=== PATIENT | male | born 1940 | race Caucasian/White ===

== ENCOUNTER → 2019-07-08 09:42 | Outpatient (CLI) | payer MEDICARE, OTHER, SELFPAY ==
[2019-07-08] VITALS (8 sets, daily range): BP systolic 99–151; BP diastolic 44–72; PULSE 63–85; RESP 16; TEMP 36.3–36.7; O2SAT 96–99; BMI 37.3
[2019-07-08] MEDS: 0.9% NaCl Peripheral Flush Adult/Peds IV (10:14)
[2019-07-08] MEDS: Acetaminophen 325 MG Tablet 650 MG PO (10:16)
[2019-07-08] MEDS: Furosemide 20 MG/2 ML VIAL IV (13:13)
== END ==
PROVIDERS: PCP Internal Medicine; Referring Provider Internal Medicine Hematology & Oncology; Visit Provider Internal Medicine Hematology & Oncology
DX: C61 Malignant neoplasm of prostate (principal); D64.9 Anemia, unspecified
CPT/HCPCS: 36430; 86850; 86900; 86901; 86920; 86922; J7040; P9016; A4216; J1940

== ENCOUNTER 2019-07-20 10:14 | Inpatient (IN) | payer MEDICARE, OTHER, SELFPAY ==
[2019-07-08 09:57] VITALS: BMI 37.3
[2019-07-20] VITALS (9 sets, daily range): BP systolic 132–161; BP diastolic 54–73; PULSE 66–91; RESP 16–18; TEMP 36.6–37.5; O2SAT 93–100; BMI 36.4; BMI 36.5
--- NOTE | 2019-07-20 10:43 | EKG12_ITS ---
Test Reason : ABN LABS Blood Pressure : / mmHG Vent. Rate : 069 BPM Atrial Rate : 069 BPM P-R Int : 192 ms QRS Dur : 116 ms QT Int : 474 ms P-R-T Axes : 072 -17 059 degrees QTc Int : 507 ms Normal sinus rhythm Nonspecific ST and T wave abnormality Prolonged QT Abnormal ECG Confirmed by JOE MAY ([id number]), health editor CHARLENE MOLINA ([id number]) on 07/28/2019 7:47:18 AM Referred By: CAROLINA Confirmed By:JOE MAY
--- NOTE | 2019-07-20 10:45 | ED.DCSUM_ITS ---
- ER Visit Summary Date of Service: 07/20/19 Chief Complaint: Abnormal labs History of Present Illness: The patient is a 78 M who presents with abnormal labs that were noticed yesterday. Patient states he had labs drawn yesterday and he was noted to have an elevated BUN and creatinine. Patient states he was told yesterday to come to the emergency department but he waited until today. Patient states he has been feeling somewhat weak. Patient denies any fevers or chills. Patient denies any chest pain or shortness of breath. Patient admits to occasional cough. Patient denies any nausea or vomiting. Patient denies any dysuria or hematuria. Patient denies any flank pain. Physical Examination: Vital signs are stable. Patient is afebrile. Patient is in no acute distress. Oral mucosa is pink and moist. Neck is supple. Trachea is midline. There is no JVD. Heart was regular rate and rhythm. Lungs are clear and equal bilaterally. Abdomen is soft. Bowel sounds are normal. There is no tenderness. Cranial nerves II through XII are intact. There are no focal motor or sensory deficits noted. Test Results: CBC showed a mild anemia with hemoglobin of 8.3. Comprehensive metabolic profile showed a sodium of 148 and a chloride of 113 with a potassium of 3.2. BUN and creatinine were also elevated at 56 and 6.31 respectively. Urinalysis does not show any evidence of urinary tract infection. Emergency Department Course and Treatment: Patient was given IV fluids. Case was discussed with the hospitalist. He will admit the patient to his service. Patient understood and was agreeable with the plan. All questions were answered. Disposition: Admit to hospital Impression: 1. Acute kidney injury This note was generated with [employer] dictation software. It may contain incorrect words, spelling, and punctuation that were not noted in review of the chart prior to signing ED Disposition - Plan for ED Patient: Disposition: Acute [facility]
[2019-07-20 11:00] LABS: Mucous, Urine 0 SEEN /hpf (<or=2+); Squamous Epithelial Cells - UA 0 SEEN /hpf (0-5); White Blood Cells 0 SEEN /hpf (0-5)
[2019-07-20 11:01] LABS: Absolute Lymphocyte Count 0.81 X10^3/uL (0.83-4.51); Absolute Neutrophil Count 4.5 X10^3/uL (2.0-7.7); Basophil# 0.02 X10^3/uL; Basophil% 0.3 % (0-1); Eosinophil# 0.12 X10^3/uL; Hematocrit 27.1 % (40-54); Hemoglobin 8.3 g/dL (13.0-16.5); Lymphocyte # 0.81 X10^3/ul (4.0); Lymphocyte % 13.6 % (19-41); Mean Corp Hgb Conc 30.6 g/dL (32-36); Mean Corpuscular Hgb 29.1 pg (27.0-32.0); Mean Corpuscular Volume 95.1 fL (80-94); Mean Platelet Vol. 9.2 fl (6.2-12.0); Monocyte% 8.4 % (0-10); NRBC Flagged by Analyzer 0 % (0-5); Neutrophil # 4.45 X10^3/uL (2.7-7.7); Neutrophil % 74.9 % (47-70); Platelet Count 199 K/mm3 (150-450); RBC Distribution Width CV 15.2 % (11.6-14.6); RBC Distribution Width SD 53.1 fl (35.1-43.9); Red Blood Count 2.85 M/mm3 (4.6-6.2)
[2019-07-20 11:01] LABS: Color, Urine Yellow (Yellow); Glucose, Dipstick Normal (Normal); Ketone-Dipstick Negative (Negative); Leukocyte Esterase-Dipstick Negative /ul (Negative); Nitrite-Dipstick Negative (Negative); Occult Blood-Urine 50 /ul (Negative); Protein-Dipstick 100 mg/dl (Negative); Specific Gravity, Urine 1.015 (1.002-1.030); Urine Bilirubin Dipstick Negative (Negative); Urine Clarity Sl. Cloudy (Clear); Urine Urobilinogen Normal (Normal)
[2019-07-20 11:07] LABS: Amorphous Sediment 1+; Bacteria RARE /hpf (None Seen); Red Blood Cells-Urine 0-5 SEEN /hpf (0-5)
--- NOTE | 2019-07-20 11:10 | RAD_ITS ---
STUDY: X-RAY CHEST REASON FOR EXAM: Male, 78 years old. ELEVATED BUN AND CREATNINE LEVELS. TECHNIQUE: Single AP portable view of the chest. COMPARISON: None. FINDINGS: EKG electrodes are seen. Scattered calcified granulomas. There is a 1.1 cm x 4.7 cm no focal pleural thickening along the lateral aspect of the right lung base. There is no demonstrated pleural abnormality. Normal size heart. Normal mediastinum and eugenio. Normal visualized pulmonary arteries. Normal visualized aortic arch and descending thoracic aorta. There are diffuse degenerative changes of the visualized thoracic spine. There is a 1 cm round sclerotic lesion in the proximal left humerus. Metastatic deposit should be ruled out. Multiple healed left-sided rib fractures. There is no demonstrated abnormality of the visualized soft tissue structures of the upper abdomen. RAD/Chest 1 View (Portable) IMPRESSION: Focal pleural thickening in the lateral aspect of the right lung base as described. Multiple healed left rib fractures. Possible 1 cm sclerotic metastasis in the proximal portion of the left humerus. Electronically Signed: Issa Rojo, at 11:32 EDT , Service support ,
[2019-07-20 11:19] LABS: AST(SGOT) 11 U/L (15-37); Alanine Aminotransfer ALT/SGPT 15 U/L (16-61); Albumin, Serum 3.3 g/dL (3.2-5.0); Alkaline Phosphatase 31 U/L (45-117); Anion Gap 9 (5-15); BUN 56 mg/dL (7-18); BUN/Creat Ratio 8.9 RATIO (10-20); Calcium,Total 9.2 mg/dL (8.5-10.1); Chloride 113 mmol/L (98-107); Creatinine, Serum 6.31 mg/dL (0.70-1.30); EST Glomerular Filtration Rate 9 mL/min (>60); Est Glom Filt Rate - Afr Amer 11 mL/min (>60); Estimated Creatinine Clearance 9.64 ml/min; Globulin 3.4 g/dL (2.2-4.2); Glucose 132 mg/dL (74-106); Potassium 3.2 mmol/L (3.5-5.1); Protein, Total 6.7 g/dL (6.4-8.2); Sodium Level 148 mmol/L (136-145)
[2019-07-20] MEDS: 0.9% Normal Saline 1,000 ML 1000 ML IV (12:23)
--- NOTE | 2019-07-20 12:56 | HP.PCM_ITS ---
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 Per patient he was called by his primary care physician following a routine lab work which demonstrated worsening kidney infection. Patient was on metformin as well as Altace at home he was instructed to stop those medications. He was also instructed to present to the ED. Repeat labs obtained in the ED demonstrated worsening kidney function. Patient was started on hydration admitted to regular nursing floor for further management Past Medical History Past Medical History (Chronic Problems): Chronic Problems DM (diabetes mellitus) (Chronic) Essential (primary) hypertension (Chronic) Prostate CA (Chronic) Allergies Iodinated Contrast Media Allergy (Verified 07/20/19 10:16) PT UNSURE OF REACTION Home Medications: Ambulatory Orders Medication Instructions Recorded Aspirin E.C. [Ecotrin] 81 mg PO DAILY@0800 08/14/16 Atorvastatin Calcium [Lipitor] 10 mg PO QHS 08/14/16 Doxazosin Mesylate [Cardura] 8 mg PO DAILY 08/14/16 Fenofibrate,Micronized 34 mg PO DAILY 08/14/16 [Fenofibrate] Leuprolide Acetate [Lupron 30 mg IM 08/14/16 Depot-Ped] Ondansetron [Zofran Odt] 4 mg PO Q8H PRN PRN #10 tablet 08/14/16 Polyethylene Glycol 3350 [Miralax] 17 gm PO DAILY 08/14/16 Sitagliptin Phosphate [Januvia] 50 mg PO DAILY 08/14/16 Triamcinolone Acetonide [Nasacort 2 spray NASAL DAILY 08/14/16 Aq Nasal Wells] Abiraterone Acetate 1,000 mg PO DAILY 07/20/19 Amlodipine [Norvasc] mg PO DAILY 07/20/19 Ergocalciferol (Vitamin D2) 50,000 unit PO QWEEK 07/20/19 [Drisdol] Fluoxetine [Prozac] 20 mg PO DAILY 07/20/19 Furosemide [Lasix] 20 mg PO QODAY 07/20/19 Iron Polysaccharide Complex 150 mg PO DAILY 07/20/19 [Ferrex 150] Prednisone 5 mg PO DAILY 07/20/19 Smoking Status: Never smoker - *Family History Maternal History Items: Cancer Paternal History Items: Heart Disease Review of Systems Constitutional: Denies: Anorexia, Chills, Fever, Night Sweats, Weight Change HEENT: Denies: Head Aches, Sinus Congestion, Sinus Drainage Cardiovascular: Denies: Chest Pain, Orthopnea, Palpitations, Paroxysmal Noc. Dyspnea Respiratory: Denies: Cough, Shortness of breath at rest, Shortness of breath upon exertion, Sputum production Gastrointestinal: Denies: Abdominal Pain, Hematemesis, Hematochezia, Nausea, Melena, Vomiting Genitourinary: Denies: Dysuria, Frequency, Hematuria, Urgency Musculoskeletal: Denies: Joint Pain, Joint Tenderness Skin: Denies: Rash Neurological: Denies: Focal weakness, Numbness, Tingling Psychiatric: Denies: Homicidal Ideations, Suicidal Ideations Hematologic/ Lymphatic: Denies: Easy Bruising, Easy Bleeding VTE Information - Inpt Only VTE Present on Admission: No VTE Mechan Device Prophylaxis: SCD's VTE Pharm Prophylaxis ordered?: Yes Patient Problems: Active and Suspected Problems SARA (acute kidney injury) (Acute) Objective: GENERAL: cooperative HEENT: Atraumatic; EYES; Anicteric, Normal Conjunctiva NECK; supple, normal thyroid, RESPIRATORY: Diminished to auscultation CARDIOVASCULAR: Regular S1 S2, GI: soft, normoactive bowel sounds, : No Renal angle tenderness; EXTREMITIES: No edema, no clubbing, MUSCULOSKELETAL: no muscle waisting NEURO: Awake; no lateralizing signs. SKIN: No Rash PSYCH; Flat affect - Physical Exam Vitals/I&O's: Vital Signs Temp Pulse Resp BP Pulse Ox 98.2 F 72 18 149/73 H 100 07/20/19 12:18 07/20/19 12:18 07/20/19 12:18 07/20/19 12:18 06/03/20 12:18 Oxygen Delivery Method Room Air Weight: 115.3 kg Body Mass Index (BMI) 36.4 Intake and Output for Last 24 Hours 07/18/19 07/19/19 07/20/19 23:59 23:59 23:59 Intake Total 500 / 500 Balance 500 / 500 Laboratory Results 07/20/19 10:51: WBC 6.0, RBC 2.85 L, Hgb 8.3 L, Hct 27.1 L, MCV 95.1 H, MCH 29.1, MCHC 30.6 L, RDW Std Deviation 53.1 H, RDW Coeff of Alva 15.2 H, Plt Count 199, MPV 9.2, Immature Gran % (Auto) 0.800, Neut % (Auto) 74.9 H, Lymph % (Auto) 13.6 L, [place] % (Auto) 8.4, Eos % (Auto) 2.0, Baso % (Auto) 0.3, Absolute Neuts (auto) 4.5, Absolute Lymphs (auto) 0.81 L, Nucleated RBC % 0 07/20/19 10:51: Sodium 148 H, Potassium 3.2 L, Chloride 113 H, Carbon Dioxide 26.0, Anion Gap 9, BUN 56 H, Creatinine 6.31 H, Estim Creat Clear Calc 9.64, Est GFR (MDRD) Af Amer 11 L, Est GFR (MDRD) Non-Af 9 L, BUN/Creatinine Ratio 8.9 L, Glucose 132 H, Calcium 9.2, Total Bilirubin 0.30, AST 11 L, ALT 15 L, Alkaline Phosphatase 31 L, Total Protein 6.7, Albumin 3.3, Globulin 3.4, Albumin/Globulin Ratio 1.0 07/20/19 10:54: Urine Color Yellow, Urine Clarity Sl. Cloudy, Urine pH 6.0, Ur Specific [place] 1.015, Urine Protein 100 H, Urine Glucose (UA) Normal, Urine Ketones Negative, Urine Occult Blood 50 H, Urine Nitrite Negative, Urine Bilirubin Negative, Urine Urobilinogen Normal, Ur Leukocyte Esterase Negative, Urine RBC 0-5 SEEN, Urine WBC 0 SEEN, Ur Squamous Epith Cells 0 SEEN, Amorphous Sediment 1+, Urine Bacteria RARE, Urine Mucus 0 SEEN Current Medications Sodium Chloride () 1,000 mls @ 1,000 mls/hr IV .Q1H ONE Stop: 07/20/19 13:12 Last Admin: 07/20/19 12:23 Dose: 1,000 mls/hr Documented by: Assessment/Plan All Active Problems SARA (acute kidney injury) (Acute) Patient is an 78-year-old gentleman sent to the ED by PCP on account of abnormal labs 1. Acute renal failure ?Not sure if there is some chronicity to patient's renal failure. Ordered records from the [facility]. Patient last creatinine on record in the hospital demonstrated normal creatinine of 1.23 in 2017. Patient has been admitted to regular nursing floor started on hydration with serial monitoring of electrolytes. As part of his management also ordered renal duplex and discontinued potential nephrotoxic medications 2. Hypernatremia do suspect some dehydration ?Admitted to regular nursing floor being managed with IV fluid 3. Hypokalemia - Repleted as needed 4. Diabetes mellitus type II -Controlled with suspected complications including diabetic nephropathy patient's oral hypoglycemics held. Placed on Accu-Cheks a.c. and at bedtime and covered with sliding scale insulin 5. Hypertension - Blood pressure controlled, home medications except for Altace continued with dose adjustment as needed 6. Dyslipidemia -Patient is on statin therapy, continued at home dose 7. Prostate CA ?Patient was treated with prostatectomy followed by radiation therapy currently on abiraterone 8. Depression ?Patient on SSRI 9. Anemia ?Suspected to be secondary to anemia of chronic disorder. Monitoring H&H. As part of patient's evaluation ordered stool guaiac, as well as iron studies and B12 levels 10. Obesity with BMI of 36.5 ?Counseled on weight loss 11. DVT prophylaxis ?On Lovenox dose adjusted for kidney function Advance planning; did discuss with the patient regarding advanced directives as well as CODE STATUS. Did explain the various scenarios involved ( FULL CODE, DNR CCA, DNR CCA with no intubation, and DNR CC and what each meant) patient elected full code with CPR and intubation if warranted. Order was placed. Time spent on discussion 18 minutes. Inpatient E&M: 33684 Init Hosp L3 Procedures: 59440 Advncd Care Plan 30 Min
[2019-07-20 13:32] LABS: Iron 69 ug/dL (65-175); Iron Binding Capacity,Total 333 ug/dL (250-450); PERCENT IRON SATURATION 20.7 % (15.0-55.0)
[2019-07-20 14:16] LABS: Vitamin B12 335 pg/mL (211-911)
--- NOTE | 2019-07-20 14:42 | PCM.PN.BLA ---
Progress Note received consult. chart reviewed from [facility], [facility]. PCP is Dr Martinez, Oncology Dr WHIPPLE. previous baseline creatinines. 1.6 in 11/2018, 2.1 12/2018, 2.2 on 03/2019, now more than 5. from Dr Barber office note. 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 ??there was angiolymphatic invasion but no seminal vesicle involvement. ?PSA felt undetectable?after surgery. ?However one year later, he had increasing PSA, and he received a course of radiation therapy to prostatic bed. ?His PSA was initially diagnosed at 2.8. ??His PSA increased in 2012 to?8.25. Patient reports having a negative?bone scan at that time. ?Since his initial surgery the patient has had urinary incontinence. ?No diarrhea, fevers chills weight loss. ?No bladder infections kidney stones or gross hematuria. ?? Treatment history:?Intermittent androgen ablation therapy with Lupron since 2012. ?? Current treatment: Lupron/ Zytiga/ prednisone Aranesp injection monthly UA with hematuria and proteinuria renal US from [facility] last week without hydronephrosis and increased echogenecity work up ordered. Full consult to follow STROKE Vital Signs/Narrative: Vital Signs Temp Pulse Resp BP Pulse Ox 07/20/19 13:50 98.9 F 81 18 161/69 H 94 07/20/19 13:05 94 07/20/19 12:58 98.2 F 72 18 149/73 H 100 07/20/19 12:18 98.2 F 72 18 149/73 H 100 07/20/19 12:05 66 18 93
[2019-07-20 16:55] LABS: Bedside Glucose 189 mg/dL (70-110)
[2019-07-20] MEDS: Insulin Lispro 100 UNIT/ML INSULN.PEN SC (17:32)
[2019-07-20] MEDS: Atorvastatin Calcium 10 MG Tablet PO (22:14)
[2019-07-20 22:15] LABS: Bedside Glucose 116 mg/dL (70-110)
[2019-07-21] VITALS (12 sets, daily range): BP systolic 124–191; BP diastolic 48–76; PULSE 71–91; RESP 16–18; TEMP 36.7–37.2; O2SAT 91–98; BMI 36.4
--- NOTE | 2019-07-21 | KID_PTH ---
PATIENT: PERLA SANCHEZ LOC: MS3 U#:[id number] AGE/SX: 78/M ROOM: [facility] [place]07/20/[address]: Dr. Kvng Kim DO : 1940 BED: 1 DIS: 07/26/2019 SPEC #: [id number] RECD: 07/21/19 13:09 STATUS: DEANNA REQ #: [id number] RUPA: 07/21/19 00:[address]: Rodrigo Gallegos DEPT: SURGICAL PATHOLOGY RECD BY: Ankur Liang ENTERED: 07/21/19 13:10 SP TYPE: KIDNEY OTHR DR: MD Dr. Rodrigo Aguirre MD Dr. Victor Velasquez, MD Tissues: Kidney, NOS Procedures: Electron Microscopy (ACH) Fluorescent Antibody (ACH) Sp St Grp II Kidney (ACH) Kidney Biopsy (ACH) Fluorescent antibody (ACH) add'l Comments: @ Ordering doctor for SANDRINE edited from to @ by TERRI at 07/22/19 1002 @ Submitting doctor edited from to @ by FAVIANOD at 07/22/19 1002 HEADER OPERATION: CT-guided right renal biopsy PRE-OP DIAGNOSIS: Acute kidney injury TISSUE SUBMITTED: Right kidney 18 gauge x4 MICROSCOPIC DIAGNOSIS Kidney, right, renal biopsy: Acute (allergic) interstitial nephritis, moderate. Acute tubular damage, mild to moderate. 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 Hypertensive arterial sclerosis, marked. COMMENT The findings are those of acute/allergic interstitial nephritis with predominant lymphocytes and admixed eosinophils scattered multifocally throughout the entire interstitium of the biopsy specimen. Acute tubular damage is also admixed with the predominant interstitial inflammatory infiltrate. It is possible this is a second area of injury or is related to the predominant acute/allergic interstitial nephritis. Clinical correlation is essential. 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 Clinical correlation and correlation with medication history/recent medication history may be most helpful for the acute changes (allergic/acute interstitial nephritis). Background chronic changes of hypertensive glomerulosclerosis and arteriolonephrosclerosis (global glomerulosclerosis is 31/60 total glomeruli examined in by all methods/studies), moderately advanced, are also noted. MICROSCOPIC DESCRIPTION LIGHT MICROSCOPY: Good biopsy specimen consisting predominantly of renal cortex and up to 51 glomeruli or portions of glomeruli for histologic evaluation. Twenty-six glomeruli demonstrate global sclerosis and overall shrunken nature and diameter while remaining glomeruli demonstrate open capillary loops with normal mesangial matrix and cellularity. Two glomeruli demonstrate vascular pole (ischemic type) collapse while remainder of glomeruli demonstrates normal cellularity and basement membrane profiles. Moderate to marked arteriolar hyalinosis is seen. Intermediate sized vascular structures demonstrate marked arterial sclerosis and mural thickening. Most notable on the biopsy is multifocal interstitial inflammation consisting predominantly of small round lymphocytes with admixtures of eosinophils. No suppurative acute inflammation is identified. No intratubular inflammation is seen. Multiple tubular profiles demonstrate ectatic cross-sections of tubules with flattened epithelial lining most consistent with an element of acute tubular damage. Multifocal interstitial inflammation with lymphocytes and eosinophils is noted throughout the biopsy specimen. No epithelial crescents are seen. No vasculitis is identified. PAS stain highlights sclerotic glomeruli and arteriolar hyalinosis as well as arteriolosclerosis, moderate to marked. Multifocal atrophic/atrophic tubules with duplicated basement membranes are also seen. Mesangial matrix and cellularity is otherwise unremarkable. Rare vascular pole collapse (ischemic type) of glomeruli is seen. Howard/silver stain demonstrates sclerotic glomeruli and arteriolar hyalinosis. Open glomeruli demonstrate normal mesangial matrix and cellularity as well as glomerular capillary profiles without breaks, splits or irregular luminal outlines. Trichrome stain highlights sclerotic glomeruli as well as arteriolosclerosis and arteriolar sclerosis and hyalinosis. Interstitial inflammatory infiltrate is noted. No fuchsinophilic deposits are identified within open/intact glomeruli. Interstitial inflammation approaches 40%. No epithelial crescents are identified. Multifocal interstitial inflammatory infiltrate is seen throughout. [place] red stain is negative for congophilia and is negative for birefringence and dichoromatism by polarization microscopy. IMMUNOFLUORESCENCE: Tissue submitted for immunofluorescence microscopy demonstrates renal cortex and medulla and up to 6 glomeruli are portions of glomeruli for histologic evaluation. Four glomeruli demonstrate global sclerosis and overall shrunken diameter while two glomeruli demonstrate predominantly open capillary loops for evaluation. IgG, IgA, IgM, C3, C1q, kappa light chain, lambda light chain, fibrin and albumin are negative within glomeruli, tubules and vascular structures. ELECTRON MICROSCOPY: Toluidine blue-stained sections (thick/tool and die technician sections) reveal 3 glomeruli, 1 of which demonstrates global sclerosis and overall shrunken diameter. A second glomerulus demonstrates vascular pole (ischemic) collapse while another demonstrates slight vascular collapses as well. Ultrastructure examination reveals focal vascular pole collapse within glomerulus demonstrating otherwise unremarkable and normal glomerular capillary basement membranes and basement membrane thickness. Normal mesangial cellularity is seen. Focal foot process obliteration is seen; however, most foot processes are intact and in place. Foot process effacement is seen adjacent to collapsed glomerular capillary loops (ischemic type collapse). Interstitial chronic inflammation is seen in peritubular/interstitial location. GROSS DESCRIPTION The specimen is sent entirely to [facility] for diagnosis. Received in transport medium labeled with the patient's name and right kidney the specimen consists of four variably sized core biopsy specimens of reza-yellow soft tissue which are, in range, from 0.6 to 1.3 cm in maximum dimension. Rough Rice Tender piece is submitted for immunofluorescent microscopy. Rough Rice Tender section is submitted for electron microscopic studies. The remainder of the specimen is entirely submitted as A1.
[2019-07-21 06:20] LABS: Absolute Lymphocyte Count 1.08 X10^3/uL (0.83-4.51); Absolute Neutrophil Count 3.5 X10^3/uL (2.0-7.7); Basophil# 0.01 X10^3/uL; Basophil% 0.2 % (0-1); Eosinophil# 0.09 X10^3/uL; Eosinophils% 1.7 % (0-5); Hematocrit 23.8 % (40-54); Hemoglobin 7.3 g/dL (13.0-16.5); Lymphocyte # 1.08 X10^3/ul (4.0); Lymphocyte % 20.8 % (19-41); Mean Corp Hgb Conc 30.7 g/dL (32-36); Mean Corpuscular Hgb 29.6 pg (27.0-32.0); Mean Corpuscular Volume 96.4 fL (80-94); Mean Platelet Vol. 8.7 fl (6.2-12.0); Monocyte# 0.44 X10^3/uL; Monocyte% 8.5 % (0-10); NRBC Flagged by Analyzer 0 % (0-5); Neutrophil # 3.54 X10^3/uL (2.7-7.7); Platelet Count 148 K/mm3 (150-450); RBC Distribution Width CV 15.2 % (11.6-14.6); RBC Distribution Width SD 53.8 fl (35.1-43.9); Red Blood Count 2.47 M/mm3 (4.6-6.2); White Blood Count 5.2 K/mm3 (4.4-11.0)
[2019-07-21 06:46] LABS: Bedside Glucose 88 mg/dL (70-110)
[2019-07-21 06:49] LABS: Anion Gap 8 (5-15); BUN 52 mg/dL (7-18); BUN/Creat Ratio 8.6 RATIO (10-20); Calcium,Total 8.3 mg/dL (8.5-10.1); Chloride 113 mmol/L (98-107); Creatinine, Serum 6.07 mg/dL (0.70-1.30); EST Glomerular Filtration Rate 10 mL/min (>60); Est Glom Filt Rate - Afr Amer 12 mL/min (>60); Estimated Creatinine Clearance 10.02 ml/min; Glucose 95 mg/dL (74-106); Magnesium 1.9 mg/dL (1.6-2.6); Phosphorus 4.6 mg/dL (2.5-4.9); Potassium 3.2 mmol/L (3.5-5.1); Sodium Level 144 mmol/L (136-145)
--- NOTE | 2019-07-21 07:20 | PCM.PN.HOSP ---
Patient Problems: Active and Suspected Problems SARA (acute kidney injury) (Acute) Reason for Visit: Renal failure. Subjective: Seen no significant improvement in kidney function. Hemoglobin did drop to 7.3. Consult was placed to nephrology case discussed plan is for patient to undergo renal biopsy Objective: GENERAL: cooperative HEENT: Atraumatic; EYES; Anicteric, Normal Conjunctiva NECK; supple, normal thyroid, RESPIRATORY: Diminished to auscultation CARDIOVASCULAR: Regular S1 S2, GI: soft, normoactive bowel sounds, : No Renal angle tenderness; EXTREMITIES: No edema, no clubbing, MUSCULOSKELETAL: no muscle waisting NEURO: Awake; no lateralizing signs. SKIN: No Rash PSYCH; Flat affect Vitals/I&O's: Vital Signs Temp Pulse Resp BP Pulse Ox 98.8 F 71 16 124/48 H 96 07/21/19 04:30 07/21/19 04:30 07/21/19 04:30 07/21/19 04:30 07/21/19 04:30 Oxygen Delivery Method Room Air Weight: 115.3 kg Body Mass Index (BMI) 36.4 Intake and Output for Last 24 Hours 07/19/19 07/20/19 07/21/19 23:59 23:59 23:59 Intake Total 3155 / 3305 1205 / 1205 Output Total 1000 / 1450 650 / 650 Balance 2155 / 1855 555 / 555 Laboratory Results 07/20/19 10:51: WBC 6.0, RBC 2.85 L, Hgb 8.3 L, Hct 27.1 L, MCV 95.1 H, MCH 29.1, MCHC 30.6 L, RDW Std Deviation 53.1 H, RDW Coeff of Alva 15.2 H, Plt Count 199, MPV 9.2, Immature Gran % (Auto) 0.800, Neut % (Auto) 74.9 H, Lymph % (Auto) 13.6 L, Posey % (Auto) 8.4, Eos % (Auto) 2.0, Baso % (Auto) 0.3, Absolute Neuts (auto) 4.5, Absolute Lymphs (auto) 0.81 L, Nucleated RBC % 0 07/20/19 10:51: Sodium 148 H, Potassium 3.2 L, Chloride 113 H, Carbon Dioxide 26.0, Anion Gap 9, BUN 56 H, Creatinine 6.31 H, Estim Creat Clear Calc 9.64, Est GFR (MDRD) Af Amer 11 L, Est GFR (MDRD) Non-Af 9 L, BUN/Creatinine Ratio 8.9 L, Glucose 132 H, Calcium 9.2, Total Bilirubin 0.30, AST 11 L, ALT 15 L, Alkaline Phosphatase 31 L, Total Protein 6.7, Albumin 3.3, Globulin 3.4, Albumin/Globulin Ratio 1.0 07/20/19 10:51: Vitamin B12 335 07/20/19 10:51: Iron 69, TIBC 333, Iron Saturation 20.7 07/20/19 10:54: Urine Color Yellow, Urine Clarity Sl. Cloudy, Urine pH 6.0, Ur Specific [place] 1.015, Urine Protein 100 H, Urine Glucose (UA) Normal, Urine Ketones Negative, Urine Occult Blood 50 H, Urine Nitrite Negative, Urine Bilirubin Negative, Urine Urobilinogen Normal, Ur Leukocyte Esterase Negative, Urine RBC 0-5 SEEN, Urine WBC 0 SEEN, Ur Squamous Epith Cells 0 SEEN, Amorphous Sediment 1+, Urine Bacteria RARE, Urine Mucus 0 SEEN 07/20/19 16:50: POC Glucose 189 H 07/20/19 22:09: POC Glucose 116 H 07/21/19 06:05: WBC 5.2, RBC 2.47 L, Hgb 7.3 L, Hct 23.8 L, MCV 96.4 H, MCH 29.6, MCHC 30.7 L, RDW Std Deviation 53.8 H, RDW Coeff of Alva 15.2 H, Plt Count 148 L, MPV 8.7, Immature Gran % (Auto) 0.800, Neut % (Auto) 68.0, Lymph % (Auto) 20.8, Posey % (Auto) 8.5, Eos % (Auto) 1.7, Baso % (Auto) 0.2, Absolute Neuts (auto) 3.5, Absolute Lymphs (auto) 1.08, Nucleated RBC % 0 07/21/19 06:05: Sodium 144, Potassium 3.2 L, Chloride 113 H, Carbon Dioxide 23.0, Anion Gap 8, BUN 52 H, Creatinine 6.07 H, Estim Creat Clear Calc 10.02, Est GFR (MDRD) Af Amer 12 L, Est GFR (MDRD) Non-Af 10 L, BUN/Creatinine Ratio 8.6 L, Glucose 95, Calcium 8.3 L, Phosphorus 4.6, Magnesium 1.9 07/21/19 06:05: Total Protein (PEP) Pending, IgG Pending, IgA Pending, IgM Pending, Albumin (SAMUEL) Pending, Albumin/Globulin (SAMUEL) Pending, [id number] SAMUEL Pending, [id number] SAMUEL Pending, Beta-Globulins (SAMUEL) Pending, Gamma Globulins (SAMUEL) Pending, SAMUEL M-Melo Pending 07/21/19 06:05: c-ANCA Antibody Pending, p-ANCA Antibody Pending, Complement C3 Pending 07/21/19 06:05: Complement C4 Pending 07/21/19 06:40: POC Glucose 88 Current Medications Abiraterone Acetate (Zytiga) 1,000 mg PO DAILY [facility] Acetaminophen (Tylenol) 650 mg PO Q6H PRN PRN PRN Reason: Pain Score 1-10/Temp > 100.7 F Al Hydroxide/Mg Hydroxide (Mylanta Ii) 30 ml PO Q6H PRN PRN PRN Reason: Gastric Burning Aspirin (Ecotrin) 81 mg PO DAILY@0800 [facility] Atorvastatin Calcium (Lipitor) 10 mg PO QHS [facility] Last Admin: 07/20/19 22:14 Dose: 10 mg Documented by: Dextrose (D50w Syringe) 0 gm IV X1 PRN; Protocol PRN Reason: Hypoglycemia Doxazosin Mesylate (Cardura) 8 mg PO DAILY [facility] Enoxaparin Sodium (Lovenox) 30 mg SC DAILY [facility] Fluoxetine HCl (Prozac) 20 mg PO DAILY [facility] Glucagon () 1 mg IM .X1 PRN PRN Reason: Hypoglycemia Hydralazine HCl (Apresoline Iv) 10 mg IV Q4H PRN PRN PRN Reason: Hypertensive Emergency Potassium Chloride 10 meq/ (Sodium Chloride) 1,005 mls @ 150 mls/hr IV .Q6H42M [facility] Stop: 07/21/19 22:37 Last Admin: 07/21/19 05:58 Dose: 150 mls/hr Documented by: Insulin Human Lispro (Humalog Kwikpen (Bkc)) 0 unit SC ACHS [facility]; Protocol Last Admin: 07/21/19 06:42 Dose: Not Given Documented by: Melatonin (Melatonin) 3 mg PO QHS PRN PRN PRN Reason: INSOMNIA Ondansetron HCl (Zofran) 4 mg IV Q8H PRN PRN PRN Reason: NAUSEA/VOMITING Oxycodone HCl (Oxyir) 5 mg PO Q4H PRN PRN PRN Reason: Pain Score 4-5/10 Oxycodone HCl (Oxyir) 10 mg PO Q4H PRN PRN PRN Reason: Pain Score 6-10/10 Polysaccharide Iron Complex (Ferrex 150) 150 mg PO DAILY [facility] Potassium Chloride (K-Dur) 40 meq PO X1 ONE Stop: 07/21/19 07:20 Prednisone () 5 mg PO DAILYCM [facility] Promethazine HCl (Phenergan) 25 mg IM Q6H PRN PRN PRN Reason: Breakthrough nausea/vomiting Senna/Docusate Sodium (Senokot-S, Rachael-Colace) 2 tablet PO BID PRN PRN PRN Reason: Constipation Sodium Chloride () 10 - 40 ml IV UD PRN PRN Reason: SALINE FLUSH Throat Lozenges (Cepacol Sore Throat Lozenge) 1 lozenge MUCOUS MEM Q2H PRN PRN PRN Reason: SORE THROAT STROKE Vital Signs/Narrative: Vital Signs Temp Pulse Resp BP Pulse Ox 07/21/19 04:30 98.8 F 71 16 124/48 H 96 Medical Necessity - Tobacco Use Smoking Status: Never smoker Assessment/Plan All Active Problems SARA (acute kidney injury) (Acute) Patient is an 78-year-old gentleman sent to the ED by PCP on account of abnormal labs 1. Worsening renal failure ?Not sure if there is some chronicity to patient's renal failure. Ordered records from the [facility]. Patient last creatinine on record in the hospital demonstrated normal creatinine of 1.23 in 2017. Patient has been admitted to regular nursing floor started on hydration with serial monitoring of electrolytes. As part of his management also ordered renal duplex and discontinued potential nephrotoxic medications -07/21/2019: Review of records from [facility] including renal duplex did not demonstrate any obstruction. Patient kidney function appears to have worsened over a period of time. Consult was placed to nephrology Case discussed with Dr. Gallegos plan is for patient to undergo renal biopsy 2. Anemia ?Suspected to be secondary to anemia of chronic disorder. Monitoring H&H. As part of patient's evaluation ordered stool guaiac, as well as iron studies and B12 levels -Hemoglobin down to 7.3; monitoring H&H and transfuse if patient becomes symptomatic or hemoglobin falls below 7 3. Hypokalemia - Repleted as needed 4. Diabetes mellitus type II -Controlled with suspected complications including diabetic nephropathy patient's oral hypoglycemics held. Placed on Accu-Cheks a.c. and at bedtime and covered with sliding scale insulin 5. Hypertension - Blood pressure controlled, home medications except for Altace continued with dose adjustment as needed 6. Dyslipidemia -Patient is on statin therapy, continued at home dose 7. Prostate CA ?Patient was treated with prostatectomy followed by radiation therapy currently on abiraterone 8. Depression ?Patient on SSRI 9. Hypernatremia do suspect some dehydration ?Admitted to regular nursing floor being managed with IV fluid ?07/21/2019: Sodium levels down to 144 10. Obesity with BMI of 36.5 ?Counseled on weight loss 11. DVT prophylaxis ?On Lovenox dose adjusted for kidney function Inpatient E&M: 49105 Subs Hosp L3
[2019-07-21] MEDS: Aspirin E.C. 81 MG Tablet PO (07:42)
[2019-07-21] MEDS: predniSONE 5 MG Tablet PO (07:42)
--- NOTE | 2019-07-21 09:45 | CT_ITS ---
PROCEDURE: CT GUIDED PERCUTANEOUS KIDNEY BIOPSY. DATE: July 21, 2019 INDICATION: Male, 78 years old. Renal failure. PHYSICIAN: Issa Rojo M.D. MEDICATIONS: 2 mg of Versed and 50 mcg of fentanyl. Conscious sedation was performed. Conscious sedation was started at 12:25 PM and terminated at 12:37 PM. The patient was independently monitored by the department nurse. ACCESS SITE: Lower pole of right kidney. NEEDLE: 18-gauge core biopsy needle. SPECIMEN: 4 18-gauge cores. EBL: None. COMPLICATIONS: None immediate. RADIATION DOSAGE (If Supplied By Facility): CTDIvol = ( 16 ) mGy, DLP = ( 497.41 ) mGycm. Individualized dose optimization techniques were utilized. The risks, benefits, and alternatives to the procedure and sedation were explained to the patient. The specific risk of hemorrhage requiring further treatment or intervention was detailed and accepted. Written informed consent was obtained. The patient was placed on the CT table in the prone position. Multiple axial images were obtained from the lung base through the caudal extent of the kidneys. An appropriate entry site was identified and a jennifer made on the skin. The skin overlying the [ right] posterior flank was prepped and draped in sterile fashion. 1% lidocaine was administered subcutaneously for local anesthesia. Initially, a 22 gauge needle was advanced and CT images confirmed good needle position. The 22 gauge needle was then exchanged for an 17 gauge introducer needle which was advanced. Repeat CT images confirmed good needle trajectory and tip position. The introducer needle was then advanced into the periphery of the inferior renal pole, and CT images were again obtained to confirm exact tip location. The inner stylet of the introducer needle was then removed and an 18 gauge coaxial needle was advanced thru the introducer needle and biopsy performed. A total of [4 ] passes were performed and the specimen collected was sent to Pathology for further evaluation. The needle was withdrawn. Hemostasis was achieved with manual compression and a sterile dressing was applied. Repeat CT images of the biopsy area was performed which demonstrated no gross bleeding or hematoma. The patient tolerated the procedure well without immediate complications. The patient was transported to the [floor/recovery area] in stable condition. CT/Biopsy/Inj or Needle Placement IMPRESSION: Successful CT guided percutaneous kidney biopsy. Electronically Signed: Issa Rojo, at 12:58 EDT , Service support ,
[2019-07-21 09:50] LABS: International Normalized Ratio 1.2; Prothrombin Time (Protime)PT. 14.2 SECONDS (11.7-14.9)
[2019-07-21 09:51] LABS: Partial Thromboplast Time 26.8 Seconds (24.1-36.2)
[2019-07-21] MEDS: Iron Polysaccharide Complex 150 MG CAPSULE PO (10:07)
[2019-07-21] MEDS: FLUoxetine 20 MG Capsule PO (10:07)
[2019-07-21] MEDS: Doxazosin 4 MG Tablet 8 MG PO (10:07)
[2019-07-21] MEDS: ABIRATERONE ACETATE 250 MG TABLET 1000 MG PO (10:43)
--- NOTE | 2019-07-21 11:40 | CASEMGMT ---
RN ISELA Face to Face with patient for initial transition planning/care coordination assessment. RN CM introduced self and role at [facility]. Patient sitting in chair, alert and oriented. Patient willing to participate in assessment and is able to answer all questions appropriately. Care providers, pharmacy, and demographics verified. Patient wishes to discharge home, denies need for home health at this time. Patient states he has no further needs or concerns at this time. CM to follow for discharge planning needs that may arise. PCP: Juanito Specialists: Zeke, oncology Preferred Pharmacy: [facility] Insurance: [employer] Prescription Benefit: yes Living Will/HPOA: yes, thinks it's his Kendra Zavala, on file LNOK: Living Arrangements: Patient lives with in a condo with 3 steps and railing to enter the home. Patient states that he is independnent at home. Transportation: self/ DME/HHC: Patient states that he has a shower chair, raised toilet, cane, grab bars, and Cpap at home. Disposition Plan: Patient to discharge home with family support and follow-up plans in place. Elidia VALADEZ, RN, CM
[2019-07-21] MEDS: Midazolam 2 MG/2 ML Syringe IV (12:25)
[2019-07-21] MEDS: fentaNYL 100 MCG/2 ML Ampul IV (12:27)
[2019-07-21 13:51] LABS: Bedside Glucose 124 mg/dL (70-110)
--- NOTE | 2019-07-21 16:26 | CON.PCM_ITS ---
Problem List (1) SARA (acute kidney injury) Status: Acute Consultation - Renal 07/21/19 PCP/ Referring MD: Requesting physician: [] Primary care physician: Dr. Darshan Solomon MD Reason for Consultation:: SARA - History of Present Illness History of Present Illness: The patient is a 78 year old M presented to the hospital after he was referred to come in by his primary care physician. Routine lab work drawn as part of physical exam showed a creatinine of more than 6 and HE WAS ASKED TO COME INt. Patient remains asymptomatic. - Allergies Allergies: Allergies Iodinated Contrast Media Allergy (Verified 07/20/19 10:16) PT UNSURE OF REACTION - Current Medications Current Medications: Current Medications Abiraterone Acetate (Zytiga) 1,000 mg PO DAILY [facility] Last Admin: 07/21/19 10:43 Dose: 1,000 mg Documented by: Acetaminophen (Tylenol) 650 mg PO Q6H PRN PRN PRN Reason: Pain Score 1-10/Temp > 100.7 F Al Hydroxide/Mg Hydroxide (Mylanta Ii) 30 ml PO Q6H PRN PRN PRN Reason: Gastric Burning Aspirin (Ecotrin) 81 mg PO DAILY@0800 [facility] Last Admin: 07/21/19 07:42 Dose: 81 mg Documented by: Atorvastatin Calcium (Lipitor) 10 mg PO QHS [facility] Last Admin: 07/20/19 22:14 Dose: 10 mg Documented by: Dextrose (D50w Syringe) 0 gm IV X1 PRN; Protocol PRN Reason: Hypoglycemia Doxazosin Mesylate (Cardura) 8 mg PO DAILY [facility] Last Admin: 07/21/19 10:07 Dose: 8 mg Documented by: Enoxaparin Sodium (Lovenox) 30 mg SC DAILY [facility] Last Admin: 07/21/19 10:38 Dose: Not Given Documented by: Fentanyl Citrate (Sublimaze (100mcg Ampule)) 25 - 50 mcg IV UD PRN PRN Reason: Procedural Pain Control Stop: 07/21/19 23:59 Last Admin: 07/21/19 12:27 Dose: 50 mcg Documented by: Fluoxetine HCl (Prozac) 20 mg PO DAILY [facility] Last Admin: 07/21/19 10:07 Dose: 20 mg Documented by: Glucagon () 1 mg IM .X1 PRN PRN Reason: Hypoglycemia Hydralazine HCl (Apresoline Iv) 10 mg IV Q4H PRN PRN PRN Reason: Hypertensive Emergency Potassium Chloride 10 meq/ (Sodium Chloride) 1,005 mls @ 150 mls/hr IV .Q6H42M [facility] Stop: 07/21/19 22:37 Last Admin: 07/21/19 14:16 Dose: 150 mls/hr Documented by: Sodium Chloride () 500 mls @ 0 mls/hr IV .Q0M [facility] Stop: 07/21/19 23:59 Insulin Human Lispro (Humalog Kwikpen (Bkc)) 0 unit SC ACHS [facility]; Protocol Last Admin: 07/21/19 13:37 Dose: Not Given Documented by: Melatonin (Melatonin) 3 mg PO QHS PRN PRN PRN Reason: INSOMNIA Midazolam HCl (Versed) 1 - 2 mg IV UD PRN PRN Reason: Procedural Sedation Stop: 07/21/19 23:59 Last Admin: 07/21/19 12:25 Dose: 2 mg Documented by: Ondansetron HCl (Zofran) 4 mg IV Q8H PRN PRN PRN Reason: NAUSEA/VOMITING Oxycodone HCl (Oxyir) 5 mg PO Q4H PRN PRN PRN Reason: Pain Score 4-5/10 Oxycodone HCl (Oxyir) 10 mg PO Q4H PRN PRN PRN Reason: Pain Score 6-10/10 Polysaccharide Iron Complex (Ferrex 150) 150 mg PO DAILY [facility] Last Admin: 07/21/19 10:07 Dose: 150 mg Documented by: [facility] () [facility] Last Admin: 07/21/19 07:42 Dose: 5 mg Documented by: Promethazine HCl (Phenergan) 25 mg IM Q6H PRN PRN PRN Reason: Breakthrough nausea/vomiting Senna/Docusate Sodium (Senokot-S, Rachael-Colace) 2 tablet PO BID PRN PRN PRN Reason: Constipation Sodium Chloride () 10 - 40 ml IV UD PRN PRN Reason: SALINE FLUSH Throat Lozenges (Cepacol Sore Throat Lozenge) 1 lozenge MUCOUS MEM Q2H PRN PRN PRN Reason: SORE THROAT - Past Medical History Past Medical History (Chronic Problems): Chronic Problems DM (diabetes mellitus) (Chronic) Essential (primary) hypertension (Chronic) Prostate CA (Chronic) - Social History Smoking Status: Never smoker - Family History Maternal History Items: Cancer Paternal History Items: Heart Disease Review of Systems Constitutional: Denies: Chills, Fever, Weight Change HEENT: Denies: Head Aches, Sinus Congestion, Sinus Drainage Cardiovascular: Denies: Chest Pain, Palpitations Respiratory: Denies: Cough, Shortness of breath at rest, Sputum production Gastrointestinal: Denies: Abdominal Pain, Nausea, Vomiting Genitourinary: Denies: Dysuria Musculoskeletal: Denies: Joint Pain, Joint Tenderness Skin: Denies: Rash, Wounds Neurological: Denies: Numbness, Tingling, Focal weakness Psychiatric: Denies: Anxiety, Depression, Homicidal Ideations, Suicidal Ideations Hematologic/ Lymphatic: Denies: Easy Bruising, Easy Bleeding Patient Problems: Active and Suspected Problems SARA (acute kidney injury) (Acute) - Physical Exam Vitals/I&O's: Vital Signs Temp Pulse Resp BP Pulse Ox 98.9 F 73 18 138/62 H 98 07/21/19 13:42 07/21/19 13:42 07/21/19 13:42 07/21/19 13:42 07/21/19 13:42 Oxygen Flow Rate (L/min) [2] 2 Oxygen Delivery Method [3] Room Air Oxygen Delivery Method [2] Nasal Cannula Oxygen Delivery Method [1 ( Room Air Initial Baseline)] Oxygen Delivery Method Room Air Weight: 115.3 kg Body Mass Index (BMI) 36.4 Intake and Output for Last 24 Hours 07/19/19 07/20/19 07/21/19 23:59 23:59 23:59 Intake Total 3155 / 3305 2410 / 2410 Output Total 1000 / 1450 1250 / 1250 Balance 2155 / 1855 1160 / 1160 General: Alert, Oriented x3, Cooperative HEENT: Atraumatic, PERRLA, EOMI, Normocephalic Neck: Supple, No JVD, Negative Carotid Bruits Lungs: Clear to auscultation, Normal air movement Cardiovascular: Regular rate, No murmurs Abdomen: Bowel Sounds Present, Soft, Non Tender Extremities: No edema, Capillary Refill Less than 3 Seconds Skin: No rashes, No breakdown Musculoskeletal: No Tenderness to Palpation of Joints or Extremities Neurological: Cranial nerves II-XII grossly intact Psych/Mental Status: Normal Affect, Appropriate Laboratory Results 07/20/19 16:50: POC Glucose 189 H 07/20/19 22:09: POC Glucose 116 H 07/21/19 06:05: WBC 5.2, RBC 2.47 L, Hgb 7.3 L, Hct 23.8 L, MCV 96.4 H, MCH 29.6, MCHC 30.7 L, RDW Std Deviation 53.8 H, RDW Coeff of Alva 15.2 H, Plt Count 148 L, MPV 8.7, Immature Gran % (Auto) 0.800, Neut % (Auto) 68.0, Lymph % (Auto) 20.8, [place] % (Auto) 8.5, Eos % (Auto) 1.7, Baso % (Auto) 0.2, Absolute Neuts (auto) 3.5, Absolute Lymphs (auto) 1.08, Nucleated RBC % 0 07/21/19 06:05: Sodium 144, Potassium 3.2 L, Chloride 113 H, Carbon Dioxide 23.0, Anion Gap 8, BUN 52 H, Creatinine 6.07 H, Estim Creat Clear Calc 10.02, Est GFR (MDRD) Af Amer 12 L, Est GFR (MDRD) Non-Af 10 L, BUN/Creatinine Ratio 8.6 L, Glucose 95, Calcium 8.3 L, Phosphorus 4.6, Magnesium 1.9 07/21/19 06:05: Total Protein (PEP) Pending, IgG Pending, IgA Pending, IgM Pending, Albumin (SAMUEL) Pending, Albumin/Globulin (SAMUEL) Pending, [id number] SAMUEL Pending, [id number] SAMUEL Pending, Beta-Globulins (SAMUEL) Pending, Gamma Globulins (SAMUEL) Pending, SAMUEL M-Melo Pending 07/21/19 06:05: c-ANCA Antibody Pending, p-ANCA Antibody Pending, Complement C3 Pending 07/21/19 06:05: Complement C4 Pending 07/21/19 06:40: POC Glucose 88 07/21/19 09:22: PT 14.2, INR 1.2, APTT 26.8 07/21/19 13:35: POC Glucose 124 H Current Medications Abiraterone Acetate (Zytiga) 1,000 mg PO DAILY [facility] Last Admin: 07/21/19 10:43 Dose: 1,000 mg Documented by: Acetaminophen (Tylenol) 650 mg PO Q6H PRN PRN PRN Reason: Pain Score 1-10/Temp > 100.7 F Al Hydroxide/Mg Hydroxide (Mylanta Ii) 30 ml PO Q6H PRN PRN PRN Reason: Gastric Burning Aspirin (Ecotrin) 81 mg PO DAILY@0800 [facility] Last Admin: 07/21/19 07:42 Dose: 81 mg Documented by: Atorvastatin Calcium (Lipitor) 10 mg PO QHS [facility] Last Admin: 07/20/19 22:14 Dose: 10 mg Documented by: Dextrose (D50w Syringe) 0 gm IV X1 PRN; Protocol PRN Reason: Hypoglycemia Doxazosin Mesylate (Cardura) 8 mg PO DAILY [facility] Last Admin: 07/21/19 10:07 Dose: 8 mg Documented by: Enoxaparin Sodium (Lovenox) 30 mg SC DAILY [facility] Last Admin: 07/21/19 10:38 Dose: Not Given Documented by: Fentanyl Citrate (Sublimaze (100mcg Ampule)) 25 - 50 mcg IV UD PRN PRN Reason: Procedural Pain Control Stop: 07/21/19 23:59 Last Admin: 07/21/19 12:27 Dose: 50 mcg Documented by: Fluoxetine HCl (Prozac) 20 mg PO DAILY [facility] Last Admin: 07/21/19 10:07 Dose: 20 mg Documented by: Glucagon () 1 mg IM .X1 PRN PRN Reason: Hypoglycemia Hydralazine HCl (Apresoline Iv) 10 mg IV Q4H PRN PRN PRN Reason: Hypertensive Emergency Potassium Chloride 10 meq/ (Sodium Chloride) 1,005 mls @ 150 mls/hr IV .Q6H42M [facility] Stop: 07/21/19 22:37 Last Admin: 07/21/19 14:16 Dose: 150 mls/hr Documented by: Sodium Chloride () 500 mls @ 0 mls/hr IV .Q0M [facility] Stop: 07/21/19 23:59 Insulin Human Lispro (Humalog Kwikpen (Bkc)) 0 unit SC ACHS [facility]; Protocol Last Admin: 07/21/19 13:37 Dose: Not Given Documented by: Melatonin (Melatonin) 3 mg PO QHS PRN PRN PRN Reason: INSOMNIA Midazolam HCl (Versed) 1 - 2 mg IV UD PRN PRN Reason: Procedural Sedation Stop: 07/21/19 23:59 Last Admin: 07/21/19 12:25 Dose: 2 mg Documented by: Ondansetron HCl (Zofran) 4 mg IV Q8H PRN PRN PRN Reason: NAUSEA/VOMITING Oxycodone HCl (Oxyir) 5 mg PO Q4H PRN PRN PRN Reason: Pain Score 4-5/10 Oxycodone HCl (Oxyir) 10 mg PO Q4H PRN PRN PRN Reason: Pain Score 6-10/10 Polysaccharide Iron Complex (Ferrex 150) 150 mg PO DAILY [facility] Last Admin: 07/21/19 10:07 Dose: 150 mg Documented by: [facility] () [facility] Admin: 07/21/19 07:42 Dose: 5 mg Documented by: Promethazine HCl (Phenergan) 25 mg IM Q6H PRN PRN PRN Reason: Breakthrough nausea/vomiting Senna/Docusate Sodium (Senokot-S, Rachael-Colace) 2 tablet PO BID PRN PRN PRN Reason: Constipation Sodium Chloride () 10 - 40 ml IV UD PRN PRN Reason: SALINE FLUSH Throat Lozenges (Cepacol Sore Throat Lozenge) 1 lozenge MUCOUS MEM Q2H PRN PRN PRN Reason: SORE THROAT Assessment/Plan All Active Problems SARA (acute kidney injury) (Acute) I reviewed his lab data from [facility] epic system 1. Acute renal failure 2. CKD stage III His creatinine was around 1.4 as of November 2018, increased to 1.6 in December 2018, 2.2 in March 2018 and is now at 6.0. Known history of diabetes and hypertension both of which are well controlled. Had no proteinuria on previous estimations. History of prostate cancer with metastasis. This was treated with radical prostatectomy, currently on antiandrogen therapy. Follows with hematology/oncology at [facility] Urine analysis now shows proteinuria and hematuria. Does not take any NSAIDs. No recent contrast studies. Renal ultrasound from [facility] in last week of June did not show any hydronephrosis. Kidneys were echogenic. Clearly he has subacute onset of renal failure. Somewhat active looking urine. Possible glomerulonephritis. Discussed with patient. Check coags and kidney biopsy ordered Serology panel ordered. Usually takes few days to come back No acute indications for dialysis today
[2019-07-21] MEDS: Insulin Lispro 100 UNIT/ML INSULN.PEN SC (17:02)
[2019-07-21 17:10] LABS: Bedside Glucose 205 mg/dL (70-110)
[2019-07-21] MEDS: Atorvastatin Calcium 10 MG Tablet PO (21:19)
[2019-07-21 21:30] LABS: Bedside Glucose 113 mg/dL (70-110)
[2019-07-22] VITALS (11 sets, daily range): BP systolic 141–162; BP diastolic 54–75; PULSE 74–97; RESP 16–18; TEMP 36.6–37.7; O2SAT 96–99
[2019-07-22 06:25] LABS: Absolute Lymphocyte Count 0.77 X10^3/uL (0.83-4.51); Absolute Neutrophil Count 2.6 X10^3/uL (2.0-7.7); Basophil# 0.01 X10^3/uL; Basophil% 0.3 % (0-1); Eosinophils% 2.6 % (0-5); Hematocrit 21.1 % (40-54); Hemoglobin 6.5 g/dL (13.0-16.5); Lymphocyte # 0.77 X10^3/ul (4.0); Lymphocyte % 19.8 % (19-41); Mean Corp Hgb Conc 30.8 g/dL (32-36); Mean Corpuscular Hgb 29.7 pg (27.0-32.0); Mean Corpuscular Volume 96.3 fL (80-94); Mean Platelet Vol. 9.4 fl (6.2-12.0); Monocyte# 0.38 X10^3/uL; Monocyte% 9.8 % (0-10); NRBC Flagged by Analyzer 0 % (0-5); Neutrophil # 2.58 X10^3/uL (2.7-7.7); Neutrophil % 66.5 % (47-70); Platelet Count 151 K/mm3 (150-450); RBC Distribution Width CV 14.7 % (11.6-14.6); RBC Distribution Width SD 51.7 fl (35.1-43.9); Red Blood Count 2.19 M/mm3 (4.6-6.2); White Blood Count 3.9 K/mm3 (4.4-11.0)
[2019-07-22 06:35] LABS: Bedside Glucose 93 mg/dL (70-110)
[2019-07-22 06:50] LABS: Anion Gap 6 (5-15); BUN 50 mg/dL (7-18); BUN/Creat Ratio 8.5 RATIO (10-20); Calcium,Total 8.1 mg/dL (8.5-10.1); Chloride 117 mmol/L (98-107); Creatinine, Serum 5.89 mg/dL (0.70-1.30); EST Glomerular Filtration Rate 10 mL/min (>60); Est Glom Filt Rate - Afr Amer 12 mL/min (>60); Estimated Creatinine Clearance 10.33 ml/min; Glucose 94 mg/dL (74-106); Potassium 3.4 mmol/L (3.5-5.1); Sodium Level 147 mmol/L (136-145)
--- NOTE | 2019-07-22 07:19 | PN_ITS ---
Patient Problems: Active and Suspected Problems SARA (acute kidney injury) (Acute) Reason for Visit: Renal failure and anemia Subjective: Patient went renal biopsy on 07/21/2019.. Slight improvement in kidney function but not significant. Hemoglobin down to 6.5. An order was given for patient to be transfused with 1 unit PRBC. Patient iron studies revealed normocytic anemia. However given patient's age patient may need to undergo endoscopic evaluation as part of his work-up Objective: GENERAL: cooperative HEENT: Atraumatic; EYES; Anicteric, Normal Conjunctiva NECK; supple, normal thyroid, RESPIRATORY: Diminished to auscultation CARDIOVASCULAR: Regular S1 S2, GI: soft, normoactive bowel sounds, : No Renal angle tenderness; EXTREMITIES: No edema, no clubbing, MUSCULOSKELETAL: no muscle waisting NEURO: Awake; no lateralizing signs. SKIN: No Rash PSYCH; Flat affect Vitals/I&O's: Vital Signs Temp Pulse Resp BP Pulse Ox 97.9 F 86 18 159/73 H 98 07/22/19 05:04 07/22/19 05:04 07/22/19 05:04 07/22/19 05:04 07/22/19 05:04 Oxygen Flow Rate (L/min) [2] 2 Oxygen Delivery Method [3] Room Air Oxygen Delivery Method [2] Nasal Cannula Oxygen Delivery Method [1 ( Room Air Initial Baseline)] Oxygen Delivery Method Room Air Weight: 115.3 kg Body Mass Index (BMI) 36.4 Intake and Output for Last 24 Hours 07/20/19 07/21/19 07/22/19 23:59 23:59 23:59 Intake Total 3155 / 3305 4187.5 / 4587.5 1755 / 1755 Output Total 1000 / 1450 2450 / 3050 1100 / 1100 Balance 2155 / 1855 1737.5 / 1537.5 655 / 655 Microbiology Past 72 Hours 07/21/19 21:40 Stool Stool Occult Blood (ADIN) - Final Occult Blood Positive Laboratory Results 07/21/19 09:22: PT 14.2, INR 1.2, APTT 26.8 07/21/19 13:35: POC Glucose 124 H 07/21/19 16:59: POC Glucose 205 H 07/21/19 21:17: POC Glucose 113 H 07/22/19 06:13: WBC 3.9 L, RBC 2.19 L, Hgb 6.5 L, Hct 21.1 L, MCV 96.3 H, MCH 29.7, MCHC 30.8 L, RDW Std Deviation 51.7 H, RDW Coeff of Alva 14.7 H, Plt Count 151, MPV 9.4, Immature Gran % (Auto) 1.000 H, Neut % (Auto) 66.5, Lymph % (Auto) 19.8, [place] % (Auto) 9.8, Eos % (Auto) 2.6, Baso % (Auto) 0.3, Absolute Neuts (auto) 2.6, Absolute Lymphs (auto) 0.77 L, Nucleated RBC % 0 07/22/19 06:13: Sodium 147 H, Potassium 3.4 L, Chloride 117 H, Carbon Dioxide 24.0, Anion Gap 6, BUN 50 H, Creatinine 5.89 H, Estim Creat Clear Calc 10.33, Est GFR (MDRD) Af Amer 12 L, Est GFR (MDRD) Non-Af 10 L, BUN/Creatinine Ratio 8.5 L, Glucose 94, Calcium 8.1 L 07/22/19 06:31: POC Glucose 93 Current Medications Abiraterone Acetate (Zytiga) 1,000 mg PO DAILY [facility] Last Admin: 07/21/19 10:43 Dose: 1,000 mg Documented by: Acetaminophen (Tylenol) 650 mg PO Q6H PRN PRN PRN Reason: Pain Score 1-10/Temp > 100.7 F Al Hydroxide/Mg Hydroxide (Mylanta Ii) 30 ml PO Q6H PRN PRN PRN Reason: Gastric Burning Aspirin (Ecotrin) 81 mg PO DAILY@0800 [facility] Last Admin: 07/21/19 07:42 Dose: 81 mg Documented by: Atorvastatin Calcium (Lipitor) 10 mg PO QHS [facility] Last Admin: 07/21/19 21:19 Dose: 10 mg Documented by: Dextrose (D50w Syringe) 0 gm IV X1 PRN; Protocol PRN Reason: Hypoglycemia Doxazosin Mesylate (Cardura) 8 mg PO DAILY [facility] Last Admin: 07/21/19 10:07 Dose: 8 mg Documented by: Enoxaparin Sodium (Lovenox) 30 mg SC DAILY [facility] Last Admin: 07/21/19 10:38 Dose: Not Given Documented by: Fluoxetine HCl (Prozac) 20 mg PO DAILY [facility] Last Admin: 07/21/19 10:07 Dose: 20 mg Documented by: Glucagon () 1 mg IM .X1 PRN PRN Reason: Hypoglycemia Hydralazine HCl (Apresoline Iv) 10 mg IV Q4H PRN PRN PRN Reason: Hypertensive Emergency Insulin Human Lispro (Humalog Kwikpen (Bkc)) 0 unit SC ACHS [facility]; Protocol Last Admin: 07/22/19 06:37 Dose: Not Given Documented by: Melatonin (Melatonin) 3 mg PO QHS PRN PRN PRN Reason: INSOMNIA Ondansetron HCl (Zofran) 4 mg IV Q8H PRN PRN PRN Reason: NAUSEA/VOMITING Oxycodone HCl (Oxyir) 5 mg PO Q4H PRN PRN PRN Reason: Pain Score 4-5/10 Oxycodone HCl (Oxyir) 10 mg PO Q4H PRN PRN PRN Reason: Pain Score 6-10/10 Polysaccharide Iron Complex (Ferrex 150) 150 mg PO DAILY [facility] Last Admin: 07/21/19 10:07 Dose: 150 mg Documented by: [facility] () [facility] Last Admin: 07/21/19 07:42 Dose: 5 mg Documented by: Promethazine HCl (Phenergan) 25 mg IM Q6H PRN PRN PRN Reason: Breakthrough nausea/vomiting Senna/Docusate Sodium (Senokot-S, Rachael-Colace) 2 tablet PO BID PRN PRN PRN Reason: Constipation Sodium Chloride () 10 - 40 ml IV UD PRN PRN Reason: SALINE FLUSH Throat Lozenges (Cepacol Sore Throat Lozenge) 1 lozenge MUCOUS MEM Q2H PRN PRN PRN Reason: SORE THROAT STROKE Vital Signs/Narrative: Vital Signs Temp Pulse Resp BP Pulse Ox 07/22/19 05:04 97.9 F 86 18 159/73 H 98 Medical Necessity - Tobacco Use Smoking Status: Never smoker Assessment/Plan All Active Problems SARA (acute kidney injury) (Acute) Patient is an 78-year-old gentleman sent to the ED by PCP on account of abnormal labs 1. Worsening renal failure ?Not sure if there is some chronicity to patient's renal failure. Ordered records from the [place]. Patient last creatinine on record in the hospital demonstrated normal creatinine of 1.23 in 2017. Patient has been admitted to regular nursing floor started on hydration with serial monitoring of electrolytes. As part of his management also ordered renal duplex and discontinued potential nephrotoxic medications -07/21/2019: Review of records from [facility] including renal duplex did not demonstrate any obstruction. Patient kidney function appears to have worsened over a period of time. Consult was placed to nephrology Case discussed with Dr. Gallegos plan is for patient to undergo renal biopsy 2. Anemia ?Suspected to be secondary to anemia of chronic disorder. Monitoring H&H. As part of patient's evaluation ordered stool guaiac, as well as iron studies and B12 levels -Hemoglobin down to 7.3; monitoring H&H and transfuse if patient becomes symptomatic or hemoglobin falls below 7 -07/22/2019: Patient hemoglobin did drop to 6.5 necessitating patient being transfused 1 unit PRBC 3. Hypokalemia - Repleted as needed 4. Diabetes mellitus type II -Controlled with suspected complications including diabetic nephropathy dereje torres'dave oral hypoglycemics held. Placed on Accu-Cheks a.c. and at bedtime and covered with sliding scale insulin 5. Hypertension - Blood pressure controlled, home medications except for Altace continued with dose adjustment as needed 6. Dyslipidemia -Patient is on statin therapy, continued at home dose 7. Prostate CA ?Patient was treated with prostatectomy followed by radiation therapy currently on abiraterone 8. Depression ?Patient on SSRI 9. Hypernatremia do suspect some dehydration ?Admitted to regular nursing floor being managed with IV fluid ?07/21/2019: Sodium levels down to 144 10. Obesity with BMI of 36.5 ?Counseled on weight loss 11. DVT prophylaxis ?On Lovenox dose adjusted for kidney function -Lovenox discontinued in view of patient's anemia Inpatient E&M: 86787 Subs Hosp L2
[2019-07-22] MEDS: Doxazosin 4 MG Tablet 8 MG PO (10:15)
[2019-07-22] MEDS: Iron Polysaccharide Complex 150 MG CAPSULE PO (10:15)
[2019-07-22] MEDS: FLUoxetine 20 MG Capsule PO (10:16)
[2019-07-22] MEDS: predniSONE 5 MG Tablet PO (10:16)
[2019-07-22] MEDS: ABIRATERONE ACETATE 250 MG TABLET 1000 MG PO (10:17)
[2019-07-22 11:25] LABS: Bedside Glucose 108 mg/dL (70-110)
[2019-07-22 16:08] LABS: Albumin 3.2 g/dL (2.9-4.4); Alpha-1-Globulins 0.2 g/dL (0.0-0.4); Alpha-2-Globulins 0.7 g/dL (0.4-1.0); Cytoplasmic Ab (C-ANCA) <1:20 titer (Neg:<1:20); Gamma Globulin 0.6 g/dL (0.4-1.8); Immunoglobulin A 70 mg/dL (61-437); Immunoglobulin G 655 mg/dL (603-1613); Immunoglobulin M 34 mg/dL (15-143); PROEL- TOTAL PROTEIN 5.4 g/dL (6.0-8.5)
--- NOTE | 2019-07-22 16:32 | PN.RENAL_ITS ---
Patient Problems: Active and Suspected Problems SARA (acute kidney injury) (Acute) Subjective: Status post kidney biopsy. No new complaints. - Physical Exam Vitals/I&O's: Vital Signs Temp Pulse Resp BP Pulse Ox 98.4 F 97 18 156/60 H 97 07/22/19 14:00 07/22/19 14:00 07/22/19 14:00 07/22/19 14:00 07/22/19 14:00 Oxygen Flow Rate (L/min) [2] 2 Oxygen Delivery Method [3] Room Air Oxygen Delivery Method [2] Nasal Cannula Oxygen Delivery Method [1 ( Room Air Initial Baseline)] Oxygen Delivery Method Room Air Weight: 115.3 kg Body Mass Index (BMI) 36.4 Intake and Output for Last 24 Hours 07/20/19 07/21/19 07/22/19 23:59 23:59 23:59 Intake Total 3155 / 3305 4187.5 / 4587.5 2455 / 2455 Output Total 1000 / 1450 2450 / 3050 1600 / 1600 Balance 2155 / 1855 1737.5 / 1537.5 855 / 855 General: Alert, Oriented x3, Cooperative HEENT: Atraumatic, PERRLA, EOMI, Normocephalic Neck: Supple, No JVD, Negative Carotid Bruits Lungs: Clear to auscultation, Normal air movement Cardiovascular: Regular rate, No murmurs Abdomen: Bowel Sounds Present, Soft, Non Tender Extremities: No edema, Capillary Refill Less than 3 Seconds Skin: No rashes, No breakdown Musculoskeletal: No Tenderness to Palpation of Joints or Extremities Neurological: Cranial nerves II-XII grossly intact Psych/Mental Status: Normal Affect, Appropriate Microbiology Past 72 Hours 07/21/19 21:40 Stool Stool Occult Blood (ADIN) - Final Occult Blood Positive Laboratory Results 07/21/19 06:05: Complement C4 22 07/21/19 16:59: POC Glucose 205 H 07/21/19 21:17: POC Glucose 113 H 07/22/19 06:13: WBC 3.9 L, RBC 2.19 L, Hgb 6.5 L, Hct 21.1 L, MCV 96.3 H, MCH 29.7, MCHC 30.8 L, RDW Std Deviation 51.7 H, RDW Coeff of Alva 14.7 H, Plt Count 151, MPV 9.4, Immature Gran % (Auto) 1.000 H, Neut % (Auto) 66.5, Lymph % (Auto) 19.8, [place] % (Auto) 9.8, Eos % (Auto) 2.6, Baso % (Auto) 0.3, Absolute Neuts (auto) 2.6, Absolute Lymphs (auto) 0.77 L, Nucleated RBC % 0 07/22/19 06:13: Sodium 147 H, Potassium 3.4 L, Chloride 117 H, Carbon Dioxide 24.0, Anion Gap 6, BUN 50 H, Creatinine 5.89 H, Estim Creat Clear Calc 10.33, Est GFR (MDRD) Af Amer 12 L, Est GFR (MDRD) Non-Af 10 L, BUN/Creatinine Ratio 8.5 L, Glucose 94, Calcium 8.1 L 07/22/19 06:31: POC Glucose 93 07/22/19 08:27: Blood Type O POSITIVE, Antibody Screen NEGATIVE, Crossmatch See Detail 07/22/19 11:18: POC Glucose 108 Current Medications Abiraterone Acetate (Zytiga) 1,000 mg PO DAILY [facility] Last Admin: 07/22/19 10:17 Dose: 1,000 mg Documented by: Acetaminophen (Tylenol) 650 mg PO Q6H PRN PRN PRN Reason: Pain Score 1-10/Temp > 100.7 F Al Hydroxide/Mg Hydroxide (Mylanta Ii) 30 ml PO Q6H PRN PRN PRN Reason: Gastric Burning Atorvastatin Calcium (Lipitor) 10 mg PO QHS [facility] Last Admin: 07/21/19 21:19 Dose: 10 mg Documented by: Dextrose (D50w Syringe) 0 gm IV X1 PRN; Protocol PRN Reason: Hypoglycemia Doxazosin Mesylate (Cardura) 8 mg PO DAILY [facility] Last Admin: 07/22/19 10:15 Dose: 8 mg Documented by: Fluoxetine HCl (Prozac) 20 mg PO DAILY [facility] Last Admin: 07/22/19 10:16 Dose: 20 mg Documented by: Glucagon () 1 mg IM .X1 PRN PRN Reason: Hypoglycemia Hydralazine HCl (Apresoline Iv) 10 mg IV Q4H PRN PRN PRN Reason: Hypertensive Emergency Insulin Human Lispro (Humalog Kwikpen (Bkc)) 0 unit SC [facility]; Protocol Last Admin: 07/22/19 11:19 Dose: Not Given Documented by: Melatonin (Melatonin) 3 mg PO QHS PRN PRN PRN Reason: INSOMNIA Ondansetron HCl (Zofran) 4 mg IV Q8H PRN PRN PRN Reason: NAUSEA/VOMITING Oxycodone HCl (Oxyir) 5 mg PO Q4H PRN PRN PRN Reason: Pain Score 4-5/10 Oxycodone HCl (Oxyir) 10 mg PO Q4H PRN PRN PRN Reason: Pain Score 6-10/10 Polysaccharide Iron Complex (Ferrex 150) 150 mg PO DAILY [facility] Last Admin: 07/22/19 10:15 Dose: 150 mg Documented by: [facility] () [address] [facility] Last Admin: 07/22/19 10:16 Dose: 5 mg Documented by: Promethazine HCl (Phenergan) 25 mg IM Q6H PRN PRN PRN Reason: Breakthrough nausea/vomiting Senna/Docusate Sodium (Senokot-S, Rachael-Colace) 2 tablet PO BID PRN PRN PRN Reason: Constipation Sodium Chloride () 10 - 40 ml IV UD PRN PRN Reason: SALINE FLUSH Throat Lozenges (Cepacol Sore Throat Lozenge) 1 lozenge MUCOUS MEM Q2H PRN PRN PRN Reason: SORE THROAT Medical Necessity - Tobacco Use Smoking Status: Never smoker Assessment/Plan All Active Problems SARA (acute kidney injury) (Acute) 1. Acute renal failure 2. CKD stage III His creatinine was around 1.4 as of November 2018, increased to 1.6 in December 2018, 2.2 in March 2018 and is now at 6.0. Known history of diabetes and hypertension both of which are well controlled. Had no proteinuria on previous estimations. History of prostate cancer with metastasis. This was treated with radical prostatectomy, currently on antiandrogen therapy. Follows with hematology/oncology at [place] Urine analysis now shows proteinuria and hematuria. Does not take any NSAIDs. No recent contrast studies. Renal ultrasound from [place] in last week of June did not show any hydronephrosis. Kidneys were echogenic. Clearly he has subacute onset of renal failure. Somewhat active looking urine. Possible glomerulonephritis. Kidney biopsy done yesterday. Discussed with pathology at [facility]. They ended up getting slides at 2 PM today and will be able to do simple microscopy or any other studies until Thursday. Patient feels fine and is asymptomatic. No acute indications to start dialysis. Will likely discharge him tomorrow and then arrange clinic follow-up next week Anemia. Patient was on erythropoietin and received blood transfusions in the past. Hemoglobin is lower today. Received 1 unit PRBC. Kidney biopsy site does not show any obvious hematoma. No obvious hematuria. Repeat hemoglobin in the morning and can go home if hemoglobin is stable. Discussed with hospitalist
[2019-07-22 17:05] LABS: Bedside Glucose 126 mg/dL (70-110)
[2019-07-22 17:32] LABS: Hematocrit 26.3 % (40-54); Hemoglobin 8.1 g/dL (13.0-16.5)
[2019-07-22] MEDS: Atorvastatin Calcium 10 MG Tablet PO (22:56)
[2019-07-22] MEDS: 0.9% Saline Lock 10 ML Syringe IV (23:09)
[2019-07-22] MEDS: hydrALAZINE 20 MG/ML Vial 10 MG IV (23:09)
[2019-07-22 23:11] LABS: Bedside Glucose 94 mg/dL (70-110)
[2019-07-23 04:12] VITALS: BP 136/68; PULSE 73; RESP 18; TEMP 37; O2SAT 99
[2019-07-23 06:43] LABS: Absolute Neutrophil Count 3.2 X10^3/uL (2.0-7.7); Basophil# 0.01 X10^3/uL; Basophil% 0.2 % (0-1); Eosinophil# 0.12 X10^3/uL; Eosinophils% 2.7 % (0-5); Hematocrit 24.1 % (40-54); Hemoglobin 7.5 g/dL (13.0-16.5); Lymphocyte % 15.6 % (19-41); Mean Corp Hgb Conc 31.1 g/dL (32-36); Mean Corpuscular Hgb 29.4 pg (27.0-32.0); Mean Corpuscular Volume 94.5 fL (80-94); Mean Platelet Vol. 9.2 fl (6.2-12.0); Monocyte# 0.45 X10^3/uL; NRBC Flagged by Analyzer 0 % (0-5); Neutrophil # 3.17 X10^3/uL (2.7-7.7); Neutrophil % 70.6 % (47-70); Platelet Count 144 K/mm3 (150-450); RBC Distribution Width CV 14.7 % (11.6-14.6); RBC Distribution Width SD 50.7 fl (35.1-43.9); Red Blood Count 2.55 M/mm3 (4.6-6.2); White Blood Count 4.5 K/mm3 (4.4-11.0)
[2019-07-23 07:01] LABS: Bedside Glucose 84 mg/dL (70-110)
[2019-07-23 07:10] LABS: Anion Gap 7 (5-15); BUN 51 mg/dL (7-18); BUN/Creat Ratio 9.2 RATIO (10-20); Calcium,Total 8.3 mg/dL (8.5-10.1); Chloride 117 mmol/L (98-107); Creatinine, Serum 5.56 mg/dL (0.70-1.30); EST Glomerular Filtration Rate 11 mL/min (>60); Est Glom Filt Rate - Afr Amer 13 mL/min (>60); Estimated Creatinine Clearance 10.94 ml/min; Glucose 92 mg/dL (74-106); Potassium 3.3 mmol/L (3.5-5.1); Sodium Level 146 mmol/L (136-145)
[2019-07-23] MEDS: Iron Polysaccharide Complex 150 MG CAPSULE PO (08:09)
[2019-07-23] MEDS: predniSONE 5 MG Tablet PO (08:09)
[2019-07-23] MEDS: Doxazosin 4 MG Tablet 8 MG PO (08:09)
[2019-07-23] MEDS: ABIRATERONE ACETATE 250 MG TABLET 1000 MG PO (08:09)
[2019-07-23] MEDS: FLUoxetine 20 MG Capsule PO (08:09)
[2019-07-23 08:10] VITALS: BP 156/73; PULSE 78; RESP 18; TEMP 37; O2SAT 98
--- NOTE | 2019-07-23 09:03 | PCM.PN.HOSP ---
Patient Problems: Active and Suspected Problems SARA (acute kidney injury) (Acute) Reason for Visit: Renal failure and anemia Subjective: Patient was transfused 1 unit PRBC on 07/22/2019. Hemoglobin came up to 8.1 following his transfusion however did drop down to 7.5. Had a discussion with patient regarding his anemia. He had apparently been transfused with 2 unit PRBC days prior to his admission. Did explain to patient the need to complete his anemia work-up including EGD and colonoscopy. Consult subsequently placed to Dr. Hank Hudson with general surgery. Plan is for patient to undergo endoscopic evaluation on 07/25/2019 prior to discharge Objective: GENERAL: cooperative HEENT: Atraumatic; EYES; Anicteric, Normal Conjunctiva NECK; supple, normal thyroid, RESPIRATORY: Diminished to auscultation CARDIOVASCULAR: Regular S1 S2, GI: soft, normoactive bowel sounds, : No Renal angle tenderness; EXTREMITIES: No edema, no clubbing, MUSCULOSKELETAL: no muscle waisting NEURO: Awake; no lateralizing signs. SKIN: No Rash PSYCH; Flat affect Vitals/I&O's: Vital Signs Temp Pulse Resp BP Pulse Ox 98.6 F 78 18 156/73 H 98 07/23/19 08:10 07/23/19 08:10 07/23/19 08:10 07/23/19 08:10 07/23/19 08:10 Oxygen Flow Rate (L/min) [2] 2 Oxygen Delivery Method [3] Room Air Oxygen Delivery Method [2] Nasal Cannula Oxygen Delivery Method [1 ( Room Air Initial Baseline)] Oxygen Delivery Method Room Air Weight: 115.3 kg Body Mass Index (BMI) 36.4 Intake and Output for Last 24 Hours 07/21/19 07/22/19 07/23/19 23:59 23:59 23:59 Intake Total 4187.5 / 4587.5 2455 / 3155 750 / 750 Output Total 2450 / 3050 1600 / 1600 Balance 1737.5 / 1537.5 855 / 1555 750 / 750 Microbiology Past 72 Hours 07/21/19 21:40 Stool Stool Occult Blood (ADIN) - Final Occult Blood Positive Laboratory Results 07/21/19 06:05: Complement C4 22 07/22/19 08:27: Blood Type O POSITIVE, Antibody Screen NEGATIVE, Crossmatch See Detail 07/22/19 11:18: POC Glucose 108 07/22/19 15:25: Hgb 8.1 L, Hct 26.3 L 07/22/19 16:59: POC Glucose 126 H 07/22/19 22:59: POC Glucose 94 07/23/19 06:35: WBC 4.5, RBC 2.55 L, Hgb 7.5 L, Hct 24.1 L, MCV 94.5 H, MCH 29.4, MCHC 31.1 L, RDW Std Deviation 50.7 H, RDW Coeff of Alva 14.7 H, Plt Count 144 L, MPV 9.2, Immature Gran % (Auto) 0.900, Neut % (Auto) 70.6 H, Lymph % (Auto) 15.6 L, [place] % (Auto) 10.0, Eos % (Auto) 2.7, Baso % (Auto) 0.2, Absolute Neuts (auto) 3.2, Absolute Lymphs (auto) 0.70 L, Nucleated RBC % 0 07/23/19 06:35: Sodium 146 H, Potassium 3.3 L, Chloride 117 H, Carbon Dioxide 22.0, Anion Gap 7, BUN 51 H, Creatinine 5.56 H, Estim Creat Clear Calc 10.94, Est GFR (MDRD) Af Amer 13 L, Est GFR (MDRD) Non-Af 11 L, BUN/Creatinine Ratio 9.2 L, Glucose 92, Calcium 8.3 L 07/23/19 06:42: POC Glucose 84 Current Medications Abiraterone Acetate (Zytiga) 1,000 mg PO DAILY [facility] Last Admin: 07/23/19 08:09 Dose: 1,000 mg Documented by: Acetaminophen (Tylenol) 650 mg PO Q6H PRN PRN PRN Reason: Pain Score 1-10/Temp > 100.7 F Al Hydroxide/Mg Hydroxide (Mylanta Ii) 30 ml PO Q6H PRN PRN PRN Reason: Gastric Burning Atorvastatin Calcium (Lipitor) 10 mg PO QHS [facility] Last Admin: 07/22/19 22:56 Dose: 10 mg Documented by: Dextrose (D50w Syringe) 0 gm IV X1 PRN; Protocol PRN Reason: Hypoglycemia Doxazosin Mesylate (Cardura) 8 mg PO DAILY [facility] Last Admin: 07/23/19 08:09 Dose: 8 mg Documented by: Fluoxetine HCl (Prozac) 20 mg PO DAILY [facility] Last Admin: 07/23/19 08:09 Dose: 20 mg Documented by: Glucagon () 1 mg IM .X1 PRN PRN Reason: Hypoglycemia Hydralazine HCl (Apresoline Iv) 10 mg IV Q4H PRN PRN PRN Reason: Hypertensive Emergency Last Admin: 07/22/19 23:09 Dose: 10 mg Documented by: Insulin Human Lispro (Humalog Kwikpen (Bkc)) 0 unit SC [facility]; Protocol Last Admin: 07/23/19 06:43 Dose: Not Given Documented by: Melatonin (Melatonin) 3 mg PO QHS PRN PRN PRN Reason: INSOMNIA Ondansetron HCl (Zofran) 4 mg IV Q8H PRN PRN PRN Reason: NAUSEA/VOMITING Oxycodone HCl (Oxyir) 5 mg PO Q4H PRN PRN PRN Reason: Pain Score 4-5/10 Oxycodone HCl (Oxyir) 10 mg PO Q4H PRN PRN PRN Reason: Pain Score 6-10/10 Polysaccharide Iron Complex (Ferrex 150) 150 mg PO DAILY [facility] Last Admin: 07/23/19 08:09 Dose: 150 mg Documented by: [facility] () [facility] Last Admin: 07/23/19 08:09 Dose: 5 mg Documented by: Promethazine HCl (Phenergan) 25 mg IM Q6H PRN PRN PRN Reason: Breakthrough nausea/vomiting Senna/Docusate Sodium (Senokot-S, Rachael-Colace) 2 tablet PO BID PRN PRN PRN Reason: Constipation Sodium Chloride () 10 - 40 ml IV UD PRN PRN Reason: SALINE FLUSH Last Admin: 07/22/19 23:09 Dose: 10 ml Documented by: Throat Lozenges (Cepacol Sore Throat Lozenge) 1 lozenge MUCOUS MEM Q2H PRN PRN PRN Reason: SORE THROAT STROKE Vital Signs/Narrative: Vital Signs Temp Pulse Resp BP Pulse Ox 07/23/19 08:10 98.6 F 78 18 156/73 H 98 Medical Necessity - Tobacco Use Smoking Status: Never smoker Assessment/Plan All Active Problems SARA (acute kidney injury) (Acute) Patient is an 78-year-old gentleman sent to the ED by PCP on account of abnormal labs 1. Renal failure ?Not sure if there is some chronicity to patient's renal failure. Ordered records from the [facility]. Patient last creatinine on record in the hospital demonstrated normal creatinine of 1.23 in 2017. Patient has been admitted to regular nursing floor started on hydration with serial monitoring of electrolytes. As part of his management also ordered renal duplex and discontinued potential nephrotoxic medications -07/21/2019: Review of records from [facility] including renal duplex did not demonstrate any obstruction. Patient kidney function appears to have worsened over a period of time. Consult was placed to nephrology Case discussed with Dr. Gallegos plan is for patient to undergo renal biopsy -07/23/2019: Patient underwent biopsy on 07/21/2019 results still pending. No significant change in kidney function 2. Anemia ?Suspected to be secondary to anemia of chronic disorder. Monitoring H&H. As part of patient's evaluation ordered stool guaiac, as well as iron studies and B12 levels -Hemoglobin down to 7.3; monitoring H&H and transfuse if patient becomes symptomatic or hemoglobin falls below 7 -07/22/2019: Patient hemoglobin did drop to 6.5 necessitating patient being transfused 1 unit PRBC -07/23/2019 ; patient was transfused 1 unit PRBC on 07/22/2019. Hemoglobin came up to 8.1 following his transfusion however did drop down to 7.5. Had a discussion with patient regarding his anemia. He had apparently been transfused with 2 unit PRBC days prior to his admission. Did explain to patient the need to complete his anemia work-up including EGD and colonoscopy. Consult subsequently placed to Dr. Hank Hudson with general surgery. Plan is for patient to undergo endoscopic evaluation on 07/25/2019 prior to discharge 3. Hypokalemia - Repleted as needed 4. Diabetes mellitus type II -Controlled with suspected complications including diabetic nephropathy patient's oral hypoglycemics held. Placed on Accu-Cheks a.c. and at bedtime and covered with sliding scale insulin 5. Hypertension - Blood pressure controlled, home medications except for Altace continued with dose adjustment as needed 6. Dyslipidemia -Patient is on statin therapy, continued at home dose 7. Prostate CA ?Patient was treated with prostatectomy followed by radiation therapy currently on abiraterone 8. Depression ?Patient on SSRI 9. Hypernatremia do suspect some dehydration ?Admitted to regular nursing floor being managed with IV fluid ?07/21/2019: Sodium levels down to 144 10. Obesity with BMI of 36.5 ?Counseled on weight loss 11. DVT prophylaxis ?On Lovenox dose adjusted for kidney function -Lovenox discontinued in view of patient's anemia Inpatient E&M: 12996 Subs Hosp L2
--- NOTE | 2019-07-23 10:37 | US_ITS ---
STUDY: RENAL ULTRASOUND - COMPLETE REASON FOR EXAM: Male, 78 years old. Status post right kidney biopsy. Assess for bleeding. TECHNIQUE: Ultrasound evaluation of the kidneys was performed with real-time and static tompkins-scale imaging. COMPARISON: CT biopsy, July 21, 2019. FINDINGS: RIGHT KIDNEY: Normal location of the right kidney, which is normal in size. The right kidney measures 12.1 cm. There is a normal cortex of the right kidney. The renal cortex measures 1.1 cm. There is an exophytic 1.8 x 1.4 x 1.2 cm cyst. The mid kidney. There is also a 1.6 x 1.3 x 1.4 cm cyst off the lower pole. Both were noted on the CT. There are no right renal calculi. There is no right hydronephrosis. No evidence of mass or fluid collection about the kidney. DISTAL RIGHT URETER: There is non-visualization of the distal right ureter. There is no demonstrated right ureterovesical junction calculus. There is no demonstrated right ureteral jet. LEFT KIDNEY: Normal location of the left kidney, which is hypertrophic. The left kidney measures 14.4 cm. There is a normal cortex of the left kidney. The renal cortex measures 11.2 cm. There is a 1.1 x 1.2 x 1.0 cm cyst in the mid kidney. There are no left renal calculi. There is no left hydronephrosis. DISTAL LEFT URETER: There is non-visualization of the distal left ureter. There is no demonstrated left ureterovesical junction calculus. There is no demonstrated left ureteral jet. BLADDER: The poorly distended urinary bladder has a volume of 81 ml. . There is a normal wall thickness of the distended urinary bladder. There is no demonstrated mass within the urinary bladder. There are no demonstrated bladder calculi. US/Kidney and Bladder IMPRESSION: 1. No evidence of mass or fluid collection about the right kidney. 2. Stable bilateral renal cysts. Electronically Signed: Misael Myers DO at 19:15 EDT Tel [phone], Service support ,
[2019-07-23 11:41] LABS: Bedside Glucose 128 mg/dL (70-110)
[2019-07-23 14:25] VITALS: BP 151/76; PULSE 88; RESP 18; TEMP 37.1; O2SAT 98
[2019-07-23 14:36] LABS: Complement C3 117 mg/dL (82-167); Perinuclear Ab (P-ANCA) <1:20 titer (Neg:<1:20)
[2019-07-23 16:51] LABS: Bedside Glucose 141 mg/dL (70-110)
--- NOTE | 2019-07-23 17:18 | PN.RENAL_ITS ---
Patient Problems: Active and Suspected Problems SARA (acute kidney injury) (Acute) Subjective: No nausea No vomiting No back pain. No hematuria No SOB - Physical Exam Vitals/I&O's: Vital Signs Temp Pulse Resp BP Pulse Ox 98.8 F 88 18 151/76 H 98 07/23/19 14:25 07/23/19 14:25 07/23/19 14:25 07/23/19 14:25 07/23/19 14:25 Oxygen Flow Rate (L/min) [2] 2 Oxygen Delivery Method [3] Room Air Oxygen Delivery Method [2] Nasal Cannula Oxygen Delivery Method [1 ( Room Air Initial Baseline)] Oxygen Delivery Method Room Air Weight: 115.3 kg Body Mass Index (BMI) 36.4 Intake and Output for Last 24 Hours 07/21/19 07/22/19 07/23/19 23:59 23:59 23:59 Intake Total 4187.5 / 4587.5 2455 / 3155 1150 / 1150 Output Total 2450 / 3050 1600 / 1600 Balance 1737.5 / 1537.5 855 / 1555 1150 / 1150 General: Alert, Oriented x3 HEENT: Atraumatic Oral: Moist Mucosa Neck: Supple, No JVD Lungs: Clear to auscultation, Normal air movement, No rhonchi, No wheeze Cardiovascular: Regular rate, Regular Rhythm, Normal S1, Normal S2 Abdomen: Bowel Sounds Present, Soft, Non Tender, Non-Distended Extremities: No clubbing, No cyanosis Musculoskeletal: No Tenderness to Palpation of Joints or Extremities Lymphatic: No Cervical, Supraclavicular, or Inguinal Adenopathy Neurological: Cranial nerves II-XII grossly intact, Neuro grossly intact Microbiology Past 72 Hours 07/21/19 21:40 Stool Stool Occult Blood (ADIN) - Final Occult Blood Positive Laboratory Results 07/21/19 06:05: Total Protein (PEP) 5.4 L, Globulin 2.2, IgG 655, IgA 70, IgM 34, Immunofixation Screen Comment, Albumin (SAMUEL) 3.2, Albumin/Globulin (SAMUEL) 1.5, Almbv-9-Nxjnhrxhl SAMUEL 0.2, Vjweq-4-Uefpefany SAMUEL 0.7, Beta-Globulins (SAMUEL) 0.8, Gamma Globulins (SAMUEL) 0.6, SAMUEL M-Melo , SAMUEL Comments Comment 07/21/19 06:05: c-ANCA Antibody <1:20, Atypical p-ANCA <1:20, p-ANCA Antibody <1:20, Complement C3 117 07/22/19 15:25: Hgb 8.1 L, Hct 26.3 L 07/22/19 22:59: POC Glucose 94 07/23/19 06:35: WBC 4.5, RBC 2.55 L, Hgb 7.5 L, Hct 24.1 L, MCV 94.5 H, MCH 29.4, MCHC 31.1 L, RDW Std Deviation 50.7 H, RDW Coeff of Alva 14.7 H, Plt Count 144 L, MPV 9.2, Immature Gran % (Auto) 0.900, Neut % (Auto) 70.6 H, Lymph % (Auto) 15.6 L, [place] % (Auto) 10.0, Eos % (Auto) 2.7, Baso % (Auto) 0.2, Absolute Neuts (auto) 3.2, Absolute Lymphs (auto) 0.70 L, Nucleated RBC % 0 07/23/19 06:35: Sodium 146 H, Potassium 3.3 L, Chloride 117 H, Carbon Dioxide 22.0, Anion Gap 7, BUN 51 H, Creatinine 5.56 H, Estim Creat Clear Calc 10.94, Est GFR (MDRD) Af Amer 13 L, Est GFR (MDRD) Non-Af 11 L, BUN/Creatinine Ratio 9.2 L, Glucose 92, Calcium 8.3 L 07/23/19 06:42: POC Glucose 84 07/23/19 11:23: POC Glucose 128 H 07/23/19 16:09: POC Glucose 141 H Current Medications Abiraterone Acetate (Zytiga) 1,000 mg PO DAILY [facility] Last Admin: 07/23/19 08:09 Dose: 1,000 mg Documented by: Acetaminophen (Tylenol) 650 mg PO Q6H PRN PRN PRN Reason: Pain Score 1-10/Temp > 100.7 F Al Hydroxide/Mg Hydroxide (Mylanta Ii) 30 ml PO Q6H PRN PRN PRN Reason: Gastric Burning Atorvastatin Calcium (Lipitor) 10 mg PO QHS [facility] Last Admin: 07/22/19 22:56 Dose: 10 mg Documented by: Dextrose (D50w Syringe) 0 gm IV X1 PRN; Protocol PRN Reason: Hypoglycemia Doxazosin Mesylate (Cardura) 8 mg PO DAILY [facility] Last Admin: 07/23/19 08:09 Dose: 8 mg Documented by: Fluoxetine HCl (Prozac) 20 mg PO DAILY [facility] Last Admin: 07/23/19 08:09 Dose: 20 mg Documented by: Glucagon () 1 mg IM .X1 PRN PRN Reason: Hypoglycemia Hydralazine HCl (Apresoline Iv) 10 mg IV Q4H PRN PRN PRN Reason: Hypertensive Emergency Last Admin: 07/22/19 23:09 Dose: 10 mg Documented by: Insulin Human Lispro (Humalog Kwikpen (Bkc)) 0 unit SC [facility]; Protocol Last Admin: 07/23/19 16:11 Dose: Not Given Documented by: Melatonin (Melatonin) 3 mg PO QHS PRN PRN PRN Reason: INSOMNIA Ondansetron HCl (Zofran) 4 mg IV Q8H PRN PRN PRN Reason: NAUSEA/VOMITING Oxycodone HCl (Oxyir) 5 mg PO Q4H PRN PRN PRN Reason: Pain Score 4-5/10 Oxycodone HCl (Oxyir) 10 mg PO Q4H PRN PRN PRN Reason: Pain Score 6-10/10 Polysaccharide Iron Complex (Ferrex 150) 150 mg PO DAILY [facility] Last Admin: 07/23/19 08:09 Dose: 150 mg Documented by: [facility] () [facility] Last Admin: 07/23/19 08:09 Dose: 5 mg Documented by: Promethazine HCl (Phenergan) 25 mg IM Q6H PRN PRN PRN Reason: Breakthrough nausea/vomiting Senna/Docusate Sodium (Senokot-S, Rachael-Colace) 2 tablet PO BID PRN PRN PRN Reason: Constipation Sodium Chloride () 10 - 40 ml IV UD PRN PRN Reason: SALINE FLUSH Last Admin: 07/22/19 23:09 Dose: 10 ml Documented by: Throat Lozenges (Cepacol Sore Throat Lozenge) 1 lozenge MUCOUS MEM Q2H PRN PRN PRN Reason: SORE THROAT Medical Necessity - Tobacco Use Smoking Status: Never smoker Assessment/Plan All Active Problems SARA (acute kidney injury) (Acute) 1. Acute renal failure 2. CKD stage III His creatinine was 2.2 in March 2018 SARA is likely ATN. doubt the patient has GN since there is no RBC in UA. Gn serology is negative so far Kidney Bx done 6.5. Follow the path result kidney function is better. Non oliguric might check renal US if kidney function worsens No need for [employer] Anemia. Patient was on erythropoietin and received blood transfusions in the past. stable scheduled for EDG/Colonoscopy Thursday
[2019-07-23 21:32] VITALS: BP 159/75; PULSE 79; RESP 18; TEMP 37; O2SAT 97
[2019-07-23] MEDS: Atorvastatin Calcium 10 MG Tablet PO (21:37)
[2019-07-23] MEDS: 0.9% Saline Lock 10 ML Syringe IV (21:38)
[2019-07-23 21:48] VITALS: RESP 20
[2019-07-24 02:37] VITALS: BP 155/68; PULSE 79; RESP 18; TEMP 36.7; O2SAT 98
[2019-07-24 07:06] LABS: Bedside Glucose 93 mg/dL (70-110)
--- NOTE | 2019-07-24 07:40 | PCM.PN.HOSP ---
Patient Problems: Active and Suspected Problems SARA (acute kidney injury) (Acute) Anemia (Acute) Reason for Visit: Renal failure Anemia Subjective: Patient seen, scheduled to undergo endoscopic evaluation ( upper EGD and colonoscopy) on 07/25/2019 Objective: GENERAL: cooperative HEENT: Atraumatic; EYES; Anicteric, Normal Conjunctiva NECK; supple, normal thyroid, RESPIRATORY: Diminished to auscultation CARDIOVASCULAR: Regular S1 S2, GI: soft, normoactive bowel sounds, : No Renal angle tenderness; EXTREMITIES: No edema, no clubbing, MUSCULOSKELETAL: no muscle waisting NEURO: Awake; no lateralizing signs. SKIN: No Rash PSYCH; Flat affect Vitals/I&O's: Vital Signs Temp Pulse Resp BP Pulse Ox 98.0 F 79 18 155/68 H 98 07/24/19 02:37 07/24/19 02:37 07/24/19 02:37 07/24/19 02:37 07/24/19 02:37 Oxygen Flow Rate (L/min) [2] 2 Oxygen Delivery Method [3] Room Air Oxygen Delivery Method [2] Nasal Cannula Oxygen Delivery Method [1 ( Room Air Initial Baseline)] Oxygen Delivery Method Room Air Weight: 115.3 kg Body Mass Index (BMI) 36.4 Intake and Output for Last 24 Hours 07/22/19 07/23/19 07/24/19 23:59 23:59 23:59 Intake Total 2455 / 3155 1450 / 2150 800 / 800 Output Total 1600 / 1600 Balance 855 / 1555 1450 / 2150 800 / 800 Microbiology Past 72 Hours 07/21/19 21:40 Stool Stool Occult Blood (ADIN) - Final Occult Blood Positive Laboratory Results 07/21/19 06:05: Total Protein (PEP) 5.4 L, Globulin 2.2, IgG 655, IgA 70, IgM 34, Immunofixation Screen Comment, Albumin (SAMUEL) 3.2, Albumin/Globulin (SAMUEL) 1.5, Duguv-5-Aboazxkts SAMUEL 0.2, Gnpgf-3-Dgwrjqmav SAMUEL 0.7, Beta-Globulins (SAMUEL) 0.8, Gamma Globulins (SAMUEL) 0.6, SAMUEL M-Melo , SAMUEL Comments Comment 07/21/19 06:05: c-ANCA Antibody <1:20, Atypical p-ANCA <1:20, p-ANCA Antibody <1:20, Complement C3 117 07/23/19 11:23: POC Glucose 128 H 07/23/19 16:09: POC Glucose 141 H 07/24/19 06:59: POC Glucose 93 Current Medications Abiraterone Acetate (Zytiga) 1,000 mg PO DAILY [facility] Last Admin: 07/23/19 08:09 Dose: 1,000 mg Documented by: Acetaminophen (Tylenol) 650 mg PO Q6H PRN PRN PRN Reason: Pain Score 1-10/Temp > 100.7 F Al Hydroxide/Mg Hydroxide (Mylanta Ii) 30 ml PO Q6H PRN PRN PRN Reason: Gastric Burning Atorvastatin Calcium (Lipitor) 10 mg PO QHS [facility] Last Admin: 07/23/19 21:37 Dose: 10 mg Documented by: Dextrose (D50w Syringe) 0 gm IV X1 PRN; Protocol PRN Reason: Hypoglycemia Doxazosin Mesylate (Cardura) 8 mg PO DAILY [facility] Last Admin: 07/23/19 08:09 Dose: 8 mg Documented by: Fluoxetine HCl (Prozac) 20 mg PO DAILY [facility] Last Admin: 07/23/19 08:09 Dose: 20 mg Documented by: Glucagon () 1 mg IM .X1 PRN PRN Reason: Hypoglycemia Hydralazine HCl (Apresoline Iv) 10 mg IV Q4H PRN PRN PRN Reason: Hypertensive Emergency Last Admin: 07/22/19 23:09 Dose: 10 mg Documented by: Insulin Human Lispro (Humalog Kwikpen (Bkc)) [address] [facility]; Protocol Last Admin: 07/24/19 07:02 Dose: Not Given Documented by: Melatonin (Melatonin) 3 mg PO QHS PRN PRN PRN Reason: INSOMNIA Ondansetron HCl (Zofran) 4 mg IV Q8H PRN PRN PRN Reason: NAUSEA/VOMITING Oxycodone HCl (Oxyir) 5 mg PO Q4H PRN PRN PRN Reason: Pain Score 4-5/10 Oxycodone HCl (Oxyir) 10 mg PO Q4H PRN PRN PRN Reason: Pain Score 6-10/10 Polysaccharide Iron Complex (Ferrex 150) 150 mg PO DAILY [facility] Last Admin: 07/23/19 08:09 Dose: 150 mg Documented by: Prednisone () 5 mg PO DAILYCM [facility] Last Admin: 07/23/19 08:09 Dose: 5 mg Documented by: Promethazine HCl (Phenergan) 25 mg IM Q6H PRN PRN PRN Reason: Breakthrough nausea/vomiting Senna/Docusate Sodium (Senokot-S, Rachael-Colace) 2 tablet PO BID PRN PRN PRN Reason: Constipation Sodium Chloride () 10 - 40 ml IV UD PRN PRN Reason: SALINE FLUSH Last Admin: 07/23/19 21:38 Dose: 10 ml Documented by: Throat Lozenges (Cepacol Sore Throat Lozenge) 1 lozenge MUCOUS MEM Q2H PRN PRN PRN Reason: SORE THROAT Medical Necessity - Tobacco Use Smoking Status: Never smoker Assessment/Plan All Active Problems SARA (acute kidney injury) (Acute) Anemia (Acute) Patient is an 78-year-old gentleman sent to the ED by PCP on account of abnormal labs 1. Renal failure ?Not sure if there is some chronicity to patient's renal failure. Ordered records from the [facility]. Patient last creatinine on record in the hospital demonstrated normal creatinine of 1.23 in 2017. Patient has been admitted to regular nursing floor started on hydration with serial monitoring of electrolytes. As part of his management also ordered renal duplex and discontinued potential nephrotoxic medications -07/21/2019: Review of records from [facility] including renal duplex did not demonstrate any obstruction. Patient kidney function appears to have worsened over a period of time. Consult was placed to nephrology Case discussed with Dr. Gallegos plan is for patient to undergo renal biopsy -07/23/2019: Patient underwent biopsy on 07/21/2019 results still pending. No significant change in kidney function 2. Anemia ?Suspected to be secondary to anemia of chronic disorder. Monitoring H&H. As part of patient's evaluation ordered stool guaiac, as well as iron studies and B12 levels -Hemoglobin down to 7.3; monitoring H&H and transfuse if patient becomes symptomatic or hemoglobin falls below 7 -07/22/2019: Patient hemoglobin did drop to 6.5 necessitating patient being transfused 1 unit PRBC -07/23/2019 ; patient was transfused 1 unit PRBC on 07/22/2019. Hemoglobin came up to 8.1 following his transfusion however did drop down to 7.5. Had a discussion with patient regarding his anemia. He had apparently been transfused with 2 unit PRBC days prior to his admission. Did explain to patient the need to complete his anemia work-up including EGD and colonoscopy. Consult subsequently placed to Dr. Hank Hudson with general surgery. Plan is for patient to undergo endoscopic evaluation on 07/25/2019 prior to discharge -07/24/2019scheduled to undergo endoscopic evaluation ( upper EGD and colonoscopy) on 07/25/2019 3. Hypokalemia - Repleted as needed -07/23/2019: Potassium still remains low at 3.3 4. Diabetes mellitus type II -Controlled with suspected complications including diabetic nephropathy patient's oral hypoglycemics held. Placed on Accu-Cheks a.c. and at bedtime and covered with sliding scale insulin 5. Hypertension - Blood pressure controlled, home medications except for Altace continued with dose adjustment as needed 6. Dyslipidemia -Patient is on statin therapy, continued at home dose 7. Prostate CA ?Patient was treated with prostatectomy followed by radiation therapy currently on abiraterone 8. Depression ?Patient on SSRI 9. Hypernatremia do suspect some dehydration ?Admitted to regular nursing floor being managed with IV fluid ?07/21/2019: Sodium levels down to 144 10. Obesity with BMI of 36.5 ?Counseled on weight loss 11. DVT prophylaxis ?On Lovenox dose adjusted for kidney function -Lovenox discontinued in view of patient's anemia Inpatient E&M: [id number] [facility] Hosp L2
--- NOTE | 2019-07-24 07:53 | PCM.CONS.GEN ---
Problem List (1) Anemia Status: Acute Qualifiers: Anemia type: unspecified type Qualified Code(s): D64.9 - Anemia, unspecified (2) SARA (acute kidney injury) Status: Acute Reason for Consult Date of Consultation: 07/24/19 Reason for Consultation: Anemia and positive fecal occult blood test History of Present Illness: The patient is a 78 year old M who is admitted with acute renal failure. The patient has nonoliguric acute kidney injury. The patient has been having anemia. He reports he had a transfusion a few weeks ago. He says that his last colonoscopy was about [address] Smith and he had another one 5 years prior to that. He did have polyps on his first colonoscopy but nothing on a second one. He is not having gross blood in his stool or abdominal pain. No nausea or vomiting. Past Medical History Past Medical History (Chronic Problems): Chronic Problems DM (diabetes mellitus) (Chronic) Essential (primary) hypertension (Chronic) Prostate CA (Chronic) Allergies Iodinated Contrast Media Allergy (Verified 07/20/19 10:16) PT UNSURE OF REACTION Home Medications: Ambulatory Orders Medication Instructions Recorded Aspirin E.C. [Ecotrin] 81 mg PO DAILY@0800 08/14/16 Atorvastatin Calcium [Lipitor] 10 mg PO QHS 08/14/16 Doxazosin Mesylate [Cardura] 8 mg PO DAILY 08/14/16 Fenofibrate,Micronized 34 mg PO DAILY 08/14/16 [Fenofibrate] Sitagliptin Phosphate [Januvia] 50 mg PO DAILY 08/14/16 Abiraterone Acetate 1,000 mg PO DAILY 07/20/19 Ergocalciferol (Vitamin D2) 50,000 unit PO QWEEK 07/20/19 [Drisdol] Fluoxetine [Prozac] 20 mg PO DAILY 07/20/19 Furosemide [Lasix] 20 mg PO QODAY 07/20/19 Hydrochlorothiazide 12.5 mg PO DAILY PRN 07/20/19 Iron Polysaccharide Complex 150 mg PO DAILY 07/20/19 [Ferrex 150] Metformin HCl 1,000 mg PO BID 07/20/19 Prednisone 5 mg PO DAILY 07/20/19 Psyllium Husk [Metamucil] 1 cap PO DAILY PRN 07/20/19 Ramipril 20 mg PO DAILY 07/20/19 Smoking Status: Never smoker - *Family History Maternal History Items: Cancer Paternal History Items: Heart Disease Review of Systems Constitutional: Denies: Anorexia, Fever HEENT: Denies: Difficulty Swallowing Cardiovascular: Denies: Chest Pain Respiratory: Denies: Cough, Shortness of Breath Gastrointestinal: Denies: Abdominal Pain, Constipation, Diarrhea, Nausea, Melena, Vomiting Patient Problems: Active and Suspected Problems SARA (acute kidney injury) (Acute) Anemia (Acute) - Physical Exam Vitals/I&O's: Vital Signs Temp Pulse Resp BP Pulse Ox 98.0 F 79 18 155/68 H 98 07/24/19 02:37 07/24/19 02:37 07/24/19 02:37 07/24/19 02:37 07/24/19 02:37 Oxygen Flow Rate (L/min) [2] 2 Oxygen Delivery Method [3] Room Air Oxygen Delivery Method [2] Nasal Cannula Oxygen Delivery Method [1 ( Room Air Initial Baseline)] Oxygen Delivery Method Room Air Weight: 254 lb 3.088 oz Body Mass Index (BMI) 36.4 Intake and Output for Last 24 Hours 07/22/19 07/23/19 07/24/19 23:59 23:59 23:59 Intake Total 2455 / 3155 1450 / 2150 800 / 800 Output Total 1600 / 1600 Balance 855 / 1555 1450 / 2150 800 / 800 General: Alert, Oriented x3 Neck: No JVD Lungs: Normal air movement Cardiovascular: Regular rate, Regular Rhythm Abdomen: Soft, Non Tender, Non-Distended Musculoskeletal: No Muscle Wasting Microbiology Past 72 Hours 07/21/19 21:40 Stool Stool Occult Blood (ADIN) - Final Occult Blood Positive Laboratory Results 07/21/19 06:05: Total Protein (PEP) 5.4 L, Globulin 2.2, IgG 655, IgA 70, IgM 34, Immunofixation Screen Comment, Albumin (SAMUEL) 3.2, Albumin/Globulin (SAMUEL) 1.5, Gderl-4-Ptzkpekuo SAMUEL 0.2, Jmpsd-6-Okzexmcqd SAMUEL 0.7, Beta-Globulins (SAMUEL) 0.8, Gamma Globulins (SAMUEL) 0.6, SAMUEL M-Melo , SAMUEL Comments Comment 07/21/19 06:05: c-ANCA Antibody <1:20, Atypical p-ANCA <1:20, p-ANCA Antibody <1:20, Complement C3 117 07/23/19 11:23: POC Glucose 128 H 07/23/19 16:09: POC Glucose 141 H 07/24/19 06:59: POC Glucose 93 Current Medications Abiraterone Acetate (Zytiga) 1,000 mg PO DAILY [facility] Last Admin: 07/23/19 08:09 Dose: 1,000 mg Documented by: Acetaminophen (Tylenol) 650 mg PO Q6H PRN PRN PRN Reason: Pain Score 1-10/Temp > 100.7 F Al Hydroxide/Mg Hydroxide (Mylanta Ii) 30 ml PO Q6H PRN PRN PRN Reason: Gastric Burning Atorvastatin Calcium (Lipitor) 10 mg PO QHS [facility] Last Admin: 07/23/19 21:37 Dose: 10 mg Documented by: Dextrose (D50w Syringe) 0 gm IV X1 PRN; Protocol PRN Reason: Hypoglycemia Doxazosin Mesylate (Cardura) 8 mg PO DAILY [facility] Last Admin: 07/23/19 08:09 Dose: 8 mg Documented by: Fluoxetine HCl (Prozac) 20 mg PO DAILY [facility] Last Admin: 07/23/19 08:09 Dose: 20 mg Documented by: Glucagon () 1 mg IM .X1 PRN PRN Reason: Hypoglycemia Hydralazine HCl (Apresoline Iv) 10 mg IV Q4H PRN PRN PRN Reason: Hypertensive Emergency Last Admin: 07/22/19 23:09 Dose: 10 mg Documented by: Insulin Human Lispro (Humalog Kwikpen (Bkc)) 0 unit SC [facility]; Protocol Last Admin: 07/24/19 07:02 Dose: Not Given Documented by: Melatonin (Melatonin) 3 mg PO QHS PRN PRN PRN Reason: INSOMNIA Ondansetron HCl (Zofran) 4 mg IV Q8H PRN PRN PRN Reason: NAUSEA/VOMITING Oxycodone HCl (Oxyir) 5 mg PO Q4H PRN PRN PRN Reason: Pain Score 4-5/10 Oxycodone HCl (Oxyir) 10 mg PO Q4H PRN PRN PRN Reason: Pain Score 6-10/10 Polysaccharide Iron Complex (Ferrex 150) 150 mg PO DAILY [facility] Last Admin: 07/23/19 08:09 Dose: 150 mg Documented by: Prednisone () 5 mg PO DAILYCM [facility] Last Admin: 07/23/19 08:09 Dose: 5 mg Documented by: Promethazine HCl (Phenergan) 25 mg IM Q6H PRN PRN PRN Reason: Breakthrough nausea/vomiting Senna/Docusate Sodium (Senokot-S, Rachael-Colace) 2 tablet PO BID PRN PRN PRN Reason: Constipation Sodium Chloride () 10 - 40 ml IV UD PRN PRN Reason: SALINE FLUSH Last Admin: 07/23/19 21:38 Dose: 10 ml Documented by: Throat Lozenges (Cepacol Sore Throat Lozenge) 1 lozenge MUCOUS MEM Q2H PRN PRN PRN Reason: SORE THROAT Assessment/Plan All Active Problems SARA (acute kidney injury) (Acute) Anemia (Acute) 78-year-old male with anemia and possible GI bleed 1. The patient has anemia and has required transfusion in the past. He also has kidney failure and I am unsure if this is due to GI losses or due to his kidney failure. The patient had positive fecal occult blood test and his hemoglobin is 7.5. I discussed EGD and colonoscopy with the patient in detail. The patient would like EGD and colonoscopy as an inpatient. I discussed his bowel prep with Dr. Middleton. He does not think it should exacerbate the patient's kidney injury and he approves with a GoLYTELY bowel prep. I will order clear liquids today and bowel prep this afternoon and plan for EGD and colonoscopy tomorrow. 2. I explained endoscopy in detail to the patient. I explained the risks including but not limited to stroke or heart attack with anesthesia, perforation of the GI tract, bleeding, infection. I explained that any of these could necessitate further emergency surgery. The patient understands and all questions were answered sufficiently. The patient wishes to proceed with procedure. Hank Hudson MD Pager: [facility] [address] [place] [address] [address] [place] [address] Office:
[2019-07-24 08:06] LABS: Hematocrit 26.4 % (40-54); Hemoglobin 7.9 g/dL (13.0-16.5); Mean Corp Hgb Conc 29.9 g/dL (32-36); Mean Corpuscular Volume 97.1 fL (80-94); Mean Platelet Vol. 9.6 fl (6.2-12.0); Platelet Count 170 K/mm3 (150-450); RBC Distribution Width CV 14.9 % (11.6-14.6); RBC Distribution Width SD 52.4 fl (35.1-43.9); Red Blood Count 2.72 M/mm3 (4.6-6.2); White Blood Count 5.1 K/mm3 (4.4-11.0)
[2019-07-24 08:30] VITALS: BP 148/61; PULSE 82; RESP 18; TEMP 36.9; O2SAT 100
[2019-07-24 08:32] LABS: Anion Gap 9 (5-15); BUN 49 mg/dL (7-18); BUN/Creat Ratio 9.2 RATIO (10-20); Calcium,Total 8.5 mg/dL (8.5-10.1); Chloride 118 mmol/L (98-107); Creatinine, Serum 5.31 mg/dL (0.70-1.30); EST Glomerular Filtration Rate 11 mL/min (>60); Est Glom Filt Rate - Afr Amer 13 mL/min (>60); Estimated Creatinine Clearance 11.46 ml/min; Glucose 97 mg/dL (74-106); Potassium 3.3 mmol/L (3.5-5.1); Sodium Level 147 mmol/L (136-145)
[2019-07-24] MEDS: Iron Polysaccharide Complex 150 MG CAPSULE PO (08:32)
[2019-07-24] MEDS: predniSONE 5 MG Tablet PO (08:32)
[2019-07-24] MEDS: Doxazosin 4 MG Tablet 8 MG PO (08:33)
[2019-07-24] MEDS: FLUoxetine 20 MG Capsule PO (08:33)
[2019-07-24] MEDS: ABIRATERONE ACETATE 250 MG TABLET 1000 MG PO (08:34)
[2019-07-24 11:36] LABS: Bedside Glucose 110 mg/dL (70-110)
[2019-07-24] MEDS: Electrolyte Solution/Peg's 4000 ML PO (14:43)
[2019-07-24 14:45] VITALS: BP 151/66; PULSE 78; RESP 18; TEMP 37.1; O2SAT 98
[2019-07-24 17:16] LABS: Bedside Glucose 111 mg/dL (70-110)
[2019-07-24 20:45] VITALS: BP 150/83; PULSE 85; RESP 16; TEMP 37.3; O2SAT 98
[2019-07-24] MEDS: Atorvastatin Calcium 10 MG Tablet PO (21:23)
[2019-07-25] VITALS (11 sets, daily range): BP systolic 113–174; BP diastolic 54–85; PULSE 74–92; RESP 16–18; TEMP 36.6–37.2; O2SAT 93–98; BMI 36.3
[2019-07-25 01:51] LABS: Bedside Glucose 96 mg/dL (70-110)
[2019-07-25 05:48] LABS: Hematocrit 23.1 % (40-54); Hemoglobin 7.2 g/dL (13.0-16.5); Mean Corp Hgb Conc 31.2 g/dL (32-36); Mean Corpuscular Hgb 29.5 pg (27.0-32.0); Mean Corpuscular Volume 94.7 fL (80-94); Mean Platelet Vol. 9.9 fl (6.2-12.0); Platelet Count 170 K/mm3 (150-450); RBC Distribution Width CV 14.6 % (11.6-14.6); RBC Distribution Width SD 50.7 fl (35.1-43.9); Red Blood Count 2.44 M/mm3 (4.6-6.2); White Blood Count 4.9 K/mm3 (4.4-11.0)
[2019-07-25 06:01] LABS: International Normalized Ratio 1.2; Partial Thromboplast Time 26.3 Seconds (24.1-36.2)
[2019-07-25 06:13] LABS: Anion Gap 9 (5-15); BUN 43 mg/dL (7-18); BUN/Creat Ratio 8.4 RATIO (10-20); Calcium,Total 8.3 mg/dL (8.5-10.1); Chloride 116 mmol/L (98-107); Creatinine, Serum 5.13 mg/dL (0.70-1.30); EST Glomerular Filtration Rate 12 mL/min (>60); Est Glom Filt Rate - Afr Amer 14 mL/min (>60); Estimated Creatinine Clearance 11.86 ml/min; Glucose 81 mg/dL (74-106); Potassium 3.4 mmol/L (3.5-5.1); Sodium Level 146 mmol/L (136-145)
[2019-07-25 06:25] LABS: Bedside Glucose 86 mg/dL (70-110)
--- NOTE | 2019-07-25 07:26 | PN.SURG_ITS ---
Patient Problems: Active and Suspected Problems SARA (acute kidney injury) (Acute) Anemia (Acute) Subjective: Patient is doing well with no complaints - Physical Exam Vitals/I&O's: Vital Signs Temp Pulse Resp BP Pulse Ox 98.3 F 84 16 158/65 H 96 07/25/19 02:45 07/25/19 02:45 07/25/19 02:45 07/25/19 02:45 07/25/19 02:45 Oxygen Flow Rate (L/min) [2] 2 Oxygen Delivery Method [3] Room Air Oxygen Delivery Method [2] Nasal Cannula Oxygen Delivery Method [1 ( Room Air Initial Baseline)] Oxygen Delivery Method Room Air Weight: 254 lb 3.088 oz Body Mass Index (BMI) 36.4 Intake and Output for Last 24 Hours 07/23/19 07/24/19 07/25/19 23:59 23:59 23:59 Intake Total 1450 / 2150 1850 / 4850 3000 / 3000 Output Total 2 / 2 Balance 1450 / 2150 1848 / 4848 3000 / 3000 General: Alert, Oriented x3 Lungs: Normal air movement Cardiovascular: Regular rate, Regular Rhythm Abdomen: Soft, Non Tender, Non-Distended Laboratory Results 07/24/19 07:55: WBC 5.1, RBC 2.72 L, Hgb 7.9 L, Hct 26.4 L, MCV 97.1 H, MCH 29.0, MCHC 29.9 L, RDW Std Deviation 52.4 H, RDW Coeff of Alva 14.9 H, Plt Count 170, MPV 9.6 07/24/19 07:55: Sodium 147 H, Potassium 3.3 L, Chloride 118 H, Carbon Dioxide 20.0 L, Anion Gap 9, BUN 49 H, Creatinine 5.31 H, Estim Creat Clear Calc 11.46, Est GFR (MDRD) Af Amer 13 L, Est GFR (MDRD) Non-Af 11 L, BUN/Creatinine Ratio 9.2 L, Glucose 97, Calcium 8.5, Magnesium 2.0 07/24/19 11:23: POC Glucose 110 07/24/19 16:13: POC Glucose 111 H 07/24/19 21:21: POC Glucose 96 07/25/19 05:20: WBC 4.9, RBC 2.44 L, Hgb 7.2 L, Hct 23.1 L, MCV 94.7 H, MCH 29.5, MCHC 31.2 L, RDW Std Deviation 50.7 H, RDW Coeff of Alva 14.6, Plt Count 170, MPV 9.9 07/25/19 05:20: Sodium 146 H, Potassium 3.4 L, Chloride 116 H, Carbon Dioxide 21.0, Anion Gap 9, BUN 43 H, Creatinine 5.13 H, Estim Creat Clear Calc 11.86, Est GFR (MDRD) Af Amer 14 L, Est GFR (MDRD) Non-Af 12 L, BUN/Creatinine Ratio 8.4 L, Glucose 81, Calcium 8.3 L, Magnesium 2.0 07/25/19 05:20: PT 15.0 H, INR 1.2, APTT 26.3 07/25/19 05:20: Hemoglobin A1c Pending 07/25/19 06:17: POC Glucose 86 Current Medications Abiraterone Acetate (Zytiga) 1,000 mg PO DAILY [facility] Last Admin: 07/24/19 08:34 Dose: 1,000 mg Documented by: Acetaminophen (Tylenol) 650 mg PO Q6H PRN PRN PRN Reason: Pain Score 1-10/Temp > 100.7 F Al Hydroxide/Mg Hydroxide (Mylanta Ii) 30 ml PO Q6H PRN PRN PRN Reason: Gastric Burning Atorvastatin Calcium (Lipitor) 10 mg PO QHS [facility] Last Admin: 07/24/19 21:23 Dose: 10 mg Documented by: Dextrose (D50w Syringe) 0 gm IV X1 PRN; Protocol PRN Reason: Hypoglycemia Doxazosin Mesylate (Cardura) 8 mg PO DAILY [facility] Last Admin: 07/24/19 08:33 Dose: 8 mg Documented by: Fluoxetine HCl (Prozac) 20 mg PO DAILY [facility] Last Admin: 07/24/19 08:33 Dose: 20 mg Documented by: Glucagon () 1 mg IM .X1 PRN PRN Reason: Hypoglycemia Hydralazine HCl (Apresoline Iv) 10 mg IV Q4H PRN PRN PRN Reason: Hypertensive Emergency Last Admin: 07/22/19 23:09 Dose: 10 mg Documented by: Insulin Human Lispro (Humalog Kwikpen (Bkc)) 0 unit SC [facility]; Protocol Last Admin: 07/24/19 21:23 Dose: Not Given Documented by: Melatonin (Melatonin) 3 mg PO QHS PRN PRN PRN Reason: INSOMNIA Ondansetron HCl (Zofran) 4 mg IV Q8H PRN PRN PRN Reason: NAUSEA/VOMITING Oxycodone HCl (Oxyir) 5 mg PO Q4H PRN PRN PRN Reason: Pain Score 4-5/10 Oxycodone HCl (Oxyir) 10 mg PO Q4H PRN PRN PRN Reason: Pain Score 6-10/10 Polysaccharide Iron Complex (Ferrex 150) 150 mg PO DAILY [facility] Last Admin: 07/24/19 08:32 Dose: 150 mg Documented by: [facility] Last Admin: 07/24/19 08:32 Dose: 5 mg Documented by: Promethazine HCl (Phenergan) 25 mg IM Q6H PRN PRN PRN Reason: Breakthrough nausea/vomiting Senna/Docusate Sodium (Senokot-S, Rachael-Colace) 2 tablet PO BID PRN PRN PRN Reason: Constipation Sodium Chloride () 10 - 40 ml IV UD PRN PRN Reason: SALINE FLUSH Last Admin: 07/23/19 21:38 Dose: 10 ml Documented by: Throat Lozenges (Cepacol Sore Throat Lozenge) 1 lozenge MUCOUS MEM Q2H PRN PRN PRN Reason: SORE THROAT Medical Necessity - Tobacco Use Smoking Status: Never smoker Assessment/Plan All Active Problems SARA (acute kidney injury) (Acute) Anemia (Acute) 78-year-old male with anemia 1. Patient is doing well this morning had bowel prep yesterday evening. EGD and colonoscopy today. Hank Hudson MD Pager: [facility] [address] [place] [address], [address] [place] [address] Office:
[2019-07-25 08:11] LABS: Hemoglobin A1c 5.3 % (3.8-5.6)
[2019-07-25] MEDS: Doxazosin 4 MG Tablet 8 MG PO (09:05)
[2019-07-25 09:25] LABS: Bedside Glucose 93 mg/dL (70-110)
[2019-07-25] MEDS: Lactated Ringers 1,000 ML 100 ML IV (10:25)
--- NOTE | 2019-07-25 11:00 | COLBX_PTH ---
PATIENT: PERLA SANCHEZ LOC: MS3 U#:[id number] AGE/SX: 78/M ROOM: [facility] RE07/20/[address]: Dr. Kvng Kim DO : 1940 BED: 1 DIS: 07/26/2019 SPEC #: [id number] RECD: 07/25/19 13:02 STATUS: DEANNA RE #: [id number] RUPA: 07/25/19 11:[address]: Hank Hudson DEPT: SURGICAL PATHOLOGY RECD BY: Kam Delong ENTERED: 07/25/19 13:29 SP TYPE: COLON BX OTHR DR: MD Dr. Dwight Nath MD Dr. Jayaprakas Dasari, MD Dr. Mark Tereletsky, DO Dr. Victor Velasquez, MD Tissues: A - Duodenum, NOS B - Cecum, NOS Procedures: Surgery Specimen Level IV Comments: @ Ordering doctor for SUIV edited from to @ agnes MURRAY at 07/26/19 1150 @ Submitting doctor edited from to @ by TERRI at 07/26/19 1150 HEADER OPERATION: Colonoscopy, EGD ([facility] PRE-OP DIAGNOSIS: Anemia TISSUE SUBMITTED: A - Duodenal polyp biopsy, B - Cecal polyp biopsy MICROSCOPIC DIAGNOSIS A. Duodenal polyp, biopsy: Fragments of duodenal mucosa, no pathologic diagnosis. See comment. B. Cecal polyp, biopsy: Tubular adenoma. SJ:candelario 07/27/19 COMMENT A. The specimen may represent fragments of benign mucosal polyp. MICROSCOPIC DESCRIPTION Slides are reviewed. GROSS DESCRIPTION A - Received in fixative is one container labeled with the patient's name and designated duodenal polyp biopsy. The specimen consists of multiple irregular fragments of light reza soft tissue that in aggregate measure 0.8 x 0.2 x 0.1 cm. The specimen is totally submitted in one cassette. B - Received in fixative is one container labeled with the patient's name and designated cecal polyp biopsy. The specimen consists of one irregular fragment of light reza soft tissue that measures 0.4 x 0.2 x 0.1 cm. The specimen is totally submitted in one cassette. / SHARMILA:candelario 07/26/19 TC:1 CPT: 55702 x2
--- NOTE | 2019-07-25 11:16 | PCA ---
PT OFF FLOOR
--- NOTE | 2019-07-25 11:44 | OP.CCLET_ITS ---
07/25/2019 Darshan Solomon [address] [place] [address] Re : Upper GI endoscopy procedure for Dank Zavala Dear Dr. Solomon This procedure was performed on Thursday, July 25, 2019. My impressions and recommendations are as follows: Impressions : - Normal esophagus. - Normal stomach. - A few duodenal polyps. Incomplete resection. Resected tissue retrieved. Recommendations : - Await pathology results. - Repeat upper endoscopy for surveillance based on pathology results. - Return patient to [facility] for ongoing care. - Resume previous diet. - Continue present medications. My findings are described in the full procedure note, which is enclosed. If I can be of further assistance, please feel free to contact me at Doctor phone number(s): , Work: . Sincerely, Hank Hudson MD 07/25/2019 11:44:07 AM This report has been signed electronically.
--- NOTE | 2019-07-25 11:44 | OP.EGD_ITS ---
Patient Name: Dank Zavala Procedure Date: 07/25/2019 11:03 AM Date of : 1940 Age: 78 Procedure: Upper GI endoscopy Indications: Unexplained iron deficiency anemia, Occult blood in stool Providers: Hank Hudson MD Medicines: Monitored Anesthesia Care Patient Profile: This is an 78 year old male. Refer to note in patient chart for documentation of history and physical. Complications: No immediate complications. Estimated blood loss: Minimal. Procedure: Pre-Anesthesia Assessment: - Prior to the procedure, a History and Physical was performed, and patient medications and allergies were reviewed. The patient's tolerance of previous anesthesia was also reviewed. The risks and benefits of the procedure and the sedation options and risks were discussed with the patient. All questions were answered, and informed consent was obtained. Prior Anticoagulants: The patient has taken no previous anticoagulant or antiplatelet agents. After reviewing the risks and benefits, the patient was deemed in satisfactory condition to undergo the procedure. After obtaining informed consent, the endoscope was passed under direct vision. Throughout the procedure, the patient's blood pressure, pulse, and oxygen saturations were monitored continuously. The gastroscope was introduced through the mouth, and advanced to the second part of duodenum. The upper GI endoscopy was accomplished without difficulty. The patient tolerated the procedure well. Scope In: 11:13:21 AM Scope Out: 11:16:22 AM Total Procedure Duration Time 0 hours 3 minutes 1 second Findings: The esophagus was normal. The stomach was normal. A few small pedunculated polyps with no bleeding were found in the first portion of the duodenum. The polyp was removed with a cold biopsy forceps. Polyp resection was incomplete. The resected tissue was retrieved. Impression: - Normal esophagus. - Normal stomach. - A few duodenal polyps. Incomplete resection. Resected tissue retrieved. Recommendation: - Await pathology results. - Repeat upper endoscopy for surveillance based on pathology results. - Return patient to [facility] for ongoing care. - Resume previous diet. - Continue present medications. Procedure Code(s): --- Professional --- 94651, Esophagogastroduodenoscopy, flexible, transoral; with biopsy, single or multiple Diagnosis Code(s): --- Professional --- K31.7, Polyp of stomach and duodenum D50.9, Iron deficiency anemia, unspecified R19.5, Other fecal abnormalities CPT copyright 2017 [employer]. All rights reserved. The codes documented in this report are preliminary and upon digital community manager review may be revised to meet current compliance requirements. Hank Hudson MD 07/25/2019 11:44:07 AM This report has been signed electronically. Number of Addenda: 0 Note Initiated On: 07/25/2019 11:03 AM
--- NOTE | 2019-07-25 11:46 | OP.CCLET_ITS ---
07/25/2019 Darshan Solomon [address] [place] [address] Re : Colonoscopy procedure for Dank Zavala Dear Dr. Solomon This procedure was performed on Thursday, July 25, 2019. My impressions and recommendations are as follows: Impressions : - One small polyp in the cecum, removed with a hot snare. Complete resection. Polyp tissue not retrieved. - One polyp in the cecum, removed with a cold biopsy forceps. Resected and retrieved. - The examination was otherwise normal on direct and retroflexion views. Recommendations : - Discharge patient to home. - Resume previous diet. - Continue present medications. - Await pathology results. - Repeat colonoscopy for surveillance based on pathology results. My findings are described in the full procedure note, which is enclosed. If I can be of further assistance, please feel free to contact me at Doctor phone number(s): , Work: . Sincerely, Hank Hudson MD 07/25/2019 11:45:54 AM This report has been signed electronically.
--- NOTE | 2019-07-25 11:46 | OP.COLON_ITS ---
Patient Name: Dank Zavala Procedure Date: 07/25/2019 11:19 AM Date of : 1940 Age: 78 Procedure: Colonoscopy Indications: Unexplained iron deficiency anemia Providers: Hank Hudson MD Medicines: Monitored Anesthesia Care Patient Profile: This is an 78 year old male. Refer to note in patient chart for documentation of history and physical. Last Colonoscopy: more than 3 years ago. Complications: No immediate complications. Estimated blood loss: Minimal. Procedure: Pre-Anesthesia Assessment: - Prior to the procedure, a History and Physical was performed, and patient medications and allergies were reviewed. The patient's tolerance of previous anesthesia was also reviewed. The risks and benefits of the procedure and the sedation options and risks were discussed with the patient. All questions were answered, and informed consent was obtained. Prior Anticoagulants: The patient has taken no previous anticoagulant or antiplatelet agents. After reviewing the risks and benefits, the patient was deemed in satisfactory condition to undergo the procedure. After I obtained informed consent, the scope was passed under direct vision. Throughout the procedure, the patient's blood pressure, pulse, and oxygen saturations were monitored continuously. The pediatric colonoscope was introduced through the anus and advanced to the cecum, identified by appendiceal orifice and ileocecal valve. The colonoscopy was performed without difficulty. The patient tolerated the procedure well. The quality of the bowel preparation was good. Scope In: 11:22:21 AM Scope Withdrawal Time 0 hours 11 minutes 21 seconds Scope Out: 11:40:34 AM Total Procedure Duration Time 0 hours 18 minutes 13 seconds Findings: A small polyp was found in the cecum. The polyp was removed with a hot snare. Resection was complete, but the polyp tissue was not retrieved. A polyp was found in the cecum. The polyp was removed with a cold biopsy forceps. Resection and retrieval were complete. The exam was otherwise without abnormality on direct and retroflexion views. Impression: - One small polyp in the cecum, removed with a hot snare. Complete resection. Polyp tissue not retrieved. - One polyp in the cecum, removed with a cold biopsy forceps. Resected and retrieved. - The examination was otherwise normal on direct and retroflexion views. Recommendation: - Discharge patient to home. - Resume previous diet. - Continue present medications. - Await pathology results. - Repeat colonoscopy for surveillance based on pathology results. Procedure Code(s): --- Professional --- 93877, Colonoscopy, flexible; with removal of tumor(s), polyp(s), or other lesion(s) by snare technique 16648, 59, Colonoscopy, flexible; with biopsy, single or multiple Diagnosis Code(s): --- Professional --- D12.0, Benign neoplasm of cecum D50.9, Iron deficiency anemia, unspecified CPT copyright 2017 [employer]. All rights reserved. The codes documented in this report are preliminary and upon junction maker review may be revised to meet current compliance requirements. Hank Hudson MD 07/25/2019 11:45:54 AM This report has been signed electronically. Number of Addenda: 0 Note Initiated On: 07/25/2019 11:19 AM
--- NOTE | 2019-07-25 11:47 | PCM.PN.BLA ---
Progress Note I performed a colonoscopy and EGD on the patient today due to his anemia. The patient had several small polypoid lesions in the duodenum which were biopsied with a cold forceps. There was no stigmata of bleeding. There were no ulcers in the stomach or active bleeding in the stomach. Esophagus was normal. Colonoscopy prep was fair. There were 2 small polyps in the cecum which were removed. There is no stigmata of bleeding or active bleeding. No large lesions or masses noted. Hank Hudson MD Pager: [facility] [address] [place] [address] [address] [place] [address] Office: [facility] Vital Signs/Narrative: Vital Signs Temp Pulse Resp BP Pulse Ox 07/25/19 09:08 92 07/25/19 08:50 99.0 F 85 18 171/85 H 97
--- NOTE | 2019-07-25 13:23 | NURSING ---
up to room recently, bs is 101.
[2019-07-25 13:36] LABS: Bedside Glucose 101 mg/dL (70-110)
--- NOTE | 2019-07-25 13:55 | PCM.PN.REN ---
Patient Problems: Active and Suspected Problems SARA (acute kidney injury) (Acute) Anemia (Acute) Subjective: no sob/cp/aceves no c/o - Physical Exam Vitals/I&O's: Vital Signs Temp Pulse Resp BP Pulse Ox 97.8 F 75 18 128/55 H 93 07/25/19 12:56 07/25/19 12:56 07/25/19 12:56 07/25/19 12:56 07/25/19 12:56 Oxygen Flow Rate (L/min) [2] 2 Oxygen Flow Rate (L/min) 4 Oxygen Delivery Method [3] Room Air Oxygen Delivery Method [2] Nasal Cannula Oxygen Delivery Method [1 ( Room Air Initial Baseline)] Oxygen Delivery Method Room Air Weight: 115.3 kg Body Mass Index (BMI) 36.3 Intake and Output for Last 24 Hours 07/23/19 07/24/19 07/25/19 23:59 23:59 23:59 Intake Total 1450 / 2150 1850 / 4850 3800 / 3800 Output Total 2 / 2 Balance 1450 / 2150 1848 / 4848 3800 / 3800 General: Alert, Cooperative HEENT: Atraumatic, Normocephalic Neck: Supple, Trachea Midline Lungs: Clear to auscultation, Normal air movement Cardiovascular: Regular rate, Regular Rhythm, Normal S1 Abdomen: Bowel Sounds Present, Soft, Non Tender, - - obese Laboratory Results 07/24/19 16:13: POC Glucose 111 H 07/24/19 21:21: POC Glucose 96 07/25/19 05:20: WBC 4.9, RBC 2.44 L, Hgb 7.2 L, Hct 23.1 L, MCV 94.7 H, MCH 29.5, MCHC 31.2 L, RDW Std Deviation 50.7 H, RDW Coeff of Alva 14.6, Plt Count 170, MPV 9.9 07/25/19 05:20: Sodium 146 H, Potassium 3.4 L, Chloride 116 H, Carbon Dioxide 21.0, Anion Gap 9, BUN 43 H, Creatinine 5.13 H, Estim Creat Clear Calc 11.86, Est GFR (MDRD) Af Amer 14 L, Est GFR (MDRD) Non-Af 12 L, BUN/Creatinine Ratio 8.4 L, Glucose 81, Calcium 8.3 L, Magnesium 2.0 07/25/19 05:20: PT 15.0 H, INR 1.2, APTT 26.3 07/25/19 05:20: Hemoglobin A1c 5.3 07/25/19 06:17: POC Glucose 86 07/25/19 07:55: COVID-19 (VINI) Not Detected 07/25/19 09:18: POC Glucose 93 07/25/19 13:21: POC Glucose 101 Current Medications Abiraterone Acetate (Zytiga) 1,000 mg PO DAILY [facility] Last Admin: 07/25/19 10:57 Dose: Not Given Documented by: Acetaminophen (Tylenol) 650 mg PO Q6H PRN PRN PRN Reason: Pain Score 1-10/Temp > 100.7 F Al Hydroxide/Mg Hydroxide (Mylanta Ii) 30 ml PO Q6H PRN PRN PRN Reason: Gastric Burning Atorvastatin Calcium (Lipitor) 10 mg PO QHS [facility] Last Admin: 07/24/19 21:23 Dose: 10 mg Documented by: Dextrose (D50w Syringe) 0 gm IV X1 PRN; Protocol PRN Reason: Hypoglycemia Doxazosin Mesylate (Cardura) 8 mg PO DAILY [facility] Last Admin: 07/25/19 09:05 Dose: 8 mg Documented by: Fluoxetine HCl (Prozac) 20 mg PO DAILY [facility] Last Admin: 07/25/19 10:57 Dose: Not Given Documented by: Glucagon () 1 mg IM .X1 PRN PRN Reason: Hypoglycemia Hydralazine HCl (Apresoline Iv) 10 mg IV Q4H PRN PRN PRN Reason: Hypertensive Emergency Last Admin: 07/22/19 23:09 Dose: 10 mg Documented by: Insulin Human Lispro (Humalog Kwikpen (Bkc)) 0 unit SC [facility]; Protocol Last Admin: 07/25/19 13:26 Dose: Not Given Documented by: Melatonin (Melatonin) 3 mg PO QHS PRN PRN PRN Reason: INSOMNIA Ondansetron HCl (Zofran) 4 mg IV Q8H PRN PRN PRN Reason: NAUSEA/VOMITING Oxycodone HCl (Oxyir) 5 mg PO Q4H PRN PRN PRN Reason: Pain Score 4-5/10 Oxycodone HCl (Oxyir) 10 mg PO Q4H PRN PRN PRN Reason: Pain Score 6-10/10 Polysaccharide Iron Complex (Ferrex 150) 150 mg PO DAILY [facility] Last Admin: 07/25/19 09:01 Dose: Not Given Documented by: Prednisone () 5 mg PO DAILYCM [facility] Last Admin: 07/25/19 08:48 Dose: Not Given Documented by: Promethazine HCl (Phenergan) 25 mg IM Q6H PRN PRN PRN Reason: Breakthrough nausea/vomiting Senna/Docusate Sodium (Senokot-S, Rachael-Colace) 2 tablet PO BID PRN PRN PRN Reason: Constipation Sodium Chloride () 10 - 40 ml IV UD PRN PRN Reason: SALINE FLUSH Last Admin: 07/23/19 21:38 Dose: 10 ml Documented by: Throat Lozenges (Cepacol Sore Throat Lozenge) 1 lozenge MUCOUS MEM Q2H PRN PRN PRN Reason: SORE THROAT Medical Necessity - Tobacco Use Smoking Status: Never smoker Assessment/Plan All Active Problems SARA (acute kidney injury) (Acute) Anemia (Acute) SARA has AIN and ATN etiology unclear.The patient states no new meds in the last year but possible that doxazosin was started within the last 6 months so it was stopped and replaced with labetalol Start prednisone 60 mg po qd.Not on concomitant NSAIDS or anticoagulants so will not add PPI. not uremic Scr 5.1 slightly better no need for WA[employer]. d/w patient and RN
[2019-07-25 15:37] LABS: Ferritin 318 ng/mL (26-388)
[2019-07-25] MEDS: predniSONE 20 MG Tablet 60 MG PO (15:45)
--- NOTE | 2019-07-25 15:56 | NURSING ---
update given to pt's Kendra at this time.
[2019-07-25 16:36] LABS: Bedside Glucose 95 mg/dL (70-110)
--- NOTE | 2019-07-25 17:06 | PN_ITS ---
Subjective: Patient was seen and examined today, I talked with his PCP as well as his oncologist Dr. Hardy today by phone, patient has had chronic iron deficiency anemia for quite some time according to his oncologist, he has been receiving Epogen and iron infusions as an outpatient approximately every 2 weeks. I also talked with nephrology extensively today about the patient's medications, they would like the patient to go off his Cardura-it appears from information I obtained from the patient's PCP that he is taking the Cardura for blood pressure control and not for any reason pertaining to his prostate. I talked to the patient today and he denies any fatigue or shortness of breath, he does not feel he needs a blood transfusion-his oncologist told me by phone today that he would not recommend transfusing the patient unless he was weakened or short of breath. - Physical Exam Vitals/I&O's: Vital Signs Temp Pulse Resp BP Pulse Ox 97.8 F 75 18 128/55 H 93 07/25/19 12:56 07/25/19 12:56 07/25/19 12:56 07/25/19 12:56 07/25/19 12:56 Oxygen Flow Rate (L/min) [2] 2 Oxygen Flow Rate (L/min) 4 Oxygen Delivery Method [3] Room Air Oxygen Delivery Method [2] Nasal Cannula Oxygen Delivery Method [1 ( Room Air Initial Baseline)] Oxygen Delivery Method Room Air Weight: 115.3 kg Body Mass Index (BMI) 36.3 Intake and Output for Last 24 Hours 07/23/19 07/24/19 07/25/19 23:59 23:59 23:59 Intake Total 1450 / 2150 1850 / 4850 3800 / 3800 Output Total 2 / 2 Balance 1450 / 2150 1848 / 4848 3800 / 3800 General: Alert, Oriented x3, Cooperative, No apparent distress, Well developed, Well nourished HEENT: Atraumatic, PERRLA, EOMI, Normocephalic Oral: Moist Mucosa Neck: Supple, No JVD, Trachea Midline, Thyroid Normal Size and Texture Lungs: Clear to auscultation, Normal air movement, No rhonchi, No wheeze, No rales Cardiovascular: Regular rate, Regular Rhythm, Normal S1, Normal S2, No murmurs, PMI Normal Abdomen: Bowel Sounds Present, Soft, Non Tender, Non-Distended, Obese Extremities: No edema, Capillary Refill Less than 3 Seconds Skin: No rashes, No breakdown Musculoskeletal: No Tenderness to Palpation of Joints or Extremities Neurological: Cranial nerves II-XII grossly intact, Neuro grossly intact, Sensory exam intact to light touch and pain, Coordination normal Psych/Mental Status: Normal Affect, Appropriate, Alert and oriented to time, place, person, mood and affect Laboratory Results 07/24/19 16:13: POC Glucose 111 H 07/24/19 21:21: POC Glucose 96 07/25/19 05:20: WBC 4.9, RBC 2.44 L, Hgb 7.2 L, Hct 23.1 L, MCV 94.7 H, MCH 29.5, MCHC 31.2 L, RDW Std Deviation 50.7 H, RDW Coeff of Alva 14.6, Plt Count 170, MPV 9.9 07/25/19 05:20: Sodium 146 H, Potassium 3.4 L, Chloride 116 H, Carbon Dioxide 21.0, Anion Gap 9, BUN 43 H, Creatinine 5.13 H, Estim Creat Clear Calc 11.86, Est GFR (MDRD) Af Amer 14 L, Est GFR (MDRD) Non-Af 12 L, BUN/Creatinine Ratio 8.4 L, Glucose 81, Calcium 8.3 L, Magnesium 2.0 07/25/19 05:20: PT 15.0 H, INR 1.2, APTT 26.3 07/25/19 05:20: Hemoglobin A1c 5.3 07/25/19 05:20: Ferritin 318 07/25/19 06:17: POC Glucose 86 07/25/19 07:55: COVID-19 (VINI) Not Detected 07/25/19 09:18: POC Glucose 93 07/25/19 13:21: POC Glucose 101 07/25/19 16:27: POC Glucose 95 Current Medications Abiraterone Acetate (Zytiga) 1,000 mg PO DAILY [facility] Last Admin: 07/25/19 10:57 Dose: Not Given Documented by: Acetaminophen (Tylenol) 650 mg PO Q6H PRN PRN PRN Reason: Pain Score 1-10/Temp > 100.7 F Al Hydroxide/Mg Hydroxide (Mylanta Ii) 30 ml PO Q6H PRN PRN PRN Reason: Gastric Burning Atorvastatin Calcium (Lipitor) 10 mg PO QHS [facility] Last Admin: 07/24/19 21:23 Dose: 10 mg Documented by: Dextrose (D50w Syringe) 0 gm IV X1 PRN; Protocol PRN Reason: Hypoglycemia Fluoxetine HCl (Prozac) 20 mg PO DAILY [facility] Last Admin: 07/25/19 10:57 Dose: Not Given Documented by: Glucagon () 1 mg IM .X1 PRN PRN Reason: Hypoglycemia Hydralazine HCl (Apresoline Iv) 10 mg IV Q4H PRN PRN PRN Reason: Hypertensive Emergency Last Admin: 07/22/19 23:09 Dose: 10 mg Documented by: Insulin Human Lispro (Humalog Kwikpen (Bkc)) 0 unit SC [facility]; Protocol Last Admin: 07/25/19 16:28 Dose: Not Given Documented by: Labetalol HCl (Trandate) 200 mg PO BID [facility] Melatonin (Melatonin) 3 mg PO QHS PRN PRN PRN Reason: INSOMNIA Ondansetron HCl (Zofran) 4 mg IV Q8H PRN PRN PRN Reason: NAUSEA/VOMITING Oxycodone HCl (Oxyir) 5 mg PO Q4H PRN PRN PRN Reason: Pain Score 4-5/10 Oxycodone HCl (Oxyir) 10 mg PO Q4H PRN PRN PRN Reason: Pain Score 6-10/10 Polysaccharide Iron Complex (Ferrex 150) 150 mg PO DAILY [facility] Last Admin: 07/25/19 09:01 Dose: Not Given Documented by: Prednisone () 60 mg PO DAILY@0800 [facility] Last Admin: 07/25/19 15:45 Dose: 60 mg Documented by: Promethazine HCl (Phenergan) 25 mg IM Q6H PRN PRN PRN Reason: Breakthrough nausea/vomiting Senna/Docusate Sodium (Senokot-S, Rachael-Colace) 2 tablet PO BID PRN PRN PRN Reason: Constipation Sodium Chloride () 10 - 40 ml IV UD PRN PRN Reason: SALINE FLUSH Last Admin: 07/23/19 21:38 Dose: 10 ml Documented by: Throat Lozenges (Cepacol Sore Throat Lozenge) 1 lozenge MUCOUS MEM Q2H PRN PRN PRN Reason: SORE THROAT Medical Necessity - Tobacco Use Smoking Status: Never smoker Assessment/Plan All Active Problems SARA (acute kidney injury) (Acute) Anemia (Acute) #1 acute kidney injury-secondary to acute interstitial nephritis-nephrology today placed the patient on high-dose prednisone, he will continue on this as an outpatient and be followed up by nephrology. #2 chronic iron deficiency anemia-patient does not feel fatigued or short of breath, I do not believe he needs a blood transfusion at this time #3 metastatic prostate cancer currently on chemotherapy #4 chronic kidney disease #5 type 2 diabetes-patient's medications will need to be adjusted at the time of discharge, he was taken off Januvia and metformin #6 essential hypertension-patient is now on labetalol for his blood pressure Inpatient E&M: 27890 Subs Hosp L2
[2019-07-25] MEDS: Labetalol 200 MG Tablet PO (21:03)
[2019-07-25] MEDS: Atorvastatin Calcium 10 MG Tablet PO (21:03)
[2019-07-25] MEDS: ABIRATERONE ACETATE 250 MG TABLET 1000 MG PO (21:03)
[2019-07-25] MEDS: Iron Polysaccharide Complex 150 MG CAPSULE PO (21:04)
[2019-07-25] MEDS: Insulin Lispro 100 UNIT/ML INSULN.PEN SC (21:04)
[2019-07-25 21:25] LABS: Bedside Glucose 93 mg/dL (70-110)
[2019-07-25 21:55] LABS: Bedside Glucose 173 mg/dL (70-110)
[2019-07-26 02:45] VITALS: BP 140/59; PULSE 63; RESP 18; TEMP 37.1; O2SAT 96
[2019-07-26 06:11] LABS: Hematocrit 25.2 % (40-54); Hemoglobin 7.6 g/dL (13.0-16.5); Mean Corp Hgb Conc 30.2 g/dL (32-36); Mean Corpuscular Hgb 29.3 pg (27.0-32.0); Mean Corpuscular Volume 97.3 fL (80-94); Mean Platelet Vol. 9.8 fl (6.2-12.0); Platelet Count 179 K/mm3 (150-450); RBC Distribution Width CV 14.5 % (11.6-14.6); RBC Distribution Width SD 51.2 fl (35.1-43.9); Red Blood Count 2.59 M/mm3 (4.6-6.2); White Blood Count 4.8 K/mm3 (4.4-11.0)
[2019-07-26 06:15] LABS: Anion Gap 9 (5-15); BUN 42 mg/dL (7-18); Calcium,Total 8.6 mg/dL (8.5-10.1); Chloride 115 mmol/L (98-107); Creatinine, Serum 5.25 mg/dL (0.70-1.30); EST Glomerular Filtration Rate 11 mL/min (>60); Est Glom Filt Rate - Afr Amer 14 mL/min (>60); Estimated Creatinine Clearance 11.59 ml/min; Glucose 169 mg/dL (74-106); Potassium 3.9 mmol/L (3.5-5.1); Sodium Level 144 mmol/L (136-145)
[2019-07-26] MEDS: Insulin Lispro 100 UNIT/ML INSULN.PEN SC ×2 (06:44→11:26)
[2019-07-26 06:55] LABS: Bedside Glucose 167 mg/dL (70-110)
[2019-07-26] MEDS: predniSONE 20 MG Tablet 60 MG PO (08:02)
[2019-07-26] MEDS: Iron Polysaccharide Complex 150 MG CAPSULE PO (08:03)
[2019-07-26] MEDS: Labetalol 200 MG Tablet PO (08:03)
[2019-07-26] MEDS: FLUoxetine 20 MG Capsule PO (08:04)
[2019-07-26 08:45] VITALS: BP 146/45; PULSE 69; RESP 18; TEMP 37.2; O2SAT 100
[2019-07-26] MEDS: ABIRATERONE ACETATE 250 MG TABLET 1000 MG PO (10:35)
--- NOTE | 2019-07-26 10:49 | DCINST_ITS ---
- Discharge Diagnoses Current Active Problems: Current Active and Chronic Problems SARA (acute kidney injury) (Acute) DM (diabetes mellitus) (Chronic) Essential (primary) hypertension (Chronic) Prostate CA (Chronic) Anemia (Acute) You will use the following diet at home:: Calorie/Carbohydrate Controlled (specify 1200, 1400, etc) - 1800 twin ADA Your food should be the consistency of: Regular Your liquids should be the consistency of: Regular/Thin Discharge Activity: Return to Normal Activity Weight Bearing Status: Full weight bearing Instructions: Kidney Biopsy, ED Procedural Sedation, (Adult) Additional Instructions: Obtain BMP next week before your Nephrology vist Allergies/Adverse Reactions: Allergies Iodinated Contrast Media Allergy (Verified 07/20/19 10:16) PT UNSURE OF REACTION Medications to take at Discharge Aspirin E.C. [Ecotrin] 81 mg PO DAILY@0800 08/14/16 Atorvastatin Calcium [Lipitor] 10 mg PO QHS 08/14/16 Fenofibrate,Micronized [Fenofibrate] 34 mg PO DAILY 08/14/16 Abiraterone Acetate 1,000 mg PO DAILY 07/20/19 Ergocalciferol (Vitamin D2) [Drisdol] 50,000 unit PO QWEEK 07/20/19 Fluoxetine [Prozac] 20 mg PO DAILY 07/20/19 Iron Polysaccharide Complex [Ferrex 150] 150 mg PO DAILY 07/20/19 Psyllium Husk [Metamucil] 1 cap PO DAILY PRN 07/20/19 Acetaminophen [Tylenol Tablet] 650 mg PO Q6H PRN PRN tab 07/26/19 Glipizide [Glipizide ER] 2.5 mg PO DAILY #30 tab.er.24 07/26/19 Labetalol [Trandate (Beta Karie)] 200 mg PO BID tab 07/26/19 Labetalol [Trandate] 200 mg PO BID #60 tab 07/26/19 predniSONE tablet 60 mg PO DAILY@0800 #42 tab 07/26/19 The following prescriptions were given: Glipizide [Glipizide ER] 2.5 mg PO DAILY #30 tab.er.24 Transmission Status: [id number] predniSONE tablet 60 mg PO DAILY@0800 #42 tab Transmission Status: [id number] Labetalol [Trandate] 200 mg PO BID #60 tab Transmission Status: [id number] Primary Care Physician: Darshan Solomon MD [Primary Care Provider] - Please follow up with your Primary Care Physician in: next week Test Results: Test results from this visit will be discussed in further detail at your follow- up appointment, if applicable. Please Follow Up With: Jaison Anderson MD When: in one week
[2019-07-26 11:36] LABS: Bedside Glucose 202 mg/dL (70-110)
[2019-07-26 12:00] VITALS: BP 146/45; PULSE 69; RESP 16; TEMP 37.2; O2SAT 100
--- NOTE | 2019-07-26 12:15 | PN.RENAL_ITS ---
Patient Problems: Active and Suspected Problems SARA (acute kidney injury) (Acute) Anemia (Acute) Subjective: no sob/cp - Physical Exam Vitals/I&O's: Vital Signs Temp Pulse Resp BP Pulse Ox 98.9 F 69 18 146/45 H 100 07/26/19 08:45 07/26/19 08:45 07/26/19 08:45 07/26/19 08:45 07/26/19 08:45 Oxygen Flow Rate (L/min) [2] 2 Oxygen Flow Rate (L/min) 4 Oxygen Delivery Method [3] Room Air Oxygen Delivery Method [2] Nasal Cannula Oxygen Delivery Method [1 ( Room Air Initial Baseline)] Oxygen Delivery Method Room Air Weight: 115.3 kg Body Mass Index (BMI) 36.3 Intake and Output for Last 24 Hours 07/24/19 07/25/19 07/26/19 23:59 23:59 23:59 Intake Total 1850 / 4850 4540 / 4540 300 / 300 Output Total 2 / 2 Balance 1848 / 4848 4540 / 4540 300 / 300 General: Alert, Cooperative HEENT: Atraumatic, Normocephalic Neck: Supple Lungs: Clear to auscultation, Normal air movement Cardiovascular: Regular rate, Regular Rhythm, Normal S1 Abdomen: Soft, Non Tender, Obese Extremities: No edema Laboratory Results 07/23/19 21:40: POC Glucose 93 07/25/19 05:20: Ferritin 318 07/25/19 13:21: POC Glucose 101 07/25/19 16:27: POC Glucose 95 07/25/19 20:59: POC Glucose 173 H 07/26/19 05:46: WBC 4.8, RBC 2.59 L, Hgb 7.6 L, Hct 25.2 L, MCV 97.3 H, MCH 29.3, MCHC 30.2 L, RDW Std Deviation 51.2 H, RDW Coeff of Alva 14.5, Plt Count 179, MPV 9.8 07/26/19 05:46: Sodium 144, Potassium 3.9, Chloride 115 H, Carbon Dioxide 20.0 L , Anion Gap 9, BUN 42 H, Creatinine 5.25 H, Estim Creat Clear Calc 11.59, Est G FR (MDRD) Af Amer 14 L, Est GFR (MDRD) Non-Af 11 L, BUN/Creatinine Ratio 8.0 L, Glucose 169 H, Calcium 8.6 07/26/19 06:42: POC Glucose 167 H 07/26/19 11:24: POC Glucose 202 H Current Medications Abiraterone Acetate (Zytiga) 1,000 mg PO DAILY [facility] Last Admin: 07/26/19 10:35 Dose: 1,000 mg Documented by: Acetaminophen (Tylenol) 650 mg PO Q6H PRN PRN PRN Reason: Pain Score 1-10/Temp > 100.7 F Al Hydroxide/Mg Hydroxide (Mylanta Ii) 30 ml PO Q6H PRN PRN PRN Reason: Gastric Burning Atorvastatin Calcium (Lipitor) 10 mg PO QHS [facility] Last Admin: 07/25/19 21:03 Dose: 10 mg Documented by: Dextrose (D50w Syringe) 0 gm IV X1 PRN; Protocol PRN Reason: Hypoglycemia Fluoxetine HCl (Prozac) 20 mg PO DAILY [facility] Last Admin: 07/26/19 08:04 Dose: 20 mg Documented by: Glucagon () 1 mg IM .X1 PRN PRN Reason: Hypoglycemia Hydralazine HCl (Apresoline Iv) 10 mg IV Q4H PRN PRN PRN Reason: Hypertensive Emergency Last Admin: 07/22/19 23:09 Dose: 10 mg Documented by: Insulin Human Lispro (Humalog Mosespen (Bkc)) 0 unit SC [facility]; Protocol Last Admin: 07/26/19 11:26 Dose: 4 units Documented by: Labetalol HCl (Trandate) 200 mg PO BID [facility] Last Admin: 07/26/19 08:03 Dose: 200 mg Documented by: Melatonin (Melatonin) 3 mg PO QHS PRN PRN PRN Reason: INSOMNIA Ondansetron HCl (Zofran) 4 mg IV Q8H PRN PRN PRN Reason: NAUSEA/VOMITING Oxycodone HCl (Oxyir) 5 mg PO Q4H PRN PRN PRN Reason: Pain Score 4-5/10 Oxycodone HCl (Oxyir) 10 mg PO Q4H PRN PRN PRN Reason: Pain Score 6-10/10 Polysaccharide Iron Complex (Ferrex 150) 150 mg PO DAILY [facility] Last Admin: 07/26/19 08:03 Dose: 150 mg Documented by: Prednisone () 60 mg PO DAILY@0800 [facility] Last Admin: 07/26/19 08:02 Dose: 60 mg Documented by: Promethazine HCl (Phenergan) 25 mg IM Q6H PRN PRN PRN Reason: Breakthrough nausea/vomiting Senna/Docusate Sodium (Senokot-S, Rachael-Colace) 2 tablet PO BID PRN PRN PRN Reason: Constipation Sodium Chloride () 10 - 40 ml IV UD PRN PRN Reason: SALINE FLUSH Last Admin: 07/23/19 21:38 Dose: 10 ml Documented by: Throat Lozenges (Cepacol Sore Throat Lozenge) 1 lozenge MUCOUS MEM Q2H PRN PRN PRN Reason: SORE THROAT Medical Necessity - Tobacco Use Smoking Status: Never smoker Assessment/Plan All Active Problems SARA (acute kidney injury) (Acute) Anemia (Acute) SARA has AIN and ATN etiology unclear.The patient states no new meds in the last year but possible that doxazosin was started within the last 6 months so it was stopped and replaced with labetalol Started prednisone 60 mg po qd.Not on concomitant NSAIDS or anticoagulants so will not add PPI. on Atovaquone for PCP prophylaxis f/u in 2 weeks in the office with bmp in the interim to see if high dose steroids will improve AIN.Decision to taper and the rate of tapering will be made after full 2 weeks of therapy at outpatient f/u.If no improvement at 2 weeks will taper fast to previous 5 mg po qd dose and consider cellcept as alternative. not uremic Scr 5.2 no need for [employer]. Mgmt of his anemia per hematology.he is followed by [facility] hematology as outpatient. d/w dr. Kim and patient and RN
--- NOTE | 2019-07-26 20:18 | DS.PCM_ITS ---
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 #4 chronic kidney disease #5 type 2 diabetes #6 essential hypertension #7 duodenal polyp #8 colon polyp #9 acute interstitial nephritis-possibly secondary to medication (unknown medication) - Secondary Discharge Diagnosis Chronic Problems: Chronic Problems DM (diabetes mellitus) (Chronic) Essential (primary) hypertension (Chronic) Prostate CA (Chronic) Hospital Course and Treatment Operations: None Procedures: None, - - CT-guided biopsy of the right kidney Summary of Care Provided: The patient is a 78 year old M seen in the emergency room at [facility] with a chief complaint of abnormal outpatient labs-patient was noted to have an elevated creatinine and BUN on outpatient labs. Labs were repeated in the emergency room, hemoglobin was low at 8.3, comprehensive metabolic panel showed a sodium of 148 and chloride of 113 with a potassium of 3.2. BUN and creatinine were elevated at 56 and 6.31. Urinalysis was negative for any signs of infection. Patient was given IV fluids, he was admitted to [place] [address] and seen in consultation by nephrology kidney biopsy was performed which indicated acute interstitial nephritis, patient was placed on oral prednisone. Patient was seen in consultation by general surgery who performed an EGD and colonoscopy, there was no evidence of any acute bleeding and it was felt that the patient's anemia was secondary to iron deficiency anemia-etiology unclear. Patient's creatinine improved only slightly during his hospitalization. Nephrology felt that the patient's acute interstitial nephritis could have been caused by his doxazosin or Januvia and these medications were stopped. On 07/26/2019, patient was seen and examined: On examination he appeared in good health and spirits, there appeared to be mild cognitive impairment. Vital signs as documented. Skin warm and dry and without overt rashes. Neck without JVD, neck was supple, trachea midline, thyroid was normal. Lungs clear bilaterally, normal air movement was noted. Heart exam notable for regular rhythm, normal sounds and absence of murmurs, rubs or gallops. Abdomen unremarkable and without evidence of organomegaly, masses, or abdominal aortic enlargement. Bowel sounds are present, abdomen is not distended. Extremities nonedematous, no cyanosis was noted, no clubbing was noted. Neuro: Cranial nerves II through XII are grossly intact, no focal motor deficits were noted, sensation to light touch and pinprick intact, motor exam 5/5 throughout. Psych: Patient is alert and oriented x3, he does not appear anxious or depressed, he does not appear agitated. On 07/26/2019, patient appeared stable for discharge home, his medications were discussed with his who seemed to understand his medical course and his discharge medications. I also talked with Dr. Alanis his oncologist briefly by lizy ne - Physical Exam Vitals/I&O's: Vital Signs Temp Pulse Resp BP Pulse Ox 98.9 F 69 16 146/45 H 100 07/26/19 12:00 07/26/19 12:00 07/26/19 12:00 07/26/19 12:00 07/26/19 12:00 Oxygen Flow Rate (L/min) [2] 2 Oxygen Flow Rate (L/min) 4 Oxygen Delivery Method [3] Room Air Oxygen Delivery Method [2] Nasal Cannula Oxygen Delivery Method [1 ( Room Air Initial Baseline)] Oxygen Delivery Method Room Air Weight: 115.3 kg Body Mass Index (BMI) 36.3 Intake and Output for Last 24 Hours 07/24/19 07/25/19 07/26/19 23:59 23:59 23:59 Intake Total 1850 / 4850 4540 / 4540 300 / 300 Output Total 2 / 2 Balance 1848 / 4848 4540 / 4540 300 / 300 Laboratory Results 07/23/19 21:40: POC Glucose 93 07/25/19 20:59: POC Glucose 173 H 07/26/19 05:46: WBC 4.8, RBC 2.59 L, Hgb 7.6 L, Hct 25.2 L, MCV 97.3 H, MCH 29.3, MCHC 30.2 L, RDW Std Deviation 51.2 H, RDW Coeff of Alva 14.5, Plt Count 179, MPV 9.8 07/26/19 05:46: Sodium 144, Potassium 3.9, Chloride 115 H, Carbon Dioxide 20.0 L , Anion Gap 9, BUN 42 H, Creatinine 5.25 H, Estim Creat Clear Calc 11.59, Est GFR (MDRD) Af Amer 14 L, Est GFR (MDRD) Non-Af 11 L, BUN/Creatinine Ratio 8.0 L, Glucose 169 H, Calcium 8.6 07/26/19 06:42: POC Glucose 167 H 07/26/19 11:24: POC Glucose 202 H Discharge Activity: Return to Normal Activity Weight Bearing Status: Full weight bearing Home Medications: Medications to take at Discharge Aspirin E.C. [Ecotrin] 81 mg PO DAILY@0800 08/14/16 Atorvastatin Calcium [Lipitor] 10 mg PO QHS 08/14/16 Fenofibrate,Micronized [Fenofibrate] 34 mg PO DAILY 08/14/16 Abiraterone Acetate 1,000 mg PO DAILY 07/20/19 Ergocalciferol (Vitamin D2) [Drisdol] 50,000 unit PO QWEEK 07/20/19 Fluoxetine [Prozac] 20 mg PO DAILY 07/20/19 Iron Polysaccharide Complex [Ferrex 150] 150 mg PO DAILY 07/20/19 Psyllium Husk [Metamucil] 1 cap PO DAILY PRN 07/20/19 Acetaminophen [Tylenol Tablet] 650 mg PO Q6H PRN PRN tab 07/26/19 Atovaquone 1,500 mg PO DAILY #140 ml 07/26/19 Glipizide [Glipizide ER] 2.5 mg PO DAILY #30 tab.er.24 07/26/19 Labetalol [Trandate (Beta Karie)] 200 mg PO BID tab 07/26/19 Labetalol [Trandate] 200 mg PO BID #60 tab 07/26/19 predniSONE tablet 60 mg PO DAILY@0800 #42 tab 07/26/19 Following Prescrptions Were Given to Patient: Atovaquone 1,500 mg PO DAILY #140 ml Glipizide [Glipizide ER] 2.5 mg PO DAILY #30 tab.er.24 Transmission Status: [id number] predniSONE tablet 60 mg PO DAILY@0800 #42 tab Transmission Status: [id number] Labetalol [Trandate] 200 mg PO BID #60 tab Transmission Status: [id number] Primary Care Physician: Darshan Solomon MD [Primary Care Provider] - Please follow up with your Primary Care Physician in: next week Please Follow Up With: Jaison Anderson MD When: in one week Please Follow Up With: Darshan Solomon MD When: Thursday Patient Instructions: Kidney Biopsy, ED Procedural Sedation, (Adult) Disposition: Home Minutes spent on discharge:: 32 Patient Condition:: Stable Medical Necessity - Tobacco Use Smoking Status: Never smoker Meaningful Use Info Meaningful Use Diagnoses (Choose all that apply): None applicable Inpatient E&M: 98972 Disch Hosp
--- NOTE | 2019-07-27 15:25 | CASEMGMT ---
RN CM Discharge Follow-Up Phone Call. Lace: 12 Strata: 3 Discharge Date: 07/26/19 Adm Dx: SARA Attempted discharge follow-up phone call. No answer and VM is full, so unable to leave a message. Xenia SEXTONN RN CM
--- NOTE | 2019-07-28 13:39 | CASEMGMT ---
RACHEL WEISS DC PHONE CALL DC DATE: 07.26.2019 DC DISPOSITION: Home DC DIAGNOSIS: Acute Kidney Injury F/U APPTS MADE PRIOR TO DC: yes PRESCRIPTIONS ACQUIRED BY PT: no. Pt states he has prednisone, however other medications needed to be ordered and [facility]. RACHEL WEISS encouraged pt to call [facility] when we completed call to see when medications would arrive. If not today, ask if [facility] could find another pharmacy that would have medication and transfer scripts so pt would have today. Pt is able and agreeable to do this. He states he [place] half hours from pharmacy so only wants to make one trip. Intro role of CM to patient. Pt states he is feeling well, no other questions re: medications and f/u. No care improvement suggestions given. Daniel SEXTONN RN ACM
== END 2019-07-26 13:05 | disposition home or self-care (01) | DRG 690 ==
LOC: ED 11:31 → MS3 13:10
PROVIDERS: Anesthesiology; Internal Medicine Nephrology; Surgery; Admitting Provider Internal Medicine; Emergency Provider Emergency Medicine; PCP Internal Medicine; Visit Provider Internal Medicine
PROC: 0DJD8ZZ Inspection of Lower Intestinal Tract, Via Natural or Artificial Opening Endoscopic (ICD-10-PCS; CPT 45378; principal; 2019-07-25 10:55)
DX: N10 Acute pyelonephritis (principal); E87.0 Hyperosmolality and hypernatremia; C79.9 Secondary malignant neoplasm of unspecified site; N17.0 Acute kidney failure with tubular necrosis; E11.21 Type 2 diabetes mellitus with diabetic nephropathy; C61 Malignant neoplasm of prostate; E87.6 Hypokalemia; E78.5 Hyperlipidemia, unspecified; F32.9 Major depressive disorder, single episode, unspecified; E66.9 Obesity, unspecified; Z66 Do not resuscitate; Z79.4 Long term (current) use of insulin; Z90.79 Acquired absence of other genital organ(s); Z92.3 Personal history of irradiation; Z68.36 Body mass index [BMI] 36.0-36.9, adult; Z79.82 Long term (current) use of aspirin; N18.3 Chronic kidney disease, stage 3 (moderate); E11.22 Type 2 diabetes mellitus with diabetic chronic kidney disease; I12.9 Hypertensive chronic kidney disease with stage 1 through stage 4 chronic kidney disease, or unspecified chronic kidney disease; Z85.46 Personal history of malignant neoplasm of prostate; D50.9 Iron deficiency anemia, unspecified; D12.0 Benign neoplasm of cecum; R19.5 Other fecal abnormalities; K31.7 Polyp of stomach and duodenum; T38.3X5A Adverse effect of insulin and oral hypoglycemic [antidiabetic] drugs, initial encounter; T44.6X5A Adverse effect of alpha-adrenoreceptor antagonists, initial encounter; Y92.9 Unspecified place or not applicable
CPT/HCPCS: 36415; 71045; 76770; 77012; 80048; 80053; 81001; 82274; 82607; 82728; 82784; 82962; 83036; 83540; 83550; 83735; 84100; 84165; 85014; 85018; 85025; 85027; 85610; 85730; 86160; 86256; 86334; 86644; 86850; 86900; 86901; 86920; 86922; 87635; 88300; 88305; 88313; 88346; 88348; 88350; 93005; 97802; 99156; 99285; G2023; J7030; J7040; J7120; P9016; A4216; J2405; U0003

== ENCOUNTER → 2019-08-25 | Outpatient (CLI) | payer MEDICARE, SELFPAY ==
[2019-07-25 08:50] VITALS: BMI 36.3
[2019-08-25 10:33] VITALS: BP 112/48; PULSE 66; RESP 20; TEMP 35.5; O2SAT 98; BMI 79.9
[2019-08-25] MEDS: 0.9% NaCl Peripheral Flush Adult/Peds IV (10:45)
[2019-08-25] MEDS: Acetaminophen 325 MG Tablet 650 MG PO (10:46)
[2019-08-25 11:14] VITALS: BP 99/50; PULSE 62; RESP 18; TEMP 35.3; O2SAT 99
[2019-08-25 12:14] VITALS: BP 98/40; PULSE 63; RESP 18; TEMP 35.1; O2SAT 98
[2019-08-25 13:10] VITALS: BP 119/45; PULSE 65; RESP 16; TEMP 35.4; O2SAT 98
== END | disposition home or self-care (01) ==
LOC: MEDOUTP 10:27
PROVIDERS: PCP Internal Medicine; Referring Provider Internal Medicine Hematology & Oncology; Visit Provider Internal Medicine Hematology & Oncology
DX: N18.9 Chronic kidney disease, unspecified (principal)
CPT/HCPCS: 36430; 86850; 86900; 86901; 86920; 86922; J7040; P9016; A4216

== ENCOUNTER → 2019-09-22 10:51 | Outpatient (CLI) | payer MEDICARE, OTHER, SELFPAY ==
[2019-08-25 10:33] VITALS: BMI 79.9
[2019-09-22 11:00] VITALS: BP 112/47; PULSE 62; RESP 16; TEMP 36.9; O2SAT 98; BMI 36.7
[2019-09-22] MEDS: Acetaminophen 325 MG Tablet 650 MG PO (11:07)
[2019-09-22] MEDS: 0.9% NaCl Peripheral Flush Adult/Peds IV (11:32)
[2019-09-22 12:03] VITALS: BP 114/49; PULSE 64; RESP 16; TEMP 36.6; O2SAT 97
[2019-09-22 13:03] VITALS: BP 104/50; PULSE 65; RESP 16; TEMP 36.4
[2019-09-22 14:00] VITALS: BP 123/60; PULSE 60; RESP 16; TEMP 36.8; O2SAT 98
== END ==
PROVIDERS: PCP Internal Medicine; Referring Provider Internal Medicine Hematology & Oncology; Visit Provider Internal Medicine Hematology & Oncology
DX: N18.3 Chronic kidney disease, stage 3 (moderate) (principal); D63.1 Anemia in chronic kidney disease; C61 Malignant neoplasm of prostate
CPT/HCPCS: 36430; 86850; 86900; 86901; 86920; 86922; J7040; P9016; A4216

== ENCOUNTER 2020-04-16 11:44 | Inpatient (IN) | payer MEDICARE, OTHER, SELFPAY ==
[2019-09-22 11:00] VITALS: BMI 36.7
[2020-04-16] VITALS (9 sets, daily range): BP systolic 118–155; BP diastolic 44–79; PULSE 59–69; RESP 17–22; TEMP 36.2–36.7; O2SAT 91–99; BMI 40.1; BMI 39.1; BMI 40.2
--- NOTE | 2020-04-16 12:34 | ED.DCSUM_ITS ---
History of Present Illness Chief Complaint: Shortness of Breath Informant: Patient Narrative: 79-year-old male presenting with shortness of breath, decreased appetite, chills, decreased sense of taste and smell. This is been ongoing for 2 to 3 days. He does admit to some shortness of breath and states that he has been monitoring his oxygen at home and it is gone from 97-90 over the past couple of days.. Patient denies any fever. He does feel fatigued. Patient denies chest pain. Past Medical History - Allergies and Home Meds Allergies/Adverse Reactions: Allergies Iodinated Contrast Media Allergy (Verified 04/16/20 11:47) PT UNSURE OF REACTION Primary Care Physician: Darshan Solomon MD [Primary Care Provider] - Past Medical History: - - CKD, diabetes, hypertension Lives: Spouse/ Significant Other Smoking Status: Never smoker Alcohol: None Drugs: None - Family History Maternal Family History: Reports: Cancer Paternal Family History: Reports: Heart Disease Physical Exam Vital Signs/Narrative: Vital Signs Temp Pulse Resp BP Pulse Ox 04/16/20 11:46 97.1 F L 65 22 H 118/44 L 94 Diagnostic/Tx/Re-eval Clinical Impression(s) from Imaging Studies Chest X-Ray 04/16/20 13:36 IMPRESSION: Progressive bilateral infiltrates worse in the left lung with small bilateral pleural effusions and bibasilar infiltrates. Stable focal pleural thickening along the right lateral chest wall. Follow-up is recommended. Electronically Signed: Issa Rojo MD at 13:49 EST , Service support , Laboratory Data 04/16/20 04/16/20 04/16/20 12:40 12:40 12:40 WBC 7.8 RBC 3.07 L Hgb 9.7 L Hct 29.2 L MCV 95.1 H MCH 31.6 MCHC 33.2 RDW Std Deviation 52.5 H RDW Coeff of Alva 15.9 H Plt Count 188 MPV 10.0 Immature Gran % (Auto) 0.500 Neut % (Auto) 82.0 H Lymph % (Auto) 7.7 L Early % (Auto) 8.2 Eos % (Auto) 1.3 Baso % (Auto) 0.3 Absolute Neuts (auto) 6.4 Absolute Lymphs (auto) 0.60 L Nucleated RBC % 0 Sodium 144 Potassium 3.4 L Chloride 111 H Carbon Dioxide 25.0 Anion Gap 8 BUN 52 H Creatinine 4.20 H Estim Creat Clear Calc 14.24 Est GFR (MDRD) Af Amer 18 L Est GFR (MDRD) Non-Af 15 L BUN/Creatinine Ratio 12.4 Glucose 98 Lactic Acid 1.0 Calcium 7.5 L Total Bilirubin 0.40 AST 7 L ALT 11 L Alkaline Phosphatase 37 L Troponin I 0.015 B-Natriuretic Peptide Total Protein 6.8 Albumin 3.2 Globulin 3.6 Albumin/Globulin Ratio 0.9 Procalcitonin 04/16/20 04/16/20 12:40 12:40 WBC RBC Hgb Hct MCV MCH MCHC RDW Std Deviation RDW Coeff of Alva Plt Count MPV Immature Gran % (Auto) Neut % (Auto) Lymph % (Auto) [place] % (Auto) Eos % (Auto) Baso % (Auto) Absolute Neuts (auto) Absolute Lymphs (auto) Nucleated RBC % Sodium Potassium Chloride Carbon Dioxide Anion Gap BUN Creatinine Estim Creat Clear Calc Est GFR (MDRD) Af Amer Est GFR (MDRD) Non-Af BUN/Creatinine Ratio Glucose Lactic Acid Calcium Total Bilirubin AST ALT Alkaline Phosphatase Troponin I B-Natriuretic Peptide 941.2 H Total Protein Albumin Globulin Albumin/Globulin Ratio Procalcitonin 0.12 H - Medical Decision Making 79-year-old male setting with shortness of breath, fatigue, loss of taste and smell. Patient does not appear to be hypoxic and short of breath with ambulation and his O2 sat goes to 90. He does appear to be significantly dyspneic after ambulating 20 feet. Chest x-ray is interpreted by myself bilateral infiltrates greater in the left lung. There are bilateral pleural effusions. Radiology does agree. White cell count 7.8 hemoglobin 9.7 patient is lymphopenic. Creatinine 4.20 which is actually improved. Lactic acid 1.0. Troponin is negative. BNP is 941. Procalcitonin 0.12. Patient had rapid antigen which was negative. But given his symptoms he will be tested by rapid PCR. Patient discussed with hospitalist and he will wait in the ED until his test returns. Patient will be given 40 mg of Lasix while awaiting transport to inpatient. Clinically even if he does have Covid 19 he is in CHF as well. He states he has no history of this. He states his last echocardiogram was 2 years ago or more. Impression: 1. Acute CHF 2. History of chronic kidney disease 3. Viral syndrome ED Disposition - Plan for ED Patient: Disposition: Acute Care Hospital [facility] Referrals: Darshan Solomon MD [Primary Care Provider] -
[2020-04-16 12:57] LABS: Absolute Neutrophil Count 6.4 X10^3/uL (2.0-7.7); Basophil# 0.02 X10^3/uL; Basophil% 0.3 % (0-1); Eosinophils% 1.3 % (0-5); Hematocrit 29.2 % (40-54); Hemoglobin 9.7 g/dL (13.0-16.5); Lymphocyte % 7.7 % (19-41); Mean Corp Hgb Conc 33.2 g/dL (32-36); Mean Corpuscular Hgb 31.6 pg (27.0-32.0); Mean Corpuscular Volume 95.1 fL (80-94); Monocyte# 0.64 X10^3/uL; Monocyte% 8.2 % (0-10); NRBC Flagged by Analyzer 0 % (0-5); Neutrophil # 6.41 X10^3/uL (2.7-7.7); POSITIVE DIFFERENTIAL YES; Platelet Count 188 K/mm3 (150-450); RBC Distribution Width CV 15.9 % (11.6-14.6); RBC Distribution Width SD 52.5 fl (35.1-43.9); Red Blood Count 3.07 M/mm3 (4.6-6.2); White Blood Count 7.8 K/mm3 (4.4-11.0)
[2020-04-16 13:04] LABS: Differential Indicated SCAN CRITERIA MET
[2020-04-16 13:22] LABS: BNP,B-Type NATRIURETIC PEPTIDE 941.2 pg/mL (0-100)
[2020-04-16 13:30] LABS: ALB/GLOB Ratio 0.9 RATIO (0.9-2.4); AST(SGOT) 7 U/L (15-37); Alanine Aminotransfer ALT/SGPT 11 U/L (16-61); Albumin, Serum 3.2 g/dL (3.2-5.0); Alkaline Phosphatase 37 U/L (45-117); Anion Gap 8 (5-15); BUN 52 mg/dL (7-18); BUN/Creat Ratio 12.4 RATIO (10-20); Calcium,Total 7.5 mg/dL (8.5-10.1); Chloride 111 mmol/L (98-107); EST Glomerular Filtration Rate 15 mL/min (>60); Est Glom Filt Rate - Afr Amer 18 mL/min (>60); Estimated Creatinine Clearance 14.24 ml/min; Globulin 3.6 g/dL (2.2-4.2); Glucose 98 mg/dL (74-106); Potassium 3.4 mmol/L (3.5-5.1); Protein, Total 6.8 g/dL (6.4-8.2); Sodium Level 144 mmol/L (136-145)
[2020-04-16 13:32] LABS: Procalcitonin 0.12 ng/mL (0.00-0.09)
--- NOTE | 2020-04-16 13:36 | RAD_ITS ---
STUDY: X-RAY CHEST REASON FOR EXAM: Male, 79 years old. Cough and sob. TECHNIQUE: Single AP portable view of the chest. COMPARISON: Comparison is made with prior study dated 07/20/2019. FINDINGS: EKG electrodes are seen. Since prior study, there has been progressive infiltrate in the left lung. Small bilateral pleural effusions with bibasilar infiltrates more prominent on the right side. Stable lateral pleural thickening in the right inferior hemithorax. Normal size heart. Normal mediastinum and eugenio. Normal visualized pulmonary arteries. There is atherosclerotic calcification of the aortic arch with tortuosity. There are diffuse degenerative changes of the visualized thoracic spine. Normal visualized ribs, clavicles, and shoulders. There is no demonstrated abnormality of the visualized soft tissue structures of the upper abdomen. RAD/Chest 1 View (Portable) IMPRESSION: Progressive bilateral infiltrates worse in the left lung with small bilateral pleural effusions and bibasilar infiltrates. Stable focal pleural thickening along the right lateral chest wall. Follow-up is recommended. Electronically Signed: Issa Rojo MD at 13:49 EST , Service support ,
--- NOTE | 2020-04-16 16:26 | NURSING ---
DR AKOSUA PABON
--- NOTE | 2020-04-16 16:33 | EKG12_ITS ---
Test Reason : Blood Pressure : / mmHG Vent. Rate : 065 BPM Atrial Rate : 065 BPM P-R Int : 174 ms QRS Dur : 130 ms QT Int : 532 ms P-R-T Axes : 027 014 -21 degrees QTc Int : 553 ms Sinus rhythm with Premature atrial complexes Non-specific intra-ventricular conduction block Nonspecific T wave abnormality Abnormal ECG Confirmed by SALVADOR RAMIREZ, GAMALIEL ([id number]), supervising editor news reel CHARLENE MOLINA ([id number]) on 04/17/2020 10:46:00 AM Referred By: CM Confirmed By:GAMALIEL FRANCO MD
[2020-04-16] MEDS: Furosemide 40 MG/4 ML Vial IV ×2 (16:39→18:50)
--- NOTE | 2020-04-16 17:30 | HP.PCM_ITS ---
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 insulin use: with termite technician use Diabetes mellitus complication status: with kidney complications Diabetes mellitus complication detail: with nephropathy Qualified Code(s): E11.21 - Type 2 diabetes mellitus with diabetic nephropathy; Z79.4 - correction (current) use of insulin (3) Essential (primary) hypertension Status: Chronic (4) Prostate CA Status: Chronic (5) Anemia Status: Acute Qualifiers: Anemia type: unspecified type Qualified Code(s): D64.9 - Anemia, unspecified History of Present Illness Date of Admission: 04/16/20 Chief Complaint: SOB The patient is a 79 year old M presents with increasing dyspnea on exertion. Patient has been short of breath with exertion for months and has just steadily gotten worse. Patient has increasing lower extremity edema as well as a 50 pound weight gain over the past few months. Just progressively got worse and the patient presented to the emergency room. Patient had a chest x-ray that showed bilateral pleural effusions and BNP was elevated at 941. 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 Patient does not go out and about and has no known Covid exposure. Patient did receive IV furosemide in the emergency room. Patient denies any history of CHF before nor symptoms like this previously. [] Past Medical History Past Medical History (Chronic Problems): Chronic Problems DM (diabetes mellitus) (Chronic) Essential (primary) hypertension (Chronic) Prostate CA (Chronic) Allergies Iodinated Contrast Media Allergy (Verified 04/16/20 11:47) PT UNSURE OF REACTION Home Medications: Ambulatory Orders Medication Instructions Recorded Atorvastatin Calcium [Lipitor] 10 mg PO QHS 08/14/16 Fenofibrate,Micronized 134 mg PO DAILY 08/14/16 [Fenofibrate] Abiraterone Acetate 1,000 mg PO DAILY@1030 07/20/19 Fluoxetine [Prozac] 20 mg PO DAILY 07/20/19 Iron Polysaccharide Complex 150 mg PO DAILY 07/20/19 [Ferrex 150] Psyllium Husk [Metamucil] 1 cap PO DAILY PRN 07/20/19 Docusate Sodium 100 mg PO BID 04/16/20 Furosemide [Lasix] 40 mg PO DAILY 04/16/20 Glipizide [Glipizide ER] 2.5 mg PO DAILY 04/16/20 Labetalol [Trandate] 200 mg PO BID 04/16/20 Leuprolide Acetate [Lupron Depot] 30 mg IM .[id number] 04/16/20 Lipo/Flavonoid 1 tab PO QODAY 04/16/20 predniSONE tablet 5 mg PO DAILY@1030 04/16/20 Lives: Spouse/ Significant Other Smoking Status: Never smoker Alcohol: None Drugs: None - *Family History Maternal History Items: Cancer Paternal History Items: Heart Disease Review of Systems Constitutional: Denies: Chills, Fever, Weight Change Eyes: Denies: Blurred vision, Double vision HEENT: Denies: Head Aches, Sinus Congestion, Sinus Drainage Cardiovascular: Reports: Edema. Denies: Chest Pain, Palpitations Respiratory: Reports: Shortness of breath upon exertion. Denies: Cough, Shortness of breath at rest, Sputum production Gastrointestinal: Denies: Abdominal Pain, Nausea, Vomiting Genitourinary: Denies: Dysuria Musculoskeletal: Denies: Joint Pain, Joint Tenderness Skin: Denies: Dryness, Jaundice Neurological: Denies: Numbness, Tingling, Focal weakness Psychiatric: Denies: Anxiety, Depression Hematologic/ Lymphatic: Denies: Easy Bruising, Easy Bleeding, Hx of blood clot Comment: All review of systems were negative except as mentioned above in the history of present illness and the other review of systems. VTE Information - Inpt Only VTE Present on Admission: No VTE Mechan Device Prophylaxis: None VTE Pharm Prophylaxis ordered?: Yes Reason prophylaxis not ordered:: Treatment Not Indicated - Physical Exam Vitals/I&O's: Vital Signs Temp Pulse Resp BP Pulse Ox 36.3 C L 65 19 H 128/79 H 92 04/16/20 16:29 04/16/20 16:29 04/16/20 16:29 04/16/20 16:29 04/16/20 16:29 Oxygen Delivery Method Room Air Weight: 127.006 kg Body Mass Index (BMI) 40.1 General: Alert, No apparent distress HEENT: Atraumatic, Normocephalic Oral: Moist Mucosa, No Gingival or Mucosal Lesions/ Ulcerations Neck: No JVD, Thyroid Normal Size and Texture Lungs: Normal air movement, - - Bibasilar crackles Cardiovascular: Regular rate, Regular Rhythm, - - 2 out of 6 systolic ejection murmur at the right upper sternal border Abdomen: Bowel Sounds Present, Soft, Non Tender, Non-Distended, Obese Extremities: Edema - Taut lower extremity edema Skin: - - Venous stasis dermatitis lower extremities Musculoskeletal: No Tenderness to Palpation of Joints or Extremities, No Muscle Wasting Neurological: Deep Tendon Reflexes 2+/4 and Symmetrical, - - No clonus Psych/Mental Status: Normal Affect, Appropriate Microbiology Past 72 Hours 04/16/20 12:50 Mucosa - Nasopharyngeal SARS-CoV-2 Antigen (Rapid) - Final Laboratory Results 04/16/20 12:40: WBC 7.8, RBC 3.07 L, Hgb 9.7 L, Hct 29.2 L, MCV 95.1 H, MCH 31.6, MCHC 33.2, RDW Std Deviation 52.5 H, RDW Coeff of Alva 15.9 H, Plt Count 188, MPV 10.0, Immature Gran % (Auto) 0.500, Neut % (Auto) 82.0 H, Lymph % (Auto) 7.7 L, [place] % (Auto) 8.2, Eos % (Auto) 1.3, Baso % (Auto) 0.3, Absolute Neuts (auto) 6.4, Absolute Lymphs (auto) 0.60 L, Nucleated RBC % 0 04/16/20 12:40: Sodium 144, Potassium 3.4 L, Chloride 111 H, Carbon Dioxide 25.0, Anion Gap 8, BUN 52 H, Creatinine 4.20 H, Estim Creat Clear Calc 14.24, Est GFR (MDRD) Af Amer 18 L, Est GFR (MDRD) Non-Af 15 L, BUN/Creatinine Ratio 12.4, Glucose 98, Calcium 7.5 L, Total Bilirubin 0.40, AST 7 L, ALT 11 L, Alkaline Phosphatase 37 L, Troponin I 0.015, Total Protein 6.8, Albumin 3.2, Globulin 3.6, Albumin/Globulin Ratio 0.9 04/16/20 12:40: Lactic Acid 1.0 04/16/20 12:40: B-Natriuretic Peptide 941.2 H 04/16/20 12:40: Procalcitonin 0.12 H 04/16/20 16:40: COVID-19 (VINI) Pending EKG personally reviewed and showed normal sinus rhythm no acute changes. Chest x-ray personally reviewed and showed bilateral pleural effusions. Change from July 21, 2019 where there was no evidence of effusions at that time. Current Medications Sodium Chloride (0.9% Saline Lock 10 Ml Syringe) 10 - 40 ml IV UD PRN PRN Reason: SALINE FLUSH Assessment/Plan All Active Problems Anemia (Acute) CHF (congestive heart failure) (Acute) 1. Acute CHF exacerbation Unclear type Plan: * Patient did receive the IV furosemide in the emergency room. We will continue with IV furosemide on the floor with 40 mg twice daily. Also patient will be on fluid restricted diet of 1500 cc/day. Strict I's and O's. * Check echocardiogram * Patient not a candidate for an KARL inhibitor nor angiotensin receptor jayda given the patient's chronic kidney disease. 2. Chronic kidney disease stage IV Patient sees Dr. Gallegos Will need to be cautious in regards to diuresis but patient's creatinine overall appears improved from July 2019. Will hold off on nephrology consultation at this time. 3. 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 Patient's rapid Covid was negative and a PCR was performed before had a chance to ask patient about his loss of sense of smell. I do not feel the patient needs to be in Covid isolation. 4. Diabetes mellitus type 2 Continue with glipizide Sliding scale insulin 5. VTE prophylaxis: Moderate risk. Subcu heparin 6. Prostate cancer Continue with home medications 7. Anemia of chronic disease Currently stable Monitor for no need for transfusions at this time. 8. Advanced care planning: Discussed with the patient. Patient wishes to be full CODE STATUS at this time. Inpatient E&M: 76012 Init Hosp L3
--- NOTE | 2020-04-16 18:05 | ECHOCS_ITS ---
Reason For Study: CHF Procedure This was a 2D Doppler, Color Flow transthoracic echocardiogram. The study was technically difficult. D/T body habitus. Contrast injection was performed. Exam performed portable in patient room. Left Ventricle Mild concentric left ventricular hypertrophy. Based upon the 2D echocardiographic and contrast enhanced images obtained there appears to be grossly normal left ventricular size, wall motion, and systolic function. The estimated ejection fraction is 60 %. Right Ventricle Normal RV size. Normal systolic function. Atria The left atrium is mildly enlarged. Normal right atrium. No doppler evidence for ASD. Mitral Valve There is no mitral annular calcification. Normal mitral valve. Mild (1+) mitral valve insufficiency. Tricuspid Valve Normal tricuspid valve. Trivial tricuspid valve insufficiency. Unable to estimate RV systolic pressure/pulmonary artery pressure due to technically difficult study. Aortic Valve The aortic valve leaflets not well visualized, however, based upon the 2D echocardiograph images obtained there appears to be diffuse calcification and partial restriction of the aortic valve leaflets. Mild aortic stenosis. Pulmonic Valve The pulmonic valve is not well visualized. Mild (1+) pulmonic valve insufficiency. Great Vessels Normal sized aortic root. Pericardium/Pleural No pericardial effusion. Medication Diluted definity 5.0ml given slow IV push to enhance endocardial definition. MMode/2D Measurements & Calculations IVSd: 1.4 cm LVOT diam: 2.2 cm Ao root diam: 2.9 cm LVPWd: 1.5 cm LVOT area: 3.7 cm2 Time Measurements MV dec time: 0.18 sec Doppler Measurements & Calculations MV E max daniel: 149.3 cm/sec Lat Peak E' Daniel: 9.9 cm/sec Med Peak E' Daniel: 11.9 cm/sec MV A max daniel: 78.2 cm/sec E/E' lat: 15.1 E/E' med: 12.5 MV E/A: 1.9 Ao V2 max: 212.7 cm/sec LV V1 max: 96.3 cm/sec SV(LVOT): 84.2 ml Ao max P.1 mmHg LV V1 max P.7 mmHg Ao V2 mean: 137.9 cm/sec LV V1 mean P.6 mmHg Ao mean P.5 mmHg LV V1 mean: 78.1 cm/sec Ao V2 VTI: 46.5 cm LV V1 VTI: 23.1 cm SUNIL(I,D): 1.8 cm2 SUNIL(V,D): 1.7 cm2 PA V2 max: 97.1 cm/sec Interpretation Summary The study was technically difficult. Contrast injection was performed. Based upon the 2D echocardiographic and contrast enhanced images obtained there appears to be grossly normal left ventricular size, wall motion, and systolic function. The estimated ejection fraction is 60 %. Mild concentric left ventricular hypertrophy. The left atrium is mildly enlarged. Mild (1+) mitral valve insufficiency. Trivial tricuspid valve insufficiency. Mild aortic stenosis. Mild (1+) pulmonic valve insufficiency. Unable to estimate RV systolic pressure/pulmonary artery pressure due to technically difficult study. Transmitral diastolic flow velocities suggest diastolic dysfunction (pseudonormal pattern). Ordering Physician: Hernandez Gomez Referring Physician: Darshan Solomon Performed By: Abena Evans, [place], RVT
[2020-04-16] MEDS: CLARIFY ORDER NOTE (21:50)
[2020-04-16] MEDS: ABIRATERONE ACETATE 250 MG TABLET 1000 MG PO (21:51)
[2020-04-16] MEDS: Docusate Sodium 100 MG Capsule PO (21:54)
[2020-04-16] MEDS: Atorvastatin Calcium 10 MG Tablet PO (21:54)
[2020-04-16] MEDS: Heparin Injection (Vial) 5,000 UNIT/ML VIAL 5000 UNIT SC (21:54)
[2020-04-16] MEDS: Labetalol 200 MG Tablet PO (21:54)
[2020-04-16] MEDS: Iron Polysaccharide Complex 150 MG CAPSULE PO (21:54)
[2020-04-16] MEDS: predniSONE 5 MG Tablet PO (21:59)
[2020-04-16 22:00] LABS: Bedside Glucose 72 mg/dL (70-110)
[2020-04-17] VITALS (10 sets, daily range): BP systolic 140–161; BP diastolic 51–73; PULSE 61–72; RESP 15–18; TEMP 36.5–36.7; O2SAT 94–97
[2020-04-17 06:08] LABS: Absolute Neutrophil Count 4.9 X10^3/uL (2.0-7.7); Basophil# 0.02 X10^3/uL; Basophil% 0.3 % (0-1); Eosinophil# 0.03 X10^3/uL; Eosinophils% 0.5 % (0-5); Hematocrit 28.4 % (40-54); Hemoglobin 8.5 g/dL (13.0-16.5); Mean Corp Hgb Conc 29.9 g/dL (32-36); Mean Corpuscular Hgb 27.7 pg (27.0-32.0); Mean Corpuscular Volume 92.5 fL (80-94); Mean Platelet Vol. 9.7 fl (6.2-12.0); Monocyte# 0.38 X10^3/uL; Monocyte% 6.6 % (0-10); NRBC Flagged by Analyzer 0 % (0-5); Neutrophil # 4.87 X10^3/uL (2.7-7.7); Neutrophil % 85.3 % (47-70); POSITIVE DIFFERENTIAL YES; Platelet Count 194 K/mm3 (150-450); RBC Distribution Width CV 14.6 % (11.6-14.6); RBC Distribution Width SD 48.9 fl (35.1-43.9); Red Blood Count 3.07 M/mm3 (4.6-6.2); White Blood Count 5.7 K/mm3 (4.4-11.0)
[2020-04-17 06:10] LABS: Differential Indicated SCAN CRITERIA MET
[2020-04-17 06:33] LABS: Anion Gap 9 (5-15); BUN 53 mg/dL (7-18); BUN/Creat Ratio 12.6 RATIO (10-20); Calcium,Total 7.4 mg/dL (8.5-10.1); Chloride 113 mmol/L (98-107); Creatinine, Serum 4.22 mg/dL (0.70-1.30); EST Glomerular Filtration Rate 15 mL/min (>60); Est Glom Filt Rate - Afr Amer 18 mL/min (>60); Estimated Creatinine Clearance 14.18 ml/min; Glucose 77 mg/dL (74-106); Potassium 3.4 mmol/L (3.5-5.1); Sodium Level 146 mmol/L (136-145)
[2020-04-17 06:45] LABS: Bedside Glucose 79 mg/dL (70-110)
[2020-04-17 06:57] LABS: Differential Comment SCANNED
[2020-04-17] MEDS: Labetalol 200 MG Tablet PO ×2 (10:42→22:07)
[2020-04-17] MEDS: FLUoxetine 20 MG Capsule PO (10:42)
[2020-04-17] MEDS: Heparin Injection (Vial) 5,000 UNIT/ML VIAL 5000 UNIT SC ×2 (10:42→22:07)
[2020-04-17] MEDS: Furosemide 40 MG/4 ML Vial IV ×2 (10:42→17:44)
[2020-04-17] MEDS: predniSONE 5 MG Tablet PO (10:43)
[2020-04-17] MEDS: ABIRATERONE ACETATE 250 MG TABLET 1000 MG PO (10:43)
--- NOTE | 2020-04-17 10:45 | PN_ITS ---
Patient Problems: Active and Suspected Problems Anemia (Acute) CHF (congestive heart failure) (Acute) Subjective: States that he is breathing a little bit easier today, and he thinks that his lower extremity edema is less. He is down 3 pounds since admission Vitals/I&O's: Vital Signs Temp Pulse Resp BP Pulse Ox 98.1 F 69 15 140/51 H 94 04/17/20 09:50 04/17/20 09:50 04/17/20 09:50 04/17/20 09:50 04/17/20 09:50 Oxygen Delivery Method Room Air Weight: 269 lb 10.005 oz Body Mass Index (BMI) 39.1 Intake and Output for Last 24 Hours 04/15/20 04/16/20 04/17/20 23:59 23:59 23:59 Intake Total 250 / 250 75 / 75 Output Total 700 / 700 725 / 725 Balance -450 / -450 -650 / -650 General: Alert, Oriented x3, Cooperative, No apparent distress HEENT: Atraumatic, PERRLA, EOMI, Normocephalic Oral: Moist Mucosa Neck: Supple, No JVD Lungs: Clear to auscultation, Normal air movement, No rhonchi, No wheeze, No rales Cardiovascular: Regular rate, Regular Rhythm, Normal S1, Normal S2, Murmur - 2/6 MONSERRAT RUSB Abdomen: Soft, Non Tender, Non-Distended, No Hepato-splenomegaly Extremities: Capillary Refill Less than 3 Seconds, Edema - Bilateral 2+ pitting edema with blistering more on the right lower extremity than on the left Skin: No breakdown Neurological: Neuro grossly intact, Sensory exam intact to light touch and pain Psych/Mental Status: Normal Affect, Appropriate Microbiology Past 72 Hours 04/16/20 12:50 Mucosa - Nasopharyngeal SARS-CoV-2 Antigen (Rapid) - Final Laboratory Results 04/16/20 12:40: WBC 7.8, RBC 3.07 L, Hgb 9.7 L, Hct 29.2 L, MCV 95.1 H, MCH 31.6, MCHC 33.2, RDW Std Deviation 52.5 H, RDW Coeff of Alva 15.9 H, Plt Count 188, MPV 10.0, Immature Gran % (Auto) 0.500, Neut % (Auto) 82.0 H, Lymph % (Auto) 7.7 L, [place] % (Auto) 8.2, Eos % (Auto) 1.3, Baso % (Auto) 0.3, Absolute Neuts (auto) 6.4, Absolute Lymphs (auto) 0.60 L, Nucleated RBC % 0 04/16/20 12:40: Sodium 144, Potassium 3.4 L, Chloride 111 H, Carbon Dioxide 25.0, Anion Gap 8, BUN 52 H, Creatinine 4.20 H, Estim Creat Clear Calc 14.24, Est GFR (MDRD) Af Amer 18 L, Est GFR (MDRD) Non-Af 15 L, BUN/Creatinine Ratio 12.4, Glucose 98, Calcium 7.5 L, Total Bilirubin 0.40, AST 7 L, ALT 11 L, Alkaline Phosphatase 37 L, Troponin I 0.015, Total Protein 6.8, Albumin 3.2, Globulin 3.6, Albumin/Globulin Ratio 0.9 04/16/20 12:40: Lactic Acid 1.0 04/16/20 12:40: B-Natriuretic Peptide 941.2 H 04/16/20 12:40: Procalcitonin 0.12 H 04/16/20 16:40: COVID-19 (VINI) Not Detected 04/16/20 18:46: Troponin I 0.017 04/16/20 21:41: Troponin I 0.019 04/16/20 21:45: POC Glucose 72 04/17/20 05:42: WBC 5.7, RBC 3.07 L, Hgb 8.5 L, Hct 28.4 L, MCV 92.5, MCH 27.7, MCHC 29.9 L D, RDW Std Deviation 48.9 H, RDW Coeff of Alva 14.6, Plt Count 194, MPV 9.7, Immature Gran % (Auto) 0.300, Neut % (Auto) 85.3 H, Lymph % (Auto) 7.0 L, [place] % (Auto) 6.6, Eos % (Auto) 0.5, Baso % (Auto) 0.3, Absolute Neuts (auto) 4.9, Absolute Lymphs (auto) 0.40 L, Nucleated RBC % 0, Differential Comment SCANNED 04/17/20 05:42: Sodium 146 H, Potassium 3.4 L, Chloride 113 H, Carbon Dioxide 24.0, Anion Gap 9, BUN 53 H, Creatinine 4.22 H, Estim Creat Clear Calc 14.18, Est GFR (MDRD) Af Amer 18 L, Est GFR (MDRD) Non-Af 15 L, BUN/Creatinine Ratio 12.6, Glucose 77, Calcium 7.4 L 04/17/20 06:36: POC Glucose 79 Current Medications Abiraterone Acetate (Abiraterone Acetate 250 Mg Tablet) 1,000 mg PO DAILY@1030 [facility] Last Admin: 04/17/20 10:43 Dose: 1,000 mg Documented by: Acetaminophen (Acetaminophen 325 Mg Tablet) 650 mg PO Q6H PRN PRN PRN Reason: Pain Score 1-10/Temp > 100.7 F Atorvastatin Calcium (Atorvastatin Calcium 10 Mg Tablet) 10 mg PO QHS [facility] Last Admin: 04/16/20 21:54 Dose: 10 mg Documented by: Docusate Sodium (Docusate Sodium 100 Mg Capsule) 100 mg PO BID [facility] Last Admin: 04/17/20 10:42 Dose: Not Given Documented by: Fluoxetine HCl (Fluoxetine 20 Mg Capsule) 20 mg PO DAILY [facility] Last Admin: 04/17/20 10:42 Dose: 20 mg Documented by: Furosemide (Furosemide 40 Mg/4 Ml Vial) 40 mg IV BID@1000,1800 [facility] Last Admin: 04/17/20 10:42 Dose: 40 mg Documented by: Glipizide (Glipizide 2.5 Mg Tab.Er.24) 2.5 mg PO DAILYCM [facility] Last Admin: 04/17/20 10:42 Dose: 2.5 mg Documented by: Heparin Sodium (Porcine) (Heparin Injection (Vial) 5,000 Unit/Ml Vial) 5,000 unit SC Q12 [facility] Last Admin: 04/17/20 10:42 Dose: 5,000 unit Documented by: Insulin Human Lispro (Insulin Lispro 100 Unit/Ml Insuln.Pen) 0 unit SC TIDAC [facility]; Protocol Last Admin: 04/17/20 06:42 Dose: Not Given Documented by: Labetalol HCl (Labetalol 200 Mg Tablet) 200 mg PO BID [facility] Last Admin: 04/17/20 10:42 Dose: 200 mg Documented by: Melatonin (Melatonin 3 Mg Tablet) 3 mg PO QHS [facility] Last Admin: 04/17/20 00:54 Dose: Not Given Documented by: Ondansetron HCl (Ondansetron 4 Mg/2 Ml Vial) 4 mg IV Q8H PRN PRN PRN Reason: NAUSEA/VOMITING Polysaccharide Iron Complex (Iron Polysaccharide Complex 150 Mg Capsule) 150 mg PO DAILYCM [facility] Last Admin: 04/16/20 21:54 Dose: 150 mg Documented by: Prednisone (Prednisone 5 Mg Tablet) 5 mg PO DAILY@1030 [facility] Last Admin: 04/17/20 10:43 Dose: 5 mg Documented by: STROKE Vital Signs/Narrative: Vital Signs Temp Pulse Resp BP Pulse Ox 04/17/20 09:50 98.1 F 69 15 140/51 H 94 04/17/20 07:08 64 Medical Necessity - Tobacco Use Smoking Status: Never smoker Assessment/Plan All Active Problems Anemia (Acute) CHF (congestive heart failure) (Acute) 1. Acute CHF exacerbation with unclear type/dyspnea/hypertension/hyperlipidemia -Unsure of the type of CHF at this time, echo is pending -We will continue with IV Lasix for now, as well as strict I's and O's and 1500 cc/day fluid restriction -Continue with his labetalol and fenofibrate as well as Lipitor 2. CKD 4 due to DM2/anemia of chronic disease -Creatinine is over 4 which is actually improved for him. We will continue to monitor -He is not on dialysis at this time, he does make urine therefore we will continue to provide with IV diuresis -We will continue with his home glipizide and sliding scale insulin, Accu-Cheks AC at bedtime and will make adjustments as necessary -Hemoglobin is stable, will continue to monitor, continue with his home iron 3. History of prostate cancer -Stable -We will continue with his home medications 4. Anxiety/depression -Stable -Continue with Prozac DVT: Heparin Inpatient E&M: 78011 Subs Hosp L2
--- NOTE | 2020-04-17 11:48 | CASEMGMT ---
Addendum entered by Ofelia Cleveland 04/17/20 16:04: RN ISELA provided a list of HHC providers including quality and resource use data and consistent with the patient's preferred geographic region, medical needs and insurance network. Patient to review list and provide preference if he chooses HHC. CM will continue to follow this patient and plan for a safe dc. Original Note: RACHEL WEISS Face to Face with patient for initial transition planning/care coordination assessment. RN ISELA introduced self and role at [facility]. Patient sitting up in chair, alert and oriented, at bedside. Patient willing to participate in assessment and is able to answer all questions appropriately. Care providers, pharmacy, and demographics verified. Presentation: Increasing SOB for few days with diarrhea Admitting Diagnosis: CHF PCP:Juanito Specialists:El nephro; Zeke, oncology; Tila, urology Preferred Pharmacy:[facility] Insurance:Medicare, tu.nr Prescription Benefit: yes, [employer] Living Will/HPOA: LW and HPOA , Kendra. Documents on file at [facility]. LNOK: Kendra Living Arrangements: Patient lives in a condo with , no steps to enter. Patient was independent in ADL's. Transportation: self and . States no concerns with transportation. DME/HHC: Patient reports having a shower chair, cost specialist, walker and CPAP machine in the home. Denies needs for further DME. Patient has not previously been in a SNF or had HHC. Pt may be agreeable to for SN for education of disease process. Requests to come back in the afternoon while he thinks about it. Pt states no concerns of going home at dc. Pt is retired. Pt does not smoke cigarettes or drink ETOH. CM to follow for any further dc planning/needs. Pt goal: Home Plan: Home with possible HHC
[2020-04-17 12:15] LABS: Bedside Glucose 95 mg/dL (70-110)
[2020-04-17] MEDS: Iron Polysaccharide Complex 150 MG CAPSULE PO (13:28)
[2020-04-17 17:05] LABS: Bedside Glucose 91 mg/dL (70-110)
[2020-04-17] MEDS: MELATONIN 3 MG TABLET PO (22:07)
[2020-04-17] MEDS: Atorvastatin Calcium 10 MG Tablet PO (22:07)
[2020-04-17 22:50] LABS: Bedside Glucose 87 mg/dL (70-110)
[2020-04-18] VITALS (7 sets, daily range): BP systolic 121–142; BP diastolic 47–64; PULSE 60–72; RESP 16–20; TEMP 36.4–37.2; O2SAT 93–96
[2020-04-18 06:25] LABS: Bedside Glucose 86 mg/dL (70-110)
[2020-04-18 06:28] LABS: Absolute Lymphocyte Count 0.74 X10^3/uL (0.83-4.51); Absolute Neutrophil Count 4.7 X10^3/uL (2.0-7.7); Basophil# 0.02 X10^3/uL; Basophil% 0.3 % (0-1); Eosinophil# 0.08 X10^3/uL; Eosinophils% 1.3 % (0-5); Hematocrit 29.5 % (40-54); Hemoglobin 9.1 g/dL (13.0-16.5); Lymphocyte # 0.74 X10^3/ul (4.0); Lymphocyte % 12.3 % (19-41); Mean Corp Hgb Conc 30.8 g/dL (32-36); Mean Corpuscular Hgb 28.1 pg (27.0-32.0); Mean Platelet Vol. 8.9 fl (6.2-12.0); Monocyte# 0.47 X10^3/uL; Monocyte% 7.8 % (0-10); NRBC Flagged by Analyzer 0 % (0-5); Neutrophil # 4.69 X10^3/uL (2.7-7.7); Neutrophil % 77.6 % (47-70); Platelet Count 227 K/mm3 (150-450); RBC Distribution Width CV 14.7 % (11.6-14.6); RBC Distribution Width SD 48.9 fl (35.1-43.9); Red Blood Count 3.24 M/mm3 (4.6-6.2)
[2020-04-18 06:58] LABS: Anion Gap 7 (5-15); BUN 54 mg/dL (7-18); BUN/Creat Ratio 12.6 RATIO (10-20); Calcium,Total 7.5 mg/dL (8.5-10.1); Chloride 112 mmol/L (98-107); Creatinine, Serum 4.28 mg/dL (0.70-1.30); EST Glomerular Filtration Rate 14 mL/min (>60); Est Glom Filt Rate - Afr Amer 17 mL/min (>60); Estimated Creatinine Clearance 13.98 ml/min; Glucose 84 mg/dL (74-106); Potassium 2.8 mmol/L (3.5-5.1); Sodium Level 146 mmol/L (136-145)
[2020-04-18 07:53] LABS: Magnesium 2.3 mg/dL (1.6-2.6); Phosphorus 3.8 mg/dL (2.5-4.9)
[2020-04-18] MEDS: Potassium Chloride Oral Tablet 20 MEQ 60 MEQ PO (08:49)
[2020-04-18] MEDS: Iron Polysaccharide Complex 150 MG CAPSULE PO (08:50)
[2020-04-18] MEDS: FLUoxetine 20 MG Capsule PO (08:50)
[2020-04-18] MEDS: Heparin Injection (Vial) 5,000 UNIT/ML VIAL 5000 UNIT SC (08:51)
[2020-04-18] MEDS: Labetalol 200 MG Tablet PO (08:51)
[2020-04-18] MEDS: Furosemide 40 MG/4 ML Vial IV (08:51)
--- NOTE | 2020-04-18 10:36 | CASEMGMT ---
RN CM in to discuss discharge planning. Pt states they would like to take the [facility] information home to review. Made aware that should they decide to have [facility] to notify PCP who can set this up for them. Denies further questions or needs.
[2020-04-18] MEDS: ABIRATERONE ACETATE 250 MG TABLET 1000 MG PO (10:41)
[2020-04-18] MEDS: predniSONE 5 MG Tablet PO (10:41)
[2020-04-18 10:51] LABS: Bedside Glucose 104 mg/dL (70-110)
--- NOTE | 2020-04-18 11:01 | CASEMGMT ---
Per Simi RN, pt does not qualify for home oxygen at this time. CM to follow for any further discharge planning/needs. José Luis RAMOS CM
--- NOTE | 2020-04-18 13:49 | DCINST_ITS ---
- Discharge Diagnoses Current Active Problems: Current Active and Chronic Problems DM (diabetes mellitus) (Chronic) Essential (primary) hypertension (Chronic) Prostate CA (Chronic) Anemia (Acute) CHF (congestive heart failure) (Acute) You will use the following diet at home:: Calorie/Carbohydrate Controlled (specify 1200, 1400, etc), Cardiac, Fluid restricted (specify 2000 mls, 1500 mls) - 1800, Renal (restricted protein/sodium) Your food should be the consistency of: Regular Your liquids should be the consistency of: Regular/Thin Discharge Activity: Return to Normal Activity Call your doctor if you observe: Fever of 101 or Higher, Shortness of breath, Dizziness, Fainting spells, Swelling in the ankles, Chest pain, Increased palpitations (irregular heartbeat) Allergies/Adverse Reactions: Allergies Iodinated Contrast Media Allergy (Verified 04/16/20 11:47) PT UNSURE OF REACTION Medications to take at Discharge Atorvastatin Calcium [Lipitor] 10 mg PO QHS 08/14/16 Fenofibrate,Micronized [Fenofibrate] 134 mg PO DAILY 08/14/16 Abiraterone Acetate 1,000 mg PO DAILY@1030 07/20/19 Fluoxetine [Prozac] 20 mg PO DAILY 07/20/19 Iron Polysaccharide Complex [Ferrex 150] 150 mg PO DAILY 07/20/19 Psyllium Husk [Metamucil] 1 cap PO DAILY PRN 07/20/19 Docusate Sodium 100 mg PO BID 04/16/20 Furosemide [Lasix] 40 mg PO DAILY 04/16/20 Glipizide [Glipizide ER] 2.5 mg PO DAILY 04/16/20 Labetalol [Trandate (Beta Karie)] 200 mg PO BID 04/16/20 Leuprolide Acetate [Lupron Depot] 30 mg IM .[id number] 04/16/20 Lipo/Flavonoid 1 tab PO QODAY 04/16/20 predniSONE tablet 5 mg PO DAILY@1030 04/16/20 Primary Care Physician: Darshan Solomon MD [Primary Care Provider] - Please follow up with your Primary Care Physician in: 3-5 days Test Results: Test results from this visit will be discussed in further detail at your follow- up appointment, if applicable. Please Follow Up With: Rodrigo Gallegos MD When: As scheduled
--- NOTE | 2020-04-18 13:54 | PHA.DC.MR ---
Pharmacy Service has performed discharge medication reconciliation for this patient. The patient's discharge medication list was reviewed for discrepancies and discrepancies were resolved. Home Medications Atorvastatin Calcium [Lipitor] 10 mg PO QHS 08/14/16 Fenofibrate,Micronized [Fenofibrate] 134 mg PO DAILY 08/14/16 Abiraterone Acetate 1,000 mg PO DAILY@1030 07/20/19 Fluoxetine [Prozac] 20 mg PO DAILY 07/20/19 Iron Polysaccharide Complex [Ferrex 150] 150 mg PO DAILY 07/20/19 Psyllium Husk [Metamucil] 1 cap PO DAILY PRN 07/20/19 Docusate Sodium 100 mg PO BID 04/16/20 Furosemide [Lasix] 40 mg PO DAILY 04/16/20 Glipizide [Glipizide ER] 2.5 mg PO DAILY 04/16/20 Labetalol [Trandate (Beta Karie)] 200 mg PO BID 04/16/20 Leuprolide Acetate [Lupron Depot] 30 mg IM .[id number] 04/16/20 Lipo/Flavonoid 1 tab PO QODAY 04/16/20 predniSONE tablet 5 mg PO DAILY@1030 04/16/20
--- NOTE | 2020-04-18 14:27 | DS.PCM_ITS ---
Discharge Date and Diagnosis - Problem List Patient Problems: Active and Suspected Problems Anemia (Acute) CHF (congestive heart failure) (Acute) Date of Admission: 04/16/20 Date of Discharge: 04/18/20 - Primary Discharge Diagnosis Acute Problems: Active Problems Anemia (Acute) CHF (congestive heart failure) (Acute) - Secondary Discharge Diagnosis Chronic Problems: Chronic Problems DM (diabetes mellitus) (Chronic) Essential (primary) hypertension (Chronic) Prostate CA (Chronic) Hospital Course and Treatment Imaging Results: Clinical Impression(s) from Imaging Studies Chest X-Ray 04/16/20 13:36 IMPRESSION: Progressive bilateral infiltrates worse in the left lung with small bilateral pleural effusions and bibasilar infiltrates. Stable focal pleural thickening along the right lateral chest wall. Follow-up is recommended. Electronically Signed: Issa Rojo MD at 13:49 EST , Service support , Echo: Interpretation Summary The study was technically difficult. Contrast injection was performed. Based upon the 2D echocardiographic and contrast enhanced images obtained there appears to be grossly normal left ventricular size, wall motion, and systolic function. The estimated ejection fraction is 60 %. Mild concentric left ventricular hypertrophy. The left atrium is mildly enlarged. Mild (1+) mitral valve insufficiency. Trivial tricuspid valve insufficiency. Mild aortic stenosis. Mild (1+) pulmonic valve insufficiency. Unable to estimate RV systolic pressure/pulmonary artery pressure due to technically difficult study. Transmitral diastolic flow velocities suggest diastolic dysfunction (pseudonormal pattern). Operations: None Procedures: 2-D Echocardiogram Summary of Care Provided: Per HPI: The patient is a 79 year old M presents with increasing dyspnea on exertion. Patient has been short of breath with exertion for months and has just steadily gotten worse. Patient has increasing lower extremity edema as well as a 50 pound weight gain over the past few months. Just progressively got worse and the patient presented to the emergency room. Patient had a chest x- ray that showed bilateral pleural effusions and BNP was elevated at 941. 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 Patient does not go out and about and has no known Covid exposure. Patient did receive IV furosemide in the emergency room. Patient denies any history of CHF before nor symptoms like this previously. Hospital Course: 1. Acute diastolic CHF exacerbation/dyspnea/hypertension/hyperlipidemia- 79-year-old male presents with increasing dyspnea on exertion. He has been getting short of breath for last several months as well as increasing lower extremity edema. He had an echo which demonstrated a normal EF but he does have mild concentric left ventricular hypertrophy and was found to have diastolic dysfunction as well. The echo was performed because his BNP on admission was 941, though this is slightly confounded secondary to his renal failure. Potassium today was 2.8 and this was replaced. Magnesium and phosphorus were obtained and normal. Would recommend follow-up as an outpatient for a BMP to monitor potassium. Creatinine only slightly increased to 4.28 compared to admission creatinine of 4.20. Now that he is off of oxygen would recommend returning to his baseline Lasix of 40 mg p.o. daily but this time continuing with a fluid restriction of 1800 cc/day. Recommend that he follow-up with n ephrology as an outpatient as scheduled. Also recommend that he follow-up with his PCP in 3 to 5 days and if necessary have a referral to cardiology made. I did spend an extensive amount of time talking on dietary changes to assist in weight loss. I discussed the plan for discharge today with him and his and they both stressed understanding of the risk and benefits of going home and would like to go home today. 2. CKD 4, DM 2, anemia of chronic disease, history of prostate cancer, anxiety, depression, all chronic medical conditions which complicate his care. His home medications were continued where appropriate. Patient Problems: Active and Suspected Problems Anemia (Acute) CHF (congestive heart failure) (Acute) - Physical Exam Vitals/I&O's: Vital Signs Temp Pulse Resp BP Pulse Ox 98.9 F 65 20 H 137/47 H 93 04/18/20 08:45 04/18/20 08:45 04/18/20 08:50 04/18/20 08:45 04/18/20 08:50 Oxygen Delivery Method Room Air Weight: 269 lb 10.005 oz Body Mass Index (BMI) 39.1 Intake and Output for Last 24 Hours 04/16/20 04/17/20 04/18/20 23:59 23:59 23:59 Intake Total 250 / 250 695 / 795 680 / 680 Output Total 700 / 700 975 / 2175 1650 / 1650 Balance -450 / -450 -280 / -1380 -970 / -970 General: Alert, Oriented x3, Cooperative, No apparent distress HEENT: Atraumatic, PERRLA, EOMI, Normocephalic Oral: Moist Mucosa Neck: Supple, No JVD Lungs: Clear to auscultation, Normal air movement, No rhonchi, No wheeze, No rales Cardiovascular: Regular rate, Regular Rhythm, Normal S1, Normal S2, Murmur - 2/6 MONS[place]AT RUSB Abdomen: Soft, Non Tender, Non-Distended, No Hepato-splenomegaly Extremities: Capillary Refill Less than 3 Seconds, Edema - Bilateral 2+ pitting edema with blistering more on the right lower extremity than on the left Skin: No breakdown Neurological: Neuro grossly intact, Sensory exam intact to light touch and pain Psych/Mental Status: Normal Affect, Appropriate Microbiology Past 72 Hours 04/16/20 12:56 Blood Culture (Wb) - Left Hand Blood Culture - Preliminary No growth in 48 hours. 04/16/20 12:40 Blood Culture (Wb) - Anticubital Left Blood Culture - Preliminary No growth in 48 hours. 04/16/20 12:50 Mucosa - Nasopharyngeal SARS-CoV-2 Antigen (Rapid) - Final Laboratory Results 04/17/20 16:47: POC Glucose 91 04/17/20 22:13: POC Glucose 87 04/18/20 06:12: POC Glucose 86 04/18/20 06:20: WBC 6.0, RBC 3.24 L, Hgb 9.1 L, Hct 29.5 L, MCV 91.0, MCH 28.1, MCHC 30.8 L, RDW Std Deviation 48.9 H, RDW Coeff of Alva 14.7 H, Plt Count 227, MPV 8.9, Immature Gran % (Auto) 0.700, Neut % (Auto) 77.6 H, Lymph % (Auto) 12.3 L, Benton % (Auto) 7.8, Eos % (Auto) 1.3, Baso % (Auto) 0.3, Absolute Neuts (auto) 4.7, Absolute Lymphs (auto) 0.74 L, Nucleated RBC % 0 04/18/20 06:20: Sodium 146 H, Potassium 2.8 L, Chloride 112 H, Carbon Dioxide 27.0, Anion Gap 7, BUN 54 H, Creatinine 4.28 H, Estim Creat Clear Calc 13.98, Est GFR (MDRD) Af Amer 17 L, Est GFR (MDRD) Non-Af 14 L, BUN/Creatinine Ratio 12.6, Glucose 84, Calcium 7.5 L 04/18/20 06:20: Phosphorus 3.8, Magnesium 2.3 04/18/20 10:42: POC Glucose 104 Current Medications Abiraterone Acetate (Abiraterone Acetate 250 Mg Tablet) 1,000 mg PO DAILY@1030 [facility] Last Admin: 04/18/20 10:41 Dose: 1,000 mg Documented by: Acetaminophen (Acetaminophen 325 Mg Tablet) 650 mg PO Q6H PRN PRN PRN Reason: Pain Score 1-10/Temp > 100.7 F Atorvastatin Calcium (Atorvastatin Calcium 10 Mg Tablet) 10 mg PO QHS [facility] Last Admin: 04/17/20 22:07 Dose: 10 mg Documented by: Docusate Sodium (Docusate Sodium 100 Mg Capsule) 100 mg PO BID [facility] Last Admin: 04/18/20 08:50 Dose: Not Given Documented by: Fluoxetine HCl (Fluoxetine 20 Mg Capsule) 20 mg PO DAILY [facility] Last Admin: 04/18/20 08:50 Dose: 20 mg Documented by: Furosemide (Furosemide 40 Mg/4 Ml Vial) 40 mg IV BID@1000,1800 [facility] Last Admin: 04/18/20 08:51 Dose: 40 mg Documented by: Glipizide (Glipizide 2.5 Mg Tab.Er.24) 2.5 mg PO DAILYCM [facility] Last Admin: 04/18/20 08:50 Dose: 2.5 mg Documented by: Heparin Sodium (Porcine) (Heparin Injection (Vial) 5,000 Unit/Ml Vial) 5,000 unit SC Q12 [facility] Last Admin: 04/18/20 08:51 Dose: 5,000 unit Documented by: Insulin Human Lispro (Insulin Lispro 100 Unit/Ml Insuln.Pen) 0 unit SC TIDAC [facility]; Protocol Last Admin: 04/18/20 10:43 Dose: Not Given Documented by: Labetalol HCl (Labetalol 200 Mg Tablet) 200 mg PO BID [facility] Last Admin: 04/18/20 08:51 Dose: 200 mg Documented by: Melatonin (Melatonin 3 Mg Tablet) 3 mg PO QHS [facility] Last Admin: 04/17/20 22:07 Dose: 3 mg Documented by: Ondansetron HCl (Ondansetron 4 Mg/2 Ml Vial) 4 mg IV Q8H PRN PRN PRN Reason: NAUSEA/VOMITING Polysaccharide Iron Complex (Iron Polysaccharide Complex 150 Mg Capsule) [facility] Admin: 04/18/20 08:50 Dose: 150 mg Documented by: Prednisone (Prednisone 5 Mg Tablet) 5 mg PO DAILY@1030 [facility] Last Admin: 04/18/20 10:41 Dose: 5 mg Documented by: Discharge Activity: Return to Normal Activity Call your doctor if you observe: Fever of 101 or Higher, Shortness of breath, Dizziness, Fainting spells, Swelling in the ankles, Chest pain, Increased palpitations (irregular heartbeat) Home Medications: Medications to take at Discharge Atorvastatin Calcium [Lipitor] 10 mg PO QHS 08/14/16 Fenofibrate,Micronized [Fenofibrate] 134 mg PO DAILY 08/14/16 Abiraterone Acetate 1,000 mg PO DAILY@1030 07/20/19 Fluoxetine [Prozac] 20 mg PO DAILY 07/20/19 Iron Polysaccharide Complex [Ferrex 150] 150 mg PO DAILY 07/20/19 Psyllium Husk [Metamucil] 1 cap PO DAILY PRN 07/20/19 Docusate Sodium 100 mg PO BID 04/16/20 Furosemide [Lasix] 40 mg PO DAILY 04/16/20 Glipizide [Glipizide ER] 2.5 mg PO DAILY 04/16/20 Labetalol [Trandate (Beta Karie)] 200 mg PO BID 04/16/20 Leuprolide Acetate [Lupron Depot] 30 mg IM .[id number] 04/16/20 Lipo/Flavonoid 1 tab PO QODAY 04/16/20 predniSONE tablet 5 mg PO DAILY@1030 04/16/20 Primary Care Physician: Darshan Solomon MD [Primary Care Provider] - Please follow up with your Primary Care Physician in: 3-5 days Please Follow Up With: Rodrigo Gallegos MD When: As scheduled Disposition: Home Minutes spent on discharge:: 35 Patient Condition:: Stable Medical Necessity - Tobacco Use Smoking Status: Never smoker Meaningful Use Info Meaningful Use Diagnoses (Choose all that apply): None applicable Inpatient E&M: 27558 [facility]osp
--- NOTE | 2020-04-19 15:54 | CASEMGMT ---
RN CM Note DC Date: 04/18/20 DC Disposition: Home DC Diagnosis:Anemia/ CHF Attempted call to phone. No answer and no messaging with name identifier. Daniel VALADEZ RN ACM
== END 2020-04-18 16:01 | disposition home or self-care (01) | DRG 291 ==
LOC: ED 16:32 → PCU 17:41
PROVIDERS: Emergency Provider Student in an Organized Health Care Education/Training Program; PCP Internal Medicine; Visit Provider Family Medicine
DX: I13.0 Hypertensive heart and chronic kidney disease with heart failure and stage 1 through stage 4 chronic kidney disease, or unspecified chronic kidney disease (principal); I50.31 Acute diastolic (congestive) heart failure; N18.4 Chronic kidney disease, stage 4 (severe); E78.5 Hyperlipidemia, unspecified; E11.22 Type 2 diabetes mellitus with diabetic chronic kidney disease; D63.1 Anemia in chronic kidney disease; F32.9 Major depressive disorder, single episode, unspecified; F41.9 Anxiety disorder, unspecified; Z85.46 Personal history of malignant neoplasm of prostate
CPT/HCPCS: 36415; 71045; 80048; 80053; 82962; 83605; 83735; 83880; 84100; 84145; 84484; 85025; 87040; 87426; 87635; 93005; 93306; 99285; Q9957; A4216; C8929; J1940; U0002

== ENCOUNTER → 2020-06-04 14:07 | Outpatient (CLI) | payer MEDICARE, OTHER, SELFPAY ==
[2019-09-22 11:00] VITALS: BMI 36.7
[2020-04-16 17:13] VITALS: BMI 39.1
--- NOTE | 2020-06-04 14:09 | US_ITS ---
INDICATION: OBSTRUCTIVE NEPHROPATHY EXAMINATION: US Kidney(s) complete (eg, kidneys and bladder) TECHNIQUE: Nguyen scale and color doppler images were obtained of the kidneys. COMPARISON: 07/23/2019. FINDINGS: RIGHT KIDNEY: Normal location of the right kidney, which is normal in size. The right kidney measures 12.6 cm. There is a normal cortex of the right kidney. The renal cortex measures 1 cm. There is an exophytic 1.6 x 1.6 x 1.8 cm cyst in the mid kidney. There is also a 1.9 x 1.9 x 1.7 cm cyst off the lower pole. There are 3 mm and 4 mm nonobstructive stones. There is no right hydronephrosis. No evidence of mass or fluid collection about the kidney. LEFT KIDNEY: Normal location of the left kidney, which is hypertrophic. The left kidney measures 14.5 cm. There is a normal cortex of the left kidney. The renal cortex measures 1.1 cm. There is a 1.4 x 1.4 x 1.3 cm cyst in the mid kidney. There are nonobstructive 8 mm and 5 mm stones. There is no left hydronephrosis. No evidence of mass or fluid collection about the kidney. URINARY BLADDER: No acute abnormality. US/Kidney and Bladder IMPRESSION: Bilateral nonobstructive nephrolithiasis and renal cysts. Electronically Signed: Pb Vasquez MD at 23:44 EDT Tel , Service support ,
== END ==
PROVIDERS: PCP Internal Medicine; Referring Provider Internal Medicine Nephrology; Visit Provider Internal Medicine Nephrology
DX: N13.8 Other obstructive and reflux uropathy (principal)
CPT/HCPCS: 76770

== ENCOUNTER → 2020-12-12 07:19 | Outpatient (CLI) | payer MEDICARE, OTHER, SELFPAY ==
[2020-07-26 13:26] VITALS: BMI 36.9
--- NOTE | 2020-12-12 09:31 | STRESSREP ---
Stress Test Report Date: 12-12-2020 Procedure: Pharmacologic stress nuclear imaging study Indications: Shortness of breath/dyspnea on exertion; aortic valve disorder; congestive heart failure Consent: Per the patient Procedure: The patient underwent pharmacologic (Regadenoson 0.4mg ) evaluation with a peak heart rate of 75 beats per minute (53%predicted maximal heart rate) and a peak blood pressure of 150/62 mmHg. The baseline ECG demonstrated sinus rhythm; poor R wave progression; nonspecific ST segment abnormality. The peak pharmacologic ECG demonstrated no obvious ECG changes. There were no cardiac dysrhythmias pretest, during pharmacologic infusion, or recovery. There was no complaint of chest discomfort during pharmacologic infusion or recovery. The examination was discontinued secondary to completion of protocol. Impression: 1. Pharmacologic (Regadenoson) evaluation 2. Peak pharmacologic ECG with continued nonspecific ST segment abnormality with no obvious ECG changes. 3. There were no cardiac dysrhythmias pretest, during pharmacologic infusion, or recovery. 4. Nuclear images pending Myocardial perfusion imaging study: Technique: The patient was injected with 14.7 millicuries of technetium 99m Cardiolite and subsequently rest SPECT Cardiolite nuclear imaging was obtained in the horizontal long, vertical long, and short axis views. The patient underwent pharmacologic (Regadenoson) evaluation with a peak heart rate of 75 beats per minute (53% percent predicted maximal heart rate) and a peak blood pressure of 150/62 mmHg. The patient was injected with 45.0 millicuries of technetium 99m Cardiolite and subsequently stress SPECT Cardiolite nuclear imaging was obtained in the horizontal long, vertical long, and short axis views. A gated Cardiolite study at peak stress was obtained. Interpretation: Rest and stress SPECT Cardiolite nuclear imaging status post realignment, normalization, and attenuation correction demonstrate the appearance of a small area of diminished myocardial perfusion tracer uptake in the mid inferior segments which appears to be more prominent at rest as opposed to stress. There is end systolic thickening and brightening. The gated Cardiolite study demonstrates myocardial thickening and inward wall motion. The reported LVEF is 53%. Impression: 1. Rest and stress myocardial nuclear imaging demonstrate myocardial perfusion changes appearing compatible with shifting soft tissue attenuation/artifact being more prominent at rest as opposed to stress with no myocardial perfusion changes considered diagnostic for associated stress-induced myocardial ischemia. 2. The gated Cardiolite study reports an LVEF of 53%. This note was generated with [employer] software. It may contain incorrect words, spelling, and punctuation that were not noted in checking the note before signing.
== END ==
PROVIDERS: PCP Internal Medicine; Referring Provider Internal Medicine Cardiovascular Disease; Visit Provider Internal Medicine Cardiovascular Disease
DX: I11.0 Hypertensive heart disease with heart failure (principal); I50.31 Acute diastolic (congestive) heart failure; I35.0 Nonrheumatic aortic (valve) stenosis; E78.2 Mixed hyperlipidemia
CPT/HCPCS: 78452; 93017; A9500; A4216; J2785

== ENCOUNTER → 2021-01-24 | Outpatient (CLI) | payer MEDICARE, OTHER, SELFPAY ==
[2021-01-24 15:50] LABS: Protein, Urine (Random) 46.7 mg/dL (<11.9); Protein:Creat Ratio 992 mg/g CRE (0-200)
== END | disposition home or self-care (01) ==
LOC: POLAB3 14:07 → LABSPEC 14:07
PROVIDERS: PCP Internal Medicine; Visit Provider Internal Medicine Nephrology
DX: N18.4 Chronic kidney disease, stage 4 (severe) (principal)
CPT/HCPCS: 82570; 84156

== ENCOUNTER → 2021-01-30 12:49 | Outpatient (CLI) | payer MEDICARE, OTHER, SELFPAY ==
--- NOTE | 2021-01-30 12:54 | VDUE_ITS ---
Reason For Study: CKD Right Arm Left Arm Rt Brachial A: 0.48cm x 0.40cm, 93cm/s Lt Brachial A: 0.56cm x 0.54cm, 77cm/s Rt Radial A: 0.28cm x 0.29cm, 108cm/s. Lt Radial A: 0.32cm x 0.32cm, 98cm/s. Right Cephalic Vein at the wrist measures Left Cephalic Vein at the wrist measures 0.22cm x 0.20 cm. 0.28cm x 0.26 cm. Right Cephalic Vein in the forearm measures Left Cephalic Vein in the forearm measures 0.23cm x 0.23 cm. 0.30cm x 0.29 cm. Right Cephalic Vein below antecub measures Left Cephalic Vein below antecub measures 0.29cm x 0.30 cm. 0.28cm x 0.28 cm. Right Cephalic Vein above antecub measures Left Cephalic Vein above antecub measures 0.55cm x 0.56 cm. 0.60cm x 0.56 cm. Right Cephalic Vein mid bicep measures Left Cephalic Vein at mid bicep measures 0.37cm x 0.38 cm. 0.51cm x 0.49 cm. Right Cephalic Vein at the shoulder measures Left Cephalic Vein at the shoulder measures 0.41cm x 0.41 cm. 0.61cm x 0.63 cm. Right Basilic Vein at the origin measures Basilic vein at origin measures 0.48cm x 0.40cm x 0.41 cm. 0.46 cm. Right Basilic Vein mid bicep measures 0.39cm Basilic vein at bicep measures 0.50cm x 0.47 x 0.36 cm. cm. Right Basilic Vein above antecub measures Basilic vein above antecub measures 0.47cm x 0.46cm x 0.42 cm. 0.50 cm. VL/Saphenous Vein Mapping, Bilat Interpretation Summary Patent and compressible bilateral upper extremity cephalic and basilic veins wi th dimensions as noted. Normal diameter and flow bilateral radial and brachial arteries Ordering Physician: Rodrigo Gallegos Referring Physician: Darshan Solomon Performed By: Funmi Canchola, [place], RVT ?
== END ==
PROVIDERS: PCP Internal Medicine; Referring Provider Internal Medicine Nephrology; Visit Provider Internal Medicine Nephrology
DX: Z01.818 Encounter for other preprocedural examination (principal); N18.4 Chronic kidney disease, stage 4 (severe)
CPT/HCPCS: 93970; 93985

== ENCOUNTER 2021-03-05 16:18 | Outpatient (CLI) | payer MEDICARE, OTHER, SELFPAY ==
[2021-03-05 16:54] LABS: Hematocrit 31.9 % (40-54); Hemoglobin 9.9 g/dL (13.0-16.5); Mean Corpuscular Hgb 29.4 pg (27.0-32.0); Mean Corpuscular Volume 94.7 fL (80-94); Mean Platelet Vol. 9.4 fl (6.2-12.0); Platelet Count 182 K/mm3 (150-450); RBC Distribution Width CV 14.6 % (11.6-14.6); Red Blood Count 3.37 M/mm3 (4.6-6.2); White Blood Count 6.5 K/mm3 (4.4-11.0)
[2021-03-05 17:52] LABS: Anion Gap 8 (5-15); BUN 54 mg/dL (7-18); BUN/Creat Ratio 10.7 RATIO (10-20); Chloride 113 mmol/L (98-107); Creatinine, Serum 5.06 mg/dL (0.70-1.30); EST Glomerular Filtration Rate 12 mL/min (>60); Est Glom Filt Rate - Afr Amer 14 mL/min (>60); Glucose 133 mg/dL (74-106); Potassium 4.2 mmol/L (3.5-5.1); Sodium Level 145 mmol/L (136-145)
== END 2021-03-05 23:59 | disposition short-term general hospital (02) ==
LOC: LAB 16:20
PROVIDERS: PCP Internal Medicine; Visit Provider Surgery
DX: Z01.818 Encounter for other preprocedural examination (principal)
CPT/HCPCS: 36415; 80048; 85027

== ENCOUNTER 2021-03-07 09:38 | Day surgery (SDC) | payer MEDICARE, OTHER, SELFPAY ==
--- NOTE | 2021-03-05 16:01 | EKG12_ITS ---
Test Reason : PRE OP Blood Pressure : / mmHG Vent. Rate : 070 BPM Atrial Rate : 070 BPM P-R Int : 218 ms QRS Dur : 128 ms QT Int : 468 ms P-R-T Axes : 053 -34 030 degrees QTc Int : 505 ms Sinus rhythm with 1st degree A-V block Left axis deviation Left ventricular hypertrophy with QRS widening Nonspecific T wave abnormality Abnormal ECG Confirmed by BRENT RAMIREZ, TIM ([id number]), art editor CHARLENE MOLINA ([id number]) on 03/07/2021 9:27:46 AM Referred By: Nirmal Eckert Confirmed By:TIM KENNEDY MD
[2021-03-07] VITALS (7 sets, daily range): BP systolic 101–128; BP diastolic 46–69; PULSE 60–64; RESP 16–20; TEMP 36.4–36.6; O2SAT 95–99; BMI 38.7
[2021-03-07 10:11] LABS: Bedside Glucose 76 mg/dL (70-110)
--- NOTE | 2021-03-07 10:42 | HP.PCM_ITS ---
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 Is patient in pain?: No Allergies Iodinated Contrast Media Allergy (Severe, Verified 02/25/21 12:56) SOB, anyaphylaxis Medications atorvastatin 10 mg PO QHS 08/14/16 [History Confirmed 02/25/21] fenofibrate micronized 134 mg PO DAILY 08/14/16 [History Confirmed 02/25/21] abiraterone 1,000 mg PO DAILY@1030 07/20/19 [History Confirmed 02/25/21] fluoxetine 20 mg PO DAILY 07/20/19 [History Confirmed 02/25/21] polysaccharide iron complex 150 mg PO DAILY 07/20/19 [History Confirmed 02/25/21] psyllium husk 1 cap PO DAILY PRN 07/20/19 [History Confirmed 02/25/21] Lipo/Flavonoid 1 tab PO QODAY 04/16/20 [History Confirmed 02/25/21] docusate sodium 100 mg PO BID 04/16/20 [History Confirmed 02/25/21] glipizide 2.5 mg PO DAILY 04/16/20 [History Confirmed 02/25/21] labetalol 200 mg PO BID 04/16/20 [History Confirmed 02/25/21] leuprolide (4 month) 30 mg IM .[id number] 04/16/20 [History Confirmed 02/25/21] doxazosin 4 mg tablet 4 mg PO QHS 07/26/20 [History Confirmed 02/25/21] amlodipine 5 mg tablet 5 mg PO DAILY #1 tab 12/12/20 [Rx Confirmed 02/25/21] furosemide 40 mg tablet 60 mg PO DAILY tab 12/12/20 [History Confirmed 02/25/21] omeprazole 20 mg capsule,delayed release 20 mg PO DAILY 12/12/20 [History Confirmed 02/25/21] prednisone 5 mg tablet 5 mg PO DAILY 12/12/20 [History Confirmed 02/25/21] tamsulosin 0.4 mg capsule 0.4 mg PO DAILY cap 02/25/21 [History Confirmed 02/25/21] [facility] Medical History Anemia CHF (congestive heart failure) CKD (chronic kidney disease) stage 4, GFR 15-29 ml/min DM (diabetes mellitus) Mixed hyperlipidemia Nonrheumatic aortic (valve) stenosis BELLE on CPAP Prostate CA Spinal stenosis Type 2 diabetes mellitus Surgical History History of arthroscopy of right knee History of incisional hernia repair History of prostatectomy History of transurethral resection of prostate Family History Father Heart disease Myocardial infarction Brother Cancer Prostate Social History Smoking Status: Never smoker alcohol intake: never substance use type: does not use caffeine: Yes Type: coffee Number of servings: 1 HPI HPI HPI: PERLA SANCHEZ, is a 80 M who presents to the office today for surgical consultation regarding creation of an arteriovenous hemodialysis fistula. The patient is referred by Dr.Jayaprakash Gallegos and a written copy of my surgical consult recommendations will return to him. The patient has stage IV chronic renal insufficiency and laboratory that I have available April 18, 2020 demonstrated BUN of 54 with a creatinine of 4.28 and an estimated GFR of 14. The patient is chronically anemic with a hemoglobin of 9.1 and hematocrit of 29.5 with a platelet count of 227,000. The patient had a stress test on December 12, [address] Cassius Gonzalez. Ejection fraction was 53%. There is no stress-induced ischemia. The patient however states that for the past 2 weeks he has been having roxk-nza-[id number] sensation mostly in his right arm but also in his left arm. He states he is not brought that to the attention of any other physician yet. He moves his right arm as if it is diffusely painful and aching. January 30, 2021 Reason For Study: CKD Right Arm Left Arm Rt Brachial A: 0.48cm x 0.40cm, 93cm/s Lt Brachial A: 0.56cm x 0.54cm, 77cm/s Rt Radial A: 0.28cm x 0.29cm, 108cm/s. Lt Radial A: 0.32cm x 0.32cm, 98cm/s. Right Cephalic Vein at the wrist measures Left Cephalic Vein at the wrist measures 0.22cm x 0.20 cm. 0.28cm x 0.26 cm. Right Cephalic Vein in the forearm measures Left Cephalic Vein in the forearm measures 0.23cm x 0.23 cm. 0.30cm x 0.29 cm. Right Cephalic Vein below antecub measures Left Cephalic Vein below antecub measures 0.29cm x 0.30 cm. 0.28cm x 0.28 cm. Right Cephalic Vein above antecub measures Left Cephalic Vein above antecub measures 0.55cm x 0.56 cm. 0.60cm x 0.56 cm. Right Cephalic Vein mid bicep measures Left Cephalic Vein at mid bicep measures 0.37cm x 0.38 cm. 0.51cm x 0.49 cm. Right Cephalic Vein at the shoulder measures Left Cephalic Vein at the shoulder measures 0.41cm x 0.41 cm. 0.61cm x 0.63 cm. Right Basilic Vein at the origin measures Basilic vein at origin measures 0.48cm x 0.40cm x 0.41 cm. 0.46 cm. Right Basilic Vein mid bicep measures 0.39cm Basilic vein at bicep measures 0.50cm x 0.47 x 0.36 cm. cm. Right Basilic Vein above antecub measures Basilic vein above antecub measures 0.47cm x 0.46cm x 0.42 cm. 0.50 cm. VL/Saphenous Vein Mapping, Bilat Interpretation Summary Patent and compressible bilateral upper extremity cephalic and basilic veins with dimensions as noted. Normal diameter and flow bilateral radial and brachial arteries Ordering Physician: Rodrigo Gallegos Referring Physician: Darshan Solomon Performed By: Funmi Canchola, [place], RVT General General: Yes weight change and fatigue; No appetite, colon cancer, breast cancer or weakness HEENT HEENT: No difficulty swallowing, eye injury, eye surgery, swollen glands or hoarseness Endo Endocrine: Yes diabetes mellitus; No thyroid disease, thyroid cancer, Hair loss, heat intolerance or cold intolerance Musc Musculoskeletal: No back problems, arthritis, rheumatoid arthritis, gout or joint pain Cardio Cardiovascular: Yes heart disease and high blood pressure; No murmur, pacemaker, atrial fibrillation, heart attack, heart stent, palpitations, shortness of breat with exertion or chest pain Psych Psychiatric: No depression, anxiety or hearing voices Resp Respiratory: Yes shortness of breath, Yes sleep apnea, No cough, Yes COPD, No asthma, No emphysema and No wheezing Gastro Gastrointestinal: No abdominal pain, No nausea or vomiting, No diarrhea, Yes constipation, No blood in stool, No acid reflux, No hemorrhoids, No ulcers, No gallbladder problem and No black,tarry stools [place] Hematologic: No blood thinners, No blood disorders, No bleeding, Yes anemia and No blood clots Neuro Neurologic: No weakness Exam Const General: cooperative Nutritional Appearance: obese (Patient is very large with a large protuberant abdomen. He has difficulty ) morbidly obese [facility] Head: normal to inspection Chest Other: Increased AP diameter, diminished breath sounds in the bases Resp Other: Diminished breath sounds in the bases, poor respiratory excursion Cardio Other: Distant heart sounds, clear GI Other: Patient is not comfortable lying supine. Abdominal exam not technically feasible due to the [place] [facility] Cervical Spine: normal cervical lordosis Skin Other: Diffuse areas of ecchymosis particularly in bilateral antecubital areas. Neuro General: patient alert and patient awake Extrem General: no calf tenderness Other: Dependent bilateral extremity edema Right upper extremity has a 3+ radial pulse. Hand is warm viable. Cephalic vein from the wrist up to the antecubital area appears to be of adequate diameter and is patent compressible and appears to be of adequate diameter Psych Appearance: grossly normal Assessment and Plan Assessment and Plan (1) CKD (chronic kidney disease) stage 4, GFR 15-29 ml/min: Status: Chronic Plan Details Additional Comments: 80-year-old gentleman with multiple comorbidities. His last hospitalization was April 2020. He has been having his diuretic therapy increased. He is supposed to be on a fluid restriction and he is states that he is supposed to weigh the amount of fluid. He has a new problem he states over the past 2 weeks of bean-jdu-nuvknhj terrible sensation particularly in the right upper arm but also occurring in the left upper arm. He has not brought this to the attention of his physicians yet He is left arm dominant. I proposed for him a right forearm radiocephalic arteriovenous hemodialysis fistula. This will be done under monitored anesthesia care. It would be difficult to position this patient on the operating table because he certainly cannot lie supine. He has had an opportunity to ask and have questions answered. We will schedule procedure at his discretion. I appreciate the af ternoon of assisting with the surgical care. Copy: Dr.Jayaprakash Gallegos and Dr. Komal Abarca to whom the patient is transferring nephrology care and Dr. Darshan Eckert M.D., F.A.C.S. I have re-examined the patient. There are no clinical changes since date of exam.
--- NOTE | 2021-03-07 10:54 | EX.PCM.DISCH ---
Discharge Instructions Procedure Fistula Diet Discharge Diet: Renal Diet Activity Discharge Activity: May Not Drive (for 2-3 days or while taking narcotic pain medications.), May Shower and May Take a Tub Bath (in 5 days.) Lifting Restrictions: 5 pounds Keep extremity elevated above heart level: - (Keep arm elevated above the heart level for 3 days.) Dressing / Incision Call your doctor if your incision/area has: Continuous Slow Oozing, Sudden Increased Bleeding (apply pressure and call your doctor.), Increased Pain/ Swelling, Increased Redness and Foul Smelling Discharge Call your doctor if you observe: Fever of 101 or Higher Suture Line Care: Avoid Pulling/Pushing and Avoid Pinching/Bending Cleanse incision/area with: Keep Dressing Clean & Dry Additional Dressing/Incision Instructions:: Change or remove dressing in one day. May protect with a gauze bandaid. Follow Up Care Please Follow Up With: Nirmal Eckert MD When: Call [phone] to make an appointment for suture removal and follow up in 1 week. Discharge Plan Admission Attending Provider: Nirmal Eckert Primary Care Provider: Darshan Solomon Discharge Orders/Prescriptions Prescriptions: No Action doxazosin 4 mg tablet 4 mg PO QHS RF: 0 omeprazole 20 mg capsule,delayed release(DR/EC) 20 mg PO DAILY PRN (Reason: GERD) RF: 0 prednisone 5 mg tablet 5 mg PO DAILY RF: 0 amlodipine 5 mg tablet 5 mg PO DAILY Qty: 1 RF: 0 tamsulosin 0.4 mg capsule 0.4 mg PO DAILY RF: 0 atorvastatin 10 MG tablet 10 mg PO QHS RF: 0 fenofibrate micronized 134 MG capsule 134 mg PO DAILY RF: 0 polysaccharide iron complex 150 MG capsule 150 mg PO DAILY RF: 0 fluoxetine 20 MG capsule 20 mg PO DAILY RF: 0 abiraterone 250 MG tablet 1,000 mg PO DAILY@1030 RF: 0 psyllium husk 660 GM powder 1 cap PO DAILY PRN (Reason: Constipation) RF: 0 leuprolide (4 month) 30 MG syringe kit 30 mg IM .[id number] RF: 0 docusate sodium 100 MG capsule 100 mg PO BID RF: 0 Lipo/Flavonoid 1 tab PO QODAY RF: 0 labetalol 200 MG tablet 200 mg PO BID RF: 0 glipizide 2.5 MG tablet extended release 24hr 2.5 mg PO DAILY RF: 0 furosemide 40 mg tablet 60 mg PO DAILY RF: 0
[2021-03-07] MEDS: Heparin Injection (Vial) 5,000 UNIT/ML VIAL 5000 UNIT (11:59)
--- NOTE | 2021-03-07 13:15 | OP.PCM_ITS ---
Problems Associated Problem List Diagnoses (1) CKD (chronic kidney disease) stage 4, GFR 15-29 ml/min: Report of Operation Date of Procedure: 03/07/21 Pre-Operative Diagnosis: Stage IV chronic kidney disease Post-Operative Diagnosis: Same Surgery/Procedure Performed:: Right forearm radiocephalic arteriovenous hemodialysis fistula creation Description of Surgical Findings:: Timeout informed consent was obtained. 80-year-old gentleman was taken to the operating placed on the table. He underwent monitored anesthesia care. Clean procedure no antibiotic required. The right upper extremity was sterilely prepped and draped. 1% lidocaine mixed 50-50 with 0.5% Marcaine was used as a local anesthetic. A total of 10 cc was used. I had mapped the cephalic vein with ultrasound. An oblique incision was made the radial aspect of the right wrist. Sharp and blunt dissection was used to dissect free the cephalic vein and side branches were secured with hemoclips. Then sharp and blunt dissection was used to identify the radial artery which was partially mobilized. The patient received 10,000 units of heparin. Peripheral vascular clamps were placed on the radial artery and 11 blade was used to make an arteriotomy which was extended with Juares scissors. The vein was spatulated and end-to-side venous to arterial anastomosis was created with a running 7-0 Prolene. Upon release of clamps there is immediately good flow. The vein distended nicely and had a good positional lie. Doppler demonstrated excellent flow. Hemostasis was intact. The patient received 20 mg of protamine as reversa l. The subcutaneous tissue was approximated up to 3-0 Vicryl. Skin edges approximated running septic or 4-0 Monocryl. Steri-Strips Telfa tape dressings applied. Sponge and instrument and needle counts were reported to the surgeon to be correct. Specimens none. Drains none. Blood loss minimal. The patient was taken to the recovery area in satisfactory addition without apparent complication Nirmal Eckert M.D., F.A.C.S. Surgeon: Nirmal Eckert Type of Anesthesia: Local MAC Anesthesiologist: Tremaine Brown
[2021-03-07] MEDS: Lidocaine 1% (30 ml sdv) 30 ML Vial (13:17)
[2021-03-07] MEDS: Bupivacaine Mpf 0.5% 30 ML VIAL (13:18)
== END 2021-03-07 23:59 | disposition home or self-care (01) ==
LOC: SDC 09:40 → AC 09:40
PROVIDERS: PCP Internal Medicine; Referring Provider Surgery; Visit Provider Surgery
PROC: (CPT 1844; principal; 2021-03-07 11:45)
DX: E11.22 Type 2 diabetes mellitus with diabetic chronic kidney disease (principal); I50.9 Heart failure, unspecified; N18.4 Chronic kidney disease, stage 4 (severe); D64.9 Anemia, unspecified; E78.2 Mixed hyperlipidemia; Z79.84 Long term (current) use of oral hypoglycemic drugs; Z79.899 Other long term (current) drug therapy; I35.0 Nonrheumatic aortic (valve) stenosis; G47.33 Obstructive sleep apnea (adult) (pediatric); Z85.46 Personal history of malignant neoplasm of prostate; M48.00 Spinal stenosis, site unspecified; K21.9 Gastro-esophageal reflux disease without esophagitis
CPT/HCPCS: 01844; 82962; 93005; J7040

== ENCOUNTER 2021-03-18 13:29 | Outpatient (CLI) | payer MEDICARE, OTHER, SELFPAY ==
[2021-03-18 14:28] LABS: Albumin, Serum 3.2 g/dL (3.2-5.0); BUN 71 mg/dL (7-18); BUN/Creat Ratio 13.6 RATIO (10-20); Calcium,Total 7.4 mg/dL (8.5-10.1); Chloride 112 mmol/L (98-107); Creatinine, Serum 5.21 mg/dL (0.70-1.30); EST Glomerular Filtration Rate 11 mL/min (>60); Est Glom Filt Rate - Afr Amer 14 mL/min (>60); Glucose 100 mg/dL (74-106); Phosphorus 6.6 mg/dL (2.5-4.9); Potassium 4.2 mmol/L (3.5-5.1); Sodium Level 144 mmol/L (136-145)
[2021-03-18 14:29] LABS: PTHIN 538.2 pg/mL (18.4-80.1)
== END 2021-03-18 23:59 | disposition short-term general hospital (02) ==
LOC: LAB.FUTURE 13:31 → LAB 13:35
PROVIDERS: PCP Internal Medicine; Visit Provider Internal Medicine Nephrology
DX: N18.4 Chronic kidney disease, stage 4 (severe) (principal)
CPT/HCPCS: 36415; 80069; 83970

== ENCOUNTER 2021-04-21 22:00 | Inpatient (IN) | payer MEDICARE, OTHER, SELFPAY ==
[2021-04-21 22:01] VITALS: BP 117/98; PULSE 74; RESP 16; TEMP 36.2; O2SAT 94; BMI 38.7
--- NOTE | 2021-04-21 22:18 | EKG12_ITS ---
Test Reason : SOB Blood Pressure : / mmHG Vent. Rate : 072 BPM Atrial Rate : 072 BPM P-R Int : 236 ms QRS Dur : 136 ms QT Int : 508 ms P-R-T Axes : 052 000 -79 degrees QTc Int : 556 ms Sinus rhythm with 1st degree A-V block Non-specific intra-ventricular conduction block T wave abnormality, consider inferolateral ischemia Abnormal ECG Confirmed by BRENT RAMIREZ, TIM ([id number]), medical transcription editor CHARLENE MOLINA ([id number]) on 04/23/2021 9:22:52 AM Referred By: AL Confirmed By:TIM KENNEDY MD
[2021-04-21 22:31] VITALS: O2SAT 99
--- NOTE | 2021-04-21 22:32 | RAD_ITS ---
EXAM: XR CHEST, 2 VIEWS CLINICAL INDICATION: dyspnea TECHNIQUE: Frontal and lateral views of the chest. This report was created using [employer] report generation technology. COMPARISON: 04/16/2020 FINDINGS: LUNGS AND PLEURAL SPACES: Heterogeneous airspace disease involving the left upper to lower lung and right lung base. Consider pneumonia in the appropriate setting. Redemonstration of moderate right pleural effusion with adjacent passive atelectasis. No pneumothorax. HEART: Unremarkable. Cardiac silhouette not enlarged. MEDIASTINUM: Central airways and mediastinal contour are unremarkable. Atherosclerotic calcifications of the nonenlarged thoracic arch. BONES/JOINTS: Acute fractures involving multiple left ribs comminuted fracture before. Possible underlying pathology. Sclerotic foci involving the thoracic lumbar spine is concerning for metastasis. SOFT TISSUES: Unremarkable. RAD/Chest PA and Lateral IMPRESSION: 1. Acute fractures involving multiple left ribs comminuted fracture before. Possible underlying pathology. 2. 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 3. Heterogeneous airspace disease involving the left upper to lower lung and right lung base. Consider pneumonia in the appropriate setting. Electronically Signed: Jesus James MD at 22:52 EST ,
[2021-04-21 22:39] LABS: Absolute Lymphocyte Count 0.74 X10^3/uL (0.83-4.51); Absolute Neutrophil Count 6.6 X10^3/uL (2.0-7.7); Basophil# 0.02 X10^3/uL; Basophil% 0.2 % (0-1); Eosinophil# 0.09 X10^3/uL; Eosinophils% 1.1 % (0-5); Hematocrit 30.4 % (40-54); Hemoglobin 9.6 g/dL (13.0-16.5); Lymphocyte # 0.74 X10^3/ul (0.83-4.51); Lymphocyte % 8.9 % (19-41); Mean Corp Hgb Conc 31.6 g/dL (32-36); Mean Corpuscular Hgb 29.4 pg (27.0-32.0); Mean Platelet Vol. 9.7 fl (6.2-12.0); Monocyte# 0.76 X10^3/uL; Monocyte% 9.2 % (0-10); NRBC Flagged by Analyzer 0 % (0-5); Neutrophil # 6.57 X10^3/uL (2.7-7.7); Neutrophil % 79.5 % (47-70); Platelet Count 188 K/mm3 (150-450); RBC Distribution Width SD 47.6 fl (35.1-43.9); Red Blood Count 3.27 M/mm3 (4.6-6.2); White Blood Count 8.3 K/mm3 (4.4-11.0)
[2021-04-21 22:50] LABS: Anion Gap 7 (5-15); BUN 69 mg/dL (7-18); BUN/Creat Ratio 13.3 RATIO (10-20); Calcium,Total 7.1 mg/dL (8.5-10.1); Chloride 115 mmol/L (98-107); Creatinine, Serum 5.19 mg/dL (0.70-1.30); EST Glomerular Filtration Rate 11 mL/min (>60); Est Glom Filt Rate - Afr Amer 14 mL/min (>60); Estimated Creatinine Clearance 11.33 ml/min; Glucose 115 mg/dL (74-106); Magnesium 2.2 mg/dL (1.6-2.6); Potassium 4.3 mmol/L (3.5-5.1); Sodium Level 143 mmol/L (136-145)
[2021-04-21 22:56] LABS: BNP,B-Type NATRIURETIC PEPTIDE 669.9 pg/mL (0-100)
--- NOTE | 2021-04-21 22:56 | CT_ITS ---
EXAM: CT CHEST WITHOUT INTRAVENOUS CONTRAST CLINICAL INDICATION: dyspnea TECHNIQUE: Helically acquired images were obtained of the chest without intravenous contrast. CTDIvol = ( 19.04 ) mGy, DLP = ( 732.89 ) mGycm This CT exam was performed using one or more of the following dose reduction techniques: automated exposure control, adjustment of the mA and/or kV according to patient size, and/or use of iterative reconstruction technique. This report was created using [employer] report generation technology. COMPARISON: None. FINDINGS: LUNGS AND PLEURAL SPACES: Moderate right pleural effusion layering posteriorly. Small left pleural effusion. Adjacent passive atelectasis, right worse than left. Infectious foci involving the of the posterior aspect of the inferior lingula and the adjacent anterior left lower lobe. No mass. No pneumothorax. HEART: Cardiomegaly. Small pericardial fluid. No significant coronary artery calcifications. MEDIASTINUM: Mediastinal and hilar reactive adenopathy suspected. Esophagus is unremarkable. No hiatal hernia. THYROID: Unremarkable. No thyroid lesions. BONES/JOINTS: Multiple bilateral subacute appearing rib fractures with suspected underlying pathology involving multiple left ribs. Multiple sclerotic lesions involving the skeleton to include the spine and the bilateral scapula and left humerus. Sclerotic foci also identified involving the manubrium and sternum. VASCULATURE: Multivessel calcific coronary arteriosclerosis. Thoracic aorta is non-dilated. GALLBLADDER AND BILE DUCTS: Distended gallbladder with gallstones. No acute cholecystitis. CT/Chest without Contrast IMPRESSION: 1. 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 2. Bilateral pleural effusions, right larger than left with adjacent passive atelectasis; findings may reflect congestive heart failure. 3. Multilobar left lung infection. Electronically Signed: Jesus James MD at 0:21 EST ,
--- NOTE | 2021-04-21 23:08 | EDS_ITS ---
HPI History of Present Illness Chief Complaint: Shortness of Breath Narrative Narrative: Patient is an 80-year-old male with past medical history of chronic renal disease as well as congestive heart failure. He states that over the past 2 to 3 days he has been having intermittent bouts of shortness of breath. He states it does seem to worsen with ambulation. He states that he will intermittently have exacerbations of this for no apparent reason. He denies any fevers or chills or known sick contacts. He states that approximately 1 year ago around this time he had heart failure and pneumonia and needed admitted and he is concerned he may need that once again and therefore comes in for evaluation [facility] Medical History Alcohol use Anemia Cancer Cardiology follow-up encounter CHF (congestive heart failure) CKD (chronic kidney disease) stage 4, GFR 15-29 ml/min CPAP (continuous positive airway pressure) dependence Diabetes Dietary restriction DM (diabetes mellitus) Gastric reflux History of CHF (congestive heart failure) History of echocardiogram History of edema History of renal disease History of steroid therapy History of stress test Leg cramps Mixed hyperlipidemia Non-smoker Nonrheumatic aortic (valve) stenosis BELLE on CPAP Prostate CA Shortness of breath on exertion Spinal stenosis Type 2 diabetes mellitus Wears glasses Home Medications atorvastatin 10 mg PO QHS 08/14/16 [History Last Taken 04/15/20] fenofibrate micronized 134 mg PO DAILY 08/14/16 [History Last Taken 04/16/20] abiraterone 1,000 mg PO DAILY@1030 07/20/19 [History Last Taken 04/15/20] fluoxetine 20 mg PO DAILY 07/20/19 [History Last Taken 04/16/20] polysaccharide iron complex 150 mg PO DAILY 07/20/19 [History Last Taken 04/15/20] psyllium husk 1 cap PO DAILY PRN 07/20/19 [History Last Taken 04/15/20] Lipo/Flavonoid 1 tab PO QODAY 04/16/20 [History Last Taken 04/15/20] docusate sodium 100 mg PO BID 04/16/20 [History Last Taken 04/16/20] glipizide 2.5 mg PO DAILY 04/16/20 [History Last Taken 04/16/20] labetalol 200 mg PO BID 04/16/20 [History Last Taken 03/07/21] leuprolide (4 month) 30 mg IM .[id number] 04/16/20 [History Last Taken 3 Weeks Ago ~03/26/20] doxazosin 4 mg tablet 4 mg PO QHS 07/26/20 [History Last Taken Unknown] amlodipine 5 mg tablet 5 mg PO DAILY #1 tab 12/12/20 [Rx Last Taken 03/07/21] furosemide 40 mg tablet 60 mg PO DAILY tab 12/12/20 [History Last Taken Unknown] omeprazole 20 mg capsule,delayed release 20 mg PO DAILY PRN 12/12/20 [History Last Taken 03/07/21] prednisone 5 mg tablet 5 mg PO DAILY 12/12/20 [History Last Taken Unknown] tamsulosin 0.4 mg capsule 0.4 mg PO DAILY cap 02/25/21 [History Last Taken Unknown] Allergy/AdvReac Type Severity Reaction Status Date / Time Iodinated Contrast Media Allergy Severe SOB, Verified 04/21/21 22:04 anyaphylaxis Family History Father Heart disease Myocardial infarction Brother Cancer Prostate Surgical History History of arteriovenostomy for renal dialysis (~02/2021) History of arthroscopy of right knee History of esophagogastroduodenoscopy (EGD) History of incisional hernia repair History of prostatectomy History of transurethral resection of prostate Hx of colonoscopy Social History Smoking Status: Never smoker alcohol intake: never substance use type: does not use caffeine: Yes Type: coffee Number of servings: 1 ROS ROS ED Constitutional Constitutional ED: Denies chills or fever(s) ENT ENT ED: Denies sore throat Cardiovascular Cardiovascular: Denies chest pain Respiratory/Chest Respiratory/Chest: Reports cough and dyspnea Gastrointestinal Gastrointestinal: Denies abdominal pain, diarrhea, nausea or vomiting Genitourinary Genitourinary ED: Denies dysuria Musculoskeletal Musculoskeletal: Denies myalgias Integumentary Denies rash Neurologic Neurologic: Denies headache(s) Hematologic/Lymphatic Hematologic/Lymphatic: Reports anemia, easy bleeding and easy bruising EXAM Physical Exam Const Vital Signs: 04/21/21 22:01 04/21/21 22:31 04/21/21 23:11 Temperature 97.1 F L Temperature Source Temporal Pulse Rate 74 72 Respiratory Rate 16 Respiratory Effort Short of Breath Labored Respiratory Depth Shallow Respiratory Pattern Tachypnea Blood Pressure 117/98 H 124/52 H Blood Pressure Mean 104 Pulse Ox 94 Oxygen Delivery Method Room Air Room Air 04/22/21 00:42 Temperature Temperature Source Pulse Rate 69 Respiratory Rate 30 H Respiratory Effort Respiratory Depth Respiratory Pattern Blood Pressure 119/54 L Blood Pressure Mean 75 Pulse Ox 95 Oxygen Delivery Method Room Air Positive well nourished, well developed and obese General Appearance ED: well developed and pallor Nutritional Appearance: obese HEENT Reports moist mucous membranes HEENT Narrative: No tongue or lip swelling oral lesions no airway edema or compromise Eyes PERRL and EOMs intact bilaterally General Eye ED: Yes pale conjunctiva Neck supple Neck Narrative: Trace JVD on right Resp Resp Narrative: Patient is tachypneic with mild accessory muscle use. Breath sounds are diminished throughout and there is faint crackles in the right lung base Cardio regular rate and regular rhythm GI non-tender and non-distended GI Narrative: Patient has a large reducible ventral hernia present which is chronic in nature otherwise no fluid wave voluntary guarding or rigidity or pulsatile mass Auscultation: normoactive bowel sounds Palpation: soft Extremity Extremity Narrative: +3-4 pitting edema to the bilateral lower extremities that is equal and symmetric Neuro oriented x3 and CN's II-XII intact bilaterally Sensorium / Orientation: alert Motor Exam: strength 5/5 throughout Psych mental status grossly normal Skin no rashes or lesions noted General Skin Exam: pallor MDM MDM MDM Narrative Medical decision making narrative: Patient presented to the ER satting in the high 90s but he was tachypneic with some accessory muscle use. His history is concerning for underlying heart failure as a cause of his symptoms and possible infection although he does not have a fever. Secondary to this I elected perform a basic work-up. Labs show chronic kidney failure with patient's creatinine at his baseline. Otherwise he has no clinically significant finding. The patient's x-ray showed right-sided pleural effusion with questionable lung infection and metastatic cancer. Secondary to this added a CT without contrast. This confirmed bilateral pleural effusions and still questioned a left-sided infiltrate. However the patient does not have a fever or white count and his pro calcitonin is less than 0.5 and therefore do not feel there is need to provide antibiotics at this time. The patient was ambulated and his pulse ox dropped to 88% and his work of breathing went up to 46 breaths/min along with tachycardia approximately 120-130 bpm. Therefore at this time with the patient's bilateral pleural effusions and renal failure he will need a thoracentesis to drain the fluid and because of his increased work of breathing and hypoxia with ambulation patient will be admitted for further evaluation and treatment Lab Data Attestation: I reviewed the patient's lab results. Labs: Laboratory Results - last 24 hr 04/21/21 04/21/21 04/21/21 22:28 22:28 22:28 WBC 8.3 RBC 3.27 L Hgb 9.6 L Hct 30.4 L MCV 93.0 MCH 29.4 MCHC 31.6 L RDW Std Deviation 47.6 H RDW Coeff of Alva 14.0 Plt Count 188 MPV 9.7 Immature Gran % (Auto) 1.100 H Neut % (Auto) 79.5 H Lymph % (Auto) 8.9 L Maries % (Auto) 9.2 Eos % (Auto) 1.1 Baso % (Auto) 0.2 Absolute Neuts (auto) 6.6 Absolute Lymphs (auto) 0.74 L Nucleated RBC % 0 Sodium 143 Potassium 4.3 Chloride 115 H Carbon Dioxide 21.0 Anion Gap 7 BUN 69 H Creatinine 5.19 H Estim Creat Clear Calc 11.33 Est GFR (MDRD) Af Amer 14 L Est GFR (MDRD) Non-Af 11 L BUN/Creatinine Ratio 13.3 Glucose 115 H Calcium 7.1 L Magnesium 2.2 B-Natriuretic Peptide 669.9 H Procalcitonin 04/21/21 23:15 WBC RBC Hgb Hct MCV MCH MCHC RDW Std Deviation RDW Coeff of Alva Plt Count MPV Immature Gran % (Auto) Neut % (Auto) Lymph % (Auto) Maries % (Auto) Eos % (Auto) Baso % (Auto) Absolute Neuts (auto) Absolute Lymphs (auto) Nucleated RBC % Sodium Potassium Chloride Carbon Dioxide Anion Gap BUN Creatinine Estim Creat Clear Calc Est GFR (MDRD) Af Amer Est GFR (MDRD) Non-Af BUN/Creatinine Ratio Glucose Calcium Magnesium B-Natriuretic Peptide Procalcitonin 0.15 H Radiography Diagnostic Testing: Clinical Impression(s) from Imaging Studies Chest X-Ray 04/21/21 22:32 IMPRESSION: 1. Acute fractures involving multiple left ribs comminuted fracture before. Possible underlying pathology. 2. 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 3. Heterogeneous airspace disease involving the left upper to lower lung and right lung base. Consider pneumonia in the appropriate setting. Electronically Signed: Jesus James MD at 22:52 EST , Chest CT 04/21/21 22:56 IMPRESSION: 1. 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 2. Bilateral pleural effusions, right larger than left with adjacent passive atelectasis; findings may reflect congestive heart failure. 3. Multilobar left lung infection. Electronically Signed: Jesus James MD at 0:21 EST , Discharge Plan Triage Chief Complaint: Shortness of Breath ED Provider: Jesus Martino Dx/Rx/DC Orders Clinical Impression: Bilateral pleural effusion, Metastatic cancer, Chronic kidney failure Primary Care Provider: Darshan Solomon Disposition Disposition: Acute Care Hospital [facility]
[2021-04-21 23:11] VITALS: BP 124/52; PULSE 72
[2021-04-21] MEDS: Nitroglycerin SL (ED/IMG/CATH) 0.4 MG TABLET SL (23:11)
[2021-04-21] MEDS: Morphine 2 MG/ML Syringe IV (23:11)
[2021-04-21] MEDS: Furosemide 100 MG/10 ML Vial 80 MG IV (23:12)
[2021-04-21] MEDS: Ondansetron 4 MG/2 ML Vial IV (23:28)
[2021-04-22] VITALS (10 sets, daily range): BP systolic 98–119; BP diastolic 45–59; PULSE 67–88; RESP 16–36; TEMP 36.7–37.1; O2SAT 90–99; BMI 39.2
[2021-04-22 00:26] LABS: Procalcitonin 0.15 ng/mL (0.00-0.09)
--- NOTE | 2021-04-22 00:41 | ED.RN ---
WALKED PT IN [place] WITH PORTABLE 02 SENSOR. PT RESULTED IN SOB/INCREASED RR. O2 DROPPED TO 88% AND HR IN THE 160S. NOTIFIED, NO NEW ORDERS RECEIVED.
--- NOTE | 2021-04-22 01:59 | HP.PCM.HOS_ITS ---
HPI - General General Date of Admission: 04/22/21 HPI Narrative PERLA SANCHEZ, is a 80 M who presents to the hospital with shortness of breath on exertion. He says that he is really noticed it over the last 2 to 3 days and sometimes he notices at rest but mostly notices it whenever he gets up to walk. He denies any fevers or chills, no chest pain or lightheadedness. He does notice more shortness of breath with laying flat and normally has to lay on his side or with the head of his bed elevated. ER he was 80 Fiberall without a leukocytosis he was tachypneic but not hypoxic. He recently had a fistula done in anticipation of possibly needing dialysis given a creatinine of 5.19. BNP is less than what it was a year ago when he was admitted for heart failure. Procalcitonin is inconsistent with a bacterial infection, however radiology is reading the CT chest as multilobar pneumonia as well as pleural effusions right greater than left. [facility] Medical History Alcohol use Anemia Cancer Cardiology follow-up encounter CHF (congestive heart failure) CKD (chronic kidney disease) stage 4, GFR 15-29 ml/min CPAP (continuous positive airway pressure) dependence Diabetes Dietary restriction DM (diabetes mellitus) Gastric reflux History of CHF (congestive heart failure) History of echocardiogram History of edema History of renal disease History of steroid therapy History of stress test Leg cramps Mixed hyperlipidemia Non-smoker Nonrheumatic aortic (valve) stenosis BELLE on CPAP Prostate CA Shortness of breath on exertion Spinal stenosis Type 2 diabetes mellitus Wears glasses Home Medications atorvastatin 10 mg PO QHS 08/14/16 [History Last Taken 04/15/20] fenofibrate micronized 134 mg PO DAILY 08/14/16 [History Last Taken 04/16/20] abiraterone 1,000 mg PO DAILY@1030 07/20/19 [History Last Taken 04/15/20] fluoxetine 20 mg PO DAILY 07/20/19 [History Last Taken 04/16/20] polysaccharide iron complex 150 mg PO DAILY 07/20/19 [History Last Taken 04/15/20] psyllium husk 1 cap PO DAILY PRN 07/20/19 [History Last Taken 04/15/20] Lipo/Flavonoid 1 tab PO QODAY 04/16/20 [History Last Taken 04/15/20] docusate sodium 100 mg PO BID 04/16/20 [History Last Taken 04/16/20] glipizide 2.5 mg PO DAILY 04/16/20 [History Last Taken 04/16/20] labetalol 200 mg PO BID 04/16/20 [History Last Taken 03/07/21] leuprolide (4 month) 30 mg IM .[id number] 04/16/20 [History Last Taken 3 Weeks Ago ~03/26/20] doxazosin 4 mg tablet 4 mg PO QHS 07/26/20 [History Last Taken Unknown] amlodipine 5 mg tablet 5 mg PO DAILY #1 tab 12/12/20 [Rx Last Taken 03/07/21] furosemide 40 mg tablet 60 mg PO DAILY tab 12/12/20 [History Last Taken Unknown] omeprazole 20 mg capsule,delayed release 20 mg PO DAILY PRN 12/12/20 [History Last Taken 03/07/21] prednisone 5 mg tablet 5 mg PO DAILY 12/12/20 [History Last Taken Unknown] tamsulosin 0.4 mg capsule 0.4 mg PO DAILY cap 02/25/21 [History Last Taken Unknown] Allergy/AdvReac Type Severity Reaction Status Date / Time Iodinated Contrast Media Allergy Severe SOB, Verified 04/21/21 22:04 anyaphylaxis Family History Father Heart disease Myocardial infarction Brother Cancer Prostate Surgical History History of arteriovenostomy for renal dialysis (~02/2021) History of arthroscopy of right knee History of esophagogastroduodenoscopy (EGD) History of incisional hernia repair History of prostatectomy History of transurethral resection of prostate Hx of colonoscopy Social History Smoking Status: Never smoker alcohol intake: never substance use type: does not use caffeine: Yes Type: coffee Number of servings: 1 ROS Constitutional Constitutional: Denies chills, fatigue, fever(s) or malaise Eyes Eyes: Denies blurry vision ENT HEENT: Denies headache(s) or nasal discharge Cardiovascular Cardiovascular: Reports dyspnea on exertion and orthopnea; Denies chest pain or syncope Respiratory/Chest Respiratory/Chest: Denies cough, shortness of breath at rest or shortness of breath with exertion Gastrointestinal Gastrointestinal: Denies constipation, diarrhea, nausea or vomiting Genitourinary Genitourinary: Denies dysuria Neurologic Neurologic: Denies focal weakness, numbness or tremor(s) Psychiatric Psychiatric: Denies anxiety or depression Vital Signs Vital Signs Vital Signs: 04/21/21 22:01 04/21/21 22:31 04/21/21 23:11 Temperature 97.1 F L Temperature Source Temporal Pulse Rate 74 72 Respiratory Rate 16 Respiratory Effort Short of Breath Labored Respiratory Depth Shallow Respiratory Pattern Tachypnea Blood Pressure 117/98 H 124/52 H Blood Pressure Mean 104 Pulse Ox 94 Oxygen Delivery Method Room Air Room Air 04/22/21 00:42 Temperature Temperature Source Pulse Rate 69 Respiratory Rate 30 H Respiratory Effort Respiratory Depth Respiratory Pattern Blood Pressure 119/54 L Blood Pressure Mean 75 Pulse Ox 95 Oxygen Delivery Method Room Air Weight Weight: 270 lb Body Mass Index (BMI) 38.7 Physical Exam Const alert, oriented x3 and no apparent distress General Appearance: cooperative HEENT normocephalic Mouth: dry mucous membranes Eyes PERRL, EOMs intact bilaterally and conjunctivae normal Neck supple and no JVD Resp normal respiratory effort, no retractions and no use of accessory muscles Auscultation: diminished lung sounds right; Negative for crackles, rales, rhonchi or wheezes Cardio regular rate, regular rhythm, S1 normal heart sound, S2 normal heart sound and no murmurs GI soft to palpation, non-tender and non-distended; Negative for hepatosplenomegaly Extremity no clubbing, cyanosis or edema Skin no rashes or lesions noted Neuro no focal motor deficits and no sensory deficits noted Psych affect normal Appearance: appropriate Results Lab / Micro Data Result Diagrams: 04/21/21 22:28 04/21/21 22:28 Labs: Laboratory Results - last 24 hr 04/21/21 22:28: B-Natriuretic Peptide 669.9 H 04/21/21 22:28: WBC 8.3, RBC 3.27 L, Hgb 9.6 L, Hct 30.4 L, MCV 93.0, MCH 29.4, MCHC 31.6 L, RDW Std Deviation 47.6 H, RDW Coeff of Alva 14.0, Plt Count 188, MPV 9.7, Immature Gran % (Auto) 1.100 H, Neut % (Auto) 79.5 H, Lymph % (Auto) 8.9 L, [place] % (Auto) 9.2, Eos % (Auto) 1.1, Baso % (Auto) 0.2, Absolute Neuts (auto) 6.6, Absolute Lymphs (auto) 0.74 L, Nucleated RBC % 0 04/21/21 22:28: Sodium 143, Potassium 4.3, Chloride 115 H, Carbon Dioxide 21.0, Anion Gap 7, BUN 69 H, Creatinine 5.19 H, Estim Creat Clear Calc 11.33, Est GFR (MDRD) Af Amer 14 L, Est GFR (MDRD) Non-Af 11 L, BUN/Creatinine Ratio 13.3, Gluc ose 115 H, Calcium 7.1 L, Magnesium 2.2 04/21/21 23:15: Procalcitonin 0.15 H Radiology Impression Chest X-Ray 04/21/21 22:32 IMPRESSION: 1. Acute fractures involving multiple left ribs comminuted fracture before. Possible underlying pathology. 2. 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 3. Heterogeneous airspace disease involving the left upper to lower lung and right lung base. Consider pneumonia in the appropriate setting. Electronically Signed: Jesus James MD at 22:52 EST , Chest CT 04/21/21 22:56 IMPRESSION: 1. 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 2. Bilateral pleural effusions, right larger than left with adjacent passive atelectasis; findings may reflect congestive heart failure. 3. Multilobar left lung infection. Electronically Signed: Jesus James MD at 0:21 EST , Assessment & Plan Assessment/Plan (1) Bilateral pleural effusion: PLAN: 1. Bilateral pleural effusion/chronic diastolic heart failure/HTN/HLD/CKD 4 with anemia of chronic disease ?We will obtain a thoracentesis with fluid studies as well as cytology given his history of prostate cancer ?He says that he had resection and radiation over 20 years ago and still takes a daily chemo pill he follows with [facility] oncology and states that he had a normal PSA several months ago. ?We will obtain another PSA ?Continue with his Lasix hold any IV fluids ?Continue with his home blood pressure medications ?Continue with Lipitor ?Anticipate fistula maturing in his right forearm in the next couple of months and can potentially start dialysis at that time he is not currently on dialysis therefore will not consult nephrology 2. History of prostate cancer ?We will check a PSA as well as cytology on the fluid from thoracentesis 3. DM2 ?We will hold his home medications ?Accu-Cheks AC at bedtime ?Sliding scale insulin, will make adjustments as necessary 4. Anxiety/depression ?Stable ?Continue with Prozac 5. BPH ?Stable ?Continue with doxazosin and Flomax 6. GERD ?Stable ?Continue with PPI DVT: SCDs Charges/Coding Visit Charges Inpatient E&M: 87989 Init Hosp L3
--- NOTE | 2021-04-22 02:25 | US_ITS ---
PROCEDURE: ULTRASOUND GUIDED THORACENTESIS. DATE: 04/22/2021. INDICATION: Male, 80 years old. Right pleural effusion. PHYSICIAN: Issa Rojo M.D. PROCEDURE: The risks, benefits, and alternatives to the procedure were explained to the patient. The specific risks of bleeding, infection, and pneumothorax requiring chest tube insertion were discussed and accepted. Written informed consent was obtained. Ultrasonographic evaluation of the right lower pleural space was carried out. An adequate pocket was identified. The patient was placed in the sitting, upright position. The overlying skin was prepped and draped in sterile fashion. 1% lidocaine was administered subcutaneously for local anesthesia. Under ultrasound guidance, a 5 Stateless thoracentesis needle/catheter system was advanced into the right posterior lower pleural fluid collection. Approximately 1120 mL of danielle-colored fluid was drained. The catheter was removed, and a sterile dressing was applied. A specimen was collected and sent to the laboratory for analysis, as requested by the referring clinician. The patient tolerated the procedure well. A chest x-ray was ordered. US/Thoracentesis W US IMPRESSION: Ultrasound-guided right thoracentesis. Electronically Signed: Issa Rojo MD at 13:56 EST ,
[2021-04-22 02:35] LABS: PSA,Total- Diagnostic 0.15 ng/mL (0.0-4.0)
[2021-04-22 07:06] LABS: Absolute Lymphocyte Count 0.85 X10^3/uL (0.83-4.51); Absolute Neutrophil Count 5.7 X10^3/uL (2.0-7.7); Basophil# 0.02 X10^3/uL; Basophil% 0.3 % (0-1); Eosinophil# 0.11 X10^3/uL; Eosinophils% 1.4 % (0-5); Hematocrit 26.9 % (40-54); Hemoglobin 8.4 g/dL (13.0-16.5); Lymphocyte # 0.85 X10^3/ul (0.83-4.51); Lymphocyte % 11.2 % (19-41); Mean Corp Hgb Conc 31.2 g/dL (32-36); Mean Corpuscular Volume 92.8 fL (80-94); Mean Platelet Vol. 10.2 fl (6.2-12.0); Monocyte% 10.5 % (0-10); NRBC Flagged by Analyzer 0 % (0-5); Neutrophil # 5.73 X10^3/uL (2.7-7.7); Neutrophil % 75.4 % (47-70); Platelet Count 192 K/mm3 (150-450); RBC Distribution Width CV 14.1 % (11.6-14.6); RBC Distribution Width SD 47.8 fl (35.1-43.9); White Blood Count 7.6 K/mm3 (4.4-11.0)
[2021-04-22 07:17] LABS: International Normalized Ratio 1.2; Prothrombin Time (Protime)PT. 14.6 SECONDS (11.7-14.9)
[2021-04-22 07:18] LABS: Partial Thromboplast Time 30.9 Seconds (24.1-36.2)
[2021-04-22 07:33] LABS: ALB/GLOB Ratio 0.8 RATIO (0.9-2.4); AST(SGOT) 10 U/L (15-37); Alanine Aminotransfer ALT/SGPT 13 U/L (16-61); Albumin, Serum 2.8 g/dL (3.2-5.0); Alkaline Phosphatase 27 U/L (45-117); Anion Gap 7 (5-15); BUN 69 mg/dL (7-18); BUN/Creat Ratio 13.9 RATIO (10-20); Calcium,Total 6.5 mg/dL (8.5-10.1); Chloride 114 mmol/L (98-107); Creatinine, Serum 4.97 mg/dL (0.70-1.30); EST Glomerular Filtration Rate 12 mL/min (>60); Est Glom Filt Rate - Afr Amer 14 mL/min (>60); Estimated Creatinine Clearance 11.83 ml/min; Globulin 3.3 g/dL (2.2-4.2); Glucose 86 mg/dL (74-106); LDH 238 U/L (87-241); Potassium 4.1 mmol/L (3.5-5.1); Protein, Total 6.1 g/dL (6.4-8.2); Sodium Level 142 mmol/L (136-145)
[2021-04-22] MEDS: Tamsulosin HCl 0.4 MG Capsule PO (10:26)
[2021-04-22] MEDS: amLODIPine 5 MG Tablet PO (10:26)
[2021-04-22] MEDS: Iron Polysaccharide Complex 150 MG CAPSULE PO ×2 (10:26→10:29)
[2021-04-22] MEDS: ABIRATERONE ACETATE 250 MG TABLET 1000 MG PO (10:27)
[2021-04-22] MEDS: FLUoxetine 20 MG Capsule PO (10:29)
--- NOTE | 2021-04-22 11:20 | CASEMGMT ---
RN CM Face to Face with patient for initial transition planning/care coordination assessment. RN CM introduced self and role at [facility]. Patient sitting in chair, alert and oriented. Patient willing to participate in assessment and is able to answer all questions appropriately. Care providers, pharmacy, and demographics verified. Patient wishes to discharge home, denies need for home health at this time. Patient states he has no further needs or concerns at this time. CM to follow for discharge planning needs that may arise. PCP: Juanito Specialists: Tomeka, surgeon; Tevin, sports teacher; Zeke, oncologist; Preferred Pharmacy: [facility], [facility] retail at discharge. Insurance: [employer] Prescription Benefit: Aena Living Will/HPOA: yes, Kendra Zavala LNOK: Living Arrangements: Patient lives with in a condo with 2 steps and railing to enter the home. Patient states he is independent at home. Transportation: DME/HHC: Patient states he has shower chair, raised toilet, cane, grab bars, cpap, pulse ox at home. No previous HHC or SNF. Will monitor progress with therapy for HHC and walker at discharge. Disposition Plan: Patient to discharge home with family support and follow-up plans in place. Monitor for HHC and FFW. Elidia VALADEZ, RN, CM
--- NOTE | 2021-04-22 13:25 | FLU_PTH ---
PATIENT: PERLA SANCHEZ LOC: [facility] U#:[id number] AGE/SX: 80/M ROOM: [facility] RE04/22/[address]: Dr. Kvng Kim DO : 1940 BED: 1 DIS: 04/23/2021 SPEC #: [id number] RECD: 04/22/21 13:42 STATUS: DEANNA REDean #: [id number] RUPA: 04/22/21 13:[address]: Kvng Kim DEPT: CYTOLOGY RECD BY: Bria Dumont ENTERED: 04/23/21 08:59 SP TYPE: Fluid OTHR DR: MD Dr. Darshan Stevenson MD Tissues: THORACIC FLUID Procedures: Special Stain Group II Surgery Specimen Level IV Cytospin Fluid HEADER OPERATION: Thoracentesis PRE-OP DIAGNOSIS: Pleural effusion TISSUE SUBMITTED: Thoracentesis fluid for cytology DIAGNOSIS CYTOLOGY Thoracentesis fluid for cytology (cytospin and cell block): Negative for malignant cells. See comment. SHARMILA:candelario 04/24/2021 COMMENT Clinical correlation and appropriate follow up are necessary. CYTOLOGY STUDY Slides are reviewed. CYTOLOGY GROSS Received is 116 ml of danielle cloudy fluid labeled with the patient's name and and designated per the requisition as thoracentesis. Submitted for cytology preparation including cell block. / candelario 04/23/2021 TC:5 CPT: 04454, 20173
[2021-04-22] MEDS: Lidocaine 2% (20 ml mdv) 20 ML Vial INFILT (13:26)
--- NOTE | 2021-04-22 13:37 | RAD_ITS ---
STUDY: X-RAY CHEST REASON FOR EXAM: Male, 80 years old. Pneumothorax -- immediately post thoracentesis TECHNIQUE: AP inspiration and expiration views. COMPARISON: Comparison is made with prior study dated 04/21/2021. FINDINGS: The patient is status post right thoracentesis. There is no evidence of pneumothorax. RAD/Chest Insp/Exp 2 View IMPRESSION: Status post right thoracentesis. There is no evidence of pneumothorax. Electronically Signed: Issa Rojo MD at 13:48 EST ,
[2021-04-22 13:47] LABS: Cytology, Body Fluid / CSF SEE PATHOLOGY REPORT
[2021-04-22 14:22] LABS: Body Fluid Mononuclear WBC # 0.313 10^3/uL; Red Cell Count/Body Fluid 0.004 10^6/ul; White Blood Count/Body Fluid 0.333 10^3/uL
[2021-04-22 14:30] LABS: Auto B Fluid Analyzer BKGD Ct COUNTS W/IN LIMITS (W/IN LIMITS); Color/Body Fluid YELLOW; Source- Body Fluid THORACENTESIS
[2021-04-22 14:31] LABS: Appearance/Body Fluid SL CLDY
--- NOTE | 2021-04-22 14:36 | PCM.HOSP.N ---
Hospitalist Note Patient was seen and examined briefly today, he does not appear to be in any distress, he is on oxygen, I explained that he would be going down for a thoracentesis today and talk to him about the procedure. The procedure was done today and 1100 cc of fluid was removed from the right hemithorax. Patient remains on 2 L/min via nasal cannula at this time.
[2021-04-22 14:37] LABS: Glucose, Body Fluid 102 mg/dL (40-70); LDH,Body Fluid 91 Units/l (Not Establ.); Protein, Body Fluid 2.2 g/dL (Not Establ.)
[2021-04-22] MEDS: Furosemide 40 MG/4 ML Vial IV ×2 (14:54→22:18)
[2021-04-22] MEDS: 0.9% Saline Lock 10 ML Syringe IV ×2 (14:54→22:18)
[2021-04-22 15:02] LABS: Lymphocytes 27 %; Macrophages 39 %; Mesothelial Cells 14 %; Monocytes 12 %; Neutrophil (Segs) 8 %
[2021-04-22 15:03] LABS: Body Fluid QC Type(s) BF2QC
[2021-04-22] MEDS: Atorvastatin Calcium 10 MG Tablet PO (22:18)
[2021-04-22] MEDS: Doxazosin 4 MG Tablet PO (22:18)
[2021-04-23 03:25] VITALS: BP 104/50; PULSE 68; RESP 16; TEMP 36.5; O2SAT 95
[2021-04-23] MEDS: 0.9% Saline Lock 10 ML Syringe IV (06:16)
[2021-04-23] MEDS: Furosemide 40 MG/4 ML Vial IV (06:16)
[2021-04-23 07:16] LABS: Anion Gap 9 (5-15); BUN 75 mg/dL (7-18); Calcium,Total 6.8 mg/dL (8.5-10.1); Chloride 111 mmol/L (98-107); Creatinine, Serum 5.78 mg/dL (0.70-1.30); EST Glomerular Filtration Rate 10 mL/min (>60); Est Glom Filt Rate - Afr Amer 12 mL/min (>60); Estimated Creatinine Clearance 10.17 ml/min; Glucose 97 mg/dL (74-106); Potassium 3.9 mmol/L (3.5-5.1); Sodium Level 141 mmol/L (136-145)
[2021-04-23 08:38] VITALS: O2SAT 94; O2SAT 96
[2021-04-23] MEDS: Tamsulosin HCl 0.4 MG Capsule PO (09:16)
[2021-04-23] MEDS: FLUoxetine 20 MG Capsule PO ×2 (09:16→09:17)
[2021-04-23] MEDS: amLODIPine 5 MG Tablet PO (09:16)
[2021-04-23] MEDS: ABIRATERONE ACETATE 250 MG TABLET 1000 MG PO (09:17)
[2021-04-23 09:30] VITALS: BP 106/46; PULSE 74; RESP 16; TEMP 36.3; O2SAT 94
--- NOTE | 2021-04-23 09:50 | CASEMGMT ---
Per therapy notes, no further therapy recommended and per Fe RN, pt does not qualify for any home oxygen. This RN CM to room and pt states no further concerns/needs with going home at time of discharge. José Luis RN CM
--- NOTE | 2021-04-23 10:14 | PCM.DC ---
Discharge Instructions Diet Discharge Diet: 1800 Calorie Control Diet Activity Discharge Activity: Return to Normal Activity Weight Bearing Status: Full weight bearing Follow Up Care Test Results: Test results from this visit will be discussed in further detail at your follow-up appointment, if applicable. Discharge Plan Admission Admit Date/Time: 04/22/21 01:31 Primary Reason for Your Visit: diastolic heart failure Attending Provider: Kvng Kim Primary Care Provider: Darshan Solomon Instructions Patient Instructions: Thoracentesis Dc Discharge Orders/Prescriptions Prescriptions: New amlodipine 5 mg Tablet 5 mg PO DAILY Qty: 30 RF: 0 Continued doxazosin 4 mg tablet 4 mg PO QHS RF: 0 omeprazole 20 mg capsule,delayed release(DR/EC) 20 mg PO DAILY PRN (Reason: GERD) RF: 0 prednisone 5 mg tablet 5 mg PO DAILY RF: 0 tamsulosin 0.4 mg capsule 0.4 mg PO DAILY RF: 0 atorvastatin 10 MG tablet 10 mg PO QHS RF: 0 fenofibrate micronized 134 MG capsule 134 mg PO DAILY RF: 0 polysaccharide iron complex 150 MG capsule 150 mg PO BID RF: 0 fluoxetine 20 MG capsule 20 mg PO DAILY RF: 0 abiraterone 250 MG tablet 1,000 mg PO DAILY@1030 RF: 0 psyllium husk 660 GM powder 1 cap PO DAILY PRN (Reason: Constipation) RF: 0 leuprolide (4 month) 30 MG syringe kit 30 mg IM .[id number] RF: 0 docusate sodium 100 MG capsule 100 mg PO BID RF: 0 Lipo/Flavonoid 1 tab PO QODAY RF: 0 labetalol 200 MG tablet 200 mg PO BID RF: 0 glipizide 2.5 MG tablet extended release 24hr 2.5 mg PO DAILY RF: 0 Changed furosemide 40 mg tablet 40 mg PO BID Qty: 60 RF: 0 Discontinued amlodipine [Norvasc] 10 mg Tablet 15 mg PO DAILY RF: 0 Referrals / Follow Up: Komal Abarca DO [STAFF PHYSICIAN] - See Referral Note (at next scheduled appointment) Darshan Solomon MD [Primary Care Provider] - See Referral Note (at your scheduled office time) Disposition Disposition (needs filled in before D/C Order can be placed): Home, Self Care
[2021-04-23 15:52] LABS: Pathologist Comment/Body Fluid Reviewed
--- NOTE | 2021-05-03 15:44 | PCM.DC.SUM ---
Providers Date of Admission: 04/22/21 Date of Discharge: 04/23/21 Primary Care Physician: Dr. Darshan Solomon MD Reason For Visit: SHORTNESS OF BREATH WITH RIGHT SIDED PLEURAL EFFUS Diagnosis Discharge Diagnosis (1) Bilateral pleural effusion: Status: Resolved Code(s): J90 - Pleural effusion, not elsewhere classified Plan: 1. Acute on chronic diastolic congestive heart failure #2 bilateral pleural effusion secondary to chronic diastolic heart failure-worse on right side #3 hypoxia secondary to acute on chronic diastolic congestive heart failure with bilateral pleural effusion #4 stage IV chronic kidney disease secondary to type 2 diabetes #5 type 2 diabetes #6 prostate cancer-present on admission Medications at Discharge Home Medications atorvastatin 10 mg PO QHS 08/14/16 fenofibrate micronized 134 mg PO DAILY 08/14/16 abiraterone 1,000 mg PO DAILY@1030 07/20/19 fluoxetine 20 mg PO DAILY 07/20/19 polysaccharide iron complex 150 mg PO BID 07/20/19 psyllium husk 1 cap PO DAILY PRN 07/20/19 Lipo/Flavonoid 1 tab PO QODAY 04/16/20 docusate sodium 100 mg PO BID 04/16/20 glipizide 2.5 mg PO DAILY 04/16/20 labetalol 200 mg PO BID 04/16/20 leuprolide (4 month) 30 mg IM .[id number] 04/16/20 doxazosin 4 mg tablet 4 mg PO QHS 07/26/20 omeprazole 20 mg capsule,delayed release 20 mg PO DAILY PRN 12/12/20 prednisone 5 mg tablet 5 mg PO DAILY 12/12/20 tamsulosin 0.4 mg capsule 0.4 mg PO DAILY cap 02/25/21 amlodipine 5 mg PO DAILY #30 tab 04/23/21 furosemide 40 mg PO BID #60 tab 04/23/21 Hospital Course Operations None Procedures Thoracentesis Summary of Care Provided Minutes Spent on Discharge: 31 Hospital Course: This 80-year-old white male was seen in the emergency room at [facility] with complaints of dyspnea on exertion, he has a history of prostate cancer and follows with a physician as an outpatient. He also has a history of stage IV chronic kidney disease and has a fistula in place but he is not currently undergoing dialysis. Work-up in the emergency room showed a normal CBC except for a hemoglobin of 9.6, chemistry profile was abnormal for creatinine of 5.19 and a BUN of 69. Patient's beta natruretic peptide was elevated at 669. Patient required low-flow nasal cannula oxygen to maintain his pulse ox above 90%. Patient's chest x-ray showed bilateral pleural effusions-worse on the right, there was some infiltrates in the left upper to lower lung field and at the right lung base. He was not felt to have pneumonia however. CT of the chest without contrast was performed, there was evidence of skeletal metastases with subacute bilateral rib fractures, there was also noted to be multi lobar left lung abnormalities which were felt to be secondary to infection, again, patient did not have any signs or symptoms of pneumonia. Patient was admitted to PCU, based on IV Lasix for acute on chronic diastolic congestive heart failure, he underwent a thoracentesis the next day with removal of 1100 cc of fluid which was sent to pathology for cytology. Patient was able to be weaned off oxygen, patient improved faster than expected during his hospitalization. On 04/22/2021, patient was seen and examined: On examination he appeared in good health and spirits. Vital signs as documented. Skin warm and dry and without overt rashes. Neck without JVD, neck was supple, trachea midline, thyroid was normal. Lungs clear bilaterally, normal air movement was noted. Heart exam notable for regular rhythm, normal sounds and absence of murmurs, rubs or gallops. Abdomen unremarkable and without evidence of organomegaly, masses, or abdominal aortic enlargement. Bowel sounds are present, abdomen is not distended. Extremities nonedematous, no cyanosis was noted, no clubbing was noted. Neuro: Cranial nerves II through XII are grossly intact, no focal motor deficits were noted, sensation to light touch and pinprick intact, motor exam 5/5 throughout. Psych: Patient is alert and oriented x3, he does not appear anxious or depressed, he does not appear agitated. Patient appears stable for discharge on 04/22/2021, he did not require any oxygen at the time of discharge either ambulating or at rest. Patient had a PSA obtained during his admission, it was 0.15, patient stated that he has had PSAs in the past that were normal. Patient was instructed to follow-up with his oncologist as an outpatient. Weight / BMI Weight Weight: 124 kg Body Mass Index (BMI) 39.2 ABG / Lab / Microbiology Data Result Diagrams: 04/22/21 05:49 04/23/21 05:41 Microbiology: Microbiology 04/21/21 23:30 Nasal Secretion SARS-CoV-2 Antigen (Rapid) - Final 04/21/21 23:35 Mucosa - Nose Influenza Types A,B Direct FA (ADIN) - Final D/C Instructions Discharge Diet: 1800 Calorie Control Diet Weight Bearing Status: Full weight bearing Meaningful Use Info Meaningful Use Diagnoses (Choose all that apply): CHF CHF KARL/ARB ordered at discharge?: No Reason KARL/ARB not ordered?: Not indicated Documented LVEF (%): 60 Discharge Plan Admission Admit Date/Time: 04/22/21 01:31 Primary Reason for Your Visit: diastolic heart failure Attending Provider: Kvng Kim Primary Care Provider: Darshan Solomon Instructions Patient Instructions: Thoracentesis Dc Discharge Orders/Prescriptions Prescriptions: New amlodipine 5 mg Tablet 5 mg PO DAILY Qty: 30 RF: 0 Continued doxazosin 4 mg tablet 4 mg PO QHS RF: 0 omeprazole 20 mg capsule,delayed release(DR/EC) 20 mg PO DAILY PRN (Reason: GERD) RF: 0 prednisone 5 mg tablet 5 mg PO DAILY RF: 0 tamsulosin 0.4 mg capsule 0.4 mg PO DAILY RF: 0 atorvastatin 10 MG tablet 10 mg PO QHS RF: 0 fenofibrate micronized 134 MG capsule 134 mg PO DAILY RF: 0 polysaccharide iron complex 150 MG capsule 150 mg PO BID RF: 0 fluoxetine 20 MG capsule 20 mg PO DAILY RF: 0 abiraterone 250 MG tablet 1,000 mg PO DAILY@1030 RF: 0 psyllium husk 660 GM powder 1 cap PO DAILY PRN (Reason: Constipation) RF: 0 leuprolide (4 month) 30 MG syringe kit 30 mg IM .[id number] RF: 0 docusate sodium 100 MG capsule 100 mg PO BID RF: 0 Lipo/Flavonoid 1 tab PO QODAY RF: 0 labetalol 200 MG tablet 200 mg PO BID RF: 0 glipizide 2.5 MG tablet extended release 24hr 2.5 mg PO DAILY RF: 0 Changed furosemide 40 mg tablet 40 mg PO BID Qty: 60 RF: 0 Discontinued amlodipine [Norvasc] 10 mg Tablet 15 mg PO DAILY RF: 0 Referrals / Follow Up: Tevin,Komal, DO [STAFF PHYSICIAN] - See Referral Note (at next scheduled appointment) Darshan Solomon MD [Primary Care Provider] - See Referral Note (at your scheduled office time) Disposition Disposition (needs filled in before D/C Order can be placed): Home, Self Care Charges/Coding Visit Charges Inpatient E&M: 82299 Disch Hosp
== END 2021-04-23 11:27 | disposition home or self-care (01) | DRG 291 ==
LOC: ED 04-22 00:50 → PCU 04-22 01:45
PROVIDERS: Admitting Provider Family Medicine; Emergency Provider Emergency Medicine; PCP Internal Medicine; Visit Provider Internal Medicine
DX: I13.0 Hypertensive heart and chronic kidney disease with heart failure and stage 1 through stage 4 chronic kidney disease, or unspecified chronic kidney disease (principal); I50.33 Acute on chronic diastolic (congestive) heart failure; C79.51 Secondary malignant neoplasm of bone; J91.8 Pleural effusion in other conditions classified elsewhere; M84.48XA Pathological fracture, other site, initial encounter for fracture; N18.4 Chronic kidney disease, stage 4 (severe); D63.8 Anemia in other chronic diseases classified elsewhere; C61 Malignant neoplasm of prostate; E11.22 Type 2 diabetes mellitus with diabetic chronic kidney disease; E78.2 Mixed hyperlipidemia; K21.9 Gastro-esophageal reflux disease without esophagitis; F41.9 Anxiety disorder, unspecified; G47.33 Obstructive sleep apnea (adult) (pediatric); N40.0 Benign prostatic hyperplasia without lower urinary tract symptoms; F32.A Depression, unspecified; R09.02 Hypoxemia; Z79.899 Other long term (current) drug therapy; Z79.52 Long term (current) use of systemic steroids
CPT/HCPCS: 32555; 36415; 71046; 71250; 80048; 80053; 82945; 83615; 83735; 83880; 84145; 84153; 84157; 85025; 85610; 85730; 87426; 87804; 88108; 88305; 88313; 89050; 93005; 97162; 99284; A4216; J1940; J2405

== ENCOUNTER 2021-05-01 16:19 | Outpatient (CLI) | payer MEDICARE, OTHER, SELFPAY ==
[2021-05-01 17:17] LABS: Albumin, Serum 3.2 g/dL (3.2-5.0); BUN 70 mg/dL (7-18); BUN/Creat Ratio 12.5 RATIO (10-20); Calcium,Total 7.8 mg/dL (8.5-10.1); Chloride 113 mmol/L (98-107); Creatinine, Serum 5.61 mg/dL (0.70-1.30); EST Glomerular Filtration Rate 10 mL/min (>60); Est Glom Filt Rate - Afr Amer 13 mL/min (>60); Glucose 121 mg/dL (74-106); Phosphorus 6.2 mg/dL (2.5-4.9); Potassium 4.4 mmol/L (3.5-5.1); Sodium Level 145 mmol/L (136-145)
[2021-05-02 08:17] LABS: PTHIN 480.1 pg/mL (18.4-80.1)
== END 2021-05-01 23:59 | disposition home or self-care (01) ==
LOC: LAB 16:20
PROVIDERS: PCP Internal Medicine; Referring Provider Internal Medicine Nephrology; Visit Provider Internal Medicine Nephrology
DX: N18.5 Chronic kidney disease, stage 5 (principal); N25.81 Secondary hyperparathyroidism of renal origin
CPT/HCPCS: 36415; 80069; 83970

== ENCOUNTER 2021-05-07 14:13 | Outpatient (CLI) | payer MEDICARE, OTHER, SELFPAY ==
[2021-05-08 10:33] LABS: Hepatitis B Surface Antigen Non-Reactive (Nonreactive)
== END 2021-05-07 23:59 | disposition home or self-care (01) ==
LOC: POLAB3 14:14
PROVIDERS: PCP Internal Medicine; Visit Provider Internal Medicine Nephrology
DX: N18.5 Chronic kidney disease, stage 5 (principal)
CPT/HCPCS: 36415; 87340

== ENCOUNTER → 2021-10-16 | Day surgery (SDC) | payer MEDICARE, OTHER, SELFPAY ==
[2021-10-15 08:13] VITALS: BMI 36.3
[2021-10-16 07:47] LABS: Hematocrit 34.6 % (40-54); Hemoglobin 11.1 g/dL (13.0-16.5); Mean Corp Hgb Conc 32.1 g/dL (32-36); Mean Corpuscular Hgb 30.1 pg (27.0-32.0); Mean Corpuscular Volume 93.8 fL (80-94); Mean Platelet Vol. 9.1 fl (6.2-12.0); Platelet Count 197 K/mm3 (150-450); RBC Distribution Width CV 14.6 % (11.6-14.6); RBC Distribution Width SD 50.4 fl (35.1-43.9); Red Blood Count 3.69 M/mm3 (4.6-6.2); White Blood Count 8.5 K/mm3 (4.4-11.0)
[2021-10-16 07:59] LABS: Anion Gap 9 (5-15); BUN 48 mg/dL (7-18); BUN/Creat Ratio 9.3 RATIO (10-20); Calcium,Total 9.4 mg/dL (8.5-10.1); Chloride 103 mmol/L (98-107); Creatinine, Serum 5.17 mg/dL (0.70-1.30); EST Glomerular Filtration Rate 11 mL/min (>60); Est Glom Filt Rate - Afr Amer 14 mL/min (>60); Estimated Creatinine Clearance 11.37 ml/min; Glucose 238 mg/dL (74-106); Sodium Level 141 mmol/L (136-145)
--- NOTE | 2021-10-16 08:05 | PCM.HP.BLA ---
History and Physical Date of Admission: 10/16/21 Visit Reasons:?FISTULAGRAM Chief Complaint: Decreased access flows with av fistula Pillow Cleaner Required: No Is patient in pain?: No Allergies Iodinated Contrast Media Allergy (Severe, Verified 10/08/21 13:03) SOB, anyaphylaxis Medications atorvastatin 10 mg tablet 10 mg PO QHS cholesterol 08/14/16 [History Confirmed 10/08/21] fenofibrate micronized 134 mg capsule 134 mg PO DAILY cholesterol 08/14/16 [History Confirmed 10/08/21] abiraterone 250 mg tablet 1,000 mg PO DAILY@1030 prostate cancer 07/20/19 [History Confirmed 10/08/21] docusate sodium 100 mg capsule 100 mg PO BID STOOL 04/16/20 [History Confirmed 10/08/21] glipizide 2.5 mg tablet, extended release 24 hr 2.5 mg PO DAILY dm 04/16/20 [History Confirmed 10/08/21] prednisone 5 mg tablet 5 mg PO DAILY steroid 12/12/20 [History Confirmed 10/08/21] leuprolide (3 month) 22.5 mg (3 month) intramuscular syringe kit 22.5 mg IM [id number] 09/03/21 [History Confirmed 10/08/21] vitamin B complex-vitamin C-folic acid 0.8 mg tablet (Nephro-Rizwana) 1 tab PO DAILY 09/03/21 [History Confirmed 10/08/21] vitamins-lipotropics 200 mg-100 mg tablet (Lipo-Flavonoid Plus) 1 tab PO .COMPLEX 09/03/21 [History Confirmed 10/08/21] doxazosin 4 mg tablet 4 mg PO QHS BPH 10/08/21 [History Confirmed 10/08/21] fluoxetine 10 mg capsule 10 mg PO DAILY 10/08/21 [History Confirmed 10/08/21] PFSH Medical History?(Updated 10/08/21 @ 13:02 by Abena Lopes) Alcohol use Anemia Cancer Cardiology follow-up encounter CHF (congestive heart failure) CKD (chronic kidney disease) stage 4, GFR 15-29 ml/min CPAP (continuous positive airway pressure) dependence Diabetes Dietary restriction DM (diabetes mellitus) Gastric reflux History of CHF (congestive heart failure) History of echocardiogram History of edema History of renal disease History of steroid therapy History of stress test Leg cramps Mixed hyperlipidemia Non-smoker Nonrheumatic aortic (valve) stenosis BELLE on CPAP Problem with dialysis access Prostate CA Shortness of breath on exertion Spinal stenosis Type 2 diabetes mellitus Wears glasses Surgical History? History of arteriovenostomy for renal dialysis (~02/2021) History of arthroscopy of right knee History of bilateral cataract extraction History of esophagogastroduodenoscopy (EGD) History of incisional hernia repair History of prostatectomy History of transurethral resection of prostate Hx of colonoscopy Family History? Father Heart disease Myocardial infarctionBrother Cancer ?? ? Prostate Social History? Smoking Status:? Never smoker alcohol intake:? never substance use type:? does not use caffeine:? Yes Type: coffee Number of servings: 1 HPI HPI Surgical H&P: Yes HPI: PERLA SANCHEZ, is a 80 M who presents to the office today for decrease flow and clearances. Patient states for approximately 2 months the dialysis center has noted a steady decrease in flow rate and clearance. Patient notes he is able to complete treatments. he does not note any post-treatment bleeding. He notes the dialysis center had to initiate Heparin prior to treatments approximately 2 weeks ago. Per dialysis, patient's access flows have decreased from 565 to 326 over a 4 month time frame. Patient has never had a fistulogram before. Dr. Eckert did perform a sidebranch ligation in office on 04/24/21. ? ROS General General: Yes weight change and fatigue; No appetite, colon cancer, breast cancer or weakness HEENT HEENT: No difficulty swallowing, eye injury, eye surgery, swollen glands or hoarseness Endo Endocrine: Yes diabetes mellitus; No thyroid disease, thyroid cancer, Hair loss, heat intolerance or cold intolerance Musc Musculoskeletal: No back problems, arthritis, rheumatoid arthritis, gout or joint pain Cardio Cardiovascular: Yes heart disease and high blood pressure; No murmur, pacemaker, atrial fibrillation, heart attack, heart stent, palpitations, shortness of breat with exertion or chest pain Psych Psychiatric: No depression, anxiety or hearing voices Resp Respiratory: Yes shortness of breath, Yes sleep apnea, No cough, Yes COPD, No asthma, No emphysema and No wheezing Gastro Gastrointestinal: No abdominal pain, No nausea or vomiting, No diarrhea, Yes constipation, No blood in stool, No acid reflux, No hemorrhoids, No ulcers, No gallbladder problem and No black,tarry stools Pilo Hematologic: No blood thinners, No blood disorders, No bleeding, Yes anemia and No blood clots Neuro Neurologic: No weakness Exam Const General: cooperative, healthy appearing and no acute distress Other: Presents in a wheelchair [facility] Head: normal to inspection Eyes General: appearance normal, both eyes and all related structures Neck Neck: normal visual inspection Neck mass: No Resp Effort & Inspection: normal respiratory effort and able to speak in complete sentences Auscultation: clear to auscultation bilaterally Cardio Rate: regular rate Rhythm: regular rhythm Heart Sounds: murmur GI Inspection: normal to inspection Palpation: soft Musc Cervical Spine: normal cervical lordosis Skin General: no rashes or lesions noted Neuro General: no focal motor deficits and CN's II-XI intact bilaterally Extrem Other: Right forearm AV fistula- good pulse and thrill. Slightly diminished bruit. Psych Appearance: grossly normal Affect: normal affect Assessment and Plan Assessment and Plan (1) Problem with dialysis access: ?Status:?Acute ?Qualifiers: ?Encounter type:?initial encounter? Qualified Code(s):?T82.898A - Other specified complication of vascular prosthetic devices, implants and grafts, initial encounter ?Plan: Dr. Eckert will plan to perform a non-urgent right forearm fistulogram. Procedure details, risks and benefits have been explained. Patient dialyzes on M, W, and F. Patient is not currently on any blood thinners daily. Patient and his have had the opportunity to ask and have questions answered. Patient verbally understands and agrees with the plan. I have re-examined the patient. There are no clinical changes since date of exam. Nirmal Eckert M.D., F.A.C.S.
--- NOTE | 2021-10-16 09:00 | OP.PCM_ITS ---
Report of Operation Date of Procedure: 10/16/21 Pre-Operative Diagnosis: Diminished flow right forearm radiocephalic arterioven ous hemodialysis fistula Post-Operative Diagnosis: High-grade proximal fistula venous stenosis Surgery/Procedure Performed:: Right upper extremity fistulogram with 5 x 80 mm EverCross angioplasty and 5 x 20 mm conquest angioplasty Description of Surgical Findings:: Timeout informed consent was obtained. 80-year-old gentleman was taken to the special procedures lab. He had premedicated with Benadryl and prednisone because of his iodinated contrast allergy. Throughout the procedure 20 cc was used. The patient received 50 mcg of fentanyl and 1 mg of Versed is intravenous sedation. Ultrasound was used to identify the cephalic vein in the proximal forearm 2% lidocaine was instilled under ultrasound guidance retrograde with flow micropuncture needle inserted under ultrasound guidance micropuncture wire 6 Romanian short sheath dilator was placed using an 035 Glidewire and a 4 Romanian glide cath to gain access to the radial artery proximal to the anastomosis. It is of additional note that local was instilled down close to the wrist to help anesthetize the proximal portion of the fistula. Fistulogram was obtained demonstrating what was felt to be a high-grade 90% stenosis of the very proximal portion of the fistula adjacent to the anastomosis. Initially I placed a 5 x 80 mm EverCross balloon and we insufflated that to 20 casandra of pressure with incomplete release. That was held for 2 minutes. I then exchanged out for a 5 x 2 conquest balloon and at 22 casandra of pressure the stenosis released. We held that for 3 minutes. Balloon was removed Glidewire and glide cath placed in the fistulogram obtained demonstrating resolution of the proximal fistula stenosis with wide-open flow of the forearm. The fistulogram was completed for the upper arm and chest area with good outflow. He tolerated procedure well with no respiratory symptoms. Sheath was removed U suture 4-0 nylon was placed hemostasis was intact no apparent complications. Images show a right forearm radiocephalic arteriovenous hemodialysis fistula with proximal fistula stenosis adjacent to the anastomosis with subsequent resolution after the 5 x 20 mm conquest angioplasty. There is good upper arm cephalic and basilic vein outflow and good central venous outflow Specimens none. Drains none. Blood loss minimal Nirmal Eckert M.D., F.A.C.S. Surgeon: Nirmal Eckert Type of Anesthesia: IV Sedation and Local
== END | disposition home or self-care (01) ==
PROVIDERS: PCP Internal Medicine; Visit Provider Surgery
DX: T82.898A Other specified complication of vascular prosthetic devices, implants and grafts, initial encounter (principal); I50.9 Heart failure, unspecified; I87.2 Venous insufficiency (chronic) (peripheral); G47.33 Obstructive sleep apnea (adult) (pediatric); Z79.899 Other long term (current) drug therapy; X58.XXXA Exposure to other specified factors, initial encounter
CPT/HCPCS: 36415; 36902; 76937; 80048; 85027; 99152; 99153; Q9967; C1725; C1769

== ENCOUNTER 2021-12-10 10:12 | Inpatient (IN) | payer MEDICARE, OTHER, SELFPAY ==
[2021-12-10] VITALS (17 sets, daily range): BP systolic 72–110; BP diastolic 40–80; PULSE 64–118; RESP 16–40; TEMP 36–36.9; O2SAT 92–99; BMI 35.2; BMI 34.7
--- NOTE | 2021-12-10 11:27 | EKG12_ITS ---
Test Reason : SOB Blood Pressure : / mmHG Vent. Rate : 108 BPM Atrial Rate : 108 BPM P-R Int : 140 ms QRS Dur : 134 ms QT Int : 328 ms P-R-T Axes : 000 029 207 degrees QTc Int : 439 ms Sinus tachycardia Non-specific intra-ventricular conduction block Minimal voltage criteria for LVH, may be normal variant ( Juan Carlos product ) T wave abnormality, consider lateral ischemia vs IVCD effect Abnormal ECG Confirmed by SALVADOR RAMIREZ, GAMALIEL ([id number]), photo editor CHARLENE MOLINA ([id number]) on 12/12/2021 10:33:50 AM Referred By: Confirmed By:GAMALIEL FRANCO MD
--- NOTE | 2021-12-10 11:27 | CT_ITS ---
STUDY: CT ABDOMEN AND PELVIS WITHOUT CONTRAST REASON FOR EXAM: Male, 80 years old. abdominal pain RADIATION DOSAGE (If Supplied By Facility): CTDIvol = ( 21.61 ) mGy, DLP = ( 1095.82 ) mGycm TECHNIQUE: Transaxial images were obtained from the dome of the diaphragm to the symphysis pubis without oral contrast, and without intravenous contrast. Sagittal and coronal images were reconstructed. Individualized dose optimization techniques were used for this CT. COMPARISON: None. FINDINGS: There is moderate right lower lobe and mild left lower lobe infiltrate. There is moderate right and small left pleural effusion. The visualized portions of the heart are within normal limits. Normal liver. There are a few small gallstones seen within the neck of the gallbladder. Normal spleen. Normal pancreas. Normal bilateral adrenal glands. There is severe cortical thinning of both kidneys. This could be due to scarring and/or renovascular disease. Hyperdense lesion anterior midpole right kidney 9 x 10 mm could represent hemorrhagic cyst, solid mass cannot be excluded. Normal visualized stomach. Normal small intestine. Normal colon. The appendix is visualized and appears normal. Normal abdominal aorta. Normal inferior vena cava. Normal retroperitoneum. Urinary bladder is decompressed. The prostate is not visualized likely due to prostatectomy. Normal abdominal wall. There are diffuse osseous metastases throughout the imaged osseous structures. These are seen in the left lateral eighth rib. And in the right lateral ninth rib. Diffuse osseous metastases are seen throughout the lumbar sacral spine. Osseous metastatic disease is seen within the iliac bones bilaterally left greater than right and in the left acetabular roof. CT/Abdomen/Pelvis without Cont IMPRESSION: Moderate right lower lobe and milder left lower lobe infiltrate. Moderate right and small left pleural effusion. Severe cortical thinning of both kidneys. Hyperdense lesion on by 10 mm anterior mid pole right kidney which could represent hemorrhagic cyst or solid mass. Prostate not visualized likely due to prostatectomy. Diffuse osseous metastases detailed above. Electronically Signed: Kvng Arambula MD, PIO at 12:43 EDT ,
--- NOTE | 2021-12-10 11:28 | EDS_ITS ---
HPI History of Present Illness Chief Complaint: Shortness of Breath Detail of Chief Complaint: Shortness of breath that started about 10 days ago Informant: patient Narrative Narrative: Patient presents with shortness of breath that started 10 days ago. Patient complains of exertional dyspnea. He describes minimal cough that is nonproductive. He denies fever. Patient feels like his abdomen is distended. Patient states a year ago before starting dialysis he had to have a what sounds like paracentesis to remove fluid from his abdomen. Patient denying chest pain. He does have history of CHF and is currently on dialysis. His last dialysis was yesterday. Patient with remote history of prostate cancer. [facility] Medical History (Updated 12/10/21 @ 12:[address] Tanesha Cornelius, ) Alcohol use Anemia Cancer Cardiology follow-up encounter CHF (congestive heart failure) CKD (chronic kidney disease) stage 4, GFR 15-29 ml/min CPAP (continuous positive airway pressure) dependence Diabetes Dietary restriction DM (diabetes mellitus) Gastric reflux History of CHF (congestive heart failure) History of echocardiogram History of edema History of renal disease History of steroid therapy History of stress test Leg cramps Mixed hyperlipidemia Non-smoker Nonrheumatic aortic (valve) stenosis BELLE on CPAP Problem with dialysis access Prostate CA Shortness of breath on exertion Spinal stenosis Type 2 diabetes mellitus Wears glasses Home Medications atorvastatin 10 mg tablet 10 mg PO QHS cholesterol 08/14/16 [History Last Taken 04/15/20] fenofibrate micronized 134 mg capsule 134 mg PO DAILY cholesterol 08/14/16 [History Last Taken 04/16/20] abiraterone 250 mg tablet 1,000 mg PO DAILY@1030 prostate cancer 07/20/19 [History Last Taken 04/15/20] docusate sodium 100 mg capsule 100 mg PO BID STOOL 04/16/20 [History Last Taken 04/16/20] glipizide 2.5 mg tablet, extended release 24 hr 2.5 mg PO DAILY dm 04/16/20 [History Last Taken 04/16/20] prednisone 5 mg tablet 5 mg PO DAILY steroid 12/12/20 [History Last Taken Unknown] leuprolide (3 month) 22.5 mg (3 month) intramuscular syringe kit 22.5 mg IM Q3M ONTHS 09/03/21 [History Last Taken Unknown] vitamin B complex-vitamin C-folic acid 0.8 mg tablet (Nephro-Rizwana) 1 tab PO DAILY 09/03/21 [History Last Taken Unknown] vitamins-lipotropics 200 mg-100 mg tablet (Lipo-Flavonoid Plus) 1 tab PO .COMPLEX 09/03/21 [History Last Taken Unknown] doxazosin 4 mg tablet 4 mg PO QHS BPH 10/08/21 [History Last Taken Unknown] fluoxetine 10 mg capsule (Prozac) 20 mg PO DAILY 10/08/21 [History Last Taken Unknown] tamsulosin 0.4 mg capsule 0.4 mg PO DAILY 12/10/21 [History Last Taken Unknown] trazodone 100 mg tablet 100 mg PO QHS 12/10/21 [History Last Taken Unknown] Allergy/AdvReac Type Severity Reaction Status Date / Time Iodinated Contrast Media Allergy Severe SOB, Verified 12/10/21 10:15 anyaphylaxis Family History Father Heart disease Myocardial infarction Brother Cancer Prostate Surgical History History of arteriovenostomy for renal dialysis (~02/2021) History of arthroscopy of right knee History of bilateral cataract extraction History of esophagogastroduodenoscopy (EGD) History of incisional hernia repair History of prostatectomy History of transurethral resection of prostate Hx of colonoscopy Social History Smoking Status: Never smoker alcohol intake: never substance use type: does not use caffeine: Yes Type: coffee Number of servings: 1 ROS ROS ED Review of Systems ROS Unobtainable: other Constitutional Constitutional ED: Reports lethargy; Denies chills, fever(s), sweats or weight loss Eyes Eyes: Denies blurry vision, change in vision or diplopia ENT ENT ED: Denies rhinorrhea or sore throat Cardiovascular Cardiovascular: Denies chest pain, orthopnea or racing heartbeat Respiratory/Chest Respiratory/Chest: Reports dyspnea and dyspnea on exertion; Denies cough, orthopnea or sputum Gastrointestinal Gastrointestinal: Denies abdominal pain, diarrhea, nausea or vomiting Genitourinary Genitourinary ED: Denies dysuria, hematuria or urinary frequency Musculoskeletal Musculoskeletal: Denies arthralgias, back pain, myalgias or neck pain Integumentary Denies abscess, Abrasions or rash Neurologic Neurologic: Denies headache(s) or weakness Psychiatric Psychiatric: Denies anxiety, depression or suicidal thoughts Endocrine Endocrinology: Denies polydipsia, polyphagia or polyuria Hematologic/Lymphatic Hematologic/Lymphatic: Denies easy bleeding, easy bruising or lymphadenopathy Allergic/Immunologic Allergic/Immunologic ED: Denies mouth swelling, tongue swelling or urticaria EXAM Physical Exam Const Vital Signs: 12/10/21 10:13 12/10/21 11:36 12/10/21 12:09 Temperature 97.8 F Temperature Source Temporal Pulse Rate 99 Respiratory Rate 18 16 Respiratory Effort Short of Breath Respiratory Depth Shallow Respiratory Pattern Tachypnea Blood Pressure 93/58 L Blood Pressure Mean 69 Pulse Ox 99 93 Oxygen Delivery Method Room Air Room Air Positive well nourished and well developed General Appearance ED: well developed and NAD HEENT Reports TM's clear and moist mucous membranes normocephalic and atraumatic; Negative for trauma or tenderness Tympanic Membrane ED: Yes TM's clear Eyes PERRL and EOMs intact bilaterally General Eye ED: Negative for pale conjunctiva or scleral icterus Neck no lymphadenopathy, supple and no JVD General: Negative for tenderness Chest Wall inspection of chest normal and palpation of chest normal Chest: Negative for tenderness Resp normal respiratory effort and clear to auscultation bilaterally Resp Narrative: Patient with conversational dyspnea. Mild tachypnea. Few faint rales in the bases. Effort and Inspection: Negative for respiratory distress or pain with movement Auscultation: rales; Negative for rhonchi, wheezes or diminished lung sounds Cardio regular rate, regular rhythm, S1 normal heart sound, S2 normal heart sound and no murmurs Peripheral Pulses: pulses 2+ throughout GI normal to inspection, nondistended, normoactive bowel sounds, soft to palpation, non-distended and no masses GI Narrative: Patient with a large left lower quadrant hernia noted that is relatively nontender and reducible. No discoloration to it noted. Patient does have diffuse tenderness to the abdomen. Patient has some guarding. No rebound or rigidity. Back/Spine no CVA tenderness and no thoracic nor lumbar tenderness Extremity normal to inspection General Extremety ED: Negative for edema General Extremity: Negative for edema Neuro oriented x3, CN's II-XII intact bilaterally, no sensory deficits noted and gait normal Sensorium / Orientation: awake, alert, oriented to person, oriented to place and oriented to time Motor Exam: strength 5/5 throughout and strength abnormal Psych mental status grossly normal Skin no rashes or lesions noted and no wounds MDM MDM MDM Narrative Medical decision making narrative: IV line established on arrival. Patient placed on a radiation monitor. EKG obtained was abnormal with diffuse ST depression anterior laterally. Patient had an elevated troponin over 5000. D-dimer also was elevated however patient claims anaphylaxis to contrast dye and on further interrogation he states that he got nauseated when he had a CT scan and they were not sure what to do with him. Patient will be started on heparin. CBC still pending. Chest x-ray showed bilateral lower lobe infiltrates with effusions. CBC with differential still pending. I did order blood cultures and a lactate. COVID-19 test was negative. Discussed case with hospitalist who will evaluate patient for admission and plan will be to likely premedicate patient with Benadryl and Solu- Medrol tomorrow and obtain CTA of the chest. Possibility of pneumonia still in the differential although he is denying significant cough or sputum production. Lab Data Attestation: I reviewed the patient's lab results. Labs: Laboratory Results - last 24 hr 12/10/21 12/10/21 12/10/21 11:28 11:28 11:28 WBC Cancelled Corrected WBC Cancelled RBC Cancelled Hgb Cancelled Hct Cancelled MCV Cancelled MCH Cancelled MCHC Cancelled RDW Std Deviation Cancelled RDW Coeff of Alva Cancelled Plt Count Cancelled MPV Cancelled Immature Gran % (Auto) Cancelled Neut % (Auto) Cancelled Lymph % (Auto) Cancelled Rutherford % (Auto) Cancelled Eos % (Auto) Cancelled Baso % (Auto) Cancelled Absolute Neuts (auto) Cancelled Absolute Lymphs (auto) Cancelled Total Counted Cancelled Neutrophils % (Manual) Cancelled Band Neutrophils % Cancelled Lymphocytes % (Manual) Cancelled Monocytes % (Manual) Cancelled Eosinophils % (Manual) Cancelled Basophils % (Manual) Cancelled Metamyelocytes % Cancelled Myelocytes % Cancelled Promyelocytes % Cancelled Blast Cells % Cancelled Plasma Cell % (Manual) Cancelled Other Cells % Cancelled Nucleated RBC % Cancelled Nucleated RBCs/100 WBC Cancelled Differential Comment Cancelled Diff Path Review Cancelled Hypersegmented Neuts Cancelled Atypical Lymphocytes Cancelled Reactive Lymphocytes Cancelled Smudge Cells Cancelled Toxic Granulation Cancelled Toxic Vacuolation Cancelled Dohle Bodies Cancelled Ronit Rods Cancelled Platelet Estimate Cancelled Plt Morphology Comment Cancelled RBC Morphology Cancelled Polychromasia Cancelled Hypochromasia Cancelled Poikilocytosis Cancelled Basophilic Stippling Cancelled Anisocytosis Cancelled Microcytosis Cancelled Macrocytosis Cancelled Spherocytes Cancelled Sickle Cells Cancelled Target Cells Cancelled Tear Drop Cells Cancelled Ovalocytes Cancelled Stomatocytes Cancelled Hummel-Parker Bodies Cancelled Carlin Cells Cancelled Bite Cells Cancelled Crenated Cell Cancelled Acanthocytes (Spur) Cancelled Rouleaux Cancelled Schistocytes Cancelled D-Dimer Quant (PE/DVT) Sodium 139 Potassium 3.9 Chloride 99 Carbon Dioxide 32.0 Anion Gap 8 BUN 32 H Creatinine 4.52 H Estim Creat Clear Calc 13.01 Est GFR (MDRD) Af Amer 16 L Est GFR (MDRD) Non-Af 13 L BUN/Creatinine Ratio 7.1 L Glucose 150 H Calcium 9.6 Total Bilirubin 0.80 Direct Bilirubin 0.18 AST 50 H ALT 20 Alkaline Phosphatase 36 L Troponin I High Sens 5973 H* B-Natriuretic Peptide 1660.1 H Total Protein 7.3 Albumin 3.2 Globulin 4.1 12/10/21 12:05 WBC Corrected WBC RBC Hgb Hct MCV MCH MCHC RDW Std Deviation RDW Coeff of Alva Plt Count MPV Immature Gran % (Auto) Neut % (Auto) Lymph % (Auto) Rutherford % (Auto) Eos % (Auto) Baso % (Auto) Absolute Neuts (auto) Absolute Lymphs (auto) Total Counted Neutrophils % (Manual) Band Neutrophils % Lymphocytes % (Manual) Monocytes % (Manual) Eosinophils % (Manual) Basophils % (Manual) Metamyelocytes % Myelocytes % Promyelocytes % Blast Cells % Plasma Cell % (Manual) Other Cells % Nucleated RBC % Nucleated RBCs/100 WBC Differential Comment Diff Path Review Hypersegmented Neuts Atypical Lymphocytes Reactive Lymphocytes Smudge Cells Toxic Granulation Toxic Vacuolation Dohle Bodies Ronit Rods Platelet Estimate Plt Morphology Comment RBC Morphology Polychromasia Hypochromasia Poikilocytosis Basophilic Stippling Anisocytosis Microcytosis Macrocytosis Spherocytes Sickle Cells Target Cells Tear Drop Cells Ovalocytes Stomatocytes Hummel-Parker Bodies Grenola Cells Bite Cells Crenated Cell Acanthocytes (Spur) Rouleaux Schistocytes D-Dimer Quant (PE/DVT) 0.95 H* Sodium Potassium Chloride Carbon Dioxide Anion Gap BUN Creatinine Estim Creat Clear Calc Est GFR (MDRD) Af Amer Est GFR (MDRD) Non-Af BUN/Creatinine Ratio Glucose Calcium Total Bilirubin Direct Bilirubin AST ALT Alkaline Phosphatase Troponin I High Sens B-Natriuretic Peptide Total Protein Albumin Globulin Radiography Diagnostic Testing: Clinical Impression(s) from Imaging Studies Abdomen/Pelvis CT 12/10/21 11:27 IMPRESSION: Moderate right lower lobe and milder left lower lobe infiltrate. Moderate right and small left pleural effusion. Severe cortical thinning of both kidneys. Hyperdense lesion on by 10 mm anterior mid pole right kidney which could represent hemorrhagic cyst or solid mass. Prostate not visualized likely due to prostatectomy. Diffuse osseous metastases detailed above. Electronically Signed: Kvng Arambula MD, PIO at 12:43 EDT Reading Location ID and State: [facility] / [place] Tel , Service support , Discharge Plan Triage Chief Complaint: Shortness of Breath ED Provider: Tanesha Cornelius Dx/Rx/DC Orders Clinical Impression: Exertional dyspnea, Non-ST elevated myocardial infarction (non-STEMI), CHF (congestive heart failure), Lung infiltrate Prescriptions: No Action doxazosin 4 mg tablet 4 mg PO QHS prednisone 5 mg tablet 5 mg PO DAILY Nephro-Rizwana 0.8 mg tablet 1 tab PO DAILY leuprolide (3 month) 22.5 mg syringe kit 22.5 mg IM [id number] Lipo-Flavonoid Plus 200-100 mg tablet 1 tab PO .COMPLEX Rx Instructions: 1 TAB orally 3 times per week.; fluoxetine [Prozac] 10 mg capsule 20 mg PO DAILY atorvastatin 10 MG tablet 10 mg PO QHS fenofibrate micronized 134 MG capsule 134 mg PO DAILY abiraterone 250 MG tablet 1,000 mg PO DAILY@1030 docusate sodium 100 MG capsule 100 mg PO BID glipizide 2.5 MG tablet extended release 24hr 2.5 mg PO DAILY tamsulosin 0.4 mg capsule 0.4 mg PO DAILY Label Comments: TAKE 1 CAPSULE BY MOUTH EVERY DAY trazodone 100 mg tablet 100 mg PO QHS Primary Care Provider: Darshan Solomon Referrals: Darshan Solomon MD [Primary Care Provider] - Disposition Disposition: Acute Care Hospital [facility]
[2021-12-10 12:03] LABS: AST(SGOT) 50 U/L (15-37); Alanine Aminotransfer ALT/SGPT 20 U/L (16-61); Albumin, Serum 3.2 g/dL (3.2-5.0); Alkaline Phosphatase 36 U/L (45-117); Anion Gap 8 (5-15); BUN 32 mg/dL (7-18); BUN/Creat Ratio 7.1 RATIO (10-20); Bilirubin, Direct 0.18 mg/dL (0.00-0.30); Calcium,Total 9.6 mg/dL (8.5-10.1); Chloride 99 mmol/L (98-107); Creatinine, Serum 4.52 mg/dL (0.70-1.30); EST Glomerular Filtration Rate 13 mL/min (>60); Est Glom Filt Rate - Afr Amer 16 mL/min (>60); Estimated Creatinine Clearance 13.01 ml/min; Globulin 4.1 g/dL (2.2-4.2); Glucose 150 mg/dL (74-106); Potassium 3.9 mmol/L (3.5-5.1); Protein, Total 7.3 g/dL (6.4-8.2); Sodium Level 139 mmol/L (136-145); Troponin-I HS 5973 pg/mL (3.0-78.0)
--- NOTE | 2021-12-10 12:18 | RAD_ITS ---
STUDY: X-RAY CHEST REASON FOR EXAM: Male, 80 years old. sob TECHNIQUE: PA or AP COMPARISON: 04/22/2021 FINDINGS: There is a moderate left perihilar infiltrate new. There are mild left and moderate right lower lobe infiltrates. Left lower lobe infiltrates are decreased. There is a [id number] right pleural effusion new. There is small left pleural effusion stable. There is no demonstrated pleural abnormality. Normal size heart. Normal mediastinum and eugenio. Normal visualized pulmonary arteries. Mild atherosclerotic vascular calcification of aortic arch. Normal visualized thoracic spine. Normal visualized ribs, clavicles, and shoulders. There is no demonstrated abnormality of the visualized soft tissue structures of the upper abdomen. RAD/Chest 1 View (Portable) IMPRESSION: Bibasilar infiltrates and pleural effusions and left perihilar infiltrate detailed above. Electronically Signed: Kvng Arambula MD, PIO at 12:46 EDT ,
[2021-12-10 12:27] LABS: D-Dimer Quantitative (DVT/PE) 0.95 FEU/ug/m (0.27-0.49)
[2021-12-10 12:46] LABS: International Normalized Ratio 1.3; Prothrombin Time (Protime)PT. 15.4 SECONDS (11.7-14.9)
[2021-12-10 12:47] LABS: Partial Thromboplast Time 31.1 Seconds (24.1-36.2)
[2021-12-10] MEDS: HEPARIN/D5w 25,000 UNITS 25,000 UNITS/250 ML IV.SOLN. 15 UNITS CONT INF (12:50)
[2021-12-10] MEDS: Heparin Injection (Vial) 5,000 UNIT/ML VIAL 8000 UNIT IV (12:51)
[2021-12-10 13:53] LABS: Absolute Lymphocyte Count 0.73 X10^3/uL (0.83-4.51); Absolute Neutrophil Count 11.2 X10^3/uL (2.0-7.7); Basophil# 0.03 X10^3/uL; Basophil% 0.2 % (0-1); Eosinophil# 0.04 X10^3/uL; Eosinophils% 0.3 % (0-5); Hematocrit 30.3 % (40-54); Lymphocyte # 0.73 X10^3/ul (0.83-4.51); Lymphocyte % 5.5 % (19-41); Mean Corpuscular Hgb 31.3 pg (27.0-32.0); Mean Corpuscular Volume 94.7 fL (80-94); Mean Platelet Vol. 10.8 fl (6.2-12.0); Monocyte# 1.11 X10^3/uL; Monocyte% 8.4 % (0-10); NRBC Flagged by Analyzer 0 % (0-5); Neutrophil # 11.18 X10^3/uL (2.7-7.7); Neutrophil % 85.1 % (47-70); Platelet Count 252 K/mm3 (150-450); RBC Distribution Width CV 14.5 % (11.6-14.6); RBC Distribution Width SD 50.7 fl (35.1-43.9); White Blood Count 13.2 K/mm3 (4.4-11.0)
--- NOTE | 2021-12-10 13:59 | PCM.HP.STD ---
HPI - General General Date of Admission: 12/10/21 Date of Service: 12/10/21 Chief Complaint: Shortness of breath ongoing for 10 days, worsening HPI Narrative PERLA SANCHEZ, is a 80 M who presents with the above. He has past medical history of ESRD on hemodialysis, history of prostate cancer, in remission, follows with [facility] oncology who comes in with progressive shortness of breath that has been ongoing but worsened today. Patient had dialysis yesterday?Thursday?Thursday?Thursday. He stated that he was supposed to have a catch-up dialysis today as it was felt that he still had fluid on him. He however could not breathe, he had orthopnea and PND. He wears compression stockings for bilateral leg edema. Patient denied any chest pain or dizziness or palpitations. He admits to having hot and cold flashes. In the emergency department, his blood pressure is 110/64, heart rate 115, respiratory rate 18, temperature 98.2 F, oxygen saturation 95% on room air. His admitting blood work showed WBC count of 13.2, with neutrophilia hemoglobin 10.0, platelet count 252, D-dimer was elevated at 0.95, INR is 1.3, BUN was 32, creatinine 4.52, lactic acid was 2.6, troponin was 5973, BNP was 1550.1. Admitting chest x-ray showed bibasilar infiltrates and pleural effusions as well left perihilar infiltrate CT of the abdomen and pelvis showed moderate right lower lobe and mid left lower lobe infiltrate, moderate right and left pleural effusion, diffuse osseous metastasis throughout especially in the left lateral eighth rib and right lateral ninth rib as well as lumbosacral spine and iliac bones, left greater than right [facility] Medical History Alcohol use Anemia Cancer Cardiology follow-up encounter CHF (congestive heart failure) CKD (chronic kidney disease) stage 4, GFR 15-29 ml/min CPAP (continuous positive airway pressure) dependence Diabetes Dietary restriction DM (diabetes mellitus) Gastric reflux History of CHF (congestive heart failure) History of echocardiogram History of edema History of renal disease History of steroid therapy History of stress test Leg cramps Mixed hyperlipidemia Non-smoker Nonrheumatic aortic (valve) stenosis BELLE on CPAP Problem with dialysis access Prostate CA Shortness of breath on exertion Spinal stenosis Type 2 diabetes mellitus Wears glasses Home Medications atorvastatin 10 mg tablet 10 mg PO QHS cholesterol 08/14/16 [History Last Taken 04/15/20] fenofibrate micronized 134 mg capsule 134 mg PO DAILY cholesterol 08/14/16 [History Last Taken 04/16/20] abiraterone 250 mg tablet 1,000 mg PO DAILY@1030 prostate cancer 07/20/19 [History Last Taken 04/15/20] docusate sodium 100 mg capsule 100 mg PO BID STOOL 04/16/20 [History Last Taken 04/16/20] glipizide 2.5 mg tablet, extended release 24 hr 2.5 mg PO DAILY dm 04/16/20 [History Last Taken 04/16/20] prednisone 5 mg tablet 5 mg PO DAILY steroid 12/12/20 [History Last Taken Unknown] leuprolide (3 month) 22.5 mg (3 month) intramuscular syringe kit 22.5 mg IM [id number] 09/03/21 [History Last Taken Unknown] vitamin B complex-vitamin C-folic acid 0.8 mg tablet (Nephro-Rizwana) 1 tab PO DAILY 09/03/21 [History Last Taken Unknown] vitamins-lipotropics 200 mg-100 mg tablet (Lipo-Flavonoid Plus) 1 tab PO .COMPLEX 09/03/21 [History Last Taken Unknown] doxazosin 4 mg tablet 4 mg PO QHS BPH 10/08/21 [History Last Taken Unknown] fluoxetine 10 mg capsule (Prozac) 20 mg PO DAILY 10/08/21 [History Last Taken Unknown] tamsulosin 0.4 mg capsule 0.4 mg PO DAILY 12/10/21 [History Last Taken Unknown] trazodone 100 mg tablet 100 mg PO QHS 12/10/21 [History Last Taken Unknown] Allergy/AdvReac Type Severity Reaction Status Date / Time Iodinated Contrast Media Allergy Severe SOB, Verified 12/10/21 10:15 anyaphylaxis Family History Father Heart disease Myocardial infarction Brother Cancer Prostate Surgical History History of arteriovenostomy for renal dialysis (~02/2021) History of arthroscopy of right knee History of bilateral cataract extraction History of esophagogastroduodenoscopy (EGD) History of incisional hernia repair History of prostatectomy History of transurethral resection of prostate Hx of colonoscopy Social History Smoking Status: Never smoker alcohol intake: never substance use type: does not use caffeine: Yes Type: coffee Number of servings: 1 ROS ROS Narrative Constitutional: Reports: Malaise, Weakness, Fatigue. Denies: Anorexia, Chills, Fever, Night Sweats, Weight Change Eyes: Denies: Blurred vision, Cataracts, Conjunctivae Inflammation, Pain, Redness, Vision Change HEENT: Denies: Difficulty Hearing, Difficulty Swallowing, Head Aches, Hearing Changes, Sinus Congestion, Sinus Drainage Cardiovascular: Denies: Chest Pain, Orthopnea, Palpitations Respiratory: See HPI Gastrointestinal: Denies: Abdominal Pain, Nausea, Vomiting Genitourinary: Denies: Dysuria Musculoskeletal: Denies: Joint Pain, Joint stiffness, Joint swelling, Joint Tenderness Skin: Denies: Rash, Wounds Neurological: Denies: Numbness, Tingling, Focal weakness Vital Signs Vital Signs Vital Signs: 12/10/21 10:13 12/10/21 11:36 12/10/21 12:09 Temperature 97.8 F Temperature Source Temporal Pulse Rate 99 Respiratory Rate 18 16 Respiratory Effort Short of Breath Respiratory Depth Shallow Respiratory Pattern Tachypnea Blood Pressure 93/58 L Blood Pressure Mean 69 Pulse Ox 99 93 Oxygen Delivery Method Room Air Room Air 12/10/21 13:13 12/10/21 13:16 Temperature 98.5 F Temperature Source Temporal Pulse Rate 108 H Respiratory Rate 23 H Respiratory Effort Respiratory Depth Respiratory Pattern Blood Pressure 91/59 L Blood Pressure Mean 69 Pulse Ox 97 95 Oxygen Delivery Method Room Air Room Air Weight Weight: 111.13 kg Body Mass Index (BMI) 35.2 Physical Exam Narrative Physical exam: General: Alert, Oriented x3, Cooperative, appears very unwell HEENT: Atraumatic Oral: Moist Mucosa Neck: Supple Lungs: Diminished to auscultation, few crackles at the lung bases Cardiovascular: HS I+II, regular, no murmurs Abdomen: Distended, bowel Sounds Present, Soft, Non Tender Extremities: Bilateral leg edema +1, compression stockings on Skin: No rashes, No breakdown Neurological: Grossly intact Psych/Mental Status: Appropriate Results Lab / Micro Data Result Diagrams: 12/10/21 13:32 12/10/21 11:28 Labs: Laboratory Results - last 24 hr 12/10/21 11:28: WBC Cancelled, Corrected WBC Cancelled, RBC Cancelled, Hgb Cancelled, Hct Cancelled, MCV Cancelled, MCH Cancelled, MCHC Cancelled, RDW Std Deviation Cancelled, RDW Coeff of Alva Cancelled, Plt Count Cancelled, MPV Cancelled, Immature Gran % (Auto) Cancelled, Neut % (Auto) Cancelled, Lymph % (Auto) Cancelled, [place] % (Auto) Cancelled, Eos % (Auto) Cancelled, Baso % (Auto) Cancelled, Absolute Neuts (auto) Cancelled, Absolute Lymphs (auto) Cancelled, Total Counted Cancelled, Neutrophils % (Manual) Cancelled, Band Neutrophils % Cancelled, Lymphocytes % (Manual) Cancelled, Monocytes % (Manual) Cancelled, Eosinophils % (Manual) Cancelled, Basophils % (Manual) Cancelled, Metamyelocytes % Cancelled, Myelocytes % Cancelled, Promyelocytes % Cancelled, Blast Cells % Cancelled, Plasma Cell % (Manual) Cancelled, Other Cells % Cancelled, Nucleated RBC % Cancelled, Nucleated RBCs/100 WBC Cancelled, Differential Comment Cancelled, Diff Path Review Cancelled, Hypersegmented Neuts Cancelled, Atypical Lymphocytes Cancelled, Reactive Lymphocytes Cancelled, Smudge Cells Cancelled, Toxic Granulation Cancelled, Toxic Vacuolation Cancelled, Dohle Bodies Cancelled, Ronit Rods Cancelled, Platelet Estimate Cancelled, Plt Morphology Comment Cancelled, RBC Morphology Cancelled, Polychromasia Cancelled, Hypochromasia Cancelled, Poikilocytosis Cancelled, Basophilic Stippling Cancelled, Anisocytosis Cancelled, Microcytosis Cancelled, Macrocytosis Cancelled, Spherocytes Cancelled, Sickle Cells Cancelled, Target Cells Cancelled, Tear Drop Cells Cancelled, Ovalocytes Cancelled, Stomatocytes Cancelled, Hummel-Foley Bodies Cancelled, Carlin Cells Cancelled, Bite Cells Cancelled, Crenated Cell Cancelled, Acanthocytes (Spur) Cancelled, Rouleaux Cancelled, Schistocytes Cancelled 12/10/21 11:28: Sodium 139, Potassium 3.9, Chloride 99, Carbon Dioxide 32.0, Anion Gap 8, BUN 32 H, Creatinine 4.52 H, Estim Creat Clear Calc 13.01, Est GFR (MDRD) Af Amer 16 L, Est GFR (MDRD) Non-Af 13 L, BUN/Creatinine Ratio 7.1 L, Glucose 150 H, Calcium 9.6, Total Bilirubin 0.80, Direct Bilirubin 0.18, AST 50 H, ALT 20, Alkaline Phosphatase 36 L, Troponin I High Sens 5973 H*, Total Protein 7.3, Albumin 3.2, Globulin 4.1 12/10/21 11:28: B-Natriuretic Peptide 1660.1 H 12/10/21 12:05: D-Dimer Quant (PE/DVT) 0.95 H* 12/10/21 12:05: PT 15.4 H, INR 1.3, APTT 31.1 12/10/21 13:32: WBC 13.2 H, RBC 3.20 L, Hgb 10.0 L, Hct 30.3 L, MCV 94.7 H, MCH 31.3, MCHC 33.0, RDW Std Deviation 50.7 H, RDW Coeff of Alva 14.5, Plt Count 252, MPV 10.8, Immature Gran % (Auto) 0.500, Neut % (Auto) 85.1 H, Lymph % (Auto) 5.5 L, [place] % (Auto) 8.4, Eos % (Auto) 0.3, Baso % (Auto) 0.2, Absolute Neuts (auto) 11.2 H, Absolute Lymphs (auto) 0.73 L, Nucleated RBC % 0 Micro: Microbiology 12/10/21 11:35 Nasal Secretion SARS-CoV-2 Antigen (Rapid) - Final Radiology Impression Abdomen/Pelvis CT 12/10/21 11:27 IMPRESSION: Moderate right lower lobe and milder left lower lobe infiltrate. Moderate right and small left pleural effusion. Severe cortical thinning of both kidneys. Hyperdense lesion on by 10 mm anterior mid pole right kidney which could represent hemorrhagic cyst or solid mass. Prostate not visualized likely due to prostatectomy. Diffuse osseous metastases detailed above. Electronically Signed: Kvng Arambula MD, PIO at 12:43 EDT , Chest X-Ray 12/10/21 12:18 IMPRESSION: Bibasilar infiltrates and pleural effusions and left perihilar infiltrate detailed above. Electronically Signed: Kvng Arambula MD, PIO at 12:46 EDT Reading Location ID and State: [facility] / [place] Tel , Service support , Assessment & Plan Assessment/Plan (1) Non-ST elevated myocardial infarction (non-STEMI): (2) CHF (congestive heart failure): PLAN: Plan 1. Acute dyspnea, progressive, multifactorial, likely related to bilateral pleural effusion/pneumonia/CHF exacerbation/fluid overload Patient admitting chest x-ray and CT abdomen pelvis showed infiltrates and bilateral pleural effusion Patient is now on oxygen at the moment; he states that he is on oxygen with dialysis We will start him on IV vancomycin and Zosyn We will check urine streptococcal and legionella antigen, sputum culture Continue with breathing treatments 2. Elevated troponin likely secondary to acute non-STEMI Cannot rule out acute PE - continue on heparin drip, add aspirin 81 mg daily Cannot order CTA chest on account of severe allergy to contrast Will order V/q scan Cardiology consult 3. Acute exacerbation of heart failure with preserved EF, EF of 60% on last echo in 2020 versus fluid overload We will give a dose of Lasix 40 mg IV x1 2d-ECHO, fluid removal at dialysis 4. ESRD on HD, -W-, neohrology consult 5. Hypertension, continue home meds 6. Type 2 DM, on glipizide, will hold glipizide for now Continue on ISS with blood glucose checks 7. Prostate CA, unclear if in remission, osseous lesions on CT of abd/pelvis Will continue prostate CA meds 8. DVT prophylaxis?on heparin drip I discussed and explained in details the various types of CODE STATUS-full code, DNR CCA, DNR CC. Patient chose to be DNR CCA, no intubation Time spent discussing CODE STATUS 16 minutes Charges/Coding Visit Charges Inpatient E&M: 47708 Init Hosp L3 Procedures Hospitalists Procedures: [id number] Advncd Care Plan 30 Min
[2021-12-10 14:16] LABS: Lactic Acid 2.6 mmol/L (0.4-1.9)
--- NOTE | 2021-12-10 14:37 | ECHOCS_ITS ---
Reason For Study: DYSPNEA/SOB Procedure This was a 2D Doppler, Color Flow transthoracic echocardiogram. The study was technically difficult. Due to body habitus and SOB/DYSPNEA. Contrast injection was performed. Exam performed portable in patient room. Left Ventricle Severely dilated left ventricle. Severe segmental systolic dysfunction (see wall motion). The estimated ejection fraction is 20 %. Unable to assess diastolic dysfunction. Anterio-Basal: Hypokinetic. Lateral-Basal: Hypokinetic. Posterior-Basal: Hypokinetic. Basal anteroseptal: Hypokinetic. Mid-Anterior : Hypokinetic. Mid-Lateral : Hypokinetic. Mid-Posterior: Hypokinetic. Mid- Inferior: Hypokinetic. Mid-inferoseptal : Hypokinetic. Mid-anteroseptal : Hypokinetic. Tunas : Hypokinetic. Right Ventricle Normal RV size. Normal systolic function. Atria Normal left atrium. Normal right atrium. No doppler evidence for ASD. Mitral Valve There is no mitral annular calcification. Normal mitral valve. Moderate (2+) mitral valve insufficiency. Tricuspid Valve Normal tricuspid valve. Trivial tricuspid valve insufficiency. Unable to estimate RV systolic pressure due to insufficient tricuspid regurgitant envelope. Aortic Valve Trisinus/trileaflet aortic valve. Mild diffuse aortic valve calcification. Pulmonic Valve The pulmonic valve is not well visualized. Mild (1+) pulmonic valve insufficiency. Great Vessels Normal sized aortic root. Pericardium/Pleural No pericardial effusion. Epicardial fat. Medication Diluted definity 5.0ml given slow IV push to enhance endocardial definition. MMode/2D Measurements & Calculations LVIDd: 7.2 cm IVSd: 1.1 cm Ao root diam: 3.2 cm LVIDs: 5.6 cm LVPWd: 1.2 cm RVDd: 3.2 cm FS: 21.8 % LAV(MOD-bp): 85.4 ml LA A4 area: 25.4 cm2 LA dimension(2D): 5.2 cm LAV(MOD-bp) Indexed: 37.7 ml/m2 LAV(MOD-sp2): 88.2 ml LAV(MOD-sp4): 77.5 ml RA A4 area: 14.8 cm2 Doppler Measurements & Calculations MV E max cielo: 111.0 cm/sec Ao V2 max: 230.3 cm/sec LV V1 max: 75.1 cm/sec Ao max P.2 mmHg LV V1 max P.3 mmHg Ao V2 mean: 172.7 cm/sec LV V1 mean P.2 mmHg Ao mean P.8 mmHg LV V1 mean: 50.9 cm/sec Ao V2 VTI: 35.4 cm LV V1 VTI: 10.3 cm MR max cielo: 394.1 cm/sec PA V2 max: 72.0 cm/sec PI end-d cielo: 193.8 cm/sec MR max P.2 mmHg MR mean cielo: 263.0 cm/sec MR mean P.2 mmHg MR VTI: 78.6 cm ECHO/Echo Complete W/ Contrast Interpretation Summary The study was technically difficult. Contrast injection was performed. Severely dilated left ventricle. Severe segmental systolic dysfunction (see wall motion). The estimated ejection fraction is 20 %. Moderate (2+) mitral valve insufficiency. Trivial tricuspid valve insufficiency. Mild diffuse aortic valve calcification. Mild (1+) pulmonic valve insufficiency. Epicardial fat. Unable to estimate RV systolic pressure due to insufficient tricuspid regurgita nt envelope. Unable to assess diastolic dysfunction. Ordering Physician: Alla Tubbs Referring Physician: Darshan Solomon Performed By: Abena Evans RDCS, RVT
[2021-12-10 15:07] LABS: Troponin-I HS 5824 pg/mL (3.0-78.0)
[2021-12-10] MEDS: 0.9% Normal Saline 1,000 ML 75 ML IV (16:13)
[2021-12-10] MEDS: Ipratropium/Albuterol Sulfate 3 ML AMPUL.NEB INHALATION ×2 (16:54→21:53)
[2021-12-10 17:25] LABS: Allen Test Positive; Base Excess 5 mmol/L (-2 to +2); Bicarbonate 27.5 mmol/L (22-26); Blood Gas Specimen Type ART; FI02 21; PO2 72 mmHG (75-100); SITE L Radial; SO2 96 % (95-99); Total Carbon Dioxide 29 mmol/L; pCO2 31.8 mmHg (35-45); pH 7.55 (7.35-7.45)
[2021-12-10] MEDS: Aspirin 81 MG TAB.CHEW PO (17:36)
[2021-12-10] MEDS: Furosemide 40 MG/4 ML Vial IV (17:36)
[2021-12-10 17:38] LABS: Reflex Lactate? Y
[2021-12-10 18:15] LABS: Bedside Glucose 256 mg/dL (74-106)
--- NOTE | 2021-12-10 19:23 | CON.PCM.CA_ITS ---
Assessment & Plan Assessment/Plan (1) Non-ST elevated myocardial infarction (non-STEMI): PLAN: The patient has findings compatible with a non-ST segment elevation TX. At the moment it is unclear as to whether this represents a type I event secondary to a recent acute coronary syndrome versus a type II event secondary to what appears to be underlying CHF from an underlying cardiomyopathy (CAD versus non-CAD related-unclear) superimposed upon chronic renal insufficiency/failure. At the moment the patient's cardiac enzymes will be followed. His ECG can be followed for any obvious acute changes. He is already undergone evaluation with a transthoracic echocardiogram. Ideally he would undergo further evaluation with a diagnostic cardiac catheterization. However, at the moment he is not clinically able to lie supine, secondary to his respiratory related issues, to undergo such a procedure. Thus, he will need to continue medical therapy. He will need to continue dialysis therapy to hopefully improve his volume status so he can at some point time in the future undergo such a procedure. When that time comes he will need to be considered for IV contrast related allergy premedication. He states after previous IV contrast procedure he became nauseated. He does not recall any respiratory related events or rash type hiv es, etc. However, as he is unclear as to what his true allergy was separate from nausea, premedications would be considered prudent. (2) CHF (congestive heart failure): PLAN: The patient has findings which appear to be compatible with acute on chronic CHF. Based upon his echocardiogram this appears to be systolic mediated at this time. He will need to continue medical therapy. He may not be an ideal candidate at the moment for initiation of beta-jayda therapy until he is somewhat more stable . He can attempt diuretic therapy. However, it is unclear that diuretics will be beneficial with his underlying chronic renal failure. Thus his volume status will need to be managed by hemodialysis. He may need to be considered for afterload reducing agents. Based upon his renal insufficiency if there is concern about agents such as KARL inhibitor's or ARB's, etc., then he could be considered for combination of nitrates and hydralazine as tolerated. (3) Cardiomyopathy: PLAN: He does appear to have a cardiomyopathy. This appears to be new since his previous noninvasive studies. The etiology is unclear as to whether this is CAD or non-CAD related. At the moment he will continue medical therapy. At some point in time when he is able to lie supine comfortably, then, status post premedications, hopefully he can undergo evaluation with diagnostic cardiac catheterization to evaluate for any obvious CAD that may be contributing to his findings. (4) Nonrheumatic aortic (valve) stenosis: PLAN: He has in the past had aortic valve calcification and concern of an element of aortic valve stenosis. At the moment he will continue to be followed. (5) Mixed hyperlipidemia: PLAN: He should continue risk factor evaluation and care. (6) Essential (primary) hypertension: PLAN: His blood pressure can be followed and his medicines adjusted accordingly taking into consideration his renal insufficiency. (7) Type 2 diabetes mellitus: PLAN: He will continue medical therapy per internal medicine. (8) Anemia: QUALIFIERS: Anemia type: unspecified type Qualified Code(s): D64.9 - Anemia, unspecified PLAN: His hemoglobin can be followed. If his hemoglobin declines then he may need to be considered for PRBC transfusion to support his oxygen carrying capacity. (9) Chronic kidney failure: PLAN: He will continue evaluation care per nephrology. He will need to continue dialysis therapy to hopefully improve his overall volume status especially from a pulmonary standpoint. (10) Prostate CA: PLAN: It appears there is concern based upon his history of prostate carcinoma, despite his previous surgery and medical management, that he has radiologic lesions compatible with metastatic disease. 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 This will need to be taken into consideration with his future evaluation and care. Addt'l Comments The patient's case was discussed and reviewed with the patient and Dr. Tubbs of the [facility] hospitalist staff. This note was generated using a voice recognition system and there may be incorrect words, spelling or punctuation that were not noted when reviewing the office note prior to saving. 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 He states he has been progressively getting worse especially over the last 2 weeks. He attributed this to his underlying chronic renal insufficiency. He was hoping dialysis would correct his issues. However, over this period of time he states he has been more short of breath and dyspneic especially with exertion, more tired and fatigued especially with exertion, and feeling weak . He states that he is not sure he could walk across the room without potentially collapsing from his weakness. He has denied any ongoing chest discomfort. He admits to orthopnea and PND. He does have an element of chronic lower extremity peripheral pitting edema which he attempts to control between his dialysis and his support/compression type stockings. He has denied any near-syncope or syncope. He states that he has felt especially over the last few days that he probably should not have come to the hospital sooner than he did because of how he fell. He notes he had a rough time yesterday in dialysis. Today he requested his bring him to the hospital for further evaluation and care. He was evaluated in the emergency department. He was found to have elevated troponin I levels, and elevated BNP level, evidence of his chronic anemia, evidence of his chronic renal insufficiency, and on chest x-ray concerns of infiltrates and pleural effusions. He also underwent evaluation with a noncontrast abdominal/pelvic CT scan. This demonstrated concerns of lower lobe infiltrates and pleural effusions as well as concerns of a lesion with respect to the right kidney potentially hemorrhagic cyst although a solid mass cannot be excluded, and diffuse osseous metastatic appearing lesions throughout the osseous structures imaged. His ECG demonstrated the appearance of sinus tachycardia with a left bundle branch block pattern. He subsequently underwent evaluation with a transthoracic echocardiogram. The results are noted below. In brief this demonstrated what appeared to be a severely dilated left ventricle with severe segmental left ventricular systolic dysfunction with an estimated LVEF of 20% superimposed upon moderate MR, mild diffuse aortic valve calcification, and mild MA. The RV systolic pressure was unable to be estimated. He has been started on medical management. From a cardiovascular standpoint this is included aspirin, IV heparin, and lipid-lowering therapy. He has also been placed on IV antibiotic therapy based on concerns of pulmonary infiltrates. FOR[facility]LY [facility] Medical History Alcohol use Anemia Cancer Cardiology follow-up encounter CHF (congestive heart failure) CKD (chronic kidney disease) stage 4, GFR 15-29 ml/min CPAP (continuous positive airway pressure) dependence Diabetes Dietary restriction DM (diabetes mellitus) Gastric reflux History of CHF (congestive heart failure) History of echocardiogram History of edema History of renal disease History of steroid therapy History of stress test Leg cramps Mixed hyperlipidemia Non-smoker Nonrheumatic aortic (valve) stenosis BELLE on CPAP Problem with dialysis access Prostate CA Shortness of breath on exertion Spinal stenosis Type 2 diabetes mellitus Wears glasses Home Medications atorvastatin 10 mg tablet 10 mg PO QHS cholesterol 08/14/16 [History Last Taken 04/15/20] fenofibrate micronized 134 mg capsule 134 mg PO DAILY cholesterol 08/14/16 [History Last Taken 04/16/20] abiraterone 250 mg tablet 1,000 mg PO DAILY@1030 prostate cancer 07/20/19 [History Last Taken 04/15/20] docusate sodium 100 mg capsule 100 mg PO BID STOOL 04/16/20 [History Last Taken 04/16/20] glipizide 2.5 mg tablet, extended release 24 hr 2.5 mg PO DAILY dm 04/16/20 [History Last Taken 04/16/20] prednisone 5 mg tablet 5 mg PO DAILY steroid 12/12/20 [History Last Taken Unknown] leuprolide (3 month) 22.5 mg (3 month) intramuscular syringe kit 22.5 mg IM [id number] 09/03/21 [History Last Taken Unknown] vitamin B complex-vitamin C-folic acid 0.8 mg tablet (Nephro-Rizwana) 1 tab PO DAILY 09/03/21 [History Last Taken Unknown] vitamins-lipotropics 200 mg-100 mg tablet (Lipo-Flavonoid Plus) 1 tab PO .COMPLEX 09/03/21 [History Last Taken Unknown] doxazosin 4 mg tablet 4 mg PO QHS BPH 10/08/21 [History Last Taken Unknown] fluoxetine 10 mg capsule (Prozac) 20 mg PO DAILY 10/08/21 [History Last Taken Unknown] tamsulosin 0.4 mg capsule 0.4 mg PO DAILY 12/10/21 [History Last Taken Unknown] trazodone 100 mg tablet 100 mg PO QHS 12/10/21 [History Last Taken Unknown] Allergy/AdvReac Type Severity Reaction Status Date / Time Iodinated Contrast Media Allergy Severe SOB, Verified 12/10/21 10:15 anyaphylaxis Family History Father Heart disease Myocardial infarction Brother Cancer Prostate Surgical History History of arteriovenostomy for renal dialysis (~02/2021) History of arthroscopy of right knee History of bilateral cataract extraction History of esophagogastroduodenoscopy (EGD) History of incisional hernia repair History of prostatectomy History of transurethral resection of prostate Hx of colonoscopy Social History Smoking Status: Never smoker alcohol intake: never substance use type: does not use caffeine: Yes Type: coffee Number of servings: 1 ROS Constitutional Constitutional: Reports fatigue and weakness Eyes Eyes: Reports as per HPI ENT HEENT: Reports as per HPI Cardiovascular Cardiovascular: Reports dyspnea, dyspnea at rest, dyspnea on exertion, edema and orthopnea Respiratory/Chest Respiratory/Chest: Reports dyspnea and dyspnea on exertion Gastrointestinal Gastrointestinal: Reports as per HPI Genitourinary Genitourinary: Reports as per HPI Musculoskeletal Musculoskeletal: Reports as per HPI Integumentary Integumentary: Reports as per HPI Neurologic Neurologic: Reports as per HPI Psychiatric Psychiatric: Reports as per HPI Physical Exam Const alert and oriented x3 Orientation / Consciousness: awake HEENT normocephalic, head/scalp atraumatic and hearing grossly normal bilaterally Eyes PERRL, EOMs intact bilaterally, conjunctivae normal and no scleral icterus Neck full ROM and supple Resp Auscultation: diminished lung sounds bilateral lower Cardio Jugular Venous Distention: JVD Rate: tachycardic Rhythm: regular rhythm Heart Sounds: S1 normal and S2 normal GI normal to inspection, nondistended, normoactive bowel sounds Extremity General Extremity: edema bilateral lower extremity Details: mild Skin Wound Narrative: Right arm/forearm: Ecchymoses Psych mental status grossly normal Risk Stratification Risk Stratification Applicable: Yes Age >/= 65: Yes >/= 3 CAD Risk Factors (HTN, HLD, DM, family hx of CAD, or current smoker): Yes Aspirin Use in the Past 7 Days: No Severe Angina (>/= episodes in 24 hours): No EKG ST Changes >/= 0.5mm: No Positive Cardiac Marker: Yes MARIANNE Risk Stratification Score: 3 MARIANNE % Risk: 13% Risk Procedure Criteria Type of Procedure Procedure Type: Elective Elective Risks - COVID COVID Risk Discussion: The surgeon/proceduralist and patient have discussed in detail the risk of exposure to and/or potential harm posed by the COVID-19 virus with having a riggs rgery/procedure at this time versus the risk of delaying the surgery/procedure. It is not possible to know either the risk of delaying the surgery or procedure or chance of getting an infection with perfect accuracy, but a joint decision was made between the patient and the surgeon/proceduralist to proceed at this time with the scheduled surgery/procedure as indicated on the consent form. Objective Data Vital Signs: Vital Signs Temp Pulse Resp BP Pulse Ox O2 Del Method 98.2 F 114 H 22 H 110/64 92 Room Air 12/10/21 14:47 12/10/21 17:38 12/10/21 17:38 12/10/21 14:47 12/10/21 17:38 12/10/21 17:38 Oxygen Delivery Method Room Air Weight: 242 lb 1.081 oz Body Mass Index (BMI) 34.7 Intake & Output: Intake and Output for Last 24 Hours 12/08/21 12/09/21 12/10/21 23:59 23:59 23:59 Intake Total 248.75 / 248.75 Balance 248.75 / 248.75 Lab / Micro Data Result Diagrams: 12/10/21 13:32 12/10/21 11:28 Labs: Laboratory Results - last 24 hr 12/10/21 11:28: WBC Cancelled, Corrected WBC Cancelled, RBC Cancelled, Hgb Cancelled, Hct Cancelled, MCV Cancelled, MCH Cancelled, MCHC Cancelled, RDW Std Deviation Cancelled, RDW Coeff of Alva Cancelled, Plt Count Cancelled, MPV Cancelled, Immature Gran % (Auto) Cancelled, Neut % (Auto) Cancelled, Lymph % (Auto) Cancelled, Ritchie % (Auto) Cancelled, Eos % (Auto) Cancelled, Baso % (Auto) Cancelled, Absolute Neuts (auto) Cancelled, Absolute Lymphs (auto) Cancelled, Total Counted Cancelled, Neutrophils % (Manual) Cancelled, Band Neutrophils % Cancelled, Lymphocytes % (Manual) Cancelled, Monocytes % (Manual) Cancelled, Eosinophils % (Manual) Cancelled, Basophils % (Manual) Cancelled, Metamyelocytes % Cancelled, Myelocytes % Cancelled, Promyelocytes % Cancelled, Blast Cells % Cancelled, Plasma Cell % (Manual) Cancelled, Other Cells % Cancelled, Nucleated RBC % Cancelled, Nucleated RBCs/100 WBC Cancelled, Differential Comment Cancelled, Diff Path Review Cancelled, Hypersegmented Neuts Cancelled, Atypical Lymphocytes Cancelled, Reactive Lymphocytes Cancelled, Smudge Cells Cancelled, Toxic Granulation Cancelled, Toxic Vacuolation Cancelled, Dohle Bodies Cancelled, Ronit Rods Cancelled, Platelet Estimate Cancelled, Plt Morphology Comment Cancelled, RBC Morphology Cancelled, Polychromasia Cancelled, Hypochromasia Cancelled, Poikilocytosis Cancelled, Basophilic Stippling Cancelled, Anisocytosis Cancelled, Microcytosis Cancelled, Macrocytosis Cancelled, Spherocytes Cancelled, Sickle Cells Cancelled, Target Cells Cancelled, Tear Drop Cells Cancelled, Ovalocytes Cancelled, Stomatocytes Cancelled, Hummel-Ipswich Bodies Cancelled, Curlew Cells Cancelled, Bite Cells Cancelled, Crenated Cell Cancelled, Acanthocytes (Spur) Cancelled, Rouleaux Cancelled, Schistocytes Cancelled 12/10/21 11:28: Sodium 139, Potassium 3.9, Chloride 99, Carbon Dioxide 32.0, Anion Gap 8, BUN 32 H, Creatinine 4.52 H, Estim Creat Clear Calc 13.01, Est GFR (MDRD) Af Amer 16 L, Est GFR (MDRD) Non-Af 13 L, BUN/Creatinine Ratio 7.1 L, Glucose 150 H, Calcium 9.6, Total Bilirubin 0.80, Direct Bilirubin 0.18, AST 50 H, ALT 20, Alkaline Phosphatase 36 L, Troponin I High Sens 5973 H*, Total Protein 7.3, Albumin 3.2, Globulin 4.1 12/10/21 11:28: B-Natriuretic Peptide 1660.1 H 12/10/21 12:05: D-Dimer Quant (PE/DVT) 0.95 H* 12/10/21 12:05: PT 15.4 H, INR 1.3, APTT 31.1 12/10/21 13:32: WBC 13.2 H, RBC 3.20 L, Hgb 10.0 L, Hct 30.3 L, MCV 94.7 H, MCH 31.3, MCHC 33.0, RDW Std Deviation 50.7 H, RDW Coeff of Alva 14.5, Plt Count 252, MPV 10.8, Immature Gran % (Auto) 0.500, Neut % (Auto) 85.1 H, Lymph % (Auto) 5.5 L, Ritchie % (Auto) 8.4, Eos % (Auto) 0.3, Baso % (Auto) 0.2, Absolute Neuts (auto) 11.2 H, Absolute Lymphs (auto) 0.73 L, Nucleated RBC % 0 12/10/21 13:32: Lactic Acid 2.6 H* 12/10/21 13:32: Troponin I High Sens 5824 H* 12/10/21 17:45: POC Glucose 256 H Micro: Microbiology 12/10/21 11:35 Nasal Secretion SARS-CoV-2 Antigen (Rapid) - Final ABG Data ABG results: ABG 12/10/21 17:18 Specimen Type ART Sample Site L Radial pH 7.55 H Bicarbonate Actual 27.5 H Total CO2 29 Base Excess 5 H O2 Saturation 96 O2 % 21 ABG pCO2 31.8 L ABG pO2 72 L Michael Test Positive Cardiology Labs/Tests 12/10/21 11:28: WBC Cancelled, Corrected WBC Cancelled, RBC Cancelled, Hgb Cancelled, Hct Cancelled, MCV Cancelled, MCH Cancelled, MCHC Cancelled, Plt Count Cancelled, MPV Cancelled, Immature Gran % (Auto) Cancelled, Neut % (Auto) Cancelled, Lymph % (Auto) Cancelled, Ritchie % (Auto) Cancelled, Eos % (Auto) Cancelled, Baso % (Auto) Cancelled, Absolute Neuts (auto) Cancelled, Total Counted Cancelled, Neutrophils % (Manual) Cancelled, Band Neutrophils % Cancelled, Lymphocytes % (Manual) Cancelled, Monocytes % (Manual) Cancelled, Eosinophils % (Manual) Cancelled, Basophils % (Manual) Cancelled, Metamyelocytes % Cancelled, Myelocytes % Cancelled, Promyelocytes % Cancelled, Blast Cells % Cancelled, Plasma Cell % (Manual) Cancelled, Other Cells % Cancelled, Nucleated RBC % Cancelled 12/10/21 11:28: Sodium 139, Potassium 3.9, Chloride 99, Carbon Dioxide 32.0, Anion Gap 8, BUN 32 H, Creatinine 4.52 H, Est GFR (MDRD) Af Amer 16 L, Est GFR (MDRD) Non-Af 13 L, BUN/Creatinine Ratio 7.1 L, Glucose 150 H, Calcium 9.6, To andrew Bilirubin 0.80, Direct Bilirubin 0.18 12/10/21 11:28: B-Natriuretic Peptide 1660.1 H 12/10/21 12:05: D-Dimer Quant (PE/DVT) 0.95 H* 12/10/21 12:05: PT 15.4 H, INR 1.3, APTT 31.1 12/10/21 13:32: WBC 13.2 H, RBC 3.20 L, Hgb 10.0 L, Hct 30.3 L, MCV 94.7 H, MCH 31.3, MCHC 33.0, Plt Count 252, MPV 10.8, Immature Gran % (Auto) 0.500, Neut % (Auto) 85.1 H, Lymph % (Auto) 5.5 L, Ritchie % (Auto) 8.4, Eos % (Auto) 0.3, Baso % (Auto) 0.2, Absolute Neuts (auto) 11.2 H, Nucleated RBC % 0 12/10/21 13:32: Lactic Acid 2.6 H* 12/10/21 17:18: pH 7.55 H, Bicarbonate Actual 27.5 H, Base Excess 5 H, O2 Saturation 96, ABG pCO2 31.8 L, ABG pO2 72 L, Michael Test Positive Rhythm: Sinus rhythm EKG: Sinus rhythm; left bundle branch block pattern ECHO: Transthoracic echocardiogram: 04-16-2020 Interpretation Summary The study was technically difficult. Contrast injection was performed. Based upon the 2D echocardiographic and contrast enhanced images obtained there appears to be grossly normal left ventricular size, wall motion, and systolic function. The estimated ejection fraction is 60 %. Mild concentric left ventricular hypertrophy. The left atrium is mildly enlarged. Mild (1+) mitral valve insufficiency. Trivial tricuspid valve insufficiency. Mild aortic stenosis. Mild (1+) pulmonic valve insufficiency. Unable to estimate RV systolic pressure/pulmonary artery pressure due to technically difficult study. Transmitral diastolic flow velocities suggest diastolic dysfunction (pseudonormal pattern). Echocardiogram 12/10/21 14:37 Interpretation Summary The study was technically difficult. Contrast injection was performed. Severely dilated left ventricle. Severe segmental systolic dysfunction (see wall motion). The estimated ejection fraction is 20 %. Moderate (2+) mitral valve insufficiency. Trivial tricuspid valve insufficiency. Mild diffuse aortic valve calcification. Mild (1+) pulmonic valve insufficiency. Epicardial fat. Unable to estimate RV systolic pressure due to insufficient tricuspid regurgitant envelope. Unable to assess diastolic dysfunction. Stress Test: Stress Test Report Date: 12-12-2020 Procedure: Pharmacologic stress nuclear imaging study? Indications: Shortness of breath/dyspnea on exertion; aortic valve disorder; congestive heart failure Consent: Per the patient Procedure: The patient underwent pharmacologic (Regadenoson 0.4mg ) evaluation with a peak heart rate of 75 beats per minute (53%predicted maximal heart rate) and a peak blood pressure of 150/62 mmHg. The baseline ECG demonstrated sinus rhythm; poor R wave progression; nonspecific ST segment abnormality.? The peak pharmacologic ECG demonstrated no obvious ECG changes. There were no cardiac dysrhythmias pretest, during pharmacologic infusion, or recovery. There was no complaint of chest discomfort during pharmacologic infusion or recovery. The examination was discontinued secondary to completion of protocol. Impression: 1.? Pharmacologic (Regadenoson) evaluation 2.? Peak pharmacologic ECG with continued nonspecific ST segment abnormality with no obvious ECG changes. 3.? There were no cardiac dysrhythmias pretest, during pharmacologic infusion, o r recovery. 4.? Nuclear images pending Myocardial perfusion imaging study: Technique: The patient was injected with 14.7 millicuries of technetium 99m Cardiolite and subsequently rest SPECT Cardiolite nuclear imaging was obtained in the horizontal long, vertical long, and short axis views. The patient underwent pharmacologic (Regadenoson) evaluation with a peak heart rate of 75 beats per minute (53% percent predicted maximal heart rate) and a peak blood pressure of 150/62 mmHg. The patient was injected with 45.0 millicuries of technetium 99m Cardiolite and subsequently stress SPECT Cardiolite nuclear imaging was obtained in the horizontal long, vertical long, and short axis views.? A gated Cardiolite study at peak stress was obtained. Interpretation: Rest and stress SPECT Cardiolite nuclear imaging status post realignment, normalization, and attenuation correction demonstrate the appearance of a small area of diminished myocardial perfusion tracer uptake in the mid inferior segmen ts which appears to be more prominent at rest as opposed to stress.? There is end systolic thickening and brightening.? The gated Cardiolite study demonstrates myocardial thickening and inward wall motion.? The reported LVEF is 53%. Impression: 1.? Rest and stress myocardial nuclear imaging demonstrate myocardial perfusion changes appearing compatible with shifting soft tissue attenuation/artifact being more prominent at rest as opposed to stress with no myocardial perfusion changes considered diagnostic for associated stress-induced myocardial ischemia. 2.? The gated Cardiolite study reports an LVEF of 53%. Radiography Diagnostic Testing: Radiology Impression Abdomen/Pelvis CT 12/10/21 11:27 IMPRESSION: Moderate right lower lobe and milder left lower lobe infiltrate. Moderate right and small left pleural effusion. Severe cortical thinning of both kidneys. Hyperdense lesion on by 10 mm anterior mid pole right kidney which could represent hemorrhagic cyst or solid mass. Prostate not visualized likely due to prostatectomy. Diffuse osseous metastases detailed above. Electronically Signed: Kvng Arambula MD, JD at 12:43 EDT , Chest X-Ray 12/10/21 12:18 IMPRESSION: Bibasilar infiltrates and pleural effusions and left perihilar infiltrate detailed above. Electronically Signed: Kvng Arambula MD, JD at 12:46 EDT , Echocardiogram 12/10/21 14:37 Interpretation Summary The study was technically difficult. Contrast injection was performed. Severely dilated left ventricle. Severe segmental systolic dysfunction (see wall motion). The estimated ejection fraction is 20 %. Moderate (2+) mitral valve insufficiency. Trivial tricuspid valve insufficiency. Mild diffuse aortic valve calcification. Mild (1+) pulmonic valve insufficiency. Epicardial fat. Unable to estimate RV systolic pressure due to insufficient tricuspid regu rgitant envelope. Unable to assess diastolic dysfunction. Ordering Physician: Alla Tubbs Referring Physician: Darshan Solomon Performed By: Abena Evans RDCS, RVT
[2021-12-10 19:44] LABS: Partial Thromboplast Time 62.9 Seconds (24.1-36.2)
[2021-12-10 19:51] LABS: Troponin-I HS 4928 pg/mL (3.0-78.0)
[2021-12-10 19:52] LABS: Lactic Acid 2.7 mmol/L (0.4-1.9)
--- NOTE | 2021-12-10 19:55 | NURSING ---
Pts primary rn aware of lactic of 2.7 and troponin of 4928 at this time.
--- NOTE | 2021-12-10 20:18 | PCM.RX.CS ---
Consult Pharmacy has been consulted to manage selected antiobiotic: Vancomycin Type of Consult: New start Suspected Infection: Pneumonia Labs: Sodium 139 mmol/L (136-145) 12/10/21 11:28 Potassium 3.9 mmol/L (3.5-5.1) 12/10/21 11:28 Chloride 99 mmol/L (98-107) 12/10/21 11:28 Carbon Dioxide 32.0 mmol/L (21.0-32.0) 12/10/21 11:28 Anion Gap 8 (5-15) 12/10/21 11:28 BUN 32 mg/dL (7-18) H 12/10/21 11:28 Creatinine 4.52 mg/dL (0.70-1.30) H 12/10/21 11:28 Est GFR (MDRD) Af Amer 16 mL/min (>60) L 12/10/21 11:28 Est GFR (MDRD) Non-Af 13 mL/min (>60) L 12/10/21 11:28 BUN/Creatinine Ratio 7.1 RATIO (10-20) L 12/10/21 11:28 Glucose 150 mg/dL (74-106) H 12/10/21 11:28 Microbiology: Microbiology 12/10/21 11:35 Nasal Secretion SARS-CoV-2 Antigen (Rapid) - Final Weight used for dosin.8 kg Estimated Creatinine Clearance: ON HD Goal Trough: 15-20 mcg/mL Pharmacy Plan for Drug Dosing: Give initial dose of 1750mg IV x1. When it is confirmed when the patient is going to received the next dialysis session, pharmacy will scheduled the next dose of vanc after that next dialysis session (will be 750mg IV x1 based on the patient's weight per protocol). After that next dose is given, any vanc doses after that will be guided by pre-dialysis random vanc levels which pharmacy will order after the dialysis days are confirmed. Pharmacy Service will continue to monitor and adjust dosing as required. Labs to be done on [date and time ordered]: to be determined after dialysis sessions are confirmed
[2021-12-10] MEDS: Docusate Sodium 100 MG Capsule PO (21:06)
[2021-12-10] MEDS: Atorvastatin Calcium 10 MG Tablet PO (21:06)
[2021-12-10] MEDS: traZODone 100 MG Tablet PO (21:06)
[2021-12-10 22:05] LABS: Bedside Glucose 200 mg/dL (74-106)
[2021-12-10] MEDS: Midodrine HCl 5 MG Tablet 10 MG PO (22:24)
--- NOTE | 2021-12-10 22:33 | CPS ---
Pt is supposed to wear Cpap of 6. 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 RT does not feel it is appropriate to apply Cpap at this time. Pt is on 2L nasal o2 throughout dialysis per dialysis MD.
--- NOTE | 2021-12-10 22:41 | DIALYSIS ---
Called in for ultrafiltration treatment by Dr. Lina Abarca. Patient's SBP 72, patient sitting up in chair using accessory muscles to breath, however able to talk. Dr. Abarca called and updated on patient's status, states not to dialyze patient with this low BP and ordered midodrine 10mg. Hospitalist not going to transfer patient to ICU at this time. Most recent BP 83/43. Treatment cancelled at this time, will attempt treatment 12/11.
--- NOTE | 2021-12-10 23:20 | NURSING ---
Report given to [employer].
--- NOTE | 2021-12-10 23:22 | PN.HOSP_ITS ---
Hospitalist Note Notified by nursing of low BPs (w SBP in the 70s). I went to check on the patient myself. Checked the blood pressure in his left upper extremity and his blood pressure was 70 systolic over 50s diastolic. Patient's EF is 20% down from 60% in 2020. Discussed with the patient that he would not build to get dialysis as his blood pressure is too low and that he would need to be started on vasopressors. Told him that with the vasopressors he may require a central line in his neck. Patient was agreeable. Patient be transferred to the [facility] care unit and initiated on Levophed. Patient is also on prednisone 5 mg daily. Cannot rule out adrenal insufficiency complicating the situation so patient will be started on hydrocortisone 100 mg 3 times daily. Consult critical care.
[2021-12-11] VITALS (22 sets, daily range): BP systolic 76–95; BP diastolic 51–66; PULSE 95–110; RESP 18–36; TEMP 35.8–36.5; O2SAT 91–100
[2021-12-11 00:39] LABS: Partial Thromboplast Time 57.2 Seconds (24.1-36.2)
[2021-12-11 01:01] LABS: Absolute Lymphocyte Count 0.86 X10^3/uL (0.83-4.51); Absolute Neutrophil Count 11.1 X10^3/uL (2.0-7.7); Basophil# 0.03 X10^3/uL; Basophil% 0.2 % (0-1); Eosinophil# 0.02 X10^3/uL; Eosinophils% 0.2 % (0-5); Hematocrit 29.4 % (40-54); Hemoglobin 9.5 g/dL (13.0-16.5); Lymphocyte # 0.86 X10^3/ul (0.83-4.51); Lymphocyte % 6.5 % (19-41); Mean Corp Hgb Conc 32.3 g/dL (32-36); Mean Corpuscular Hgb 30.5 pg (27.0-32.0); Mean Corpuscular Volume 94.5 fL (80-94); Mean Platelet Vol. 11.2 fl (6.2-12.0); Monocyte# 1.05 X10^3/uL; NRBC Flagged by Analyzer 0 % (0-5); Neutrophil # 11.09 X10^3/uL (2.7-7.7); Neutrophil % 84.1 % (47-70); Platelet Count 236 K/mm3 (150-450); RBC Distribution Width CV 14.6 % (11.6-14.6); RBC Distribution Width SD 50.3 fl (35.1-43.9); Red Blood Count 3.11 M/mm3 (4.6-6.2); White Blood Count 13.2 K/mm3 (4.4-11.0)
[2021-12-11] MEDS: Hydrocortisone Sod Succinate 100 MG/2 ML Vial IV ×2 (01:13→06:50)
[2021-12-11 01:15] LABS: ALB/GLOB Ratio 0.7 RATIO (0.9-2.4); AST(SGOT) 83 U/L (15-37); Alanine Aminotransfer ALT/SGPT 66 U/L (16-61); Alkaline Phosphatase 39 U/L (45-117); Anion Gap 12 (5-15); BUN 40 mg/dL (7-18); BUN/Creat Ratio 7.1 RATIO (10-20); Calcium,Total 9.5 mg/dL (8.5-10.1); Chloride 99 mmol/L (98-107); Creatinine, Serum 5.61 mg/dL (0.70-1.30); EST Glomerular Filtration Rate 10 mL/min (>60); Est Glom Filt Rate - Afr Amer 13 mL/min (>60); Estimated Creatinine Clearance 10.48 ml/min; Globulin 4.2 g/dL (2.2-4.2); Glucose 234 mg/dL (74-106); Potassium 3.6 mmol/L (3.5-5.1); Protein, Total 7.2 g/dL (6.4-8.2); Sodium Level 138 mmol/L (136-145)
--- NOTE | 2021-12-11 04:56 | NURSING ---
Unable to give fluids d/t patient's BNP and fluid overload
--- NOTE | 2021-12-11 05:29 | NURSING ---
Pt did not receive fluids d/t BNP and fluid overload aware
[2021-12-11] MEDS: HEPARIN/D5w 25,000 UNITS 25,000 UNITS/250 ML IV.SOLN. 15 UNITS CONT INF (05:32)
[2021-12-11] MEDS: 0.9% Saline Lock 10 ML Syringe IV (06:50)
[2021-12-11] MEDS: Ipratropium/Albuterol Sulfate 3 ML AMPUL.NEB INHALATION ×2 (07:23→11:27)
--- NOTE | 2021-12-11 07:34 | NURSING ---
Due to monitor malfuction, no VS charted for levophed titrations [id number]
--- NOTE | 2021-12-11 07:41 | PN.HOSP_ITS ---
Subjective Subjective Follow-up on NSTEMI/Acute CHF/fluid overload: Patient was seen and examined. Overnight, he was hypotensive, transferred to the ICU; started on Levophed through the peripheral line. He complains of left- sided chest pain that is somehow reproducible. Denied dizziness or palpitation. Still complains of feeling unwell. No fevers or chills. He did not have any urine output with Lasix IV yesterday. Objective Data Objective Data Vital Signs: Vital Signs Temp Pulse Resp BP Pulse Ox O2 Del Method O2 Flow Rate 97.7 F L 102 H 35 H 95/58 L 96 Nasal Cannula 2 12/11/21 05:26 12/11/21 07:00 12/11/21 07:00 12/11/21 07:00 12/11/21 07:00 12/11/21 07:00 12/11/21 07:00 Oxygen Flow Rate (L/min) 2 Oxygen Delivery Method Nasal Cannula Weight: 109.8 kg Body Mass Index (BMI) 34.7 Intake & Output: Intake and Output for Last 24 Hours 12/09/21 12/10/21 12/11/21 23:59 23:59 23:59 Intake Total 883.75 / 883.75 335.16 / 335.16 Balance 883.75 / 883.75 335.16 / 335.16 Medical Nutrition Assessment Dietitian: Malnutrition Criteria Met Start: 12/10/21 16:54 Freq: Status: Active Protocol: Document 12/10/21 16:54 AG (Rec: 12/10/21 16:54 [id number]) Nutrition Malnutrition Evidence of Malnutrition Exists Yes Malnutrition (severe): Acute Illness/Injury Evidenced By Suboptimal Energy Intake ( Severe),Weight Loss (Severe) Clinical Problem Acute Disease or Injury Related Malnutrition Etiology severe, acute malnutrition related to inadequate oral intake w/ decreased appetite Signs/Symptoms as evidenced by unintentional 7.9#/3% wt loss x 1 week, estimated PO intake meeting < 50% of estimated energy needs > 5 days [employer] Status Active Problem Recommendation Dietitian Recommendations/Changes continue cardiac diet as tolerated; will add 120mL nepro carb steady ONS w/ medpass 4x/day d/t acute malnutrition Lab / Micro Data Result Diagrams: 12/11/21 00:25 12/11/21 00:25 Labs: Laboratory Results - last 24 hr 12/10/21 11:28: WBC Cancelled, Corrected WBC Cancelled, RBC Cancelled, Hgb Cancelled, Hct Cancelled, MCV Cancelled, MCH Cancelled, MCHC Cancelled, RDW Std Deviation Cancelled, RDW Coeff of Alva Cancelled, Plt Count Cancelled, MPV Cancelled, Immature Gran % (Auto) Cancelled, Neut % (Auto) Cancelled, Lymph % (Auto) Cancelled, Fergus % (Auto) Cancelled, Eos % (Auto) Cancelled, Baso % (Auto) Cancelled, Absolute Neuts (auto) Cancelled, Absolute Lymphs (auto) Cancelled, Total Counted Cancelled, Neutrophils % (Manual) Cancelled, Band Neutrophils % Cancelled, Lymphocytes % (Manual) Cancelled, Monocytes % (Manual) Cancelled, Eosinophils % (Manual) Cancelled, Basophils % (Manual) Cancelled, Metamyelocytes % Cancelled, Myelocytes % Cancelled, Promyelocytes % Cancelled, Blast Cells % Cancelled, Plasma Cell % (Manual) Cancelled, Other Cells % Cancelled, Nucleated RBC % Cancelled, Nucleated RBCs/100 WBC Cancelled, Differential Comment Cancelled, Diff Path Review Cancelled, Hypersegmented Neuts Cancelled, Atypical Lymphocytes Cancelled, Reactive Lymphocytes Cancelled, Smudge Cells Cancelled, Toxic Granulation Cancelled, Toxic Vacuolation Cancelled, Dohle Bodies Cancelled, Ronit Rods Cancelled, Platelet Estimate Cancelled, Plt Morphology Comment Cancelled, RBC Morphology Cancelled, Polychromasia Cancelled, Hypochromasia Cancelled, Poikilocytosis Cancelled, Basophilic Stippling Cancelled, Anisocytosis Cancelled, Microcytosis Cancelled, Macrocytosis Cancelled, Spherocytes Cancelled, Sickle Cells Cancelled, Target Cells Ca ncelled, Tear Drop Cells Cancelled, Ovalocytes Cancelled, Stomatocytes Cancelled, [place] Bodies Cancelled, Carlin Cells Cancelled, Bite Cells Cancelled, Crenated Cell Cancelled, Acanthocytes (Spur) Cancelled, Rouleaux Cancelled, Schistocytes Cancelled 12/10/21 11:28: Sodium 139, Potassium 3.9, Chloride 99, Carbon Dioxide 32.0, Anion Gap 8, BUN 32 H, Creatinine 4.52 H, Estim Creat Clear Calc 13.01, Est GFR (MDRD) Af Amer 16 L, Est GFR (MDRD) Non-Af 13 L, BUN/Creatinine Ratio 7.1 L, Glucose 150 H, Calcium 9.6, Total Bilirubin 0.80, Direct Bilirubin 0.18, AST 50 H, ALT 20, Alkaline Phosphatase 36 L, Troponin I High Sens 5973 H*, Total Protein 7.3, Albumin 3.2, Globulin 4.1 12/10/21 11:28: B-Natriuretic Peptide 1660.1 H 12/10/21 12:05: D-Dimer Quant (PE/DVT) 0.95 H* 12/10/21 12:05: PT 15.4 H, INR 1.3, APTT 31.1 12/10/21 13:32: WBC 13.2 H, RBC 3.20 L, Hgb 10.0 L, Hct 30.3 L, MCV 94.7 H, MCH 31.3, MCHC 33.0, RDW Std Deviation 50.7 H, RDW Coeff of Alva 14.5, Plt Count 252, MPV 10.8, Immature Gran % (Auto) 0.500, Neut % (Auto) 85.1 H, Lymph % (Auto) 5.5 L, Fergus % (Auto) 8.4, Eos % (Auto) 0.3, Baso % (Auto) 0.2, Absolute Neuts (auto) 11.2 H, Absolute Lymphs (auto) 0.73 L, Nucleated RBC % 0 12/10/21 13:32: Lactic Acid 2.6 H* 12/10/21 13:32: Troponin I High Sens 5824 H* 12/10/21 17:45: POC Glucose 256 H 12/10/21 18:38: Troponin I High Sens 4928 H* 12/10/21 18:38: APTT 62.9 H 12/10/21 18:38: Lactic Acid 2.7 H* 12/10/21 21:03: POC Glucose 200 H 12/11/21 00:20: APTT 57.2 H 12/11/21 00:25: WBC 13.2 H, RBC 3.11 L, Hgb 9.5 L, Hct 29.4 L, MCV 94.5 H, MCH 30.5, MCHC 32.3, RDW Std Deviation 50.3 H, RDW Coeff of Al[place] 14.6, Plt Count 236, MPV 11.2, Immature Gran % (Auto) 1.000 H, Neut % (Auto) 84.1 H, Lymph % (Auto) 6.5 L, Fergus % (Auto) 8.0, Eos % (Auto) 0.2, Baso % (Auto) 0.2, Absolute Neuts (auto) 11.1 H, Absolute Lymphs (auto) 0.86, Nucleated RBC % 0 12/11/21 00:25: Sodium 138, Potassium 3.6, Chloride 99, Carbon Dioxide 27.0, Anion Gap 12, BUN 40 H, Creatinine 5.61 H, Estim Creat Clear Calc 10.48, Est GFR (MDRD) Af Amer 13 L, Est GFR (MDRD) Non-Af 10 L, BUN/Creatinine Ratio 7.1 L, Glucose 234 H, Calcium 9.5, Total Bilirubin 0.90, AST 83 H, ALT 66 H, Alkaline Phosphatase 39 L, Total Protein 7.2, Albumin 3.0 L, Globulin 4.2, Albumin/Globulin Ratio 0.7 L 12/11/21 05:45: APTT 86.0 H Micro: Microbiology 12/10/21 11:35 Nasal Secretion SARS-CoV-2 Antigen (Rapid) - Final ABG Data ABG results: ABG 12/10/21 17:18 Specimen Type ART Sample Site L Radial pH 7.55 H Bicarbonate Actual 27.5 H Total CO2 29 Base Excess 5 H O2 Saturation 96 O2 % 21 ABG pCO2 31.8 L ABG pO2 72 L Michael Test Positive Radiography Diagnostic Testing: Radiology Impression Abdomen/Pelvis CT 12/10/21 11:27 IMPRESSION: Moderate right lower lobe and milder left lower lobe infiltrate. Moderate right and small left pleural effusion. Severe cortical thinning of both kidneys. Hyperdense lesion on by 10 mm anterior mid pole right kidney which could represent hemorrhagic cyst or solid mass. Prostate not visualized likely due to prostatectomy. Diffuse osseous metastases detailed above. Electronically Signed: Kvng Arambula MD, PIO at 12:43 EDT , Chest X-Ray 12/10/21 12:18 IMPRESSION: Bibasilar infiltrates and pleural effusions and left perihilar infiltrate detailed above. Electronically Signed: Kvng Arambula MD, PIO at 12:46 EDT , Echocardiogram 12/10/21 14:37 Interpretation Summary The study was technically difficult. Contrast injection was performed. Severely dilated left ventricle. Severe segmental systolic dysfunction (see wall motion). The estimated ejection fraction is 20 %. Moderate (2+) mitral valve insufficiency. Trivial tricuspid valve insufficiency. Mild diffuse aortic valve calcification. Mild (1+) pulmonic valve insufficiency. Epicardial fat. Unable to estimate RV systolic pressure due to insufficient tricuspid regurgitant envelope. Unable to assess diastolic dysfunction. Ordering Physician: Alla Tubbs Referring Physician: Darshan Solomon Performed By: Abena Evans, [place], RVT Physical Exam Narrative Physical exam: General: Alert, Oriented x3, Cooperative, appears very unwell HEENT: Atraumatic Oral: Moist Mucosa Neck: Supple Lungs: Diminished to auscultation, few crackles at the lung bases Cardiovascular: HS I+II, regular, no murmurs Abdomen: Distended, bowel Sounds Present, Soft, Non Tender Extremities: Bilateral leg edema +1, compression stockings on Skin: No rashes, No breakdown Neurological: Grossly intact Psych/Mental Status: Appropriate Assessment & Plan Assessment/Plan (1) Non-ST elevated myocardial infarction (non-STEMI): (2) CHF (congestive heart failure): PLAN: Plan 1. Shock, unclear etiology, likely cardiogenic versus septic Patient transferred to ICU overnight, remains on Levophed Continue to wean off for MAP more than 65 2. Acute cardiomyopathy/acute systolic CHF, newly diagnosed Patient's 2D echo yesterday, 12/10/21 showed an EF of 20%, down from 60% Patient does not make urine, fluid removal will be attempted by dialysis Cardiology following 3. Acute non-STEMI likely type I, remains on heparin drip Patient is unable to undergo cardiac cath per cardiology as he is not able to lie flat He is also has severe allergy(anaphylaxis) to contrast Continue heparin drip and aspirin as well as statin for now 4. Probable acute PE, unable to do CTA of the chest because of allergy to contrast Unable to also do VQ scan Continue heparin drip 5. Acute bilateral pneumonia with bilateral pleural effusion Continue on IV vancomycin and Zosyn 6. ESRD on HD, --, neohrology consult 7. Hypertension, now hypotensive, continue to monitor 8. Type 2 DM, blood sugars fairly uncontrolled, off glipizide Continue with insulin sliding scale blood glucose checks 9. Prostate CA, unclear if in remission, osseous lesions on CT of abd/pelvis Will continue prostate CA meds when patient is more stable 10. Severe protein calorie malnutrition, manager contract consulted, continue supplements 11. DVT prophylaxis?on heparin drip Charges/Coding Visit Charges Inpatient E&M: 09411 Subs Hosp L3
--- NOTE | 2021-12-11 07:53 | EX.PCM.CONCC ---
Assessment & Plan Assessment/Plan (1) Cardiogenic shock: (2) Non-ST elevated myocardial infarction (non-STEMI): (3) CHF (congestive heart failure): (4) Type 2 diabetes mellitus: PLAN: Plan RECOMMENDATIONS: 1. Coordinate with nephrology, cardiology about volume removal and potential catheterization 2. Likely not necessary to get a VQ scan given abnormal x-ray 3. Continue to pretreat for possible dye load 4. Use pressors to facilitate dialysis 5. Hold antihypertensive and diabetic medications. Initiate sliding scale 6. Continue heparin drip for now IMPRESSIONS: 1. Cardiogenic shock secondary to NSTEMI Patient with a decrease in EF from 60% to 20%. Patient could have pulmonary embolism, but 1 would expect significant right-sided failure on echo leading to such a depression in EF. Patient currently on Levophed. Patient is on a heparin drip secondary to possible coronary artery disease. Patient with significant elevation in troponin. Reasonable to continue empiric antibiotics until culture negative. Low clinical suspicion that a VQ scan will be helpful given infiltrates and bilateral pleural effusions. Given patient's orthopnea and difficulty with dialysis, acute systolic congestive heart failure is suspected. Patient did not respond well to Lasix, so fluid removal will be necessary. 2. End-stage renal disease secondary to diabetes/hypertension Patient has had difficulty with fluid removal recently per his report. Patient is hypotensive at this time. Unclear if the cramping is secondary to decreased cardiac output. Can use pressors to help facilitate volume removal. Cannot exclude the need for CABG if unable to tolerate dialysis with pressor support. 3. Prostate cancer/diabetes mellitus type 2/hypertension/advanced age/DNR DNI Complicates care, management, recovery and prognosis. Hold antihypertensive and diabetic medications. We will proceed with sign scale insulin for now. Patient is clear that he does not want to be intubated, so it is unclear if we will be able to facilitate supine positioning without volume removal. Could attempt positive pressure through BiPAP TIME: 34 minutes critical care time spent addressing patient's cardiogenic shock, end-stage renal disease, diabetes mellitus, review of all data and collaboration with care team HPI Consult Data Date of Consult: 12/11/21 HPI Narrative Reason for Consultation: Hypotension HPI Narrative: PERLA SANCHEZ is an 80 M, with past medical history listed below, who presents to [facility] on 12/10/2021 secondary to exertional dyspnea and a minimal nonproductive cough. Patient reportedly started to have worsening shortness of breath approximately 2 weeks prior to presentation. Patient also reported some subjective abdominal distention. Patient states he has been on dialysis for approximately 6 months, but over the last 2 weeks has had issues with cramping associated with his dialysis. Patient's last dialysis was on the day prior to presentation. Patient does have a remote history of prostate cancer. In the ER, patient was afebrile, but slightly hypotensive at 93/58. Patient was tolerating room air, but was noted to be tachypneic. Laboratory work-up showed a creatinine of 4.52 with a glucose of 150 and a troponin of 5973. BNP was elevated at 1660. D-dimer was slightly elevated at 0.95. CT of the abdomen and pelvis showed moderate bilateral lower lobe infiltrates with a moderate right pleural effusion. Patient was initially sent to the floor, but developed significant hypotension, so was transferred to the intensive care unit for pressor therapy. Patient reports significant shortness of breath with any attempts at lying flat. Patient is not reporting any productive cough, fever, chills, nausea or vomiting at home. Patient has noted some slight increase in lower extremity edema. Patient states he has been sleeping in a chair secondary to shortness of breath. Patient is not reporting any lesions or trauma recently. Patient was initiated on steroid therapy given the need for probable dye load. Review of systems otherwise negative from a constitutional, HEENT, respiratory, cardiovascular, GI, genitourinary, musculoskeletal, skin, neurologic, psychiatric and hematologic system unless stated above. [facility] Medical History Alcohol use Anemia Cancer Cardiology follow-up encounter CHF (congestive heart failure) CKD (chronic kidney disease) stage 4, GFR 15-29 ml/min CPAP (continuous positive airway pressure) dependence Diabetes Dietary restriction DM (diabetes mellitus) Gastric reflux History of CHF (congestive heart failure) History of echocardiogram History of edema History of renal disease History of steroid therapy History of stress test Leg cramps Mixed hyperlipidemia Non-smoker Nonrheumatic aortic (valve) stenosis BELLE on CPAP Problem with dialysis access Prostate CA Shortness of breath on exertion Spinal stenosis Type 2 diabetes mellitus Wears glasses Home Medications atorvastatin 10 mg tablet 10 mg PO QHS cholesterol 08/14/16 [History Last Taken 04/15/20] fenofibrate micronized 134 mg capsule 134 mg PO DAILY cholesterol 08/14/16 [History Last Taken 04/16/20] abiraterone 250 mg tablet 1,000 mg PO DAILY@1030 prostate cancer 07/20/19 [History Last Taken 04/15/20] docusate sodium 100 mg capsule 100 mg PO BID STOOL 04/16/20 [History Last Taken 04/16/20] glipizide 2.5 mg tablet, extended release 24 hr 2.5 mg PO DAILY dm 04/16/20 [History Last Taken 04/16/20] prednisone 5 mg tablet 5 mg PO DAILY steroid 12/12/20 [History Last Taken Unknown] leuprolide (3 month) 22.5 mg (3 month) intramuscular syringe kit 22.5 mg IM [id number] 09/03/21 [History Last Taken Unknown] vitamin B complex-vitamin C-folic acid 0.8 mg tablet (Nephro-Rizwana) 1 tab PO DAILY 09/03/21 [History Last Taken Unknown] vitamins-lipotropics 200 mg-100 mg tablet (Lipo-Flavonoid Plus) 1 tab PO .COMPLEX 09/03/21 [History Last Taken Unknown] doxazosin 4 mg tablet 4 mg PO QHS BPH 10/08/21 [History Last Taken Unknown] fluoxetine 10 mg capsule (Prozac) 20 mg PO DAILY 10/08/21 [History Last Taken Unknown] tamsulosin 0.4 mg capsule 0.4 mg PO DAILY 12/10/21 [History Last Taken Unknown] trazodone 100 mg tablet 100 mg PO QHS 12/10/21 [History Last Taken Unknown] Allergy/AdvReac Type Severity Reaction Status Date / Time Iodinated Contrast Media Allergy Severe SOB, Verified 12/10/21 10:15 anyaphylaxis Family History Father Heart disease Myocardial infarction Brother Cancer Prostate Surgical History History of arteriovenostomy for renal dialysis (~02/2021) History of arthroscopy of right knee History of bilateral cataract extraction History of esophagogastroduodenoscopy (EGD) History of incisional hernia repair History of prostatectomy History of transurethral resection of prostate Hx of colonoscopy Social History Smoking Status: Never smoker alcohol intake: never substance use type: does not use caffeine: Yes Type: coffee Number of servings: 1 ROS ROS Narrative See HPI Physical Exam Const alert, oriented x3 and no apparent distress Constitutional Narrative: Sitting up in bed at approximately 70 to 80 degrees General Appearance: cooperative Orientation / Consciousness: awake HEENT normocephalic, head/scalp atraumatic and hearing grossly normal bilaterally Eyes PERRL, EOMs intact bilaterally, conjunctivae normal and no scleral icterus Neck full ROM, no lymphadenopathy and supple Resp Auscultation: rales and diminished lung sounds bilateral lower; Negative for rhonchi or wheezes Cardio S1 normal heart sound, S2 normal heart sound, no murmurs, no rub and no gallops Jugular Venous Distention: JVD Rate: tachycardic Rhythm: regular rhythm Heart Sounds: S1 normal and S2 normal GI normal to inspection, nondistended, normoactive bowel sounds Extremity General Extremity: edema bilateral lower extremity Details: mild Skin no rashes or lesions noted Wound Narrative: Right arm/forearm: Ecchymoses Neuro oriented x3, CN's II-XII intact bilaterally, moves all extremities and no focal motor deficits Psych mental status grossly normal, cooperative and affect normal Medical Records Data Medical Nutrition Assessment Dietitian: Malnutrition Criteria Met Start: 12/10/21 16:54 Freq: Status: Active Protocol: Document 12/10/21 16:54 (Rec: 12/10/21 16:54 [id number]) Nutrition Malnutrition Evidence of Malnutrition Exists Yes Malnutrition (severe): Acute Illness/Injury Evidenced By Suboptimal Energy Intake ( Severe),Weight Loss (Severe) Clinical Problem Acute Disease or Injury Related Malnutrition Etiology severe, acute malnutrition related to inadequate oral intake w/ decreased appetite Signs/Symptoms as evidenced by unintentional 7.9#/3% wt loss x 1 week, estimated PO intake meeting < 50% of estimated energy needs > 5 days [employer] Status Active Problem Recommendation Dietitian Recommendations/Changes continue cardiac diet as tolerated; will add 120mL nepro carb steady ONS w/ medpass 4x/day d/t acute malnutrition Lab / Micro Data Attestation: I reviewed the patient's lab results. Result Diagrams: 12/11/21 00:25 12/11/21 00:25 Labs: Laboratory Results - last 24 hr 12/10/21 11:28: WBC Cancelled, Corrected WBC Cancelled, RBC Cancelled, Hgb Cancelled, Hct Cancelled, MCV Cancelled, MCH Cancelled, MCHC Cancelled, RDW Std Deviation Cancelled, RDW Coeff of Alva Cancelled, Plt Count Cancelled, MPV Cancelled, Immature Gran % (Auto) Cancelled, Neut % (Auto) Cancelled, Lymph % (Auto) Cancelled, Gilliam % (Auto) Cancelled, Eos % (Auto) Cancelled, Baso % (Auto) Cancelled, Absolute Neuts (auto) Cancelled, Absolute Lymphs (auto) Cancelled, Total Counted Cancelled, Neutrophils % (Manual) Cancelled, Band Neutrophils % Cancelled, Lymphocytes % (Manual) Cancelled, Monocytes % (Manual) Cancelled, Eosinophils % (Manual) Cancelled, Basophils % (Manual) Cancelled, Metamyelocytes % Cancelled, Myelocytes % Cancelled, Promyelocytes % Cancelled, Blast Cells % Cancelled, Plasma Cell % (Manual) Cancelled, Other Cells % Cancelled, Nucleated RBC % Cancelled, Nucleated RBCs/100 WBC Cancelled, Differential Comment Cancelled, Diff Path Review Cancelled, Hypersegmented Neuts Cancelled, Atypical Lymphocytes Cancelled, Reactive Lymphocytes Cancelled, Smudge Cells Cancelled, Toxic Granulation Cancelled, Toxic Vacuolation Cancelled, Dohle Bodies Cancelled, Ronit Rods Cancelled, Platelet Estimate Cancelled, Plt Morphology Comment Cancelled, RBC Morphology Cancelled, Polychromasia Cancelled, Hypochromasia Cancelled, Poikilocytosis Cancelled, Basophilic Stippling Cancelled, Anisocytosis Cancelled, Microcytosis Cancelled, Macrocytosis Cancelled, Spherocytes Cancelled, Sickle Cells Cancelled, Target Cells Cancelled, Tear Drop Cells Cancelled, Ovalocytes Cancelled, Stomatocytes Cancelled, [place] Bodies Cancelled, Carlin Cells Cancelled, Bite Cells Cancelled, Crenated Cell Cancelled, Acanthocytes (Spur) Cancelled, Rouleaux Cancelled, Schistocytes Cancelled 12/10/21 11:28: Sodium 139, Potassium 3.9, Chloride 99, Carbon Dioxide 32.0, Anion Gap 8, BUN 32 H, Creatinine 4.52 H, Estim Creat Clear Calc 13.01, Est GFR (MDRD) Af Amer 16 L, Est GFR (MDRD) Non-Af 13 L, BUN/Creatinine Ratio 7.1 L, Glucose 150 H, Calcium 9.6, Total Bilirubin 0.80, Direct Bilirubin 0.18, AST 50 H, ALT 20, Alkaline Phosphatase 36 L, Troponin I High Sens 5973 H*, Total Protein 7.3, Albumin 3.2, Globulin 4.1 12/10/21 11:28: B-Natriuretic Peptide 1660.1 H 12/10/21 12:05: D-Dimer Quant (PE/DVT) 0.95 H* 12/10/21 12:05: PT 15.4 H, INR 1.3, APTT 31.1 12/10/21 13:32: WBC 13.2 H, RBC 3.20 L, Hgb 10.0 L, Hct 30.3 L, MCV 94.7 H, MCH 31.3, MCHC 33.0, RDW Std Deviation 50.7 H, RDW Coeff of Alva 14.5, Plt Count 252, MPV 10.8, Immature Gran % (Auto) 0.500, Neut % (Auto) 85.1 H, Lymph % (Auto) 5.5 L, Gilliam % (Auto) 8.4, Eos % (Auto) 0.3, Baso % (Auto) 0.2, Absolute Neuts (auto) 11.2 H, Absolute Lymphs (auto) 0.73 L, Nucleated RBC % 0 12/10/21 13:32: Lactic Acid 2.6 H* 12/10/21 13:32: Troponin I High Sens 5824 H* 12/10/21 17:45: POC Glucose 256 H 12/10/21 18:38: Troponin I High Sens 4928 H* 12/10/21 18:38: APTT 62.9 H 12/10/21 18:38: Lactic Acid 2.7 H* 12/10/21 21:03: POC Glucose 200 H 12/11/21 00:20: APTT 57.2 H 12/11/21 00:25: WBC 13.2 H, RBC 3.11 L, Hgb 9.5 L, Hct 29.4 L, MCV 94.5 H, MCH 30.5, MCHC 32.3, RDW Std Deviation 50.3 H, RDW Coeff of Alva 14.6, Plt Count 236, MPV 11.2, Immature Gran % (Auto) 1.000 H, Neut % (Auto) 84.1 H, Lymph % (Auto) 6.5 L, Gilliam % (Auto) 8.0, Eos % (Auto) 0.2, Baso % (Auto) 0.2, Absolute Neuts (auto) 11.1 H, Absolute Lymphs (auto) 0.86, Nucleated RBC % 0 12/11/21 00:25: Sodium 138, Potassium 3.6, Chloride 99, Carbon Dioxide 27.0, Anion Gap 12, BUN 40 H, Creatinine 5.61 H, Estim Creat Clear Calc 10.48, Est GFR (MDRD) Af Amer 13 L, Est GFR (MDRD) Non-Af 10 L, BUN/Creatinine Ratio 7.1 L, Glucose 234 H, Calcium 9.5, Total Bilirubin 0.90, AST 83 H, ALT 66 H, Alkaline Phosphatase 39 L, Total Protein 7.2, Albumin 3.0 L, Globulin 4.2, Albumin/Globulin Ratio 0.7 L 12/11/21 05:45: APTT 86.0 H Micro: Microbiology 12/10/21 11:35 Nasal Secretion SARS-CoV-2 Antigen (Rapid) - Final ABG Data ABG results: ABG 12/10/21 17:18 Specimen Type ART Sample Site L Radial pH 7.55 H Bicarbonate Actual 27.5 H Total CO2 29 Base Excess 5 H O2 Saturation 96 O2 % 21 ABG pCO2 31.8 L ABG pO2 72 L Michael Test Positive Attestation: I personally reviewed and interpreted this ABG as follows: (Acute respiratory alkalosis on chronic metabolic acidosis) Radiology Impression Abdomen/Pelvis CT 12/10/21 11:27 IMPRESSION: Moderate right lower lobe and milder left lower lobe infiltrate. Moderate right and small left pleural effusion. Severe cortical thinning of both kidneys. Hyperdense lesion on by 10 mm anterior mid pole right kidney which could represent hemorrhagic cyst or solid mass. Prostate not visualized likely due to prostatectomy. Diffuse osseous metastases detailed above. Electronically Signed: Kvng Arambula MD, PIO at 12:43 EDT , Chest X-Ray 12/10/21 12:18 IMPRESSION: Bibasilar infiltrates and pleural effusions and left perihilar infiltrate detailed above. Electronically Signed: Kvng Arambula MD, PIO at 12:46 EDT Reading Location ID and State: [facility] / [place] Tel , Service support , Echocardiogram 12/10/21 14:37 Interpretation Summary The study was technically difficult. Contrast injection was performed. Severely dilated left ventricle. Severe segmental systolic dysfunction (see wall motion). The estimated ejection fraction is 20 %. Moderate (2+) mitral valve insufficiency. Trivial tricuspid valve insufficiency. Mild diffuse aortic valve calcification. Mild (1+) pulmonic valve insufficiency. Epicardial fat. Unable to estimate RV systolic pressure due to insufficient tricuspid regurgitant envelope. Unable to assess diastolic dysfunction. Ordering Physician: Alla Tubbs Referring Physician: Darshan Solomon Performed By: Abena Evans, RDCS, RVT Charges/Coding Procedures Hospitalists Procedures: [address] [facility] Hr
--- NOTE | 2021-12-11 08:10 | PN.CARD_ITS ---
Subjective Subjective The patient was noted to become hypotensive yesterday evening. It appears he received, from nephrology, oral midodrine and attempt to support his blood pressure. However, as his blood pressure remained low he was subsequently transferred to the ICU and placed on IV vasopressors. He states he has not slept well all night. He continues to feel weak. He continues to be short of breath and dyspneic. He states the IV furosemide he received yesterday had no impact on his urinary output. He notes he has had pinpoint left pectoral chest discomfort. He states this comes and goes. He seems to have a difficult time describing the discomfort. Objective Data Vital Signs: Vital Signs Temp Pulse Resp BP Pulse Ox O2 Del Method O2 Flow Rate 97.7 F L 102 H 35 H 95/58 L 96 Nasal Cannula 2 12/11/21 05:26 12/11/21 07:00 12/11/21 07:00 12/11/21 07:00 12/11/21 07:00 12/11/21 07:00 12/11/21 07:00 Oxygen Flow Rate (L/min) 2 Oxygen Delivery Method Nasal Cannula Weight: 242 lb 1.081 oz Body Mass Index (BMI) 34.7 Intake & Output: Intake and Output for Last 24 Hours 12/09/21 12/10/21 12/11/21 23:59 23:59 23:59 Intake Total 883.75 / 883.75 335.16 / 335.16 Balance 883.75 / 883.75 335.16 / 335.16 Lab / Micro Data Result Diagrams: 12/11/21 00:25 12/11/21 00:25 Labs: Laboratory Results - last 24 hr 12/10/21 11:28: WBC Cancelled, Corrected WBC Cancelled, RBC Cancelled, Hgb Cancelled, Hct Cancelled, MCV Cancelled, MCH Cancelled, MCHC Cancelled, RDW Std Deviation Cancelled, RDW Coeff of [place] Cancelled, Plt Count Cancelled, MPV Cancelled, Immature Gran % (Auto) Cancelled, Neut % (Auto) Cancelled, Lymph % (Auto) Cancelled, [place] % (Auto) Cancelled, Eos % (Auto) Cancelled, Baso % (Auto) Cancelled, Absolute Neuts (auto) Cancelled, Absolute Lymphs (auto) Cancelled, Total Counted Cancelled, Neutrophils % (Manual) Cancelled, Band Neutrophils % Cancelled, Lymphocytes % (Manual) Cancelled, Monocytes % (Manual) Cancelled, Eo sinophils % (Manual) Cancelled, Basophils % (Manual) Cancelled, Metamyelocytes % Cancelled, Myelocytes % Cancelled, Promyelocytes % Cancelled, Blast Cells % Cancelled, Plasma Cell % (Manual) Cancelled, Other Cells % Cancelled, Nucleated RBC % Cancelled, Nucleated RBCs/100 WBC Cancelled, Differential Comment Cancelled, Diff Path Review Cancelled, Hypersegmented Neuts Cancelled, Atypical Lymphocytes Cancelled, Reactive Lymphocytes Cancelled, Smudge Cells Cancelled, Toxic Granulation Cancelled, Toxic Vacuolation Cancelled, Dohle Bodies Cancelled, Ronit Rods Cancelled, Platelet Estimate Cancelled, Plt Morphology Comment Cancelled, RBC Morphology Cancelled, Polychromasia Cancelled, Hypochromasia Cancelled, Poikilocytosis Cancelled, Basophilic Stippling Cancelled, Anisocytosis Cancelled, Microcytosis Cancelled, Macrocytosis Cancelled, Spherocytes Cancelled, Sickle Cells Cancelled, Target Cells Cancelled, Tear Drop Cells Cancelled, Ovalocytes Cancelled, Stomatocytes Cancelled, [place] Bodies Cancelled, Carlin Cells Cancelled, Bite Cells Cancelled, Crenated Cell Cancelled, Acanthocytes (Spur) Cancelled, Rouleaux Cancelled, Schistocytes Cancelled 12/10/21 11:28: Sodium 139, Potassium 3.9, Chloride 99, Carbon Dioxide 32.0, Anion Gap 8, BUN 32 H, Creatinine 4.52 H, Estim Creat Clear Calc 13.01, Est GFR (MDRD) Af Amer 16 L, Est GFR (MDRD) Non-Af 13 L, BUN/Creatinine Ratio 7.1 L, Glucose 150 H, Calcium 9.6, Total Bilirubin 0.80, Direct Bilirubin 0.18, AST 50 H, ALT 20, Alkaline Phosphatase 36 L, Troponin I High Sens 5973 H*, Total Protein 7.3, Albumin 3.2, Globulin 4.1 12/10/21 11:28: B-Natriuretic Peptide 1660.1 H 12/10/21 12:05: D-Dimer Quant (PE/DVT) 0.95 H* 12/10/21 12:05: PT 15.4 H, INR 1.3, APTT 31.1 12/10/21 13:32: WBC 13.2 H, RBC 3.20 L, Hgb 10.0 L, Hct 30.3 L, MCV 94.7 H, MCH 31.3, MCHC 33.0, RDW Std Deviation 50.7 H, RDW Coeff of [place] 14.5, Plt Count 252, MPV 10.8, Immature Gran % (Auto) 0.500, Neut % (Auto) 85.1 H, Lymph % (Auto) 5.5 L, [place] % (Auto) 8.4, Eos % (Auto) 0.3, Baso % (Auto) 0.2, Absolute Neuts (auto) 11.2 H, Absolute Lymphs (auto) 0.73 L, Nucleated RBC % 0 12/10/21 13:32: Lactic Acid 2.6 H* 12/10/21 13:32: Troponin I High Sens 5824 H* 12/10/21 17:45: POC Glucose 256 H 12/10/21 18:38: Troponin I High Sens 4928 H* 12/10/21 18:38: APTT 62.9 H 12/10/21 18:38: Lactic Acid 2.7 H* 12/10/21 21:03: POC Glucose 200 H 12/11/21 00:20: APTT 57.2 H 12/11/21 00:25: WBC 13.2 H, RBC 3.11 L, Hgb 9.5 L, Hct 29.4 L, MCV 94.5 H, MCH 30.5, MCHC 32.3, RDW Std Deviation 50.3 H, RDW Coeff of [place] 14.6, Plt Count 236, MPV 11.2, Immature Gran % (Auto) 1.000 H, Neut % (Auto) 84.1 H, Lymph % (Auto) 6.5 L, [place] % (Auto) 8.0, Eos % (Auto) 0.2, Baso % (Auto) 0.2, Absolute Neuts (auto) 11.1 H, Absolute Lymphs (auto) 0.86, Nucleated RBC % 0 12/11/21 00:25: Sodium 138, Potassium 3.6, Chloride 99, Carbon Dioxide 27.0, Anion Gap 12, BUN 40 H, Creatinine 5.61 H, Estim Creat Clear Calc 10.48, Est GFR (MDRD) Af Amer 13 L, Est GFR (MDRD) Non-Af 10 L, BUN/Creatinine Ratio 7.1 L, Glucose 234 H, Calcium 9.5, Total Bilirubin 0.90, AST 83 H, ALT 66 H, Alkaline Phosphatase 39 L, Total Protein 7.2, Albumin 3.0 L, Globulin 4.2, Albumin/Globulin Ratio 0.7 L 12/11/21 05:45: APTT 86.0 H Micro: Microbiology 12/10/21 11:35 Nasal Secretion SARS-CoV-2 Antigen (Rapid) - Final ABG Data ABG results: ABG 12/10/21 17:18 Specimen Type ART Sample Site L Radial pH 7.55 H Bicarbonate Actual 27.5 H Total CO2 29 Base Excess 5 H O2 Saturation 96 O2 % 21 ABG pCO2 31.8 L ABG pO2 72 L Michael Test Positive Cardiology Labs/Tests 12/10/21 11:28: WBC Cancelled, Corrected WBC Cancelled, RBC Cancelled, Hgb Cancelled, Hct Cancelled, MCV Cancelled, MCH Cancelled, MCHC Cancelled, Plt Count Cancelled, MPV Cancelled, Immature Gran % (Auto) Cancelled, Neut % (Auto) Cancelled, Lymph % (Auto) Cancelled, [place] % (Auto) Cancelled, Eos % (Auto) Cancelled, Baso % (Auto) Cancelled, Absolute Neuts (auto) Cancelled, Total Counted Cancelled, Neutrophils % (Manual) Cancelled, Band Neutrophils % Cancelled, Lymphocytes % (Manual) Cancelled, Monocytes % (Manual) Cancelled, Eosinophils % (Manual) Cancelled, Basophils % (Manual) Cancelled, Metamyelocytes % Cancelled, Myelocytes % Cancelled, Promyelocytes % Cancelled, Blast Cells % Cancelled, Plasma Cell % (Manual) Cancelled, Other Cells % Cancelled, Nucleated RBC % Cancelled 12/10/21 11:28: Sodium 139, Potassium 3.9, Chloride 99, Carbon Dioxide 32.0, Anion Gap 8, BUN 32 H, Creatinine 4.52 H, Est GFR (MDRD) Af Amer 16 L, Est GFR (MDRD) Non-Af 13 L, BUN/Creatinine Ratio 7.1 L, Glucose 150 H, Calcium 9.6, Total Bilirubin 0.80, Direct Bilirubin 0.18 12/10/21 11:28: B-Natriuretic Peptide 1660.1 H 12/10/21 12:05: D-Dimer Quant (PE/DVT) 0.95 H* 12/10/21 12:05: PT 15.4 H, INR 1.3, APTT 31.1 12/10/21 13:32: WBC 13.2 H, RBC 3.20 L, Hgb 10.0 L, Hct 30.3 L, MCV 94.7 H, MCH 31.3, MCHC 33.0, Plt Count 252, MPV 10.8, Immature Gran % (Auto) 0.500, Neut % (Auto) 85.1 H, Lymph % (Auto) 5.5 L, [place] % (Auto) 8.4, Eos % (Auto) 0.3, Baso % (Auto) 0.2, Absolute Neuts (auto) 11.2 H, Nucleated RBC % 0 12/10/21 13:32: Lactic Acid 2.6 H* 12/10/21 17:18: pH 7.55 H, Bicarbonate Actual 27.5 H, Base Excess 5 H, O2 Saturation 96, ABG pCO2 31.8 L, ABG pO2 72 L, Michael Test Positive 12/10/21 18:38: APTT 62.9 H 12/10/21 18:38: Lactic Acid 2.7 H* 12/11/21 00:20: APTT 57.2 H 12/11/21 00:25: WBC 13.2 H, RBC 3.11 L, Hgb 9.5 L, Hct 29.4 L, MCV 94.5 H, MCH 30.5, MCHC 32.3, Plt Count 236, MPV 11.2, Immature Gran % (Auto) 1.000 H, Neut % (Auto) 84.1 H, Lymph % (Auto) 6.5 L, [place] % (Auto) 8.0, Eos % (Auto) 0.2, Baso % (Auto) 0.2, Absolute Neuts (auto) 11.1 H, Nucleated RBC % 0 12/11/21 00:25: Sodium 138, Potassium 3.6, Chloride 99, Carbon Dioxide 27.0, Anion Gap 12, BUN 40 H, Creatinine 5.61 H, Est GFR (MDRD) Af Amer 13 L, Est GFR (MDRD) Non-Af 10 L, BUN/Creatinine Ratio 7.1 L, Glucose 234 H, Calcium 9.5, Total Bilirubin 0.90 12/11/21 05:45: APTT 86.0 H Rhythm: Sinus tachycardia; PVCs Radiography Diagnostic Testing: Radiology Impression Abdomen/Pelvis CT 12/10/21 11:27 IMPRESSION: Moderate right lower lobe and milder left lower lobe infiltrate. Moderate right and small left pleural effusion. Severe cortical thinning of both kidneys. Hyperdense lesion on by 10 mm anterior mid pole right kidney which could represent hemorrhagic cyst or solid mass. Prostate not visualized likely due to prostatectomy. Diffuse osseous metastases detailed above. Electronically Signed: Kvng Arambula MD, PIO at 12:43 EDT , Chest X-Ray 12/10/21 12:18 IMPRESSION: Bibasilar infiltrates and pleural effusions and left perihilar infiltrate detailed above. Electronically Signed: Kvng Arambula MD, PIO at 12:46 EDT , Echocardiogram 12/10/21 14:37 Interpretation Summary The study was technically difficult. Contrast injection was performed. Severely dilated left ventricle. Severe segmental systolic dysfunction (see wall motion). The estimated ejection fraction is 20 %. Moderate (2+) mitral valve insufficiency. Trivial tricuspid valve insufficiency. Mild diffuse aortic valve calcification. Mild (1+) pulmonic valve insufficiency. Epicardial fat. Unable to estimate RV systolic pressure due to insufficient tricuspid regurgitant envelope. Unable to assess diastolic dysfunction. Ordering Physician: Alla Tubbs Referring Physician: Darshan Solomon Performed By: Abena Evans, HUNTERCS, RVT Physical Exam Const alert and oriented x3 Orientation / Consciousness: awake HEENT normocephalic, head/scalp atraumatic and hearing grossly normal bilaterally Eyes PERRL, EOMs intact bilaterally, conjunctivae normal and no scleral icterus Neck full ROM and supple Resp Auscultation: diminished lung sounds bilateral lower Cardio Jugular Venous Distention: JVD Rate: tachycardic Rhythm: regular rhythm Heart Sounds: S1 normal and S2 normal GI normal to inspection, nondistended, normoactive bowel sounds Extremity General Extremity: edema bilateral lower extremity Details: mild Skin Wound Narrative: Right arm/forearm: Ecchymoses Psych mental status grossly normal Assessment & Plan Assessment/Plan (1) Hypotension: PLAN: The patient remains hypotensive. He continues with IV vasopressor support at this time. It is unclear as to whether this is all cardiogenic mediated versus related to any underlying infectious disease process with a sepsis component. From a cardiovascular standpoint he will need to refrain from any medications that would lower his blood pressure. He continues with IV vasopressor agents. His lower blood pressure also makes it more challenging with respect to hemo dialysis. His lower blood pressure also makes it more challenging to proceed with additional invasive cardiovascular evaluation at this time. (2) Non-ST elevated myocardial infarction (non-STEMI): PLAN: The patient has findings compatible with a non-ST segment elevation IN. At the moment it is unclear as to whether this represents a type I event secondary to a recent acute coronary syndrome versus a type II event secondary to what appears to be underlying CHF from an underlying cardiomyopathy (CAD versus non-CAD related-unclear) superimposed upon chronic renal insu fficiency/failure. The patient's cardiac enzymes have decreased somewhat. He is already undergone evaluation with a transthoracic echocardiogram. Ideally he would undergo further evaluation with a diagnostic cardiac catheterization. However, at the moment he is not clinically able to lie supine, secondary to his respiratory related issues, to undergo such a procedure. Thus, he will need to continue medical therapy. He will need to continue dialysis therapy to hopefully improve his volume status so he can at some point time in the future undergo such a procedure. However, this may become more challenging based upon his hypotension. When that time comes he will need to be considered for IV contrast related allergy premedication. He states after previous IV contrast procedure he became nauseated. He does not recall any respiratory related events or rash type hives, etc. However, as he is unclear as to what his true allergy was separate from nausea, premedications would be considered prudent. (3) CHF (congestive heart failure): PLAN: The patient has findings which appear to be compatible with acute on chronic CHF. Based upon his echocardiogram this appears to be systolic mediated at this time. He will need to continue medical therapy. He may not be an ideal candidate at the moment for initiation of beta-jayda therapy until he is somewhat more stable . He can attempt diuretic therapy. However, it is unclear that diuretics will be beneficial with his underlying chronic renal failure. Thus his volume status will need to be managed by h emodialysis. He was placed on alternative afterload reducing agents with low-dose nitrates/hydralazine-Apresoline therapy. He cannot continue this medication with his low blood pressure at this time. (4) Cardiomyopathy: PLAN: He does appear to have a cardiomyopathy. This appears to be new since his previous noninvasive studies. The etiology is unclear as to whether this is CAD or non-CAD related. At the moment he will continue medical therapy. At some point in time when he is able to lie supine comfortably, then, status post premedications, hopefully he can undergo evaluation with diagnostic cardiac catheterization to evaluate for any obvious CAD that may be contributing to his findings. (5) Nonrheumatic aortic (valve) stenosis: PLAN: He has in the past had aortic valve calcification and concern of an element of aortic valve stenosis. At the moment he will continue to be followed. (6) Mixed hyperlipidemia: PLAN: He should continue risk factor evaluation and care. (7) Essential (primary) hypertension: PLAN: His blood pressure can be followed and his medicines adjusted accordingly taking into consideration his renal insufficiency. (8) Type 2 diabetes mellitus: PLAN: He will continue medical therapy per internal medicine. (9) Anemia: QUALIFIERS: Anemia type: unspecified type Qualified Code(s): D64.9 - Anemia, unspecified PLAN: His hemoglobin can be followed. If his hemoglobin declines then he may need to be considered for PRBC transfusion to support his oxygen carrying capacity. (10) Chronic kidney failure: PLAN: He will continue evaluation care per nephrology. He will need to continue dialysis therapy to hopefully improve his overall volume status especially from a pulmonary standpoint. (11) Prostate CA: PLAN: It appears there is concern based upon his history of prostate carcinoma, despite his previous surgery and medical management, that he has radiologic lesions compatible with metastatic disease. 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 This will need to be taken into consideration with his future evaluation and care. Addt'l Comments Overall, the patient has a complex cardiovascular noncardiovascular course. The combination of his objective findings makes his case challenging to care for and/or proceed with additional cardiovascular diagnostic studies especially diagnostic cardiac catheterization, etc. Based upon the patient's complex course, etc., the patient may need to be considered for transfer to a tertiary/quaternary care center which may be able to provide him additional advanced cardiovascular support to undergo additional evaluation and care. This was discussed with the patient and he was agreeable to this approach. The patient is being evaluated by internal medicine, nephrology, and pulmonology/critical care medicine. Their input will be most appreciated. This note was generated using a voice recognition system and there may be incorrect words, spelling or punctuation that were not noted when reviewing the office note prior to saving. Procedure Criteria Type of Procedure Procedure Type: Elective Elective Risks - COVID COVID Risk Discussion: The surgeon/proceduralist and patient have discussed in detail the risk of exposure to and/or potential harm posed by the COVID-19 virus with having a surgery/procedure at this time versus the risk of delaying the surgery/proc edure. It is not possible to know either the risk of delaying the surgery or procedure or chance of getting an infection with perfect accuracy, but a joint decision was made between the patient and the surgeon/proceduralist to proceed at this time with the scheduled surgery/procedure as indicated on the consent form.
[2021-12-11] MEDS: Insulin Lispro 100 UNIT/ML INSULN.PEN SC (08:47)
[2021-12-11] MEDS: Aspirin 81 MG TAB.CHEW PO (08:47)
[2021-12-11] MEDS: Tamsulosin HCl 0.4 MG Capsule PO (08:49)
[2021-12-11] MEDS: Docusate Sodium 100 MG Capsule PO (08:49)
--- NOTE | 2021-12-11 08:54 | PCM.CONS.R ---
Assessment & Plan Assessment/Plan (1) ESRD (end stage renal disease) on dialysis: PLAN: due to diabetes, hypertension on HD MWF, dialysis today. 1.6L fluid removed on Thursday at chronic center, unable to tolerate fluid removal challenge due to hypotension. Unable to UF only last night due to SBP in the 70's. Transferred to ICU for pressor support (2) Cardiogenic shock: PLAN: transferred to icu on pressor support. EF 20% new from 60% in 2020. (3) Hypotension: PLAN: pressor support, culture r/o sepsis (4) Cardiomyopathy: PLAN: EF 20% with hypotension (5) Non-ST elevated myocardial infarction (non-STEMI): PLAN: cardiology consulted (6) CHF (congestive heart failure): PLAN: fludi removal with dialysis as tolerated. (7) Prostate CA: (8) Pleural effusion: PLAN: bilateral HPI Consult Data Date of Consult: 12/11/21 HPI Narrative Reason for Consultation: ESRD renal mgmt HPI Narrative: PERLA SANCHEZ, is a 80 M with ESRD due to diabetes, hypertension, prostate cancer, CHF on HD MWF presents with substernal chest pain with increased shortness of breath that started over the weekend, worse on Thursday. His last dialysis was on Thursday. Fluid removal challenged due to symptoms but limited due to hypotension. Urgent dialysis was arranged for last night for CHF but was hypotensive in the 70's and transferred to ICU. He is currently in ICU with continued chest pain and SOB. Started on pressor support, heparin drip. Cardiology on consult. Spoke with hospitalist last night and today. Troponins elevated with lactic acidosis. Evaluated for cardiogenic shock with EF 20% on echo vs sepsis with cultures, WBC elevated. Started on iv antibiotics. [facility] Medical History Alcohol use Anemia Cancer Cardiology follow-up encounter CHF (congestive heart failure) CKD (chronic kidney disease) stage 4, GFR 15-29 ml/min CPAP (continuous positive airway pressure) dependence Diabetes Dietary restriction DM (diabetes mellitus) Gastric reflux History of CHF (congestive heart failure) History of echocardiogram History of edema History of renal disease History of steroid therapy History of stress test Leg cramps Mixed hyperlipidemia Non-smoker Nonrheumatic aortic (valve) stenosis BELLE on CPAP Problem with dialysis access Prostate CA Shortness of breath on exertion Spinal stenosis Type 2 diabetes mellitus Wears glasses Home Medications atorvastatin 10 mg tablet 10 mg PO QHS cholesterol 08/14/16 [History Last Taken 04/15/20] fenofibrate micronized 134 mg capsule 134 mg PO DAILY cholesterol 08/14/16 [History Last Taken 04/16/20] abiraterone 250 mg tablet 1,000 mg PO DAILY@1030 prostate cancer 07/20/19 [History Last Taken 04/15/20] docusate sodium 100 mg capsule 100 mg PO BID STOOL 04/16/20 [History Last Taken 04/16/20] glipizide 2.5 mg tablet, extended release 24 hr 2.5 mg PO DAILY dm 04/16/20 [History Last Taken 04/16/20] prednisone 5 mg tablet 5 mg PO DAILY steroid 12/12/20 [History Last Taken Unknown] leuprolide (3 month) 22.5 mg (3 month) intramuscular syringe kit 22.5 mg IM [id number] 09/03/21 [History Last Taken Unknown] vitamin B complex-vitamin C-folic acid 0.8 mg tablet (Nephro-Rizwana) 1 tab PO DAILY 09/03/21 [History Last Taken Unknown] vitamins-lipotropics 200 mg-100 mg tablet (Lipo-Flavonoid Plus) 1 tab PO .COMPLEX 09/03/21 [History Last Taken Unknown] doxazosin 4 mg tablet 4 mg PO QHS BPH 10/08/21 [History Last Taken Unknown] fluoxetine 10 mg capsule (Prozac) 20 mg PO DAILY 10/08/21 [History Last Taken Unknown] tamsulosin 0.4 mg capsule 0.4 mg PO DAILY 12/10/21 [History Last Taken Unknown] trazodone 100 mg tablet 100 mg PO QHS 12/10/21 [History Last Taken Unknown] Allergy/AdvReac Type Severity Reaction Status Date / Time Iodinated Contrast Media Allergy Severe SOB, Verified 12/10/21 10:15 anyaphylaxis Family History Father Heart disease Myocardial infarction Brother Cancer Prostate Surgical History History of arteriovenostomy for renal dialysis (~02/2021) History of arthroscopy of right knee History of bilateral cataract extraction History of esophagogastroduodenoscopy (EGD) History of incisional hernia repair History of prostatectomy History of transurethral resection of prostate Hx of colonoscopy Social History Smoking Status: Never smoker alcohol intake: never substance use type: does not use caffeine: Yes Type: coffee Number of servings: 1 ROS Constitutional Constitutional: Reports weakness; Denies chills or fever(s) Eyes Eyes: Denies loss of vision ENT HEENT: Denies nasal congestion Cardiovascular Cardiovascular: Reports chest pain and edema; Denies palpitations or syncope Respiratory/Chest Respiratory/Chest: Reports dyspnea on exertion and shortness of breath at rest; Denies productive cough Gastrointestinal Gastrointestinal: Reports anorexia, nausea and vomiting; Denies abdominal pain or diarrhea Genitourinary Genitourinary: Reports other Details: decreased urine volume Musculoskeletal Musculoskeletal: Reports other Details: weakness, edema Neurologic Neurologic: Reports weakness Endocrine Endocrinology: Reports fatigue Hematologic/Lymphatic Hematologic/Lymphatic: Reports anemia and easy bleeding Physical Exam Const alert and oriented x3 Constitutional Narrative: mild respiratory distress using accessory muscles, conversational dyspnea. Eyes EOMs intact bilaterally Resp Resp Narrative: faint crackles bases Effort and Inspection: respiratory distress Cardio Cardio Narrative: mild tachycardia GI non-tender and non-distended Auscultation: normoactive bowel sounds Palpation: soft Extremity General Extremity: AV fistula Skin General Skin Exam: ecchymosis Neuro moves all extremities Sensorium / Orientation: awake and alert Psych cooperative Medical Records Data Medical Nutrition Assessment Dietitian: Malnutrition Criteria Met Start: 12/10/21 16:54 Freq: Status: Active Protocol: Document 12/10/21 16:54 (Rec: 12/10/21 16:54 [id number]) Nutrition Malnutrition Evidence of Malnutrition Exists Yes Malnutrition (severe): Acute Illness/Injury Evidenced By Suboptimal Energy Intake ( Severe),Weight Loss (Severe) Clinical Problem Acute Disease or Injury Related Malnutrition Etiology severe, acute malnutrition related to inadequate oral intake w/ decreased appetite Signs/Symptoms as evidenced by unintentional 7.9#/3% wt loss x 1 week, estimated PO intake meeting < 50% of estimated energy needs > 5 days [employer]OR Status Active Problem Recommendation Dietitian Recommendations/Changes continue cardiac diet as tolerated; will add 120mL nepro carb steady ONS w/ medpass 4x/day d/t acute malnutrition Lab / Micro Data Result Diagrams: 12/11/21 00:25 12/11/21 00:25 Labs: Laboratory Results - last 24 hr 12/10/21 11:28: WBC Cancelled, Corrected WBC Cancelled, RBC Cancelled, Hgb Cancelled, Hct Cancelled, MCV Cancelled, MCH Cancelled, MCHC Cancelled, RDW Std Deviation Cancelled, RDW Coeff of Alva Cancelled, Plt Count Cancelled, MPV Cancelled, Immature Gran % (Auto) Cancelled, Neut % (Auto) Cancelled, Lymph % (Auto) Cancelled, [place] % (Auto) Cancelled, Eos % (Auto) Cancelled, Baso % (Auto) Cancelled, Absolute Neuts (auto) Cancelled, Absolute Lymphs (auto) Cancelled, Total Counted Cancelled, Neutrophils % (Manual) Cancelled, Band Neutrophils % Cancelled, Lymphocytes % (Manual) Cancelled, Monocytes % (Manual) Cancelled, Eosinophils % (Manual) Cancelled, Basophils % (Manual) Cancelled, Metamyelocytes % Cancelled, Myelocytes % Cancelled, Promyelocytes % Cancelled, Blast Cells % Cancelled, Plasma Cell % (Manual) Cancelled, Other Cells % Cancelled, Nucleated RBC % Cancelled, Nucleated RBCs/100 WBC Cancelled, Differential Comment Cancelled, Diff Path Review Cancelled, Hypersegmented Neuts Cancelled, Atypical Lymphocytes Cancelled, Reactive Lymphocytes Cancelled, Smudge Cells Cancelled, Toxic Granulation Cancelled, Toxic Vacuolation Cancelled, Dohle Bodies Cancelled, Ronit Rods Cancelled, Platelet Estimate Cancelled, Plt Morphology Comment Cancelled, RBC Morphology Cancelled, Polychromasia Cancelled, Hypochromasia Cancelled, Poikilocytosis Cancelled, Basophilic Stippling Cancelled, Anisocytosis Cancelled, Microcytosis Cancelled, Macrocytosis Cancelled, Spherocytes Cancelled, Sickle Cells Cancelled, Target Cells Cancelled, Tear Drop Cells Cancelled, Ovalocytes Cancelled, Stomatocytes Cancelled, Hummel-Fillmore Bodies Cancelled, [place] Cells Cancelled, Bite Cells Cancelled, Crenated Cell Cancelled, Acanthocytes (Spur) Cancelled, Rouleaux Cancelled, Schistocytes Cancelled 12/10/21 11:28: Sodium 139, Potassium 3.9, Chloride 99, Carbon Dioxide 32.0, Anion Gap 8, BUN 32 H, Creatinine 4.52 H, Estim Creat Clear Calc 13.01, Est GFR (MDRD) Af Amer 16 L, Est GFR (MDRD) Non-Af 13 L, BUN/Creatinine Ratio 7.1 L, Glucose 150 H, Calcium 9.6, Total Bilirubin 0.80, Direct Bilirubin 0.18, AST 50 H, ALT 20, Alkaline Phosphatase 36 L, Troponin I High Sens 5973 H*, Total Protein 7.3, Albumin 3.2, Globulin 4.1 12/10/21 11:28: B-Natriuretic Peptide 1660.1 H 12/10/21 12:05: D-Dimer Quant (PE/DVT) 0.95 H* 12/10/21 12:05: PT 15.4 H, INR 1.3, APTT 31.1 12/10/21 13:32: WBC 13.2 H, RBC 3.20 L, Hgb 10.0 L, Hct 30.3 L, MCV 94.7 H, MCH 31.3, MCHC 33.0, RDW Std Deviation 50.7 H, RDW Coeff of Alva 14.5, Plt Count 252, MPV 10.8, Immature Gran % (Auto) 0.500, Neut % (Auto) 85.1 H, Lymph % (Auto) 5.5 L, [place] % (Auto) 8.4, Eos % (Auto) 0.3, Baso % (Auto) 0.2, Absolute Neuts (auto) 11.2 H, Absolute Lymphs (auto) 0.73 L, Nucleated RBC % 0 12/10/21 13:32: Lactic Acid 2.6 H* 12/10/21 13:32: Troponin I High Sens 5824 H* 12/10/21 17:45: POC Glucose 256 H 12/10/21 18:38: Troponin I High Sens 4928 H* 12/10/21 18:38: APTT 62.9 H 12/10/21 18:38: Lactic Acid 2.7 H* 12/10/21 21:03: POC Glucose 200 H 12/11/21 00:20: APTT 57.2 H 12/11/21 00:25: WBC 13.2 H, RBC 3.11 L, Hgb 9.5 L, Hct 29.4 L, MCV 94.5 H, MCH 30.5, MCHC 32.3, RDW Std Deviation 50.3 H, RDW Coeff of [place] 14.6, Plt Count 236, MPV 11.2, Immature Gran % (Auto) 1.000 H, Neut % (Auto) 84.1 H, Lymph % (Auto) 6.5 L, [place] % (Auto) 8.0, Eos % (Auto) 0.2, Baso % (Auto) 0.2, Absolute Neuts (auto) 11.1 H, Absolute Lymphs (auto) 0.86, Nucleated RBC % 0 12/11/21 00:25: Sodium 138, Potassium 3.6, Chloride 99, Carbon Dioxide 27.0, Anion Gap 12, BUN 40 H, Creatinine 5.61 H, Estim Creat Clear Calc 10.48, Est GFR (MDRD) Af Amer 13 L, Est GFR (MDRD) Non-Af 10 L, BUN/Creatinine Ratio 7.1 L, Glucose 234 H, Calcium 9.5, Total Bilirubin 0.90, AST 83 H, ALT 66 H, Alkaline Phosphatase 39 L, Total Protein 7.2, Albumin 3.0 L, Globulin 4.2, Albumin/Globulin Ratio 0.7 L 12/11/21 05:45: APTT 86.0 H Micro: Microbiology 12/10/21 11:35 Nasal Secretion SARS-CoV-2 Antigen (Rapid) - Final ABG Data ABG results: ABG 12/10/21 17:18 Specimen Type ART Sample Site L Radial pH 7.55 H Bicarbonate Actual 27.5 H Total CO2 29 Base Excess 5 H O2 Saturation 96 O2 % 21 ABG pCO2 31.8 L ABG pO2 72 L Michael Test Positive Radiology Impression Abdomen/Pelvis CT 12/10/21 11:27 IMPRESSION: Moderate right lower lobe and milder left lower lobe infiltrate. Moderate right and small left pleural effusion. Severe cortical thinning of both kidneys. Hyperdense lesion on by 10 mm anterior mid pole right kidney which could represent hemorrhagic cyst or solid mass. Prostate not visualized likely due to prostatectomy. Diffuse osseous metastases detailed above. Electronically Signed: Kvng Arambula MD, PIO at 12:43 EDT , Chest X-Ray 12/10/21 12:18 IMPRESSION: Bibasilar infiltrates and pleural effusions and left perihilar infiltrate detailed above. Electronically Signed: Kvng Arambula MD, PIO at 12:46 EDT , Echocardiogram 12/10/21 14:37 Interpretation Summary The study was technically difficult. Contrast injection was performed. Severely dilated left ventricle. Severe segmental systolic dysfunction (see wall motion). The estimated ejection fraction is 20 %. Moderate (2+) mitral valve insufficiency. Trivial tricuspid valve insufficiency. Mild diffuse aortic valve calcification. Mild (1+) pulmonic valve insufficiency. Epicardial fat. Unable to estimate RV systolic pressure due to insufficient tricuspid regurgitant envelope. Unable to assess diastolic dysfunction. Ordering Physician: Alla Tubbs Referring Physician: Darshan Solomon Performed By: Abena Evans, [place], RVT
[2021-12-11] MEDS: Acetaminophen 325 MG Tablet 650 MG PO (08:58)
[2021-12-11 09:05] LABS: Bedside Glucose 226 mg/dL (74-106)
--- NOTE | 2021-12-11 09:34 | CASEMGMT ---
RACHEL WEISS NOTE: Pt has traditional MCR. If transfer is recommended, pt can go to any accepting tertiary facility of choice. Xenia SEXTONN RN CM
--- NOTE | 2021-12-11 09:43 | CASEMGMT ---
RN CM NOTE: Participated in ICU rounds this AM. Per Dr Smith, they will attempt HD today and if pt does not tolerate it well, he may need transferred to tertiary facility. Initial RN CM assess deferred at this time. Xenia BSN RN CM
--- NOTE | 2021-12-11 11:33 | PCM.DC.SUM ---
Providers Date of Admission: 12/10/21 Date of Discharge: 12/11/21 Primary Care Physician: Dr. Darshan Solomon MD Consultations 12/10/21 16:26 Consult: Cardiology Routine Consulting Provider: Cassius Gonzalez Reason for Consult: NSTEMI EMERGENT Consult: No Notified: Yes Date Notified: 12/10/21 Time Notified: 16:55 Method of Notification: Text Consult: Nephrology Routine Consulting Provider: Komal Abarca Reason for Consult: ESRD on HD EMERGENT Consult: No Notified: Yes Date Notified: 12/10/21 Time Notified: 17:11 Method of Notification: Text 12/11/21 00:06 Consult: Director Of Casework / Pulmonary Medicine Routine Consulting Provider: Pulmonary Medicine melanie Atmore Reason for Consult: cardiogenic shock EMERGENT Consult: No Notified: Yes Date Notified: 12/10/21 Time Notified: 23:18 Method of Notification: Text Reason For Visit: ELEVATED TROPONINS Diagnosis Discharge Diagnosis (1) Non-ST elevated myocardial infarction (non-STEMI): Status: Acute Code(s): I21.4 - Non-ST elevation (NSTEMI) myocardial infarction (2) CHF (congestive heart failure): Status: Acute Code(s): I50.9 - Heart failure, unspecified Plan 1. Shock, unclear etiology, likely cardiogenic versus septic 2. Acute cardiomyopathy/acute systolic CHF, newly diagnosed 3. Acute non-STEMI likely type I, 4. Probable acute PE 5. Acute bilateral pneumonia with bilateral pleural effusion 6. ESRD on HD, M-W-F, neohrology consult 7. Hypertension 8. Type 2 DM 9. Prostate CA 10. Severe protein calorie malnutrition Medications at Discharge Home Medications atorvastatin 10 mg tablet 10 mg PO QHS cholesterol 08/14/16 fenofibrate micronized 134 mg capsule 134 mg PO DAILY cholesterol 08/14/16 abiraterone 250 mg tablet 1,000 mg PO DAILY@1030 prostate cancer 07/20/19 docusate sodium 100 mg capsule 100 mg PO BID STOOL 04/16/20 glipizide 2.5 mg tablet, extended release 24 hr 2.5 mg PO DAILY dm 04/16/20 prednisone 5 mg tablet 5 mg PO DAILY steroid 12/12/20 leuprolide (3 month) 22.5 mg (3 month) intramuscular syringe kit 22.5 mg IM [id number] 09/03/21 vitamin B complex-vitamin C-folic acid 0.8 mg tablet (Nephro-Rizwana) 1 tab PO DAILY 09/03/21 vitamins-lipotropics 200 mg-100 mg tablet (Lipo-Flavonoid Plus) 1 tab PO .COMPLEX 09/03/21 doxazosin 4 mg tablet 4 mg PO QHS BPH 10/08/21 fluoxetine 10 mg capsule (Prozac) 20 mg PO DAILY 10/08/21 tamsulosin 0.4 mg capsule 0.4 mg PO DAILY 12/10/21 trazodone 100 mg tablet 100 mg PO QHS 12/10/21 Hospital Course Operations None Procedures 2-D Echocardiogram Summary of Care Provided Minutes Spent on Discharge: 50 Hospital Course: 80-year-old male with past medical history of ESRD on hemodialysis, Thursday?Thursday?Thursday who comes in with shortness of breath ongoing for about 10 days. Patient recently has had extra fluid removal during dialysis. He admitted to orthopnea and PND. He denied chest pain specifically. Denies diaphoresis or palpitations. Patient was seen in the emergency room, he did not require oxygen at that time. His admitting EKG showed no acute ST-T changes. His D-dimer was elevated at 0.95. He was unable to have CTA of the chest to rule out acute PE because he had severe allergy?anaphylaxis to contrast. Patient's admitting troponin was 5973. Chest x-ray showed bilateral infiltrates with bilateral pleural effusions He was admitted to the progressive care unit as acute non-STEMI, continued on heparin drip. Cardiology and nephrology were consulted. 2D echo done showed an EF of 20% which was a drop from 60% about a year ago. He was also started on empiric IV antibiotics?IV vancomycin and Zosyn. Overnight, patient became hypotensive, he was transferred to the ICU, and maintained on Levophed through the peripheral line. Upon further discussion with person investigator, cardiology and nephrology, it was recommended that patient be transferred to higher level of care for further work-up and CRRT. Patient did have dialysis this morning. He however dropped his blood pressures to the 70s. Less than 50 mils of fluid was removed. He was kept on 2 L of oxygen overnight also. Physical Exam Narrative See progress note of the day Medical Records Data Medical Nutrition Assessment Dietitian: Malnutrition Criteria Met Start: 12/10/21 16:54 Freq: Status: Active Protocol: Document 12/11/21 09:58 AG (Rec: 12/11/21 09:59 [id number]) Nutrition Malnutrition Evidence of Malnutrition Exists Yes Malnutrition (severe): Acute Illness/Injury Evidenced By Suboptimal Energy Intake ( Severe),Weight Loss (Severe) Clinical Problem Acute Disease or Injury Related Malnutrition Etiology severe, acute malnutrition related to inadequate oral intake w/ decreased appetite Signs/Symptoms as evidenced by unintentional 7.9#/3% wt loss x 1 week, estimated PO intake meeting < 50% of estimated energy needs > 5 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 Will monitor PO intake, labs, and adjust diet as indicated. Weight / BMI Weight Weight: 109.8 kg Body Mass Index (BMI) 34.7 ABG / Lab / Microbiology Data Result Diagrams: 12/11/21 00:25 12/11/21 00:25 Laboratory: Laboratory Results - last 24 hr 12/10/21 11:28: WBC Cancelled, Corrected WBC Cancelled, RBC Cancelled, Hgb Cancelled, Hct Cancelled, MCV Cancelled, MCH Cancelled, MCHC Cancelled, RDW Std Deviation Cancelled, RDW Coeff of Alva Cancelled, Plt Count Cancelled, MPV Cancelled, Immature Gran % (Auto) Cancelled, Neut % (Auto) Cancelled, Lymph % (Auto) Cancelled, [place] % (Auto) Cancelled, Eos % (Auto) Cancelled, Baso % (Auto) Cancelled, Absolute Neuts (auto) Cancelled, Absolute Lymphs (auto) Cancelled, Total Counted Cancelled, Neutrophils % (Manual) Cancelled, Band Neutrophils % Cancelled, Lymphocytes % (Manual) Cancelled, Monocytes % (Manual) Cancelled, Eosinophils % (Manual) Cancelled, Basophils % (Manual) Cancelled, Metamyelocytes % Cancelled, Myelocytes % Cancelled, Promyelocytes % Cancelled, Blast Cells % Cancelled, Plasma Cell % (Manual) Cancelled, Other Cells % Cancelled, Nucleated RBC % Cancelled, Nucleated RBCs/100 WBC Cancelled, Differential Comment Cancelled, Diff Path Review Cancelled, Hypersegmented Neuts Cancelled, Atypical Lymphocytes Cancelled, Reactive Lymphocytes Cancelled, Smudge Cells Cancelled, Toxic Granulation Cancelled, Toxic Vacuolation Cancelled, Dohle Bodies Cancelled, Ronit Rods Cancelled, Platelet Estimate Cancelled, Plt Morphology Comment Cancelled, RBC Morphology Cancelled, Polychromasia Cancelled, Hypochromasia Cancelled, Poikilocytosis Cancelled, Basophilic Stippling Cancelled, Anisocytosis Cancelled, Microcytosis Cancelled, Macrocytosis Cancelled, Spherocytes Cancelled, Sickle Cells Cancelled, Target Cells Cancelled, Tear Drop Cells Cancelled, Ovalocytes Cancelled, Stomatocytes Cancelled, Hummel-Mcgovern Bodies Cancelled, Carlin Cells Cancelled, Bite Cells Cancelled, Crenated Cell Cancelled, Acanthocytes (Spur) Cancelled, Rouleaux Cancelled, Schistocytes Cancelled 12/10/21 11:28: Sodium 139, Potassium 3.9, Chloride 99, Carbon Dioxide 32.0, Anion Gap 8, BUN 32 H, Creatinine 4.52 H, Estim Creat Clear Calc 13.01, Est GFR (MDRD) Af Amer 16 L, Est GFR (MDRD) Non-Af 13 L, BUN/Creatinine Ratio 7.1 L, Glucose 150 H, Calcium 9.6, Total Bilirubin 0.80, Direct Bilirubin 0.18, AST 50 H, ALT 20, Alkaline Phosphatase 36 L, Troponin I High Sens 5973 H*, Total Protein 7.3, Albumin 3.2, Globulin 4.1 12/10/21 11:28: B-Natriuretic Peptide 1660.1 H 12/10/21 12:05: D-Dimer Quant (PE/DVT) 0.95 H* 12/10/21 12:05: PT 15.4 H, INR 1.3, APTT 31.1 12/10/21 13:32: WBC 13.2 H, RBC 3.20 L, Hgb 10.0 L, Hct 30.3 L, MCV 94.7 H, MCH 31.3, MCHC 33.0, RDW Std Deviation 50.7 H, RDW Coeff of Alva 14.5, Plt Count 252, MPV 10.8, Immature Gran % (Auto) 0.500, Neut % (Auto) 85.1 H, Lymph % (Auto) 5.5 L, Penning[place] % (Auto) 8.4, Eos % (Auto) 0.3, Baso % (Auto) 0.2, Absolute Neuts (auto) 11.2 H, Absolute Lymphs (auto) 0.73 L, Nucleated RBC % 0 12/10/21 13:32: Lactic Acid 2.6 H* 12/10/21 13:32: Troponin I High Sens 5824 H* 12/10/21 17:45: POC Glucose 256 H 12/10/21 18:38: Troponin I High Sens 4928 H* 12/10/21 18:38: APTT 62.9 H 12/10/21 18:38: Lactic Acid 2.7 H* 12/10/21 21:03: POC Glucose 200 H 12/11/21 00:20: APTT 57.2 H 12/11/21 00:25: WBC 13.2 H, RBC 3.11 L, Hgb 9.5 L, Hct 29.4 L, MCV 94.5 H, MCH 30.5, MCHC 32.3, RDW Std Deviation 50.3 H, RDW Coeff of Alva 14.6, Plt Count 236, MPV 11.2, Immature Gran % (Auto) 1.000 H, Neut % (Auto) 84.1 H, Lymph % (Auto) 6.5 L, Pennington % (Auto) 8.0, Eos % (Auto) 0.2, Baso % (Auto) 0.2, Absolute Neuts (auto) 11.1 H, Absolute Lymphs (auto) 0.86, Nucleated RBC % 0 12/11/21 00:25: Sodium 138, Potassium 3.6, Chloride 99, Carbon Dioxide 27.0, Anion Gap 12, BUN 40 H, Creatinine 5.61 H, Estim Creat Clear Calc 10.48, Est GFR (MDRD) Af Amer 13 L, Est GFR (MDRD) Non-Af 10 L, BUN/Creatinine Ratio 7.1 L, Glucose 234 H, Calcium 9.5, Total Bilirubin 0.90, AST 83 H, ALT 66 H, Alkaline Phosphatase 39 L, Total Protein 7.2, Albumin 3.0 L, Globulin 4.2, Albumin/Globulin Ratio 0.7 L 12/11/21 05:45: APTT 86.0 H 12/11/21 08:43: POC Glucose 226 H Microbiology: Microbiology 12/10/21 11:35 Nasal Secretion SARS-CoV-2 Antigen (Rapid) - Final ABG: ABG 12/10/21 17:18 Specimen Type ART Sample Site L Radial pH 7.55 H Bicarbonate Actual 27.5 H Total CO2 29 Base Excess 5 H O2 Saturation 96 O2 % 21 ABG pCO2 31.8 L ABG pO2 72 L Michael Test Positive Radiography Diagnostic Testing: Radiology Impression Abdomen/Pelvis CT 12/10/21 11:27 IMPRESSION: Moderate right lower lobe and milder left lower lobe infiltrate. Moderate right and small left pleural effusion. Severe cortical thinning of both kidneys. Hyperdense lesion on by 10 mm anterior mid pole right kidney which could represent hemorrhagic cyst or solid mass. Prostate not visualized likely due to prostatectomy. Diffuse osseous metastases detailed above. Electronically Signed: Kvng Arambula MD, JD at 12:43 EDT , Chest X-Ray 12/10/21 12:18 IMPRESSION: Bibasilar infiltrates and pleural effusions and left perihilar infiltrate detailed above. Electronically Signed: Kvng Arambula MD, JD at 12:46 EDT , Echocardiogram 12/10/21 14:37 Interpretation Summary The study was technically difficult. Contrast injection was performed. Severely dilated left ventricle. Severe segmental systolic dysfunction (see wall motion). The estimated ejection fraction is 20 %. Moderate (2+) mitral valve insufficiency. Trivial tricuspid valve insufficiency. Mild diffuse aortic valve calcification. Mild (1+) pulmonic valve insufficiency. Epicardial fat. Unable to estimate RV systolic pressure due to insufficient tricuspid regurgitant envelope. Unable to assess diastolic dysfunction. Ordering Physician: Alla Tubbs Referring Physician: Darshan Solomon Performed By: Abena Evans, [place], RVT D/C Instructions Discharge Diet: 2000 Calorie Control Diet and Renal Diet Discharge Activity: Return to Normal Activity Meaningful Use Info Meaningful Use Diagnoses (Choose all that apply): AMI AMI/Post PCI/Angioplasty Aspirin given w/in 24hrs of arrival?: Yes ASA at discharge?: Yes Statins at discharge?: Yes Dhaval/ARB at discharge?: No Reason Dhaval/ARB not ordered:: Worsening renal disease and Hypotension Beta Karie at discharge?: No Reason Beta Karie not ordered:: Hypotension Done w/ Acute VA measure.: Yes Documented LVEF (%): 20 Discharge Plan Admission Admit Date/Time: 12/10/21 12:50 Attending Provider: Alla Tubbs Primary Care Provider: Darshan Solomon Consulting Providers: Cassius Gonzalez ; Henrique Smith ; Bogdan Apodaca ; Tevin Lee ; Rao Villegas ; Tracy Scott [employer] OPERATOR ; Komal Abarca Discharge Orders/Prescriptions Prescriptions: No Action doxazosin 4 mg tablet 4 mg PO QHS prednisone 5 mg tablet 5 mg PO DAILY Nephro-Rizwana 0.8 mg tablet 1 tab PO DAILY leuprolide (3 month) 22.5 mg syringe kit 22.5 mg IM [id number] Lipo-Flavonoid Plus 200-100 mg tablet 1 tab PO .COMPLEX Rx Instructions: 1 TAB orally 3 times per week.; fluoxetine [Prozac] 10 mg capsule 20 mg PO DAILY atorvastatin 10 MG tablet 10 mg PO QHS fenofibrate micronized 134 MG capsule 134 mg PO DAILY abiraterone 250 MG tablet 1,000 mg PO DAILY@1030 docusate sodium 100 MG capsule 100 mg PO BID glipizide 2.5 MG tablet extended release 24hr 2.5 mg PO DAILY tamsulosin 0.4 mg capsule 0.4 mg PO DAILY Label Comments: TAKE 1 CAPSULE BY MOUTH EVERY DAY trazodone 100 mg tablet 100 mg PO QHS Referrals / Follow Up: Darshan Solomon MD [Primary Care Provider] - Disposition Discharge Orders: Discharge Patient (Routine); Ordered 12/11/21 Ordered By: Dr. Alla Tubbs Charges/Coding Visit Charges Inpatient E&M: 26614 Disch Hosp
--- NOTE | 2021-12-11 12:59 | DIALYSIS ---
Hemodialysis x4 hours ended after 1.5hrs at 1130, SBP 70s intermittently, being transported out within the hour, ran on a 3K bath, tolerated fair, UF 300mL, CritLine profile B/C, Levo at 5mcg, on heparin drip, SBP 80s pre HD, SBP 70s-80s throughout tx, asymptomatic for hypotension, accessed via RFA AVF using 16G needles, difficult stick, AVF feels small, venous stick site more deep, accessed successfully during 1st attempt, bruising noted above access due to infiltration (1 wk ago per pt), needles pulled post tx and stasis achieved without issue
== END 2021-12-11 13:06 | disposition short-term general hospital (02) | DRG 280 ==
LOC: ED 12:57 → PCU 13:29 → ICU 12-11 02:49
PROVIDERS: Admitting Provider Internal Medicine; Emergency Provider Emergency Medicine; PCP Internal Medicine; Visit Provider Internal Medicine
DX: I21.4 Non-ST elevation (NSTEMI) myocardial infarction (principal); E43 Unspecified severe protein-calorie malnutrition; I50.23 Acute on chronic systolic (congestive) heart failure; J18.9 Pneumonia, unspecified organism; N18.6 End stage renal disease; I42.9 Cardiomyopathy, unspecified; C79.51 Secondary malignant neoplasm of bone; J90 Pleural effusion, not elsewhere classified; I13.2 Hypertensive heart and chronic kidney disease with heart failure and with stage 5 chronic kidney disease, or end stage renal disease; C61 Malignant neoplasm of prostate; I70.0 Atherosclerosis of aorta; E11.22 Type 2 diabetes mellitus with diabetic chronic kidney disease; Z99.2 Dependence on renal dialysis; D64.9 Anemia, unspecified; E78.2 Mixed hyperlipidemia; I44.7 Left bundle-branch block, unspecified; I25.10 Atherosclerotic heart disease of native coronary artery without angina pectoris; Z79.84 Long term (current) use of oral hypoglycemic drugs; Z66 Do not resuscitate; Z20.822 Contact with and (suspected) exposure to COVID-19; Z79.82 Long term (current) use of aspirin
CPT/HCPCS: 36600; 71045; 74176; 80048; 80053; 80076; 82803; 82962; 83605; 83880; 84484; 85025; 85379; 85610; 85730; 87040; 87811; 90937; 93005; 93306; 94640; 94760; 97802; 99251; 99284; J7030; J7040; J7050; Q9957; A4216; C8929; G0257; G0463; J1940